=== PATIENT | female | born 1960 | race Caucasian/White ===

== ENCOUNTER → 2019-03-31 10:07 | Outpatient (CLI) | payer OTHER, SELFPAY ==
--- NOTE | ~2019-03-31 | CT_ITS ---
EXAMINATION: CT lung screening EXAM DATE: 03/31/2019 10:23 INDICATION: Personal history of nicotine dependence. TECHNIQUE: Spiral low dose CT of the chest without contrast. Axial, coronal and sagittal images were reviewed. The dose-length product (DLP) for this examination was 47.92 mGy-cm. The exposure was ta ilored according to patient size (auto mA exposure control), and iterative reconstruction (ASIR) was used as additional dose reduction technique. There is no prior study for comparison. FINDINGS: Pacemaker/AICD device. Tracheobronchial tree is patent. There is no mediastinal, hilar or axillary lymphadenopathy. There are no pleural or pericardial effusions. There is no pneumotho rax. Heart normal in size. There is mild coronary arterial calcification, arterial sclerosis. Th ere is 2 mm right superior calyceal stone. Upper abdomen is unremarkable. Old left rib fractures. Midthoracic mild to moderate chronic appearing compression fracture. Moderate emphysema. IMPRESSION: Lung-RADS category 1, negative (<1%chance of malignancy); recommend continued LDCT screen ing in 1 year. Reviewed, dictated and finalized at location B. PACKER OPERATOR IMPRESSION: Lung-RADS category 1, negative (<1%chance of malignancy); recommend continued LDCT screening in 1 year.
== END ==
PROVIDERS: PCP Internal Medicine; Visit Provider Internal Medicine
DX: Z12.2 Encounter for screening for malignant neoplasm of respiratory organs (principal); Z87.891 Personal history of nicotine dependence; Z95.0 Presence of cardiac pacemaker
CPT/HCPCS: G0297

== ENCOUNTER → 2019-12-28 11:20 | Outpatient (CLI) | payer OTHER, SELFPAY ==
--- NOTE | ~2019-12-28 | MM_ITS ---
EXAMINATION: MM screening [facility] BI w [facility] HISTORY: Screening mammogram TECHNIQUE: Craniocaudal and mediolateral oblique 3-D tomosynthesis images were obtained and synthetic 2-D images were generated. CAD analysis was submitted and interpreted. COMPARISON: 09/30/2018, 06/13/2017, 05/28/2016, 11/06/2015, 10/31/2015 BREAST PARENCHYMAL COMPOSITION: The breasts are extremely dense, which lowers the sensitivity of mamm ography. FINDINGS: There is no evidence of suspicious mass, calcification, or architectural distortion to sugg est malignancy in either breast. There has been no suspicious interval change. IMPRESSION: 1. No mammographic evidence of malignancy. 2. Recommend routine screening mammography in one year. BI-RADS Category 1: Negative Reviewed, dictated and finalized at location A. CKER
--- NOTE | ~2019-12-28 | DEXA_ITS ---
Bone Density Report Name: Melodie Barrera Age: 59 Sex: Female Ethnicity: White Date of : 1960 Indication: osteopenia; monitoring treatment; height loss; hysterectomy; postmenopausal Referring Provider: CARMEN CUETO Study: Bone densitometry was performed. Exam Date: December 28, 2019 Accession number: [id number] Bone Density: Region BMD T-score Z-score Classification AP Spine (L1-L4) 0.878 -1.5 -0.2 Osteopenia Femoral Neck (Left) 0.719 -1.2 0.0 Osteopenia Total Hip (Left) 0.756 -1.5 -0.7 Osteopenia Femoral Neck (Right) 0.648 -1.8 -0.6 Osteopenia Total Hip (Right) 0.702 -2.0 -1.1 Osteopenia Total Hip Mean 0.729 -1.8 -0.9 Osteopenia World Health Organization criteria for BMD impression classify patients as: Normal (T-score at or above -1.0), Osteopenia (T-score between -1.0 and -2.5), or Osteoporosis (T-score at or below -2.5). 10-year Fracture Risk: FRAX not reported because: Treated for osteoporosis Previous Exams: Region Exam Age BMD T-score BMD Change BMD Change Date g/cm2 vs Baseline vs Previous AP Spine(L1-L4) 12/28/2019 59 0.878 -1.5 0.034* -0.005 11/03/2017 57 0.882 -1.5 0.038* 0.038* 10/31/2015 55 0.844 -1.8 Total Hip(Left) 12/28/2019 59 0.756 -1.5 0.023 0.015 11/03/2017 57 0.741 -1.7 0.008 0.008 10/31/2015 55 0.733 -1.7 Total Hip(Right) 12/28/2019 59 0.702 -2.0 -0.003 -0.010 11/03/2017 57 0.712 -1.9 0.007 0.007 10/31/2015 55 0.705 -1.9 *Denotes significance at 95% confidence level, LSC for AP Spine = 0.022 g/cm2, LSC for Total Hip = 0.027 g/cm2 Clinical Information Provided by Patient: Smokes Has 3 or more alcoholic drinks per day Is being treated for osteoporosis Has used the following medications: Fosamax (i.e. alendronate), Vitamin D Has the following medical conditions: Hysterectomy Patient maximum height was 68 Menopause Age: 37 No regular weight bearing exercise Drinks caffeinated beverages Onset of menses at age 13 Number of children 1 Impression: The patient has low bone mass, based on the Right Total Hip T-score. The patient has risk factors, including: smoking, excessive alcohol use. No significant bone loss was observed. Discussion: PATIENT UNDER TREATMENT WITH NO SIGNIFICANT BMD LOSS SINCE LAST EXAM. In an untreated patient, BMD typically declines with ag
== END ==
PROVIDERS: Visit Provider Obstetrics & Gynecology Gynecology
DX: Z12.31 Encounter for screening mammogram for malignant neoplasm of breast (principal); Z78.0 Asymptomatic menopausal state; M85.852 Other specified disorders of bone density and structure, left thigh; M85.851 Other specified disorders of bone density and structure, right thigh
CPT/HCPCS: 77063; 77067; 77080

== ENCOUNTER → 2020-04-26 08:52 | Outpatient (CLI) | payer OTHER, SELFPAY ==
--- NOTE | ~2020-04-26 | CT_ITS ---
EXAMINATION: CT lung screening DATE: 04/26/2020 09:03 INDICATION: Personal history of tobacco dependence, current smoker with 40 pack year history TECHNIQUE: Computed tomography (CT) of the chest was performed without intravenous contrast. The dose -length product (DLP) was 50.07 mGy-cm. Automated exposure control and iterative reconstruction techn [employer] were employed. COMPARISON: 03/31/2019 FINDINGS: No suspicious pulmonary nodules are identified. There is moderate emphysema. The lungs are free of acute opacities. There is no pleural effusion or pneumothorax. The heart size is normal. A du al-lead pacemaker of the left chest wall ends with its leads in the right atrium and right ventricle. No pathologically enlarged thoracic lymph nodes are identified. Calcified coronary artery atheroscle rosis is noted. There is a 5 mm nonobstructing stone of the left kidney. There is an unchanged chroni c compression fracture T7. IMPRESSION: 1. Lung-RADS category 1: Negative. Continue annual screening with noncontrast low-dose chest CT in 12 months. Reviewed, dictated and finalized at location A. N WAFER MACHINE OPERATOR IMPRESSION: 1. Lung-RADS category 1: Negative. Continue annual screening with noncontrast l ow-dose chest CT in 12 months.
== END ==
PROVIDERS: PCP Internal Medicine; Visit Provider Internal Medicine
DX: Z12.2 Encounter for screening for malignant neoplasm of respiratory organs (principal); Z87.891 Personal history of nicotine dependence
CPT/HCPCS: 71271

== ENCOUNTER 2020-08-07 10:37 | Outpatient (CLI) | payer OTHER, SELFPAY ==
--- NOTE | ~2020-08-07 | XR_ITS ---
EXAMINATION: XR UGI w barium swallow DATE: 08/07/2020 11:18 INDICATION: Early satiety, nausea TECHNIQUE: The patient drank thick barium, gas-producing crystals, and thin barium. Conventional supi ne abdomen radiographs and fluoroscopy of the esophagus, stomach, and proximal small bowel were perfo rmed. Fluoroscopy exposure time was 1.6 minutes. The DAP for this procedure was 5.92 Gycm2. COMPARISON: None. FINDINGS: There is no mass or stricture of the esophagus. Esophageal motility is normal. There is no hiatal hernia. There was no gastroesophageal reflux with provocative maneuvers. The stomach and proxi mal small bowel show normal folding patterns. IMPRESSION: 1. No radiographic correlate for the patient's symptoms. Reviewed, dictated and finalized at location A.
== END 2020-08-07 10:38 | disposition home or self-care (01) ==
LOC: ANHIMG 10:41
PROVIDERS: PCP Internal Medicine; Visit Provider Internal Medicine
DX: R68.81 Early satiety (principal)
CPT/HCPCS: 74240

== ENCOUNTER 2020-12-12 07:30 | Outpatient (CLI) | payer OTHER, SELFPAY ==
--- NOTE | ~2020-12-12 | US_ITS ---
EXAMINATION: US abdomen complete EXAM DATE: 12/12/2020 08:05 INDICATION: R79.89 - Other specified abnormal findings of blood chemi... Abnormal labs. TECHNIQUE: Multiple grayscale and Doppler images of the complete abdomen were obtained (by a technolo gist who performed the scan) and subsequently reviewed. There is no prior study for comparison. FINDINGS: The abdominal aorta is normal in caliber. Visualized portion IVC is patent. The pancreatic head a nd body are normal in appearance. The pancreatic tail is not visualized. The liver has normal echogenicity and contour. There are several anechoic liver lesions consistent w ith cysts measuring up to 1.5 cm. There is no evidence of intrahepatic biliary duct dilation. Anamaria l venous flow was seen in the hepatopedal, normal direction and has normal Doppler waveform. Common bile duct measures 5 mm, which is normal. The gallbladder wall is normal in thickness, with ex pected amount of distention. No sonographic evidence of pericholecystic fluid. There is no cholelit hiases. Technologist performing exam reports patient did not demonstrate sonographic Macias's sign. Please note that this sign is less reliable in patients who have received pain medication. Right kidney: There is normal contour and echogenicity. It measures 11.3 x 4.9 x 5.0 centimeters. There are no focal renal lesions identified. There is no hydronephrosis. Left kidney: There is normal contour and echogenicity. It measures 10.7 x 5.4 x 4.8 centimeters. T here are no focal renal lesions identified. There is no hydronephrosis. The spleen measures 8.2 centimeters and is morphologically normal. IMPRESSION: 1. Unremarkable complete abdominal ultrasound exam. Reviewed, dictated and finalized at location B.
== END 2020-12-12 07:31 | disposition home or self-care (01) ==
LOC: ANHIMG 07:30
PROVIDERS: PCP Internal Medicine; Visit Provider Internal Medicine
DX: R79.89 Other specified abnormal findings of blood chemistry (principal)
CPT/HCPCS: 76700

== ENCOUNTER → 2020-12-25 15:43 | Outpatient (CLI) | payer OTHER, SELFPAY ==
--- NOTE | ~2020-12-25 | XR_ITS ---
EXAMINATION: XR chest 2V 12/25/2020 15:51 INDICATION: Acute upper respiratory infection PROCEDURE: 2 view chest COMPARISON: 01/17/2016 FINDINGS: The lungs are clear. The cardiomediastinal silhouette is within normal limits. There are no pleural effusions. There is no pneumothorax suspected. There is a chronic wedge compression defo rmity of a midthoracic vertebra. Pacemaker leads are stable. IMPRESSION: 1: NO ACUTE CARDIOPULMONARY DISEASE. Reviewed, dictated and finalized at location A. F ACCOUNTING OFFICER
== END ==
PROVIDERS: PCP Internal Medicine; Visit Provider Internal Medicine
DX: J06.9 Acute upper respiratory infection, unspecified (principal)
CPT/HCPCS: 71046

== ENCOUNTER → 2020-12-30 00:37 | Outpatient (CLI) | payer OTHER, SELFPAY ==
[2020-12-30 17:30] LABS: SARS-CoV-2 RNA PCR Negative
== END ==
PROVIDERS: PCP Internal Medicine; Visit Provider Internal Medicine
DX: Z20.822 Contact with and (suspected) exposure to COVID-19 (principal)
CPT/HCPCS: C9803; U0003; U0005

== ENCOUNTER 2021-03-16 15:48 | Outpatient (CLI) | payer OTHER, SELFPAY ==
--- NOTE | ~2021-03-16 | MM_ITS ---
EXAMINATION: MM screening [facility] HISTORY: Screening mammogram TECHNIQUE: Craniocaudal and mediolateral oblique 3-D tomosynthesis images were obtained and synthetic 2-D images were generated. CAD analysis was submitted and interpreted. COMPARISON: Screening 12/28/2019, screening 09/30/2018, diagnostic 06/13/2017 bilateral mammogram [facility] BREAST PARENCHYMAL COMPOSITION: The breasts are extremely dense, which lowers the sensitivity of mamm ography. FINDINGS: Bilateral scattered benign calcifications are again noted. There is no evidence of suspicio us mass, calcification, or architectural distortion to suggest malignancy in either breast. There has been no suspicious interval change. IMPRESSION: 1. No mammographic evidence of malignancy. 2. Recommend routine screening mammography in one year. BI-RADS Category 2: Benign finding(s). Reviewed, dictated and finalized at location A. 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
== END 2021-03-16 15:49 ==
LOC: MICIMG 15:48
PROVIDERS: Visit Provider Obstetrics & Gynecology Gynecology
DX: Z12.31 Encounter for screening mammogram for malignant neoplasm of breast (principal)
CPT/HCPCS: 77063; 77067

== ENCOUNTER → 2022-01-02 12:02 | Outpatient (CLI) | payer OTHER, SELFPAY ==
--- NOTE | ~2022-01-02 | DEXA_ITS ---
Bone Density Report Name: MAVIS OCAMPO Age: 61 Sex: Female Ethnicity: White Date of : 1960 Indication: osteopenia; height loss; asthma or emphysema; hysterectomy; postmenopausal Referring Provider: CARMEN CUETO Study: Bone densitometry was performed. Exam Date: January 02, 2022 Accession number: [id number] Bone Density: Region BMD T-score Z-score Classification AP Spine (L1-L4) 0.862 -1.7 -0.2 Osteopenia Femoral Neck (Left) 0.674 -1.6 -0.3 Osteopenia Total Hip (Left) 0.701 -2.0 -1.0 Osteopenia Femoral Neck (Right) 0.614 -2.1 -0.8 Osteopenia Total Hip (Right) 0.690 -2.1 -1.1 Osteopenia Total Hip Mean 0.696 -2.1 -1.1 Osteopenia World Health Organization criteria for BMD impression classify patients as: Normal (T-score at or above -1.0), Osteopenia (T-score between -1.0 and -2.5), or Osteoporosis (T-score at or below -2.5). 10-year Fracture Risk(1): Major Osteoporotic Fracture 12% Hip Fracture 3.2% Reported Risk Factors: [place] (), Neck BMD=0.614, BMI=21.8, smoking, alcohol use (1) FRAX(R) Version 3.08. Fracture probability calculated for an untreated patient. Fracture probability may be lower if the patient has received treatment. Previous Exams: Region Exam Age BMD T-score BMD Change BMD Change Date g/cm2 vs Baseline vs Previous AP Spine(L1-L4) 01/02/2022 61 0.862 -1.7 0.018 -0.016 12/28/2019 59 0.878 -1.5 0.034* -0.005 11/03/2017 57 0.882 -1.5 0.038* 0.038* 10/31/2015 55 0.844 -1.8 Total Hip(Left) 01/02/2022 61 0.701 -2.0 -0.031* -0.055* 12/28/2019 59 0.756 -1.5 0.023 0.015 11/03/2017 57 0.741 -1.7 0.008 0.008 10/31/2015 55 0.733 -1.7 Total Hip(Right) 01/02/2022 61 0.690 -2.1 -0.015 -0.011 12/28/2019 59 0.702 -2.0 -0.003 -0.010 11/03/2017 57 0.712 -1.9 0.007 0.007 10/31/2015 55 0.705 -1.9 *Denotes significance at 95% confidence level, LSC for AP Spine = 0.022 g/cm2, LSC for Total Hip = 0.027 g/cm2 Clinical Information Provided by Patient: Smokes Has 3 or more alcoholic drinks per day Has used the following medications: Vitamin D Has the following medical conditions: Asthma or Emphysema, Hysterectomy Patient maximum height was 68 Menopause Age: 37 No regular weight bearing exercise Drinks caffeinated beverages Onset of menses at age 13 [place]
== END ==
PROVIDERS: PCP Internal Medicine; Visit Provider Obstetrics & Gynecology Gynecology
DX: Z78.0 Asymptomatic menopausal state (principal); M85.89 Other specified disorders of bone density and structure, multiple sites
CPT/HCPCS: 77080

== ENCOUNTER 2022-01-16 15:24 | Outpatient (CLI) | payer OTHER, SELFPAY ==
--- NOTE | ~2022-01-16 | CT_ITS ---
EXAMINATION: CT lung screening DATE: 01/16/2022 15:54 INDICATION: Personal history of tobacco dependence. TECHNIQUE: Computed tomography (CT) of the chest was performed without intravenous contrast. The dose -length product was 73.10 mGy-cm. Automated exposure control and iterative reconstruction technique w ere employed. COMPARISON: CT dated 04/26/2020 FINDINGS: Heart size is normal. No significant pleural or pericardial effusion. No thoracic lymphaden opathy. There is a 3 mm nonobstructing right renal stone. There is emphysema. No endobronchial lesion s. No pneumothorax. There is lingular atelectasis. There are a few 1-2 mm nodules in the upper lobes. There is a 3 mm nodule in the left upper lobe, image 30. No focal consolidation. There is a chronic wedge compression fracture of T7. No focal lytic or blastic lesions. IMPRESSION: 1. Lung-RADS category 2: Benign appearance or behavior. Continue annual screening with noncontrast lo w-dose chest CT in 12 months. Reviewed, dictated and finalized at location A. PRESS OPERATOR APPRENTICE IMPRESSION: 1. Lung-RADS category 2: Benign appearance or behavior. Continue annual screeni ng with noncontrast low-dose chest CT in 12 months.
== END 2022-01-16 15:25 | disposition home or self-care (01) ==
PROVIDERS: PCP Internal Medicine; Visit Provider Internal Medicine
DX: Z12.2 Encounter for screening for malignant neoplasm of respiratory organs (principal); Z87.891 Personal history of nicotine dependence
CPT/HCPCS: 71271

== ENCOUNTER 2022-02-21 00:21 | Day surgery (SDC) | payer OTHER, SELFPAY ==
[2022-02-14 15:01] VITALS: BMI 21.4
[2022-02-21 07:38] VITALS: BP 98/60; PULSE 66; RESP 16; TEMP 36; O2SAT 98
[2022-02-21] MEDS: LACTATED RINGERS 1,000 ML 150 ML IV CONT (07:45)
--- NOTE | 2022-02-21 08:16 | PM.HPGS ---
History of Present Illness History of Present Illness Consent: Risks, benefits, and alternatives have been discussed and questions answered. Patient agrees to proceed with procedure. Chief complaint: rectal bleed Narrative: Melodie Barrera is a 61 year old female Presents for colonoscopy. Patient reports that 3 months ago she woke at night with abdominal pain. She passed a hard stool and subsequently noticed bright red blood per rectum the next day. This subsequently abated. She no longer has abdominal pain. Bowel habits are normal subsequently. Patient denies any weight loss or additional bleeding. Previous colonoscopy 2013 was unremarkable. Family history noncontributory. Review of Systems Review of Systems: Review of systems noncontributory. [facility] Past Medical History Medical History Pacemaker Pacemaker at end of battery life Social History Social History (Updated 01/02/22 @ 11:17 by Jovana Doherty MA) Smoking packs per day: 0.5 Smoking cigarettes per day: 10.0 Years smoked: 45 Smoking pack-years: 22.50 Smoking status: Current every day smoker Tobacco type: cigarettes Second hand tobacco smoke exposure: No Alcohol intake: current Drinks per week: 15 Alcohol use details: BEERS Substance use: never Substance use type: does not use Lack of Transportation: No Lack of Food: Never True Current Housing: I Have Housing Concerned About Future Housing: No Difficulty Paying Gas/Electric Bills: No Difficulty Paying for Meds: No Currently Unemployed: No Education: High School Diploma/GED Difficulty w/ Childcare or Family Care: No Living arrangements: with family Spiritual care concerns: No Meds Home Medications and Allergies Home Medications Medication Instructions Recorded Confirmed Type rivaroxaban 20 mg tablet (Xarelto) 20 mg PO DAILY 01/20/19 02/21/22 History sacubitril 97 mg-valsartan 103 mg 1 tablet PO BID 01/20/19 02/21/22 History tablet (Entresto) carvedilol 25 mg tablet 25 mg PO Q12H #90 tabs 10/20/19 02/21/22 Rx cholecalciferol (vitamin D3) 125 125 mcg PO DAILY 08/01/20 02/21/22 History mcg (5,000 unit) capsule budesonide 160 mcg-glycopyr 9 2 inh inhalation BID #10.7 grams 12/18/21 02/21/22 Rx mcg-formot 4.8 mcg/actuation HFA inhaler (Breztri Aerosphere) ezetimibe 10 mg tablet (Zetia) 10 mg PO DAILY #90 tabs 01/31/22 02/21/22 Rx duloxetine 60 mg capsule,delayed 60 mg PO DAILY 02/14/22 02/21/22 History release rosuvastatin 5 mg tablet 5 mg PO DAILY 02/14/22 02/21/22 History amlodipine 10 mg tablet 10 mg PO DAILY #90 tabs 02/20/22 02/21/22 Rx Allergies Allergy/AdvReac Type Severity Reaction Status Date / Time No Known Allergies Allergy Verified 02/21/22 07:36 Vital Signs Vital Signs - 24 hr 02/21/22 07:38 Temperature 96.8 F L Pulse Rate 66 Respiratory Rate 16 Blood Pressure 98/60 L Pulse Oximetry 98 Oxygen Delivery Room Air Exam Narrative: Physical exam reveals patient to be alert. Vital signs stable. HEENT exam is unremarkable. Patient is anicteric. Lungs are clear to auscultation and percussion. Heart is without murmur or extra sounds. Abdomen bowel sounds are present soft nontender with no organomegaly. Digital external rectal exam is normal. Assessment and Plan Assessment and plan (1) Blood in stool: Code(s): K92.1 - Melena Status: Acute Assessment and Plan: Patient had 1 episode of a hard stool with blood in the stool. Plan for colonoscopy to assess more thoroughly. Stool softener such as Metamucil or fiber supplements are encouraged . Differential diagnosis includes possible hemorrhoidal bleeding. Further recommendations may be given after endoscopy.
--- NOTE | 2022-02-21 08:27 | WPDANESEPPF ---
Anes - Initial Pre Proc Eval Procedure: Operation Date: 02/21/22 09:00 Proposed Procedures p Colonoscopy - Jevon Gutierrez MD Date/Time: 02/21/22 08:27 Surgeon: Jevon Gutierrez MD Pre Op Diagnosis: rectal bleed Patient Data Age: 61 Gender: F Height: 1.7 m Weight: 61.7 kg Last Vital Signs Temp 96.8 F L 02/21/22 07:38 Pulse 66 02/21/22 07:38 Resp 16 02/21/22 07:38 BP 98/60 L 02/21/22 07:38 Pulse Ox 98 02/21/22 07:38 O2 Del Method Room Air 02/21/22 07:38 Allergies Allergy/AdvReac Type Severity Reaction Status Date / Time No Known Allergies Allergy Verified 02/21/22 07:36 Home Medications Medication Instructions Recorded Confirmed Type rivaroxaban 20 mg tablet (Xarelto) 20 mg PO DAILY 01/20/19 02/21/22 History sacubitril 97 mg-valsartan 103 mg 1 tablet PO BID 01/20/19 02/21/22 History tablet (Entresto) carvedilol 25 mg tablet 25 mg PO Q12H #90 tabs 10/20/19 02/21/22 Rx cholecalciferol (vitamin D3) 125 125 mcg PO DAILY 08/01/20 02/21/22 History mcg (5,000 unit) capsule budesonide 160 mcg-glycopyr 9 2 inh inhalation BID #10.7 grams 12/18/21 02/21/22 Rx mcg-formot 4.8 mcg/actuation HFA inhaler (Breztri Aerosphere) ezetimibe 10 mg tablet (Zetia) 10 mg PO DAILY #90 tabs 01/31/22 02/21/22 Rx duloxetine 60 mg capsule,delayed 60 mg PO DAILY 02/14/22 02/21/22 History release rosuvastatin 5 mg tablet 5 mg PO DAILY 02/14/22 02/21/22 History amlodipine 10 mg tablet 10 mg PO DAILY #90 tabs 02/20/22 02/21/22 Rx Patient hx anesthesia problems: none Family hx anesthesia problems: none Results Review: All pre-operative results and documents have been reviewed as part of the pre-operative evaluation. [facility] Past Medical History Medical History Pacemaker Pacemaker at end of battery life Social History Social History (Updated 01/02/22 @ 11:17 by Jovana Doherty MA) Smoking packs per day: 0.5 Smoking cigarettes per day: 10.0 Years smoked: 45 Smoking pack-years: 22.50 Smoking status: Current every day smoker Tobacco type: cigarettes Second hand tobacco smoke exposure: No Alcohol intake: current Drinks per week: 15 Alcohol use details: BEERS Substance use: never Substance use type: does not use Lack of Transportation: No Lack of Food: Never True Current Housing: I Have Housing Concerned About Future Housing: No Difficulty Paying Gas/Electric Bills: No Difficulty Paying for Meds: No Currently Unemployed: No Education: High School Diploma/GED Difficulty w/ Childcare or Family Care: No Living arrangements: with family Spiritual care concerns: No Anes - Eval Final PreProcedure Day of Procedure 02/21/22 08:27 Patient weight: normal Heart: regular rate and rhythm Lungs: clear to auscultation Airway: Mallampati scale class II Neurological: alert and oriented Last oral intake: >/= 8 hours ASA classification: III Emergent: no Anesthetic plan: proceed Anesthesia type and monitoring: general GIVS and standard monitoring Results Review: All pre-operative results and documents have been reviewed as part of the pre-operative evaluation. Informed Consent: The patient's anesthetic plan and its attendant risks and benefits were discussed with the patient/family/POA. Questions were solicited and answers provided to the satisfaction of the patient/family/POA.
[2022-02-21 09:20] VITALS: BP 88/48; PULSE 70; RESP 19; O2SAT 96
[2022-02-21 09:30] VITALS: BP 121/71; PULSE 68; RESP 27; O2SAT 97
[2022-02-21 09:40] VITALS: BP 126/75; PULSE 70; RESP 20; O2SAT 97
== END 2022-02-21 09:49 | disposition home or self-care (01) ==
PROVIDERS: PCP Internal Medicine; Visit Provider Internal Medicine Gastroenterology
PROC: 0DJD8ZZ Inspection of Lower Intestinal Tract, Via Natural or Artificial Opening Endoscopic (ICD-10-PCS; CPT 45378; principal; 2022-02-21 09:00)
DX: K64.8 Other hemorrhoids (principal); Z95.0 Presence of cardiac pacemaker; F17.210 Nicotine dependence, cigarettes, uncomplicated
CPT/HCPCS: 45378; J2704; J7120

== ENCOUNTER → 2022-04-17 15:40 | Outpatient (CLI) | payer OTHER, SELFPAY ==
--- NOTE | ~2022-04-17 | MM_ITS ---
EXAMINATION: MM screening [facility] BI w [facility] HISTORY: Screening mammogram TECHNIQUE: Craniocaudal and mediolateral oblique 3-D tomosynthesis images were obtained and synthetic 2-D images were generated. CAD analysis was submitted and interpreted. COMPARISON: 03/16/2021, 12/28/2019, 09/30/2018 bilateral screening mammogram examinations BREAST PARENCHYMAL COMPOSITION: The breasts are extremely dense, which lowers the sensitivity of mamm ography. FINDINGS: Pacemaker device overlies the left axillary region. Occasional bilateral benign calcificati ons. Bilateral breast masses are suggested. Bilateral diagnostic mammography and bilateral breast ultrasou nd examination are recommended. IMPRESSION: 1. Very dense breast, with suggestion of possible bilateral breast masses 2. Bilateral diagnostic mammography and breast ultrasound examination are recommended BI-RADS Category 0: Incomplete: Needs additional imaging evaluation. Reviewed, dictated and finalized at location A. 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 Very dense breast, with suggestion of possible bilateral breast masses 2. Bilateral diagnostic mammography and breast ultrasound examination are recom mended BI-RADS Category 0: Incomplete: Needs additional imaging evaluation.
== END ==
PROVIDERS: PCP Obstetrics & Gynecology Gynecology; Visit Provider Obstetrics & Gynecology Gynecology
DX: Z12.31 Encounter for screening mammogram for malignant neoplasm of breast (principal); R92.8 Other abnormal and inconclusive findings on diagnostic imaging of breast
CPT/HCPCS: 77063; 77067

== ENCOUNTER → 2022-05-15 07:38 | Outpatient (CLI) | payer OTHER, SELFPAY ==
--- NOTE | ~2022-05-15 | MMUS_ITS ---
EXAMINATION: MM diagnostic [facility] w [facility], US breast BI complete HISTORY: Follow-up bilateral breast asymmetries. TECHNIQUE: Additional 3-D tomosynthesis images of the breasts were performed and synthetic 2-D images were generated. CAD analysis was submitted and interpreted. High resolution bilateral complete breas t ultrasound was performed. COMPARISON: Comparison to multiple prior studies sequentially, with oldest reviewed study dated 06/13. BREAST PARENCHYMAL COMPOSITION: The breasts are extremely dense, which lowers the sensitivity of mamm ography FINDINGS: MAMMOGRAPHIC FINDINGS: There are no suspicious masses, calcifications or architectural distortion in either breast to sugges t malignancy. ULTRASOUND: Complete bilateral US of all 4 quadrants of the breasts and retroareolar region was reviewed. No susp icious masses in either breast to suggest malignancy. There is a 5 mm cyst in the left breast at 6:00 . IMPRESSION: 1. No evidence for malignancy in either breast. 2. Routine yearly screening mammogram and regular clinical breast examination are recommended. BI-RADS Category 2: Benign finding(s). Reviewed, dictated and finalized at location A. IMPRESSION: 1. No evidence for malignancy in either breast. 2. Routine yearly screening mammogram and regular clinical breast examination a re recommended. BI-RADS Category 2: Benign finding(s).
== END ==
PROVIDERS: PCP Obstetrics & Gynecology Gynecology; Visit Provider Obstetrics & Gynecology Gynecology
DX: R92.8 Other abnormal and inconclusive findings on diagnostic imaging of breast (principal)
CPT/HCPCS: 76641; 77062; 77066; G0279

== ENCOUNTER 2022-06-16 13:10 | Inpatient (IN) | payer OTHER, SELFPAY ==
[2022-06-16] VITALS (36 sets, daily range): BP systolic 73–108; BP diastolic 49–73; PULSE 64–87; RESP 11–31; TEMP 36.8–37.1; O2SAT 89–100; BMI 23.1
--- NOTE | ~2022-06-16 | XR_ITS ---
EXAMINATION: XR chest 2V DATE: 06/16/2022 14:02 INDICATION: Cough, congestion and fever TECHNIQUE: PA and lateral views of the chest were obtained. COMPARISON: Chest radiograph dated 12/25/[address] dated 01/16/2022 FINDINGS: Upper expansion of lungs with increased lucency and architectural distortion in the upper lung zones consistent with emphysema better appreciated on prior CT. New consolidation at the right lung base co nsistent with pneumonia. Likely associated small right pleural effusion with blunting at the posterio r sulcus. No pulmonary edema pneumothorax or left pleural effusion. The cardiomediastinal silhouette is normal. Dual lead pacemaker/AICD seen with leads projecting over the expected locations of the rig ht atrium and right ventricle. Couple old bilateral rib fractures. IMPRESSION: 1. New consolidation at the right lung base consistent with pneumonia with associated small right ple ural effusion. 2. Emphysema. Reviewed, dictated and finalized at location A. IMPRESSION: 1. New consolidation at the right lung base consistent with pneumonia with asso ciated small right pleural effusion. 2. Emphysema.
[2022-06-16] MEDS: SODIUM CHLORIDE 0.9% IV 1,000 ML 999 ML IV CONT ×2 (13:45→15:23)
[2022-06-16 13:52] LABS: Basophils Percent Auto 0.2 % (0.2-1.2); Eosinophils Percent Auto 0.2 % (0-4.4); Hematocrit 39.7 % (37.0-47.0); Hemoglobin 13.3 g/dL (12.0-15.0); Immature Granulocyte Absolute 0.05 K/mm3 (0.00-0.031); Immature Granulocyte Percent A 0.4 % (0-0.5); Lymphocytes Absolute Auto 1.29 K/mm3 (0.9-3.2); Lymphocytes Percent Auto 10.1 % (18.3-44.2); Mean Corpuscular HGB Conc 33.5 g/dl (32-36); Mean Corpuscular Hemoglobin 33.2 pg (26-34); Mean Platelet Volume 9.2 fl (7.4-10.4); Monocytes Absolute Auto 1.5 K/mm3 (0.1-0.6); Monocytes Percent Auto 11.6 % (2.6-8.5); Neutrophils Absolute Auto 9.9 K/mm3 (1.3-6.7); Neutrophils Percent Auto 77.5 % (45.5-73.1); Platelet Count Result 319 k/mm3 (150-375); Red Blood Count 4.01 M/mm3 (4.2-5.4); Red Cell Distribution Width 11.9 % (11.5-14.5); White Blood Count 12.8 K/mm3 (4.5-10.0)
[2022-06-16 14:02] LABS: Alanine Aminotransferase 23 U/L (6-35); Albumin Level 3.8 g/dL (3.5-5.1); Alkaline Phosphatase 79 U/L (38-126); Anion Gap 3 mmol/L (8-16); Aspartate Amino Transferase 36 U/L (14-36); Bilirubin,Total 0.7 mg/dL (0.2-1.3); Blood Urea Nitrogen 12 mg/dL (7-17); Calcium 8.1 mg/dL (8.4-10.2); Carbon Dioxide 31 mmol/L (22-30); Chloride 95 mmol/L (98-107); Estimated CRCL calculation 79 ml/min; Estimated Glomerular Filt Rate > 60; Glucose 139 mg/dL (65-110); Potassium 3.7 mmol/L (3.4-5.0); Sodium 129 mmol/L (137-145)
--- NOTE | 2022-06-16 14:19 | ECG_ITS ---
Measurements Intervals [place] Rate: 80 P: 61 VT: 163 QRS: 63 QRSD: 99 T: 67 QT: 371 QTc: 428 Interpretive Statements SINUS RHYTHM T WAVE ABNORMALITY- CONSIDER ANTERIOR ISCHEMIA BASELINE ARTIFACT- I, II, III, AVR, AVL, AVF ABNORMAL ECG NO PREVIOUS ECG AVAILABLE FOR COMPARISON Electronically Signed On 06-17-2022 6:31:30 CDT by Chuck Lima D.O.
--- NOTE | 2022-06-16 14:28 | ED.URI ---
HPI - URI/Sore Throat General Chief Complaint: Upper Respiratory Infection <NORMA Beal Last Filed: 06/16/22 19:02> Stated Complaint: Headache, fever, congestion <NORMA Beal Last Filed: 06/16/22 19:02> Time Seen by Provider: 06/16/22 13:34 <NORMA Beal Last Filed: 06/16/22 19:02> Source: patient and old records reviewed <NORMA Beal Last Filed: 06/16/22 19:02> Mode of arrival: ambulatory <NORMA Beal Last Filed: 06/16/22 19:02> Limitations: no limitations <NORMA Beal Last Filed: 06/16/22 19:02> History of Present Illness HPI Narrative: Patient is a 61 y/o female, with PMH of CHF, COPD/emphysema still smoking, pacemaker/AICD, who presents to the ED with c/o cough and congestion. Patient reports she just feels unwell. She reports having chest congestion, productive cough, weakness, headache, subjective fevers for the last 3 days. She has been taking Tylenol for her symptoms. Denies any sick contacts. She has had mild shortness of breath, worse with ambulating, but denies chest pain, hemoptysis, palpitations, nausea, vomiting, sore throat, abdominal pain. Patient is on Xarelto d/t Hx of afib. <NORMA Beal Last Filed: 06/16/22 19:02> Related Data Home Medications: Home Medications Medication Instructions Recorded Confirmed rivaroxaban 20 mg tablet (Xarelto) 20 mg PO DAILY 01/20/19 02/21/22 sacubitril 97 mg-valsartan 103 mg 1 tablet PO BID 01/20/19 02/21/22 tablet (Entresto) cholecalciferol (vitamin D3) 125 125 mcg PO DAILY 08/01/20 02/21/22 mcg (5,000 unit) capsule duloxetine 60 mg capsule,delayed 60 mg PO DAILY 02/14/22 02/21/22 release <Gia Chadwick PA-C - Last Filed: 06/16/22 19:02> Allergies/Adverse Reactions: Allergies Allergy/AdvReac Type Severity Reaction Status Date / Time No Known Allergies Allergy Verified 06/16/22 13:11 <Gia Chadwick PA-C - Last Filed: 06/16/22 19:02> Review of Systems Review of Systems: CONSTITUTIONAL: See HPI. ENT: See HPI. CARDIOVASCULAR: See HPI. RESPIRATORY: See HPI. GASTROINTESTINAL: Denies abdominal pain, nausea, vomiting, or diarrhea. GENITOURINARY: Denies dysuria or hematuria. MUSCULOSKELETAL: Denies back pain, joint pain, or myalgia. NEUROLOGIC: See HPI. <Gia Chadwick PA-C - Last Filed: 06/16/22 19:02> All systems reviewed & are unremarkable except as noted in HPI and below <Gia Chadwick PA-C - Last Filed: 06/16/22 19:02> [facility] Past Medical History Medical History: Medical History CHF (congestive heart failure) COPD (chronic obstructive pulmonary disease) Depression Essential hypertension Hyperlipidemia Pacemaker Pacemaker at end of battery life Paroxysmal A-fib <Gia Chadwick PA-C - Last Filed: 06/16/22 19:02> Surgical History Surgical History: Surgical History AICD (automatic cardioverter/defibrillator) present H/O cardiac catheterization H/O colonoscopy History of partial hysterectomy History of tonsillectomy and adenoidectomy <Gia Chadwick PA-C - Last Filed: 06/16/22 19:02> Family History Family History: Family History (Updated 06/16/22 @ 17:55 by Lillian Dan NP) Mother Cerebrovascular accident Father Heart disease Sibling Sepsis <Gia Chadwick PA-C - Last Filed: 06/16/22 19:02> Social History Social History: Social History Social History: She has one son who is in the [employer] . She is . She is working at [employer] in [place]. poa it is her son and her friend Kasey Rasmussen code status : full code Smoking packs per day: 0.5 Smoking cigarettes per day: 10.0 Years smoked
[2022-06-16 14:55] LABS: Lactic Acid Reflex 0.8 mmol/L (0.7-2.0)
[2022-06-16 14:57] LABS: Partial Thromboplastin Time 47.5 SECONDS (22.3-36.8)
[2022-06-16 15:00] LABS: INR 1.4; Prothrombin Time 17.6 Seconds (11.1-14.7)
[2022-06-16 15:06] LABS: NT Pro B Type Natriuretic Pept 467 pg/mL (19.9-100); Troponin I < 0.012 ng/mL (0.000-0.034)
[2022-06-16] MEDS: LEVALBUTEROL NEB 1.25 MG/3 ML 2.5 MG INHALATION (15:07)
[2022-06-16] MEDS: IPRATROPIUM BR 0.02% INH SOLN 0.5 MG/2.5 ML VIAL 1.5 MG INHALATION (15:07)
[2022-06-16 15:17] LABS: Strep Group A RT-PCR NOT DETECTED (Negative)
[2022-06-16 15:28] LABS: Influenza A QL RT-PCR Negative (Negative); Influenza B QL RT-PCR Negative (Negative); SARS-CoV-2 RNA PCR Negative (Negative)
[2022-06-16] MEDS: NOREPINEPHRINE 8 MG/D5W 250 ML 8 MG/250 ML BAG 9.38 MG IV CONT (17:41)
--- NOTE | 2022-06-16 17:47 | PM.IMHP ---
H&P: HPI History of Present Illness Date/Time: 06/16/22 17:47 Chief Complaint: Upper respiratory infection Narrative: This is 61-year-old female patient has history of congestive heart failure, COPD and emphysema as well as tobacco abuse. The patient has been complaining of a cough and congestion for at least the. The patient stated that it has been waxing and the waning. The patient stated that Friday she thought she was turning around and feeling better. However last night she felt horrible. She stated that she had a terrible headache. She took Tylenol for her symptoms. She denies any sick contacts. She has some mild shortness of breath. Her shortness of breath was worse with ambulating. She does not wear any oxygen at home. She denied any nausea vomiting or diarrhea. She is on Xarelto for history of AFib. She has multiple bruises to her bilateral arms. Her white count was found to be 12.8. Neutrophil percentage 97.5. Lymph percentage 10.1. Sodium is 129.The patient stated that she has been drinking a lot a water to thin out her secretions. She continued to take her home medications today. Her BNP is 467. She was negative for influenza a B RSV and COVID. Chest x-ray was read as new consolidation at the right lung base consistent with pneumonia with associated small right pleural effusion. Emphysema. The patient was given IV fluids, IV Tylenol, normal saline, a azithromycin, Rocephin, and DuoNeb treatment. Patient had blood pressures that were 73/53. Regardless of IV fluids her blood pressure did not return back to normal. A central line was placed in the right femoral area per ED provider. The patient was started on Levophed. Her blood pressures come up to 91/66. The treatment plant operator was notified and the patient will be admitted to ICU. The patient is awake and talking. The patient is being admitted to observation status on the date of service of 06/16/2022. Review of Systems Review of Systems: All systems reviewed & are unremarkable except as noted in HPI and below Constitutional: Constitutional: Reports as per HPI and Reports no additional constitutional complaints Eyes: Eyes: Reports as per HPI and Reports no additional eye complaints ENT: Reports system reviewed and no additional complaints, except as documented and Reports Normal hearing present Cardiovascular: Cardiovascular: Reports no additional cardiovascular complaints Respiratory: Respiratory: Reports no additional respiratory complaints and Reports no additional respiratory complaints Gastrointestinal: Gastrointestinal: Reports as per HPI and Reports no additional gastrointestinal complaints Musculoskeletal: Musculoskeletal: Reports no additional musculoskeletal complaints Integumentary/Breasts: Skin/Breast: Reports system reviewed and no additional complaints, except as docu and Reports as per HPI Neurologic: Reports system reviewed and no additional complaints, except as documented, Reports as per HPI and Reports Normal hearing present Psychiatric: Psychiatric: Reports no additional psychiatric complaints and Reports as per HPI Endocrine: Endocrine: Reports no additional endocrine complaints Hematologic/Lymphatic: Hematologic/Lymphatic: Reports no additional hematologic/lymphatic complaints Allergic/Immunologic: Allergic/Immunologic: Reports no additional allergic/immunologic complaints [facility] Past Medical History Medical History (Updated 06/16/22 @ 18:50 by Lillian Dan NP) CHF (congestive heart failure) COPD (chronic obstructive pulmonary disease) Depression Essential hypertension Hyperlipidemia Pacemaker Pacemaker at end of battery life Paroxysmal A-fib Surgical History Surgical History (Updated 06/16/22 @ 18:51 by Lillian Dan NP) AICD (automatic cardioverter/defibrillator) present H/O cardiac catheterization H/O colonoscopy History of partial hysterectomy History of tonsillectomy and adenoidectomy Family History Fami
[2022-06-16 19:35] LABS: Anion Gap 3 mmol/L (8-16); Blood Urea Nitrogen 12 mg/dL (7-17); Carbon Dioxide 28 mmol/L (22-30); Chloride 99 mmol/L (98-107); Estimated CRCL calculation 93 ml/min; Estimated Glomerular Filt Rate > 60; Glucose 129 mg/dL (65-110); Potassium 3.7 mmol/L (3.4-5.0); Sodium 130 mmol/L (137-145)
[2022-06-16] MEDS: SODIUM CHLORIDE 0.9% IV 1,000 ML 75 ML IV CONT (20:06)
[2022-06-16 20:10] LABS: Sodium Urine Random < 5 meq/L
[2022-06-16] MEDS: LEVALBUTEROL NEB 1.25 MG/3 ML 0.63 MG INHALATION (21:20)
[2022-06-16] MEDS: IPRATROPIUM BR 0.02% INH SOLN 0.5 MG/2.5 ML VIAL INHALATION (21:20)
[2022-06-17] VITALS (24 sets, daily range): BP systolic 94–130; BP diastolic 65–76; PULSE 73–111; RESP 17–25; TEMP 36.2–39.4; O2SAT 90–100
[2022-06-17] MEDS: KETOROLAC 15 MG/ML VIAL (*BKC) IV PUSH (00:34)
[2022-06-17 00:59] LABS: Anion Gap 4 mmol/L (8-16); Blood Urea Nitrogen 10 mg/dL (7-17); Calcium 7.2 mg/dL (8.4-10.2); Carbon Dioxide 30 mmol/L (22-30); Chloride 100 mmol/L (98-107); Estimated CRCL calculation 93 ml/min; Estimated Glomerular Filt Rate > 60; Glucose 166 mg/dL (65-110); Potassium 3.3 mmol/L (3.4-5.0); Sodium 134 mmol/L (137-145)
[2022-06-17] MEDS: ACETAMINOPHEN 500 MG TABLET 1000 MG PO ×2 (05:39→18:39)
[2022-06-17 05:58] LABS: Basophils Percent Auto 0.2 % (0.2-1.2); Eosinophils Percent Auto 0.2 % (0-4.4); Hematocrit 34.3 % (37.0-47.0); Hemoglobin 11.3 g/dL (12.0-15.0); Immature Granulocyte Absolute 0.05 K/mm3 (0.00-0.031); Immature Granulocyte Percent A 0.4 % (0-0.5); Lymphocytes Absolute Auto 0.81 K/mm3 (0.9-3.2); Lymphocytes Percent Auto 6.9 % (18.3-44.2); Mean Corpuscular HGB Conc 32.9 g/dl (32-36); Mean Corpuscular Hemoglobin 33.2 pg (26-34); Mean Corpuscular Volume 100.9 fl (80-100); Monocytes Absolute Auto 1.2 K/mm3 (0.1-0.6); Monocytes Percent Auto 10.2 % (2.6-8.5); Neutrophils Absolute Auto 9.7 K/mm3 (1.3-6.7); Neutrophils Percent Auto 82.1 % (45.5-73.1); Platelet Count Result 305 k/mm3 (150-375); Red Cell Distribution Width 11.8 % (11.5-14.5); White Blood Count 11.8 K/mm3 (4.5-10.0)
[2022-06-17 06:05] LABS: Lactic Acid Reflex 0.7 mmol/L (0.7-2.0)
[2022-06-17 06:13] LABS: Alanine Aminotransferase 21 U/L (6-35); Albumin Level 3.4 g/dL (3.5-5.1); Alkaline Phosphatase 80 U/L (38-126); Anion Gap 2 mmol/L (8-16); Aspartate Amino Transferase 28 U/L (14-36); Bilirubin,Total 0.5 mg/dL (0.2-1.3); Blood Urea Nitrogen 8 mg/dL (7-17); Calcium 7.5 mg/dL (8.4-10.2); Carbon Dioxide 29 mmol/L (22-30); Chloride 103 mmol/L (98-107); Estimated CRCL calculation 114 ml/min; Estimated Glomerular Filt Rate > 60; Glucose 126 mg/dL (65-110); Magnesium 2.2 mg/dL (1.6-2.3); Potassium 3.3 mmol/L (3.4-5.0); Sodium 134 mmol/L (137-145)
[2022-06-17] MEDS: LEVALBUTEROL NEB 1.25 MG/3 ML 0.63 MG INHALATION ×3 (07:25→20:57)
[2022-06-17] MEDS: IPRATROPIUM BR 0.02% INH SOLN 0.5 MG/2.5 ML VIAL INHALATION ×3 (07:25→20:57)
[2022-06-17] MEDS: FLUTICASONE/UMECLIDIN/VILANTER 100-62.5-25 MCG ELLIPTA 1 PUFF INHALATION (07:42)
[2022-06-17] MEDS: EZETIMIBE 10 MG TABLET PO (08:11)
[2022-06-17] MEDS: DULoxetine HCL 60 MG CAPSULE.DR PO (08:11)
[2022-06-17] MEDS: ROSUVASTATIN 5 MG TABLET PO (08:11)
[2022-06-17] MEDS: POTASSIUM CHLORIDE 20 MEQ PACKET (FOR LIQUID) 40 MEQ PO (09:23)
[2022-06-17] MEDS: BENZONATATE 100 MG CAPSULE PO ×2 (09:29→18:40)
[2022-06-17] MEDS: SODIUM CHLORIDE 0.9% IV 1,000 ML 75 ML IV CONT ×2 (09:45→20:33)
--- NOTE | 2022-06-17 10:20 | WPDCNINT ---
Assessment and Plan Assessment and plan (1) Septic shock: Code(s): A41.9 - Sepsis, unspecified organism; R65.21 - Severe sepsis with septic shock Status: Acute Assessment and Plan: Septic shock secondary to COVID acquired pneumonia Blood cultures have been sent and pending Check urine Legionella pneumococcal antigen Influenza COVID and group A strep were negative Continue Rocephin azithromycin Patient received 2 L of fluid bolus and maintenance fluids. Has history of CHF hence will need caution with IV fluids Continue Levophed titration to maintain mean arterial pressure (2) CHF (congestive heart failure): Qualifiers: Heart failure type: combined systolic and diastolic Heart failure chronicity: chronic Qualified Code(s): I50.42 - Chronic combined systolic (congestive) and diastolic (congestive) heart failure Code(s): I50.9 - Heart failure, unspecified Status: Acute Assessment and Plan: History of congestive failure with EF 50-55% She has AICD pacemaker placement Chest x-ray does not show any pulmonary edema Continue cautious amount of IV fluid (3) COPD (chronic obstructive pulmonary disease): Qualifiers: COPD type: unspecified COPD Qualified Code(s): J44.9 - Chronic obstructive pulmonary disease, unspecified Code(s): J44.9 - Chronic obstructive pulmonary disease, unspecified Status: Acute Assessment and Plan: Not in exacerbation Continue bronchodilators (4) Paroxysmal A-fib: Code(s): I48.0 - Paroxysmal atrial fibrillation Status: Acute Assessment and Plan: Currently in sinus rhythm Continue Xarelto Coreg held due to shock (5) Pneumonia: Qualifiers: Laterality: right Lung location: lower lobe of lung Pneumonia type: due to unspecified organism Qualified Code(s): J18.9 - Pneumonia, unspecified organism Code(s): J18.9 - Pneumonia, unspecified organism Status: Acute Assessment and Plan: Since see above (6) Smoking: Code(s): F17.200 - Nicotine dependence, unspecified, uncomplicated Status: Acute Assessment and Plan: Patient was encouraged and counseled to quit smoking. Patient does not appear at this yes take about 6 quitting smoking at this time (7) Electrolyte abnormality: Code(s): E87.8 - Other disorders of electrolyte and fluid balance, not elsewhere classified Status: Acute Assessment and Plan: Replace low potassium Plan DVT prophylaxis -Xarelto Nutrition -diet ordered Code Status - Full Code Total Critical Care Time - 35 minutes Due to a high probability of clinically significant, life threatening deterioration, the patient required my highest level of preparedness to intervene emergently and I personally spent this critical care time directly and personally managing the patient. This critical care time included obtaining a history; examining the patient; pulse oximetry; ordering and review of studies; arranging urgent treatment with development of a management plan; evaluation of patient's response to treatment; frequent reassessment; and discussions with other providers. It was exclusive of separately billable procedures and treating other patients and teaching time. Please see Assessment and Plan section and the rest of the note for further information on patient assessment and treatment Licensed Marriage And Family Therapist Consult Note Consult date: 06/17/22 Reason for consult: Septic shock, pneumonia HPI: Melodie Barrera is a 61 year old female with past medical history of congestive heart failure, COPD and emphysema as well as continued tobacco abuse presented yesterday to ER with chief complaint cough shortness of breath and fever. Patient states that from last 3-4 days she has been having upper respiratory tract infection symptoms. She was having cough which was assisted with clear sputum, fever, shortness of breath on exertion. He was also having head
[2022-06-17] MEDS: POTASSIUM CHLORIDE 20 MEQ TABLET 40 MEQ PO (14:52)
[2022-06-17] MEDS: CENTRAL LINE FLUSH 10 ML IV PUSH ×3 (14:52→20:32)
--- NOTE | 2022-06-17 17:15 | PM.IMPN ---
Progress Note: A&P Assessment and Plan (1) Pneumonia: Qualifiers: Laterality: right Lung location: lower lobe of lung Pneumonia type: due to unspecified organism Qualified Code(s): J18.9 - Pneumonia, unspecified organism Code(s): J18.9 - Pneumonia, unspecified organism Status: Acute Assessment and Plan: Continue with Rocephin and azithromycin Sputum and blood cultures are pending Patient had septic shock had a central line placed and was placed on vasopressors Human Services Program Specialist has been consulted. Tailor antibiotics according to cultures Continue with nebulizer treatments Monitor lactic White count is 12.8. Continue to monitor CBC Lactic is 0.8. 06/17/2022 interval history: Patient with history COPD emphysema and congestive heart failure presented with a shortness of breath and hypotension suspect septic shock secondary to pneumonia patient was gently hydrated as patient has a history of CHF, was placed on Levophed blood pressure is trending up and off Levophed patient is clinically stable now and being transferred out of ICU, is being treated with ceftriaxone and azithromycin, will continue to monitor will have a PT OT evaluate the patient. (2) Septic shock: Code(s): A41.9 - Sepsis, unspecified organism; R65.21 - Severe sepsis with septic shock Status: Acute Assessment and Plan: Patient is hypotensive and was placed on vasopressors. She was placed in the intensive care unit. She has mild leukocytosis. The patient stated that she did take her blood pressure medication at home this morning. Her creatinine is normal. Continue to gently hydrate as she does have a history of congestive heart failure. (3) CHF (congestive heart failure), NYHA class I: Code(s): I50.9 - Heart failure, unspecified Status: Acute Assessment and Plan: Patient typically takes Entresto but this will be on hold at this time. Hold Coreg due to hypotension (4) Hyponatremia: Code(s): E87.1 - Hypo-osmolality and hyponatremia Status: Acute Assessment and Plan: Patient stated that she to drink a lot of water which may have caused water intoxication. The patient also has congestive heart failure. Repeat BMP now and again in 4 hours and again in the morning. (5) COPD (chronic obstructive pulmonary disease): Qualifiers: COPD type: unspecified COPD Qualified Code(s): J44.9 - Chronic obstructive pulmonary disease, unspecified Code(s): J44.9 - Chronic obstructive pulmonary disease, unspecified Status: Acute Assessment and Plan: Continue with nebulizer treatments and inhalers from home. (6) Paroxysmal A-fib: Code(s): I48.0 - Paroxysmal atrial fibrillation Status: Acute Assessment and Plan: Patient is rate controlled at this time. Her Coreg is hold at this time due to her hypo tension The patient is on Xarelto. (7) Tobacco use: Code(s): Z72.0 - Tobacco use Status: Acute Assessment and Plan: I did offer her nicotine patch but she has declined at this time. Subjective Date/time seen: 06/17/22 17:15 Interval history: Upper respiratory infection HPI-Narrative: This is 61-year-old female patient has history of congestive heart failure, COPD and emphysema as well as tobacco abuse.? The patient has been complaining of a cough and congestion for at least the.? The patient stated that it has been waxing and the waning.? The patient stated that Friday she thought she was turning around and feeling better.? However last night she felt horrible.? She stated that she had a terrible headache.? She took Tylenol for her symptoms.? She denies any sick contacts.? She has some mild shortness of breath.? Her shortness of breath was worse with ambulating.? She does not wear any oxygen at home.? She denied any nausea vomiting or diarrhea.? She is on Xarelto for history of AFib.? She has multiple bruises to her bilateral arms.? Her wh
[2022-06-17] MEDS: RIVAROXABAN 20 MG TABLET PO (17:19)
--- NOTE | 2022-06-17 17:30 | PC.NURSE ---
This patient, Melodie Barrera, was transferred to [[id number]] on 06/17/22 at 1730. Personal belongings sent with patient. Report given to [oma sevilla]. Appropriate documentation sent with patient.
[2022-06-18] VITALS (16 sets, daily range): BP systolic 111–134; BP diastolic 64–73; PULSE 80–103; RESP 16–20; TEMP 36.6–37.1; O2SAT 90–93
[2022-06-18] MEDS: IPRATROPIUM BR 0.02% INH SOLN 0.5 MG/2.5 ML VIAL INHALATION ×4 (02:30→21:16)
[2022-06-18] MEDS: LEVALBUTEROL NEB 1.25 MG/3 ML 0.63 MG INHALATION ×4 (02:30→21:16)
[2022-06-18] MEDS: CENTRAL LINE FLUSH 10 ML IV PUSH ×2 (05:08→14:03)
[2022-06-18 05:13] LABS: Hematocrit 33.6 % (37.0-47.0); Hemoglobin 11.1 g/dL (12.0-15.0); Mean Corpuscular Hemoglobin 33.1 pg (26-34); Mean Corpuscular Volume 100.3 fl (80-100); Mean Platelet Volume 8.7 fl (7.4-10.4); Platelet Count Result 309 k/mm3 (150-375); Red Blood Count 3.35 M/mm3 (4.2-5.4); Red Cell Distribution Width 11.9 % (11.5-14.5)
[2022-06-18 05:23] LABS: Alanine Aminotransferase 23 U/L (6-35); Albumin Level 3.3 g/dL (3.5-5.1); Alkaline Phosphatase 79 U/L (38-126); Anion Gap 1 mmol/L (8-16); Aspartate Amino Transferase 37 U/L (14-36); Bilirubin,Total 0.5 mg/dL (0.2-1.3); Blood Urea Nitrogen 4 mg/dL (7-17); Calcium 7.9 mg/dL (8.4-10.2); Carbon Dioxide 31 mmol/L (22-30); Chloride 104 mmol/L (98-107); Estimated CRCL calculation 114 ml/min; Estimated Glomerular Filt Rate > 60; Glucose 99 mg/dL (65-110); Potassium 3.9 mmol/L (3.4-5.0); Sodium 136 mmol/L (137-145)
[2022-06-18] MEDS: EZETIMIBE 10 MG TABLET PO (08:28)
[2022-06-18] MEDS: DULoxetine HCL 60 MG CAPSULE.DR PO (08:28)
[2022-06-18] MEDS: ROSUVASTATIN 5 MG TABLET PO (08:28)
[2022-06-18] MEDS: FLUTICASONE/UMECLIDIN/VILANTER 100-62.5-25 MCG ELLIPTA 1 PUFF INHALATION (08:49)
--- NOTE | 2022-06-18 17:13 | PM.IMPN ---
Progress Note: A&P Assessment and Plan (1) Pneumonia: Qualifiers: Laterality: right Lung location: lower lobe of lung Pneumonia type: due to unspecified organism Qualified Code(s): J18.9 - Pneumonia, unspecified organism Code(s): J18.9 - Pneumonia, unspecified organism Status: Acute Assessment and Plan: Continue with Rocephin and azithromycin Sputum and blood cultures are pending Patient had septic shock had a central line placed and was placed on vasopressors Thermometer Production Worker has been consulted. Tailor antibiotics according to cultures Continue with nebulizer treatments Monitor lactic White count is 12.8. Continue to monitor CBC Lactic is 0.8. 06/18/2022 interval history: Patient with history COPD emphysema and congestive heart failure presented with a shortness of breath and hypotension suspect septic shock secondary to pneumonia patient was gently hydrated as patient has a history of mild CHF with EF of 55% was placed on Levophed blood pressure was trending up and off Levophed patient is clinically stable now and was transferred out of ICU, is being treated with ceftriaxone and azithromycin, patient clinical symptoms are improving patient wants to go home, discussed will monitor 1 more day, will continue present management to monitor will have a PT OT evaluate the patient. Patient's family is present in the room. (2) Septic shock: Code(s): A41.9 - Sepsis, unspecified organism; R65.21 - Severe sepsis with septic shock Status: Acute Assessment and Plan: Patient is hypotensive and was placed on vasopressors. She was placed in the intensive care unit. She has mild leukocytosis. The patient stated that she did take her blood pressure medication at home this morning. Her creatinine is normal. Continue to gently hydrate as she does have a history of congestive heart failure. (3) CHF (congestive heart failure), NYHA class I: Code(s): I50.9 - Heart failure, unspecified Status: Acute Assessment and Plan: Patient typically takes Entresto but this will be on hold at this time. Hold Coreg due to hypotension (4) Hyponatremia: Code(s): E87.1 - Hypo-osmolality and hyponatremia Status: Acute Assessment and Plan: Patient stated that she to drink a lot of water which may have caused water intoxication. The patient also has congestive heart failure. Repeat BMP now and again in 4 hours and again in the morning. (5) COPD (chronic obstructive pulmonary disease): Qualifiers: COPD type: unspecified COPD Qualified Code(s): J44.9 - Chronic obstructive pulmonary disease, unspecified Code(s): J44.9 - Chronic obstructive pulmonary disease, unspecified Status: Acute Assessment and Plan: Continue with nebulizer treatments and inhalers from home. (6) Paroxysmal A-fib: Code(s): I48.0 - Paroxysmal atrial fibrillation Status: Acute Assessment and Plan: Patient is rate controlled at this time. Her Coreg is hold at this time due to her hypo tension The patient is on Xarelto. (7) Tobacco use: Code(s): Z72.0 - Tobacco use Status: Acute Assessment and Plan: I did offer her nicotine patch but she has declined at this time. Subjective Date/time seen: 06/18/22 17:13 Interval history: Upper respiratory infection HPI-Narrative: This is 61-year-old female patient has history of congestive heart failure, COPD and emphysema as well as tobacco abuse.? The patient has been complaining of a cough and congestion for at least the.? The patient stated that it has been waxing and the waning.? The patient stated that Friday she thought she was turning around and feeling better.? However last night she felt horrible.? She stated that she had a terrible headache.? She took Tylenol for her symptoms.? She denies any sick contacts.? She has some mild shortness of breath.? Her shortness of breath was worse with ambulating.? She
[2022-06-18] MEDS: NEOMYCIN/POLYMYXIN/BACITRACIN OINTMENT PACKET 1 PACKET (17:37)
[2022-06-18] MEDS: ACETAMINOPHEN 500 MG TABLET 1000 MG PO (21:27)
[2022-06-19] VITALS (12 sets, daily range): BP systolic 111–115; BP diastolic 67–78; PULSE 80–100; RESP 14–20; TEMP 36.3–36.9; O2SAT 92–94
[2022-06-19] MEDS: IPRATROPIUM BR 0.02% INH SOLN 0.5 MG/2.5 ML VIAL INHALATION ×4 (02:58→22:01)
[2022-06-19] MEDS: LEVALBUTEROL NEB 1.25 MG/3 ML 0.63 MG INHALATION ×4 (02:58→22:03)
[2022-06-19 05:40] LABS: Hematocrit 34.5 % (37.0-47.0); Hemoglobin 11.2 g/dL (12.0-15.0); Mean Corpuscular HGB Conc 32.5 g/dl (32-36); Mean Corpuscular Hemoglobin 32.5 pg (26-34); Mean Platelet Volume 8.9 fl (7.4-10.4); Platelet Count Result 346 k/mm3 (150-375); Red Blood Count 3.45 M/mm3 (4.2-5.4); Red Cell Distribution Width 11.8 % (11.5-14.5); White Blood Count 8.8 K/mm3 (4.5-10.0)
[2022-06-19 05:54] LABS: Alanine Aminotransferase 39 U/L (6-35); Albumin Level 3.3 g/dL (3.5-5.1); Alkaline Phosphatase 81 U/L (38-126); Anion Gap -1 mmol/L (8-16); Aspartate Amino Transferase 55 U/L (14-36); Bilirubin,Total 0.5 mg/dL (0.2-1.3); Blood Urea Nitrogen 5 mg/dL (7-17); Calcium 8.4 mg/dL (8.4-10.2); Carbon Dioxide 33 mmol/L (22-30); Chloride 104 mmol/L (98-107); Estimated CRCL calculation 114 ml/min; Estimated Glomerular Filt Rate > 60; Glucose 99 mg/dL (65-110); Magnesium 2.2 mg/dL (1.6-2.3); Potassium 4.1 mmol/L (3.4-5.0); Sodium 136 mmol/L (137-145)
[2022-06-19] MEDS: DULoxetine HCL 60 MG CAPSULE.DR PO (09:01)
[2022-06-19] MEDS: EZETIMIBE 10 MG TABLET PO (09:01)
[2022-06-19] MEDS: ROSUVASTATIN 5 MG TABLET PO (09:02)
[2022-06-19] MEDS: FLUTICASONE/UMECLIDIN/VILANTER 100-62.5-25 MCG ELLIPTA 1 PUFF INHALATION (09:06)
--- NOTE | 2022-06-19 10:21 | PM.IMPN ---
Progress Note: A&P Assessment and Plan (1) Pneumonia: Qualifiers: Laterality: right Lung location: lower lobe of lung Pneumonia type: due to unspecified organism Qualified Code(s): J18.9 - Pneumonia, unspecified organism Code(s): J18.9 - Pneumonia, unspecified organism Status: Acute Assessment and Plan: Continue with Rocephin and azithromycin Sputum and blood cultures are pending Patient had septic shock had a central line placed and was placed on vasopressors Fur Buyer has been consulted. Tailor antibiotics according to cultures Continue with nebulizer treatments Monitor lactic White count is 12.8. Continue to monitor CBC Lactic is 0.8. (2) Septic shock: Code(s): A41.9 - Sepsis, unspecified organism; R65.21 - Severe sepsis with septic shock Status: Acute Assessment and Plan: Patient is hypotensive and was placed on vasopressors. She was placed in the intensive care unit. She has mild leukocytosis. The patient stated that she did take her blood pressure medication at home this morning. Her creatinine is normal. Continue to gently hydrate as she does have a history of congestive heart failure. (3) CHF (congestive heart failure), NYHA class I: Code(s): I50.9 - Heart failure, unspecified Status: Acute Assessment and Plan: Patient typically takes Entresto but this will be on hold at this time. Hold Coreg due to hypotension (4) Hyponatremia: Code(s): E87.1 - Hypo-osmolality and hyponatremia Status: Acute Assessment and Plan: Patient stated that she to drink a lot of water which may have caused water intoxication. The patient also has congestive heart failure. Repeat BMP now and again in 4 hours and again in the morning. (5) COPD (chronic obstructive pulmonary disease): Qualifiers: COPD type: unspecified COPD Qualified Code(s): J44.9 - Chronic obstructive pulmonary disease, unspecified Code(s): J44.9 - Chronic obstructive pulmonary disease, unspecified Status: Acute Assessment and Plan: Continue with nebulizer treatments and inhalers from home. (6) Paroxysmal A-fib: Code(s): I48.0 - Paroxysmal atrial fibrillation Status: Acute Assessment and Plan: Patient is rate controlled at this time. Her Coreg is hold at this time due to her hypo tension The patient is on Xarelto. (7) Tobacco use: Code(s): Z72.0 - Tobacco use Status: Acute Assessment and Plan: I did offer her nicotine patch but she has declined at this time. Subjective Date/time seen: 06/19/22 10:21 Interval history: No complaints Exam Narrative: Patient is comfortable, NAD HEENT: eyes are clear and none icteric LUNGS: Normal respiratory effort ABD: Not distended Lower extremities: no edema SKIN: nonjaundiced Neuro: grossly intact. Objective Data Vital Signs Vital Signs: Vital Signs - 24 hr 06/18/22 14:30 06/18/22 14:41 06/18/22 15:27 Temperature 97.9 F Pulse Rate 96 90 92 Respiratory Rate 16 16 18 Blood Pressure 111/64 Pulse Oximetry 91 Oxygen Delivery 06/18/22 12:00 06/18/22 16:00 06/18/22 21:17 Temperature Pulse Rate 95 93 86 Respiratory Rate 16 Blood Pressure Pulse Oximetry Oxygen Delivery 06/18/22 21:27 06/18/22 20:00 06/18/22 22:50 Temperature 98.8 F Pulse Rate 90 96 Respiratory Rate 16 16 Blood Pressure 134/73 Pulse Oximetry 93 Oxygen Delivery Room Air 06/19/22 02:59 06/19/22 03:10 06/19/22 06:45 Temperature 97.3 F L Pulse Rate 80 84 84 Respiratory Rate 18 18 16 Blood Pressure 114/78 Pulse Oximetry 94 Oxygen Delivery 06/19/22 09:07 06/19/22 09:09 06/19/22 09:20 Temperature Pulse Rate 100 100 Respiratory Rate 16 16 16 Blood Pressure Pulse Oximetry 92 Oxygen Delivery Room Air Intake/Output Intake/Output: Intake & Output 06/16/22 06/17/22 06/18/22 06/19/22 23:
--- NOTE | 2022-06-19 16:14 | PC.NURSE ---
1500 ceftriaxone and azithromycin not infused because the IV infiltrated. Switched to oral antibiotics.
[2022-06-19] MEDS: BENZONATATE 100 MG CAPSULE PO (16:20)
[2022-06-19] MEDS: RIVAROXABAN 20 MG TABLET PO (16:20)
[2022-06-19] MEDS: CEFDINIR 300 MG CAPSULE PO (17:13)
[2022-06-19] MEDS: AZITHROMYCIN 250 MG TABLET 500 MG PO (17:13)
[2022-06-19 22:33] LABS: Osmolality, Urine 286 mOsm/kg (50-1200)
[2022-06-19] MEDS: ACETAMINOPHEN 500 MG TABLET 1000 MG PO (23:13)
[2022-06-20 05:15] VITALS: BP 112/78; PULSE 91; RESP 20; TEMP 36.6; O2SAT 92
[2022-06-20] MEDS: BENZONATATE 100 MG CAPSULE PO (05:18)
[2022-06-20] MEDS: CEFDINIR 300 MG CAPSULE PO (05:18)
[2022-06-20 05:54] LABS: Hematocrit 34.4 % (37.0-47.0); Hemoglobin 11.1 g/dL (12.0-15.0); Mean Corpuscular HGB Conc 32.3 g/dl (32-36); Mean Corpuscular Hemoglobin 32.4 pg (26-34); Mean Corpuscular Volume 100.3 fl (80-100); Platelet Count Result 397 k/mm3 (150-375); Red Blood Count 3.43 M/mm3 (4.2-5.4); Red Cell Distribution Width 11.9 % (11.5-14.5); White Blood Count 7.5 K/mm3 (4.5-10.0)
[2022-06-20 06:03] LABS: Alanine Aminotransferase 43 U/L (6-35); Albumin Level 3.3 g/dL (3.5-5.1); Alkaline Phosphatase 78 U/L (38-126); Anion Gap 2 mmol/L (8-16); Aspartate Amino Transferase 51 U/L (14-36); Bilirubin,Total 0.5 mg/dL (0.2-1.3); Blood Urea Nitrogen 6 mg/dL (7-17); Calcium 8.6 mg/dL (8.4-10.2); Carbon Dioxide 32 mmol/L (22-30); Chloride 103 mmol/L (98-107); Estimated CRCL calculation 114 ml/min; Estimated Glomerular Filt Rate > 60; Glucose 98 mg/dL (65-110); Magnesium 2.1 mg/dL (1.6-2.3); Potassium 3.5 mmol/L (3.4-5.0); Sodium 137 mmol/L (137-145)
[2022-06-20 08:20] VITALS: PULSE 90; RESP 22
[2022-06-20] MEDS: DULoxetine HCL 60 MG CAPSULE.DR PO (08:23)
[2022-06-20] MEDS: ROSUVASTATIN 5 MG TABLET PO (08:24)
[2022-06-20] MEDS: EZETIMIBE 10 MG TABLET PO (08:24)
[2022-06-20] MEDS: LEVALBUTEROL NEB 1.25 MG/3 ML 0.63 MG INHALATION (08:38)
[2022-06-20] MEDS: IPRATROPIUM BR 0.02% INH SOLN 0.5 MG/2.5 ML VIAL INHALATION (08:38)
[2022-06-20] MEDS: FLUTICASONE/UMECLIDIN/VILANTER 100-62.5-25 MCG ELLIPTA 1 PUFF INHALATION (08:38)
[2022-06-20 08:46] VITALS: O2SAT 92
[2022-06-20 08:48] VITALS: PULSE 92; RESP 20
--- NOTE | 2022-06-20 11:18 | PM.DS ---
DS: Admitting Diagnosis Discharge Date June 20, 2022 Admitting Diagnosis Pneumonia, DS: Discharge Diagnosis Discharge Diagnosis (1) Pneumonia: Qualifiers: Laterality: right Lung location: lower lobe of lung Pneumonia type: due to unspecified organism Qualified Code(s): J18.9 - Pneumonia, unspecified organism Code(s): J18.9 - Pneumonia, unspecified organism Status: Acute Assessment and Plan: Continue with Rocephin and azithromycin Sputum and blood cultures are pending Patient had septic shock had a central line placed and was placed on vasopressors Pressure Supervisor has been consulted. Tailor antibiotics according to cultures Continue with nebulizer treatments Monitor lactic White count is 12.8. Continue to monitor CBC Lactic is 0.8. (2) Septic shock: Code(s): A41.9 - Sepsis, unspecified organism; R65.21 - Severe sepsis with septic shock Status: Acute Assessment and Plan: Patient is hypotensive and was placed on vasopressors. She was placed in the intensive care unit. She has mild leukocytosis. The patient stated that she did take her blood pressure medication at home this morning. Her creatinine is normal. Continue to gently hydrate as she does have a history of congestive heart failure. (3) CHF (congestive heart failure), NYHA class I: Code(s): I50.9 - Heart failure, unspecified Status: Acute Assessment and Plan: Patient typically takes Entresto but this will be on hold at this time. Hold Coreg due to hypotension (4) Hyponatremia: Code(s): E87.1 - Hypo-osmolality and hyponatremia Status: Acute Assessment and Plan: Patient stated that she to drink a lot of water which may have caused water intoxication. The patient also has congestive heart failure. Repeat BMP now and again in 4 hours and again in the morning. (5) COPD (chronic obstructive pulmonary disease): Qualifiers: COPD type: unspecified COPD Qualified Code(s): J44.9 - Chronic obstructive pulmonary disease, unspecified Code(s): J44.9 - Chronic obstructive pulmonary disease, unspecified Status: Acute Assessment and Plan: Continue with nebulizer treatments and inhalers from home. (6) Paroxysmal A-fib: Code(s): I48.0 - Paroxysmal atrial fibrillation Status: Acute Assessment and Plan: Patient is rate controlled at this time. Her Coreg is hold at this time due to her hypo tension The patient is on Xarelto. (7) Tobacco use: Code(s): Z72.0 - Tobacco use Status: Acute Assessment and Plan: I did offer her nicotine patch but she has declined at this time. DS: Summary Hospital Course Hospital Course: Admitted for pneumonia. Antibiotics were started. Patient did well. Oral antibiotics on discharge. I will hold her amlodipine on discharge his blood pressure has been normal she has been in the hospital. Other cardiac medications will be resumed. Time Spent with Patient Time attestation: Total time spent providing and/or coordinating discharge services: Exam Narrative: Patient is comfortable, NAD HEENT: eyes are clear and none icteric LUNGS: Normal respiratory effort ABD: Not distended Lower extremities: no edema SKIN: nonjaundiced Neuro: grossly intact. DS: Data Data Completed and Pending Labs on day of discharge: Labs from last 24 hours 06/20/22 06/16/22 05:21 19:56 WBC 7.5 RBC 3.43 L Hgb 11.1 L Hct 34.4 L MCV 100.3 H MCH 32.4 MCHC 32.3 RDW 11.9 Plt Count 397 H MPV 9.0 Sodium 137 Potassium 3.5 Chloride 103 Carbon Dioxide 32 H Anion Gap 2 L BUN 6 L Creatinine 0.40 L Estim Creat Clear Calc 114 Estimated GFR > 60 Glucose 98 Calcium 8.6 Magnesium 2.1 Total Bilirubin 0.5 AST 51 H ALT 43 H Alkaline Phosphatase 78 Total Protein 7.0 Albumin 3.3 L Urine Osmolality 286 Preliminary micro results at dischar
[2022-06-21 04:12] LABS: Pneumococcal Antigen Urine Not Detected (Not Detected)
[2022-06-22 05:44] LABS: Legionella pneumophila Ag Ur Not Detected (Not Detected)
== END 2022-06-20 11:53 | disposition home or self-care (01) | DRG 871 ==
LOC: ANHED 18:56 → ANHICU 21:45 → ANH2MED 06-17 17:28
PROVIDERS: Internal Medicine; Nurse Practitioner; Admitting Provider Internal Medicine; Emergency Provider Physician Assistant; Visit Provider Chiropractor
DX: A41.9 Sepsis, unspecified organism (principal); J18.9 Pneumonia, unspecified organism; I50.42 Chronic combined systolic (congestive) and diastolic (congestive) heart failure; E87.1 Hypo-osmolality and hyponatremia; E78.5 Hyperlipidemia, unspecified; F17.210 Nicotine dependence, cigarettes, uncomplicated; I11.0 Hypertensive heart disease with heart failure; I48.0 Paroxysmal atrial fibrillation; J43.9 Emphysema, unspecified; Z20.822 Contact with and (suspected) exposure to COVID-19; Z95.810 Presence of automatic (implantable) cardiac defibrillator; Z79.01 Long term (current) use of anticoagulants
CPT/HCPCS: 36415; 71046; 80048; 80053; 83605; 83735; 83880; 83935; 84300; 84443; 84484; 85025; 85027; 85610; 85730; 87040; 87449; 87636; 87651; 87899; 93005; 94640; 96361; 96365; 96366; 96367; 96375; 99291; A9270; C1751; G0378; J0131; J0456; J0696; J1885; J7030

== ENCOUNTER 2022-07-29 08:39 | Inpatient (IN) | payer OTHER, SELFPAY ==
[2022-07-29] VITALS (29 sets, daily range): BP systolic 84–125; BP diastolic 56–82; PULSE 88–106; RESP 13–29; TEMP 36.3–36.9; O2SAT 90–100; BMI 22.5
--- NOTE | ~2022-07-29 | XR_ITS ---
XR chest 1V portable 07/30/2022 13:36 Indication: Shortness of breath. Hypertension. Atrial fibrillation. Procedure: AP portable chest Comparison: CT dated 07/29/2022 Findings: Heart size normal. Pacemaker leads in expected position. Right sided airspace disease of th e mid and lower lung may represent atelectasis or pneumonia. Loculated right pleural effusion. Mass s een on prior CT examination not appreciated due to adjacent parenchymal consolidation. Impression: 1: Right basilar airspace disease may represent atelectasis or pneumonia. 2: Loculated right pleural effusion. Reviewed, dictated and finalized at location L. Impression: 1: Right basilar airspace disease may represent atelectasis or pneumonia. 2: Loculated right pleural effusion.
--- NOTE | ~2022-07-29 | CT_ITS ---
EXAMINATION: CTA chest PE protocol DATE: 07/29/2022 10:40 CDT INDICATION: Shortness of breath TECHNIQUE: Computed tomographic angiography (CTA) of the chest was performed with 100 mL Omnipaque-35 0 intravenous contrast. The dose-length product was 236.17 mGy-cm. Maximum intensity projection 3D-re constructions of the aorta and other arteries were constructed by the technologist on a separate work station. Automated exposure control and iterative reconstruction technique were employed. COMPARISON: CT dated 01/16/2022 FINDINGS: Study is technically limited without evidence for pulmonary embolism. There is a moderate s ize pericardial effusion. There is a large loculated right pleural effusion. There is emphysema. No e ndobronchial lesions. There is a right lower lobe mass measuring 3.6 x 2 cm, suspicious for bronchoge scott carcinoma. No pneumothorax. No significant thoracic lymphadenopathy. There is a battery pack over lying the left chest wall. IMPRESSION: 1. Right lower lobe mass measuring 3.6 cm, suspicious for bronchogenic carcinoma. 2: No evidence for pulmonary embolism. 3: Large loculated right pleural effusion. 4: Moderate pericardial effusion. 5. Emphysema. Reviewed, dictated and finalized at location [] IMPRESSION: 1. Right lower lobe mass measuring 3.6 cm, suspicious for bronchogenic carcinom a. 2: No evidence for pulmonary embolism. 3: Large loculated right pleural effusion. 4: Moderate pericardial effusion. 5. Emphysema.
--- NOTE | ~2022-07-29 | XR_ITS ---
EXAMINATION: XR chest 1V portable INDICATION: Pneumonia and shortness of breath TECHNIQUE: Portable AP chest at 0515 hours COMPARISON: 07/31/2022 FINDINGS: There is a moderate-sized loculated pleural effusion with slight increase in size. No pneum othorax is identified. Bibasilar airspace opacities persist without significant change. The cardiomed iastinal silhouette is stable. A dual-lead cardiac pacemaker of the left chest wall ends with leads i n expected locations. IMPRESSION: 1. Moderate-sized loculated right pleural effusion with slight increase in size. 2. Stable bibasilar airspace opacities, consistent with atelectasis versus pneumonia. Reviewed, dictated and finalized at location A. IMPRESSION: 1. Moderate-sized loculated right pleural effusion with slight increase in size . 2. Stable bibasilar airspace opacities, consistent with atelectasis versus pneu monia.
--- NOTE | ~2022-07-29 | XR_ITS ---
EXAMINATION: XR chest 1V portable INDICATION: Pneumonia TECHNIQUE: Portable AP chest at 0509 hours COMPARISON: 07/30/2022 FINDINGS: There is a small right pleural effusion with interval decrease in volume of fluid in the mi nor fissure. Airspace opacities of the lung bases persist without significant change. There is no pne umothorax. A dual-lead cardiac pacemaker of the left chest wall ends with leads in expected locations . The cardiomediastinal silhouette is stable. IMPRESSION: 1. Small right pleural effusion with slight decrease in size. 2. Stable bibasilar airspace opacities, consistent with atelectasis versus pneumonia. Reviewed, dictated and finalized at location A. IMPRESSION: 1. Small right pleural effusion with slight decrease in size. 2. Stable bibasilar airspace opacities, consistent with atelectasis versus pneu monia.
--- NOTE | ~2022-07-29 | US_ITS ---
EXAMINATION: US thoracentesis DATE: 07/29/2022 17:10 INDICATION: pleural effusion TECHNIQUE: The procedure and its risks, benefits, and alternatives were discussed with the patient. P otential risks discussed included bleeding, infection, and pneumothorax. The patient understood the r isks and agreed to proceed. The skin was prepped and draped in sterile fashion. 1% lidocaine was used for local anesthesia. Under ultrasound guidance, a 5 Fr catheter with trochar was advanced into the right pleural effusion. Fluid was aspirated. The catheter was removed, and a dressing was applied. Th ere were no immediate complications. FINDINGS: Ultrasound images demonstrate a right pleural effusion and the catheter within the fluid. IMPRESSION: 1. Successful ultrasound-guided thoracentesis yielding 700 mL of aaron-colored fluid. Reviewed, dictated and finalized at location A.
--- NOTE | ~2022-07-29 | XR_ITS ---
EXAMINATION: [id number]_[id number]_CR DATE: 07/29/2022 17:12 INDICATION: Right pleural effusion status post thoracentesis. TECHNIQUE: Frontal and lateral views of the chest were obtained. COMPARISON: Chest 2 views 9:22 AM FINDINGS: There is a small right pleural effusion. There are lucencies in the lungs, consistent with emphysema. There are airspace opacities in right lower lobe and right middle lobe. No pneumothorax. T he heart size is normal. There is a left chest wall pacer with leads in the right atrium and right ve ntricle. There is a chronic compression fracture in mid thoracic spine. There are old healed left rib fractures. IMPRESSION: 1. Small right pleural effusion with improvement status post thoracentesis. 2. Airspace opacities in right lower lobe and right middle lobe, consistent with pneumonia. 3. Emphysema. Reviewed, dictated and finalized at location A. IMPRESSION: 1. Small right pleural effusion with improvement status post thoracentesis. 2. Airspace opacities in right lower lobe and right middle lobe, consistent wit h pneumonia. 3. Emphysema.
--- NOTE | ~2022-07-29 | XR_ITS ---
EXAMINATION: XR chest 2V DATE: 07/29/2022 09:30 INDICATION: Shortness of breath. TECHNIQUE: Frontal and lateral views of the chest were obtained. COMPARISON: Chest 2 views 06/16/2022, chest CT 01/16/2022 FINDINGS: There are lucencies in the lungs, consistent with emphysema. There are airspace opacities i n right lower lobe and right middle lobe. No pleural effusion or pneumothorax. The heart size is norm al. There is a left chest wall pacer with leads in the right atrium and right ventricle. There is a c hronic compression fracture in mid thoracic spine. IMPRESSION: 1. Airspace opacities in right lower lobe and right middle lobe with worsening from 06/16/2022, consis tent with pneumonia. 2. Emphysema. Reviewed, dictated and finalized at location A. IMPRESSION: 1. Airspace opacities in right lower lobe and right middle lobe with worsening from 06/16/2022, consistent with pneumonia. 2. Emphysema.
--- NOTE | 2022-07-29 08:52 | ECG_ITS ---
Measurements Intervals [place] Rate: 90 P: 4 SC: 140 QRS: 23 QRSD: 97 T: 62 QT: 390 QTc: 477 Interpretive Statements SINUS RHYTHM ST DEVIATION AND MODERATE T-WAVE ABNORMALITY, CONSIDER ANTEROLATERAL ISCHEMIA ABNORMAL ECG COMPARED TO ECG 06/16/2022 14:51:37 NO SIGNIFICANT CHANGES Electronically Signed On 07-29-2022 17:04:15 CDT by Jesu Diaz M.D.
[2022-07-29] MEDS: ALBUTEROL SULFATE NEB 2.5 MG/3 ML INH INHALATION (09:08)
[2022-07-29] MEDS: IPRATROPIUM BR 0.02% INH SOLN 0.5 MG/2.5 ML VIAL INHALATION (09:09)
[2022-07-29 09:15] LABS: Basophils Percent Auto 0.2 % (0.2-1.2); Eosinophils Percent Auto 0.1 % (0-4.4); Hematocrit 41.7 % (37.0-47.0); Hemoglobin 13.6 g/dL (12.0-15.0); Immature Granulocyte Absolute 0.07 K/mm3 (0.00-0.031); Immature Granulocyte Percent A 0.5 % (0-0.5); Lymphocytes Absolute Auto 0.87 K/mm3 (0.9-3.2); Lymphocytes Percent Auto 5.8 % (18.3-44.2); Mean Corpuscular HGB Conc 32.6 g/dl (32-36); Mean Corpuscular Hemoglobin 31.2 pg (26-34); Mean Corpuscular Volume 95.6 fl (80-100); Mean Platelet Volume 9.2 fl (7.4-10.4); Monocytes Absolute Auto 0.8 K/mm3 (0.1-0.6); Monocytes Percent Auto 5.2 % (2.6-8.5); Neutrophils Absolute Auto 13.3 K/mm3 (1.3-6.7); Neutrophils Percent Auto 88.2 % (45.5-73.1); Platelet Count Result 358 k/mm3 (150-375); Red Blood Count 4.36 M/mm3 (4.2-5.4); Red Cell Distribution Width 12.8 % (11.5-14.5); White Blood Count 15.1 K/mm3 (4.5-10.0)
[2022-07-29 09:26] LABS: Alanine Aminotransferase 17 U/L (6-35); Albumin Level 3.7 g/dL (3.5-5.1); Alkaline Phosphatase 57 U/L (38-126); Anion Gap 5 mmol/L (8-16); Aspartate Amino Transferase 21 U/L (14-36); Bilirubin,Total 1.3 mg/dL (0.2-1.3); Blood Urea Nitrogen 11 mg/dL (7-17); Calcium 8.2 mg/dL (8.4-10.2); Carbon Dioxide 30 mmol/L (22-30); Chloride 97 mmol/L (98-107); Estimated Glomerular Filt Rate > 60; Glucose 132 mg/dL (65-110); INR 1.9; Potassium 3.5 mmol/L (3.4-5.0); Prothrombin Time 22.8 Seconds (11.1-14.7); Sodium 132 mmol/L (137-145)
[2022-07-29 09:28] LABS: Partial Thromboplastin Time 45.8 SECONDS (22.3-36.8)
[2022-07-29 09:41] LABS: NT Pro B Type Natriuretic Pept 3080 pg/mL (19.9-100); Troponin I 0.075 ng/mL (0.000-0.034)
--- NOTE | 2022-07-29 09:43 | ED.GENADULT ---
HPI - General Adult General Chief complaint: Shortness of Breath/Dyspnea Stated complaint: hx pneumonia/sepsis/sob Time Seen by Provider: 07/29/22 08:43 History of Present Illness HPI narrative: Patient is a 62-year-old female who presents to the ER with concerns for recurrent infection. Patient was recently hospitalized for pneumonia in the ICU. She was there for 5 days. She was treated with 2 courses of antibiotics and completed both of them. She reports she had improvement but over the last week she has worsened again. She has exertional dyspnea. She does not report fevers at this time. No chest pain or chest pressure she does continue have cough that is productive. She has some pain also on the right side of her chest. Related Data Home Medications Medication Instructions Recorded Confirmed rivaroxaban 20 mg tablet (Xarelto) 20 mg PO DAILY 01/20/19 07/29/22 sacubitril 97 mg-valsartan 103 mg 1 tablet PO BID 01/20/19 07/29/22 tablet (Entresto) duloxetine 60 mg capsule,delayed 60 mg PO DAILY 02/14/22 07/29/22 release ergocalciferol (vitamin D2) 1,250 1,250 mcg PO WEEKLY 06/16/22 07/29/22 mcg (50,000 unit) capsule Allergies Allergy/AdvReac Type Severity Reaction Status Date / Time No Known Allergies Allergy Verified 07/04/22 11:11 Review of Systems Review of Systems: All systems reviewed & are unremarkable except as noted in HPI and below Constitutional: Constitutional: Denies chills, Reports fatigue and Denies fever(s) ENT: Denies nasal congestion and Denies sore throat Cardiovascular: Cardiovascular: Denies chest pain, Denies rapid heart rate and Denies radiating jaw, neck or arm pain Respiratory: Respiratory: Reports cough, Reports dyspnea and Denies wheezing Gastrointestinal: Gastrointestinal: Denies abdominal pain, Denies nausea and Denies vomiting PMF Past Medical History Medical History Age related osteoporosis Chronic anticoagulation Chronic obstructive pulmonary disease Daily consumption of alcohol Depression Essential hypertension Heart failure of unknown type Hyperlipidemia Paroxysmal atrial fibrillation Tobacco use Surgical History Surgical History (Updated 07/29/22 @ 15:43 by Kemi Knight PA-C) History of cardiac catheterization History of colonoscopy History of implantable cardioverter-defibrillator (ICD) insertion History of partial hysterectomy History of permanent cardiac pacemaker placement History of tonsillectomy and adenoidectomy Family History Family History Mother Cerebrovascular accident Father Heart disease Sibling Sepsis Social History Social History (Updated 07/29/22 @ 15:45 by Kemi Knight PA-C) Social History: Surrogate medical decision maker: Justin Lawlar, friend. Code status: Full code. Smoking packs per day: 0.5 Smoking cigarettes per day: 10.0 Years smoked: 45 Smoking pack-years: 22.50 Smoking status: Current every day smoker Tobacco type: cigarettes Second hand tobacco smoke exposure: No Alcohol intake: current Drinks per week: 21 Alcohol use details: Beer. Substance use: never Substance use type: does not use Lack of Transportation: No Lack of Food: Never True Current Housing: I Have Housing Concerned About Future Housing: No Difficulty Paying Gas/Electric Bills: No Difficulty Paying for Meds: No Currently Unemployed: No Education: High School Diploma/GED Difficulty w/ Childcare or Family Care: No Living arrangements: with family Additional living arrangements comments: Lives in [place]. Occupation/Education: occupation Additional occupation/education comments: Works at the [employer]. Spiritual care concerns: No Exam Narrative: GENERAL: Chronically ill-appearing, well-nourished, and in no acute distress. HEAD: Normocephalic, atraumatic. EYES: PERRL and EOMI. ENT: Mucous membranes m
[2022-07-29] MEDS: AZITHROMYCIN 500 MG/NS 250 ML 500 MG/250 ML BAG 250 MG IVPB (12:57)
[2022-07-29] MEDS: ACETAMINOPHEN 325 MG TABLET 650 MG PO (14:13)
--- NOTE | 2022-07-29 15:33 | PM.IMHP ---
H&P: HPI History of Present Illness Date/Time: 07/29/22 16:00 Chief Complaint: Lung pain, shortness of breath, weakness. Narrative: This is a 62-year-old female smoker with chronic obstructive pulmonary disease, hypertension, hyperlipidemia, viral cardiomyopathy with improved ejection fraction, and paroxysmal atrial fibrillation on chronic anticoagulation presented to the emergency department via private vehicle from home for evaluation of lung pain, shortness a breath, and weakness. The patient provides the following history. She was hospitalized a little over a month ago with septic shock and right lower lobe pneumonia. She saw her primary care provider on 07/04/2022 for follow-up at which time she was already back to work and feeling better. She never returned to baseline however and she has been fatigued since then. It is my understanding that a repeat chest x-ray done as an outpatient continued to show evidence of pneumonia and she was started on a 10 day course of antibiotics on 07/08/2022. She seemed detailed a bit better on antibiotics and once they stopped she once again started to feel worse. More specifically she has been experiencing right-sided pleuritic chest pain, shortness a breath with exertion, and overall malaise and weakness. Her appetite has been poor but she has not had vomiting she also endorses subjective fever and night sweats. She has a mild cough but it is nonproductive. During that visit she reported that her blood pressures were running low, especially in the evenings, typically between the 70s to 90s systolic however she had thus far been asymptomatic with those readings. Vital signs on arrival to the ED: Blood pressure 84/56, pulse 96, respiratory rate 17, SpO2 95% on room air, temperature 98.5?. Labs were significant for a WBC count of 15.1, sodium 132, chloride 97, troponin 0.075, proBNP 3080, INR 1.9. Chest CTA was negative for pulmonary embolism but did show a right lower lobe mass measuring 3.6 cm suspicious for bronchogenic carcinoma, large loculated right pleural effusion, and a moderate pericardial effusion. She was started on azithromycin and ceftriaxone and she she has been admitted for IV antibiotics and further workup. Review of Systems Review of Systems: Twelve systems were reviewed and are negative except for as per HPI. [facility] Past Medical History Medical History Age related osteoporosis Chronic anticoagulation Chronic obstructive pulmonary disease Daily consumption of alcohol Depression Essential hypertension Heart failure of unknown type Hyperlipidemia Paroxysmal atrial fibrillation Tobacco use Surgical History Surgical History (Updated 07/29/22 @ 15:43 by Kemi Knight PA-C) History of cardiac catheterization History of colonoscopy History of implantable cardioverter-defibrillator (ICD) insertion History of partial hysterectomy History of permanent cardiac pacemaker placement History of tonsillectomy and adenoidectomy Family History Family History Mother Cerebrovascular accident Father Heart disease Sibling Sepsis Social History Social History (Updated 07/29/22 @ 23:42 by Kemi Knight PA-C) Social History: Surrogate medical decision maker: Kasey Truong, friend. Code status: Full code. Smoking packs per day: 0.5 Smoking cigarettes per day: 10.0 Years smoked: 45 Smoking pack-years: 22.50 Smoking status: Current every day smoker Tobacco type: cigarettes Second hand tobacco smoke exposure: No Alcohol intake: current Drinks per week: 21 Alcohol use details: 2 to 3 beers a day. Substance use: never Substance use type: does not use Lack of Transportation: No Lack of Food: Never True Current Housing: I Have Housing Concerned About Future Housing: No Difficulty Paying Gas/Electric Bills: No Difficulty Paying for Meds: No Currently Unemployed: No Education: High S
--- NOTE | 2022-07-29 16:18 | PM.CNPUL ---
Assessment and Plan Assessment and plan (1) Pleural effusion on right: Code(s): J90 - Pleural effusion, not elsewhere classified Status: Acute Assessment and Plan: 62-year-old female with history of COPD, atrial fibrillation on direct anticoagulant, history of cardiomyopathy status post defibrillator pacemaker implantation was hospitalized approximately 6 weeks ago with right lower lobe pneumonia and small pleural effusion. The patient has received 2 courses of antibiotics since discharge from the hospital for recurrence of fever right chest pain and night sweats. She presented with large loculated pleural effusion on right, questionable right lower lobe mass, leukocytosis, moderate pericardial effusion. The patient's Hx of recent hospitalization for right pneumonia in conjunction with the new findings of loculated pleural effusion suggest possible empyema. Case was discussed at length with the patient's hospitalist. The plan is to continue with triple antibiotics as prescribed, thoracentesis. Depending upon the results of thoracentesis the patient may need transfer to tertiary care center for treatment of empyema with VATS/decortication. MRSA screening ordered along with screening for COVID, RSV influenza. Regarding the right lower lobe mass this is probably related to recent infection as a chest CT in late December showed no evidence of nodules. Fluid cytology was ordered. (2) Pericardial effusion: Code(s): I31.39 - Other pericardial effusion (noninflammatory) Status: Acute (3) Right lower lobe lung mass: Code(s): R91.8 - Other nonspecific abnormal finding of lung field Status: Acute (4) Chronic obstructive pulmonary disease: Code(s): J44.9 - Chronic obstructive pulmonary disease, unspecified Status: Acute (5) Tobacco use: Code(s): Z72.0 - Tobacco use Status: Acute (6) Paroxysmal atrial fibrillation: Code(s): I48.0 - Paroxysmal atrial fibrillation Status: Acute (7) COPD (chronic obstructive pulmonary disease): Qualifiers: COPD type: unspecified COPD Qualified Code(s): J44.9 - Chronic obstructive pulmonary disease, unspecified Code(s): J44.9 - Chronic obstructive pulmonary disease, unspecified Status: Acute History of Present Illness History of Present Illness Consult date: 07/29/22 Chief complaint: Lung Mass,Loculated Pleural Effusion,Elevated Trop Narrative: This 62-year-old female presented with fever night sweats right pleuritic chest pain. The patient has history of COPD, radiographic emphysema on chest x-rays, on maintenance bronchodilators history of congestive heart failure related to cardiomyopathy, history of atrial fibrillation, status post implantation of pacemaker/defibrillator. Patient was in her usual state of health until approximately 6 weeks ago when she was hospitalized with fever and hypotension. She was treated in the intensive care unit for sepsis related to right lower lobe pneumonia. Review of chest imaging studies during that hospitalization showed right lower lobe consolidation and small pleural effusion. Patient stayed in the hospital for approximately 5 days and was discharged home on antibiotics. Reportedly she felt much better. Approximately 2 weeks after discharge from the hospital she started to have fever of 102, headache,s weakness and right chest pain. She was evaluated by her primary care provider who prescribed steroids, Zithromax and Augmentin. Patient reportedly got better until approximately 3 days prior to this admission when she started to have right chest pain worse with inspiration, night sweats, fever to 101, and weakness. She had no hemoptysis, cough or sputum production. She has been short of breath chronically related to history of emphysema and congestive heart failure, with recent worsening of shortness of breath over the last couple of weeks. Initial evaluation with chest
[2022-07-29 16:29] LABS: Lactic Acid Reflex 0.9 mmol/L (0.7-2.0)
[2022-07-29 16:40] LABS: NT Pro B Type Natriuretic Pept 4320 pg/mL (19.9-100)
[2022-07-29 17:07] LABS: Procalcitonin 4.7 ng/mL
[2022-07-29 17:16] LABS: Influenza A QL RT-PCR Negative (Negative); Influenza B QL RT-PCR Negative (Negative); RSV RNA, RT-PCR Negative (Negative); SARS-CoV-2 RNA PCR Negative (Negative)
[2022-07-29 17:17] LABS: pH Pleural Fluid 7.373 (7.210-7.500)
[2022-07-29] MEDS: SODIUM CHLORIDE 0.9% IV 500 ML IV CONT (17:20)
[2022-07-29 17:21] LABS: CRP 32.6 mg/dL (<1.0); Thyroid Stimulating Hormone Reflex 0.724 uIU/mL (0.465-4.68)
[2022-07-29] MEDS: CEFEPIME 2 GM/NS 50 ML 2 GM/50 ML BAG IVPB (18:31)
[2022-07-29 18:33] LABS: Appearance Pleural Fluid Hazy (Clear); Color Pleural Fluid Yellow (Colorless); Pleural fluid source Pleural fluid
[2022-07-29 18:34] LABS: Nucleated Cell Pleural Fluid 15132 /uL (0-1000)
[2022-07-29 18:36] LABS: Neutrophils Pleural Fluid 93 % (0-25)
[2022-07-29 18:37] LABS: Lymphocytes Pleural Fluid 3 %; Monocytes Pleural Fluid 4 %
[2022-07-29] MEDS: MORPHINE SULFATE (*CRX) 4 MG/ML INJ IV PUSH (19:36)
[2022-07-29] MEDS: metroNIDAZOLE 500 MG/ISO 100ML 500 MG/100 ML BAG 100 MG IVPB (20:02)
[2022-07-29] MEDS: carvediloL 25 MG TABLET PO (21:52)
[2022-07-29] MEDS: SACUBITRIL/VALSARTAN 97-103 MG TABLET 1 TAB PO (21:52)
[2022-07-30] VITALS (21 sets, daily range): BP systolic 74–114; BP diastolic 40–70; PULSE 79–111; RESP 18–27; TEMP 36.1–37.1; O2SAT 90–99
--- NOTE | 2022-07-30 | ECHO_ITS ---
Patient Info Name: Melodie Barrera Age: 62 years : 1960 Gender: Female Ht: 62 in Wt: 142 lbs BSA: 1.69 m2 HR: 104 bpm BP: 114 / 70 mmHg Heart Rhythm: Sinus Rhythm Technical Quality: Poor Exam Date: 07/30/2022 10:46 AM Exam Location: [facility] Patient Status: Inpatient Admit Date: 07/30/2022 Staff Ordering Physician: Kemi Knight PA-C Tank Assembler: Shobha Jaramillo RDCS Attending Provider: Neo Boogie MD Referring Physician: Eugene EMERSON; Exam Type: CA echo dop color flow w con Study Info Indications - pericardial effusion Complete two-dimensional, color flow and Doppler transthoracic echocardiogram is performed with contrast to opacify the left ventricle and to improve the deliniation of the left ventricle endocardial borders. Contrast/Agitated Saline Contrast/Ag. Saline: Definity Amount: 3.00 ml Reason for Poor Study: poor echocardiographic windows Summary 1. Technically difficult study with limited views. Definity contrast administered. 2. Left ventricular chamber dimension is normal. 3. Left ventricular systolic function is normal, estimated at 55-60%. 4. There is mildly increased left ventricular wall thickness. 5. The left ventricular diastolic function is abnormal. 6. There is trace mitral valve regurgitation. 7. There is small pericardial effusion with fibrinous material within the pericardial space. Left Ventricle Left ventricular chamber dimension is normal. Left ventricular systolic function is normal, estimated at 55-60%. There is mildly increased left ventricular wall thickness. The left ventricular diastolic function is abnormal. Technically difficult study with limited views. Definity contrast administered. Right Ventricle Right ventricular chamber dimension is normal. Right ventricular systolic function is normal. Linear artifact in right ventricle suggestive of catheter(s), pacemaker lead(s), or ICD lead(s). Left Atria Left atrial chamber dimension is normal. Right Atria Right atrial chamber dimension is normal. Linear artifact in the right atrium suggestive of catheter(s), pacemaker lead(s), or ICD lead(s). Aortic Valve The aortic valve is not well visualized. There is no aortic valve stenosis. Pulmonic Valve The pulmonic valve is not well visualized. Mitral Valve The mitral valve has normal leaflets. There is trace mitral valve regurgitation. The mitral valve annulus is mildly calcified. Tricuspid Valve The tricuspid valve leaflets are normal. There is trace tricuspid valve regurgitation. Unable to assess PA systolic pressure due to poor spectral resolution of tricuspid regurgitant jet velocity. Pericardium/Pleural The pericardium appears normal. There is small pericardial effusion with fibrinous material within the pericardial space. Inferior Vena Cava Normal inferior vena cava with >50% collapse upon inspiration consistent with normal right atrial pressure, 5 mmHg. Aorta The aortic root size at the sinus of Valsalva is normal. There is mild aortic atherosclerosis. Left Ventricular Outflow Tract Name Value Normal LVOT Doppler LVOT Peak Gradient 5 mmHg LVOT Mean Gradient 3 mmHg LVOT VTI 19.20
[2022-07-30] MEDS: TEMAZEPAM (*CRX) 15 MG CAPSULE PO (00:12)
[2022-07-30] MEDS: metroNIDAZOLE 500 MG/ISO 100ML 500 MG/100 ML BAG 100 MG IVPB ×3 (03:25→18:32)
[2022-07-30] MEDS: HYDROcodone/acetaminophen (*CRX) 5-325 MG TABLET 1 TAB PO (03:29)
[2022-07-30 04:59] LABS: Basophils Absolute Auto 0.1 K/mm3 (0.0-0.1); Basophils Percent Auto 0.3 % (0.2-1.2); Eosinophils Absolute Auto 0.1 K/mm3 (0-0.3); Eosinophils Percent Auto 0.4 % (0-4.4); Hematocrit 37.9 % (37.0-47.0); Hemoglobin 12.2 g/dL (12.0-15.0); Lymphocytes Absolute Auto 1.13 K/mm3 (0.9-3.2); Lymphocytes Percent Auto 5.4 % (18.3-44.2); Mean Corpuscular HGB Conc 32.2 g/dl (32-36); Mean Corpuscular Volume 96.2 fl (80-100); Mean Platelet Volume 9.3 fl (7.4-10.4); Monocytes Absolute Auto 1.5 K/mm3 (0.1-0.6); Monocytes Percent Auto 7.2 % (2.6-8.5); Neutrophils Absolute Auto 17.8 K/mm3 (1.3-6.7); Neutrophils Percent Auto 85.7 % (45.5-73.1); Platelet Count Result 354 k/mm3 (150-375); Red Blood Count 3.94 M/mm3 (4.2-5.4); Red Cell Distribution Width 12.9 % (11.5-14.5); White Blood Count 20.8 K/mm3 (4.5-10.0)
[2022-07-30 05:10] LABS: INR 1.7; Prothrombin Time 21.4 Seconds (11.1-14.7)
[2022-07-30 05:14] LABS: Albumin Level 3.2 g/dL (3.5-5.1); Amylase 36 U/L (30-110); Bilirubin,Total 0.8 mg/dL (0.2-1.3); Cholesterol 92 mg/dL (0-200); Glucose 119 mg/dL (65-110); Lactate Dehydrogenase 140 U/L (120-246); Triglycerides 59 mg/dL (<150)
[2022-07-30 05:21] LABS: Anion Gap 3 mmol/L (8-16); Blood Urea Nitrogen 16 mg/dL (7-17); Calcium 7.3 mg/dL (8.4-10.2); Carbon Dioxide 29 mmol/L (22-30); Chloride 96 mmol/L (98-107); Estimated CRCL calculation 60 ml/min; Estimated Glomerular Filt Rate > 60; Glucose 119 mg/dL (65-110); Potassium 3.6 mmol/L (3.4-5.0); Sodium 128 mmol/L (137-145)
[2022-07-30] MEDS: CEFEPIME 2 GM/NS 50 ML 2 GM/50 ML BAG IVPB ×2 (05:43→17:11)
[2022-07-30] MEDS: SODIUM CHLORIDE 0.9% IV 500 ML IV CONT (08:11)
[2022-07-30] MEDS: ROSUVASTATIN 5 MG TABLET PO (08:26)
[2022-07-30] MEDS: DULoxetine HCL 60 MG CAPSULE.DR PO (08:26)
[2022-07-30] MEDS: EZETIMIBE 10 MG TABLET PO (08:26)
[2022-07-30] MEDS: FLUTICASONE/UMECLIDIN/VILANTER 100-62.5-25 MCG ELLIPTA 1 PUFF INHALATION (08:50)
--- NOTE | 2022-07-30 09:07 | PM.PNPUL ---
Progress Note: A&P Assessment and Plan (1) Loculated pleural effusion: Code(s): J90 - Pleural effusion, not elsewhere classified Status: Acute Assessment and Plan: 62-year-old female with history of COPD, atrial fibrillation on direct anticoagulant, history of? cardiomyopathy status post defibrillator pacemaker implantation was hospitalized approximately 6 weeks ago with? right lower lobe pneumonia and small pleural effusion.? The patient has received 2 courses of antibiotics since discharge from the hospital for recurrence of fever right chest pain and night sweats.? She presented with? large loculated pleural effusion on right, questionable right lower lobe mass, leukocytosis, moderate pericardial effusion.? The patient's Hx of recent hospitalization for? right pneumonia in conjunction with the new findings of loculated pleural effusion suggest possible empyema.? She has been on triple antibiotic coverage for empyema. She underwent thoracentesis last p.m.. Fluid pH not consistent with empyema. Elevated neutrophil count and fluid is suggestive of at least complicated parapneumonic effusion. Pleural fluid cultures and other tests pending. Plan: Continue with current antibiotic regimen, supplemental oxygen, out of bed to chair. Continue with her maintenance bronchodilator for COPD. Patient should be started back on the direct anticoagulant. (2) Lung mass: Code(s): R91.8 - Other nonspecific abnormal finding of lung field Status: Acute (3) Pericardial effusion: Code(s): I31.39 - Other pericardial effusion (noninflammatory) Status: Acute (4) Chronic obstructive pulmonary disease: Code(s): J44.9 - Chronic obstructive pulmonary disease, unspecified Status: Acute (5) Paroxysmal atrial fibrillation: Code(s): I48.0 - Paroxysmal atrial fibrillation Status: Acute (6) CHF (congestive heart failure): Qualifiers: Heart failure type: combined systolic and diastolic Heart failure chronicity: chronic Qualified Code(s): I50.42 - Chronic combined systolic (congestive) and diastolic (congestive) heart failure Code(s): I50.9 - Heart failure, unspecified Status: Acute (7) AICD (automatic cardioverter/defibrillator) present: Code(s): Z95.810 - Presence of automatic (implantable) cardiac defibrillator Status: Acute Subjective Date/time seen: 07/30/22 09:07 Interval history: Patient has no new respiratory complaints. She did not sleep well last night. Underwent thoracentesis last p.m.. She has no fever chills or chest pain. She did have some sweats last night. Remaining in bed this a.m. Review of Systems Review of Systems: All systems reviewed & are unremarkable except as noted in HPI and below (HPI and below) Exam Narrative: GENERAL APPEARANCE: Well developed, well nourished, alert and cooperative, and appears to be in no acute distress while on room air SKIN: Inspection of the skin reveals no rashes, ulcerations . Rare small petechiae in upper extremities HEENT: Sclerae anicteric and conjunctivae pink and moist. Extraocular movements were intact and pupils were equal, round, and reactive to light. The oral mucosa, hard and soft palate, tongue and posterior pharynx were normal. NECK: Supple. No JVD. There was no thyroid enlargement, and no tenderness, or masses were felt. CHEST: Normal AP diameter and normal contour without any kyphoscoliosis. LUNGS: Dullness to percussion and decreased breath sounds at right lower lobe posteriorly CARDIAC: There was a regular rate and rhythm without any murmurs, gallops, rubs. ABDOMEN: Soft and nontender with normal bowel sounds. There was no organomegaly. LYMPH NODES: No lymphadenopathy was appreciated in the neck. EXTREMITIES: No cyanosis, clubbing or edema. NEUROLOGIC: Alert and oriented x 3. Normal affect. Objective Data Vital Signs Vital Signs: Vital Signs - 24 hr 07/29/22 09:17 07/18
[2022-07-30] MEDS: PERFLUTREN LIPID MICROSPHERES 1.5 ML VIAL DILUTED TO 10 ML TOTAL VOLUME IV PUSH (11:05)
[2022-07-30] MEDS: VANCOMYCIN 1,250 MG/NS 250 ML 1,250 MG/250 ML BAG 166.67 MG IVPB (11:49)
[2022-07-30] MEDS: IPRATROPIUM BR 0.02% INH SOLN 0.5 MG/2.5 ML VIAL INHALATION (12:42)
[2022-07-30] MEDS: LEVALBUTEROL NEB 1.25 MG/3 ML INHALATION (12:42)
--- NOTE | 2022-07-30 13:48 | WPDPN ---
Progress Note: A&P Assessment and Plan (1) Pleural effusion on right: Code(s): J90 - Pleural effusion, not elsewhere classified Status: Acute (2) Right lower lobe lung mass: Code(s): R91.8 - Other nonspecific abnormal finding of lung field Status: Acute (3) Pericardial effusion: Code(s): I31.39 - Other pericardial effusion (noninflammatory) Status: Acute (4) Elevated troponin: Code(s): R77.8 - Other specified abnormalities of plasma proteins Status: Acute (5) Heart failure of unknown type: Code(s): I50.9 - Heart failure, unspecified Status: Acute (6) Chronic obstructive pulmonary disease: Code(s): J44.9 - Chronic obstructive pulmonary disease, unspecified Status: Acute (7) Paroxysmal atrial fibrillation: Code(s): I48.0 - Paroxysmal atrial fibrillation Status: Acute (8) Chronic anticoagulation: Code(s): Z79.01 - termite treater helper (current) use of anticoagulants Status: Acute (9) Essential hypertension: Code(s): I10 - Essential (primary) hypertension Status: Acute (10) Tobacco use: Code(s): Z72.0 - Tobacco use Status: Acute (11) Daily consumption of alcohol: Code(s): Z78.9 - Other specified health status Status: Acute Plan She was recently hospitalized with septic shock and right lower lobe pneumonia and had initially improved however she presents today with worsening right-sided pleuritic pain, shortness a breath, and weakness. Chest CTA shows a 3.6 cm right lower lobe mass suspicious for bronchogenic carcinoma, large loculated right pleural effusion, and moderate pericardial effusion. In the ED she received a dose of azithromycin and ceftriaxone. Antibiotics will be broadened to include cefepime, metronidazole, and vancomycin to cover suspected hospital-acquired parapneumonic infection. Hold Xarelto in hopes that she may have a diagnostic thoracentesis done tomorrow. In the interim I will ask pulmonology to see her in consultation for further recommendations. She will need repeat imaging upon resolution of her symptoms and/or after thoracentesis to evaluate the possibility of a right lower lobe mass. Attempt sputum for culture. Of note, urinary antigens for Legionella and pneumococcal were negative during her recent hospitalization. Echocardiogram has been ordered to evaluate the pericardial effusion. Troponin was mildly elevated and will be trended. 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 She believes her most recent EF was near 50%. Blood pressures were soft on arrival which she states is not necessarily unusual for her and she denies feelings of lightheadedness and weakness. Continue carvedilol and Entresto with parameters. May consider decreasing doses of these medications depending on how she trends. The rest of her home medications will be reviewed and resumed as appropriate. Smoking cessation is encouraged and was discussed. She denies ever having signs or symptoms of alcohol withdrawal. 07/30/2022 interval history: 62 y/o female with history of COPD, viral-cardiomyopathey and patient was recently discharged from hospital after being treated for pneumonia, presented with shortness of breath, patient is found to have loculated pleural effusion concerning for empyema and had a thoracentesis pH is not concerning for an abscess, patient seen by aligner typewriter and being treated with Cefepime, flagyl and vancomycin, patient is hypotensive concerning for sepsis however patient lactic acid is no and there is no fever, patient was given 1000 cc of blood without improvement and her blood pressure, discussed with heavy forger helper patient may need pressor, will continue to monitor and further recommendation to follow. Subjective Date/time seen: 07/30/22 13:48 Interval history: Lung pain, shortness of breath, weakness. Narrative: This is a 62-ye
--- NOTE | 2022-07-30 13:48 | PC.NURSE ---
[id number]- transferred to ICU via bed accompanied by staff- report given to Kamilla BARAJAS- belongings with pt
[2022-07-30 13:59] LABS: RBC Pleural Fluid 12000 /uL (0-0)
[2022-07-30] MEDS: SODIUM CHLORIDE 0.9% IV 1,000 ML 999 ML IV CONT (14:23)
[2022-07-30] MEDS: hetaSTARCH 6%/NACL 500 ML 250 ML IV CONT (14:23)
[2022-07-30] MEDS: NOREPINEPHRINE 8 MG/D5W 250 ML 8 MG/250 ML BAG 9.38 MG IV CONT (14:40)
--- NOTE | 2022-07-30 14:57 | WPDCNINT ---
Assessment and Plan Assessment and plan (1) Septic shock: Code(s): A41.9 - Sepsis, unspecified organism; R65.21 - Severe sepsis with septic shock Status: Acute Assessment and Plan: Patient with hypotension, shock likely related to pneumonia, parapneumonic effusion, could be related to moderate pericardial effusion as mention on the CTA chest -patient received 500 mL IV fluid bolus in the ER on 07/29, 500 mL IV fluid bolus in the intermediate Unit -I gave another 1 L of IV fluid bolus in the ICU -right femoral central line was inserted, Patient started on Levophed, maintain MAP > 65 mmHg for adequate end organ perfusion -according the bedside RN in the intermediate Unit, patient has not had any urine output since this morning -will place Wang catheter and monitor I's and O's accurately -continue azithromycin, cefepime and vancomycin and Flagyl (2) Pneumonia: Qualifiers: Laterality: right Lung location: lower lobe of lung Pneumonia type: due to unspecified organism Qualified Code(s): J18.9 - Pneumonia, unspecified organism Code(s): J18.9 - Pneumonia, unspecified organism Status: Acute Assessment and Plan: Right-sided pneumonia with parapneumonic effusion -continue antibiotics as above -influenza A and B were negative on admission -RSV was negative on admission -SARs CoV 2 PCR was negative on admission -mycoplasma IgM, urine Legionella and urine pneumococcal antigen are pending -continue bronchodilators and Trelegy Ellipta (3) Paroxysmal A-fib: Code(s): I48.0 - Paroxysmal atrial fibrillation Status: Acute Assessment and Plan: Currently in sinus rhythm, -will restart Xarelto (4) CHF (congestive heart failure): Qualifiers: Heart failure type: combined systolic and diastolic Heart failure chronicity: chronic Qualified Code(s): I50.42 - Chronic combined systolic (congestive) and diastolic (congestive) heart failure Code(s): I50.9 - Heart failure, unspecified Status: Acute Assessment and Plan: Patient with history of heart failure, EF 40-45% per patient -will hold Coreg and Entresto at this time given patient in shock requiring vasopressors -cardiology has been consulted -echocardiogram has been done, awaiting report (5) Loculated pleural effusion: Code(s): J90 - Pleural effusion, not elsewhere classified Status: Acute Assessment and Plan: Patient has a right pleural effusion likely parapneumonic -exudate -07/29: Right-sided ultrasound-guided thoracentesis yielding 700 mL of aaron colored fluid (6) AICD (automatic cardioverter/defibrillator) present: Code(s): Z95.810 - Presence of automatic (implantable) cardiac defibrillator Status: Acute Assessment and Plan: Patient has a history of heart failure, has an AICD in place (7) Chronic obstructive pulmonary disease: Code(s): J44.9 - Chronic obstructive pulmonary disease, unspecified Status: Acute Assessment and Plan: History of COPD -continue supplemental oxygen and bronchodilators (8) Pericardial effusion: Code(s): I31.39 - Other pericardial effusion (noninflammatory) Status: Acute Assessment and Plan: Moderate pericardial effusion as seen on CTA chest -echocardiogram has been performed, await report -discuss this with firmware engineer who is going to look at the echocardiogram closely (9) Tobacco use: Code(s): Z72.0 - Tobacco use Status: Acute Assessment and Plan: Counseled patient on cessation of tobacco Plan DVT prophylaxis: Xarelto Stress ulcer prophylaxis: Not indicated Nutrition: Heart healthy diet Code Status: Full code Critical Care Time Spent: 49 minute Discussed with patient regarding her low blood pressures and possible infection in the lungs. I also discussed with her regarding placing a central to which she was agreeable. Stated that she has had a central line in M
[2022-07-30] MEDS: ALBUMIN HUMAN 25% 25 GM/100 ML 100 ML IVPB ×2 (15:29→21:47)
[2022-07-30] MEDS: ACETAMINOPHEN 325 MG TABLET 650 MG PO ×2 (15:44→22:48)
[2022-07-30 15:59] LABS: Lactic Acid Reflex 0.5 mmol/L (0.7-2.0)
[2022-07-30] MEDS: RIVAROXABAN 20 MG TABLET PO (17:06)
[2022-07-31] VITALS (7 sets, daily range): BP systolic 96–137; BP diastolic 56–77; PULSE 91–107; RESP 20–29; TEMP 37.2–38.5; O2SAT 92–95
--- NOTE | 2022-07-31 16:46 | PC.NURSE ---
Paper documentation exists on this patient due to [facility] [place] [facility] downtime on 07/31/22 from 00:30 to 16:30.
[2022-07-31] MEDS: HYDROcodone/acetaminophen (*CRX) 5-325 MG TABLET 1 TAB PO (19:56)
[2022-07-31] MEDS: ACETAMINOPHEN 325 MG TABLET 650 MG PO (20:10)
[2022-07-31] MEDS: ONDANSETRON INJ 4 MG/2 ML VIAL IV PUSH (20:10)
[2022-07-31] MEDS: LEVALBUTEROL NEB 1.25 MG/3 ML INHALATION (21:22)
[2022-07-31] MEDS: IPRATROPIUM BR 0.02% INH SOLN 0.5 MG/2.5 ML VIAL INHALATION (21:22)
[2022-08-01] VITALS (21 sets, daily range): BP systolic 97–113; BP diastolic 57–83; PULSE 90–100; RESP 14–26; TEMP 36.6–37.9; O2SAT 90–100; BMI 21.9
[2022-08-01] MEDS: ACETAMINOPHEN 325 MG TABLET 650 MG PO ×2 (01:59→15:25)
[2022-08-01] MEDS: metroNIDAZOLE 500 MG/ISO 100ML 500 MG/100 ML BAG 100 MG IVPB ×3 (02:00→18:27)
[2022-08-01] MEDS: LEVALBUTEROL NEB 1.25 MG/3 ML INHALATION ×4 (02:23→20:13)
[2022-08-01] MEDS: IPRATROPIUM BR 0.02% INH SOLN 0.5 MG/2.5 ML VIAL INHALATION ×4 (02:23→20:13)
[2022-08-01] MEDS: VANCOMYCIN 1,250 MG/NS 250 ML 1,250 MG/250 ML BAG 166.67 MG IVPB (05:18)
[2022-08-01] MEDS: CEFEPIME 2 GM/NS 50 ML 2 GM/50 ML BAG IVPB ×2 (05:19→16:59)
[2022-08-01 05:29] LABS: Basophils Percent Auto 0.2 % (0.2-1.2); Eosinophils Absolute Auto 0.2 K/mm3 (0-0.3); Eosinophils Percent Auto 1.3 % (0-4.4); Hemoglobin 10.4 g/dL (12.0-15.0); Immature Granulocyte Absolute 0.09 K/mm3 (0.00-0.031); Immature Granulocyte Percent A 0.6 % (0-0.5); Lymphocytes Percent Auto 5.6 % (18.3-44.2); Mean Corpuscular HGB Conc 31.5 g/dl (32-36); Mean Corpuscular Hemoglobin 31.8 pg (26-34); Mean Corpuscular Volume 100.9 fl (80-100); Mean Platelet Volume 8.9 fl (7.4-10.4); Monocytes Absolute Auto 1.5 K/mm3 (0.1-0.6); Monocytes Percent Auto 10.6 % (2.6-8.5); Neutrophils Absolute Auto 11.6 K/mm3 (1.3-6.7); Neutrophils Percent Auto 81.7 % (45.5-73.1); Platelet Count Result 299 k/mm3 (150-375); Red Blood Count 3.27 M/mm3 (4.2-5.4); Red Cell Distribution Width 13.2 % (11.5-14.5); White Blood Count 14.2 K/mm3 (4.5-10.0)
[2022-08-01 05:46] LABS: Lactic Acid Reflex 0.5 mmol/L (0.7-2.0)
[2022-08-01 05:52] LABS: Alanine Aminotransferase 14 U/L (6-35); Albumin Level 2.9 g/dL (3.5-5.1); Alkaline Phosphatase 47 U/L (38-126); Anion Gap 4 mmol/L (8-16); Aspartate Amino Transferase 23 U/L (14-36); Bilirubin,Total 0.4 mg/dL (0.2-1.3); Blood Urea Nitrogen 20 mg/dL (7-17); Calcium 6.9 mg/dL (8.4-10.2); Carbon Dioxide 27 mmol/L (22-30); Chloride 100 mmol/L (98-107); Estimated CRCL calculation 49 ml/min; Estimated Glomerular Filt Rate 56; Glucose 109 mg/dL (65-110); Phosphorus 2.5 mg/dL (2.5-4.5); Potassium 3.5 mmol/L (3.4-5.0); Sodium 131 mmol/L (137-145)
[2022-08-01 06:37] LABS: CRP 29.4 mg/dL (<1.0)
--- NOTE | 2022-08-01 06:45 | PN_ITS ---
DATE OF SERVICE: 07/31/2022 SUBJECTIVE: This 62-year-old female was hospitalized with right pleural effusion approximately 2 days ago. The patient has history of previous hospitalization and treatment in the intensive care unit for right lower lobe pneumonia. She was discharged home on antibiotics. Since discharge from the hospital, the patient has received 2 courses of antibiotics for recurrent right chest pain, night sweats, and fever. When she was evaluated in the emergency room during this hospitalization, she was found to have a loculated pleural effusion on right. Since admission, the patient has undergone right thoracentesis. She has been on 3 antibiotics for possible empyema. Pleural fluid pH was not consistent with empyema. She had a very high number of wbc's in the pleural fluid, which is indicative of at least complicated parapneumonic effusion or early empyema. Yesterday, the patient was found to have a low blood pressure and was transferred to the intensive care unit, where she was placed on Levophed IV. She remains on antibiotics. Currently, she is off vasopressors. She has no new respiratory complaints. In particular, she denies having fever, chills, chest pain. Currently, she is hemodynamically stable. PHYSICAL EXAMINATION: GENERAL: The patient is sitting up in bed, in no apparent respiratory distress while on supplemental oxygen via nasal cannula. HEENT: Pupils are equal bilaterally. NECK: Supple. No vein distention. CHEST: Dullness to percussion and decreased breath sounds in the right base posteriorly. CARDIOVASCULAR: Tachycardia, regular heart rhythm. No murmurs. ABDOMEN: Soft, nontender. Bowel sounds present. EXTREMITIES: No clubbing or pedal edema. LABORATORY DATA: Chest x-ray done earlier today showed larger pleural effusion on right compared to the chest x-ray done post thoracentesis. Apparently, no new infiltrates seen. WBC trending down, last number 12.3. Hemoglobin 14.7, hematocrit 45.1. Creatinine 1.1. ASSESSMENT/PLAN: This is a 62-year-old female with history of chronic obstructive pulmonary disease, congestive heart failure, status post implantation of pacemaker and defibrillator, presented with right pleural effusion, which is related to recent pneumonia, for which she was hospitalized approximately 6 weeks prior to this admission. The patient has been on 3 antibiotics for possible complicated parapneumonic effusion versus early empyema. Pleural fluid testing still pending. Pleural fluid cultures also pending. It is unclear of what the cause low blood pressure was. Currently, the patient is hemodynamically stable off Levophed. Physical exam showed just decreased breath sounds related to pleural effusion. She had no wheezing. The patient has been on nebulized bronchodilators p.r.n. for wheezing. We will continue with current antibiotic regimen while waiting for pleural fluid cultures and other pleural fluid analysis results. We will repeat chest x-ray, and if there is evidence of reaccumulation of pleural effusion, we will consider transferring the patient to a tertiary care hospital for VATS and decortication. The patient has history of congestive heart failure, and she will probably need evaluation for question of congestive heart failure. Griffin I MT: [place]
[2022-08-01] MEDS: FLUTICASONE/UMECLIDIN/VILANTER 100-62.5-25 MCG ELLIPTA 1 PUFF INHALATION (07:52)
--- NOTE | 2022-08-01 08:31 | WPDINTPN ---
Progress Note: A&P Assessment and Plan (1) Septic shock: Code(s): A41.9 - Sepsis, unspecified organism; R65.21 - Severe sepsis with septic shock Status: Acute Assessment and Plan: Patient with hypotension, shock likely related to pneumonia, parapneumonic effusion, could be related to moderate pericardial effusion as mention on the CTA chest -patient received 500 mL IV fluid bolus in the ER on 07/29, 500 mL IV fluid bolus in the intermediate Unit -I gave another 1 L of IV fluid bolus in the ICU on 07/30 -07/30: Right femoral central line was inserted, Patient started on Levophed, maintain MAP > 65 mmHg for adequate end organ perfusion -07/31: remains OFF Levophed -continue cefepime and vancomycin and Flagyl (07/28) (2) Pneumonia: Qualifiers: Laterality: right Lung location: lower lobe of lung Pneumonia type: due to unspecified organism Qualified Code(s): J18.9 - Pneumonia, unspecified organism Code(s): J18.9 - Pneumonia, unspecified organism Status: Acute Assessment and Plan: Right-sided pneumonia with parapneumonic effusion -continue antibiotics as above -influenza A and B were negative on admission -RSV was negative on admission -SARs CoV 2 PCR was negative on admission -mycoplasma IgM, urine Legionella and urine pneumococcal antigen are pending -continue bronchodilators and Trelegy Ellipta (3) Paroxysmal A-fib: Code(s): I48.0 - Paroxysmal atrial fibrillation Status: Acute Assessment and Plan: Currently in sinus rhythm, -continue Xarelto (4) CHF (congestive heart failure): Qualifiers: Heart failure chronicity: chronic Heart failure type: combined systolic and diastolic Qualified Code(s): I50.42 - Chronic combined systolic (congestive) and diastolic (congestive) heart failure Code(s): I50.9 - Heart failure, unspecified Status: Acute Assessment and Plan: Patient with history of heart failure, EF 40-45% per patient -will hold Coreg and Entresto at this time given patient in shock requiring vasopressors -cardiology has been consulted -echocardiogram has been done, awaiting report (5) Loculated pleural effusion: Code(s): J90 - Pleural effusion, not elsewhere classified Status: Acute Assessment and Plan: Patient has a right pleural effusion likely parapneumonic -exudate -06/12: Right-sided ultrasound-guided thoracentesis yielding 700 mL of aaron colored fluid -pulmonology following closely (6) AICD (automatic cardioverter/defibrillator) present: Code(s): Z95.810 - Presence of automatic (implantable) cardiac defibrillator Status: Acute Assessment and Plan: Patient has a history of heart failure, has an AICD in place (7) Chronic obstructive pulmonary disease: Code(s): J44.9 - Chronic obstructive pulmonary disease, unspecified Status: Acute Assessment and Plan: History of COPD -continue supplemental oxygen and bronchodilators (8) Pericardial effusion: Code(s): I31.39 - Other pericardial effusion (noninflammatory) Status: Acute Assessment and Plan: Moderate pericardial effusion as seen on CTA chest 07/30/2022 Echocardiogram: LV chamber is normal, LV systolic function is estimated at 55-60%, mildly increased LV wall thickness, left ventricular diastolic function is abnormal, this trace mitral valve regurg, small pericardial effusion with fibrinous material within the pericardial space (9) Tobacco use: Code(s): Z72.0 - Tobacco use Status: Acute Assessment and Plan: Counseled patient on cessation of tobacco Plan DVT prophylaxis: Xarelto Stress ulcer prophylaxis: Not indicated Nutrition: Heart healthy diet and supplements Code Status: Full code Critical Care Time Spent: 32 minutes 08/01: Discussed with regarding her condition and plan of care. She is aware that she is of the blood pressure support medication, continues
--- NOTE | 2022-08-01 08:31 | WPDPROCEDUR ---
Procedures Central Line Placement Right Femoral: Central Line Date: 07/30/22 Central Line Time: 15:20 Discussed w/ the patient/family/POA,the placement of a central venous catheter, including its clinical necessity/indication & associated potential risks, benifits and alternatives.: Yes The patient/family/POA understand(s) and acknowledge(s) the need to proceed with central venous catheter insertion as an important element of the patient's clinical management.: Yes Consent: I have discussed with the patient and/or surrogate, the non-emergent placement of a central venous catheter, including its clinical necessity/indication and associated potential risks and complications. The patient and/or surrogate understand(s) and acknowledge(s) the need to proceed with central venous catheter insertion as an important element of the patient's clinical management. Time Out Performed: Yes Patient placed on monitor/pulse ox: Yes Provider Prep: mask, sterile gown, sterile gloves, Max. sterile barrier precautions, cap and hand hygiene with conventional soap/water or alcohol based hand rub Central line prep: 2% Chlorhexidine scrub Local anesthesia used: lidocaine 1% Amount of anesthesia used (ml): 3 Sterile US Technique with sterile gel/sterile probe covers: Yes Central line lumen inserted: triple Slovenian: 7 Length (cm): 16 Depth of Insertion (cm): 16 Post Procedure: sutured in place, good blood return, all ports aspirated, flushed, capped, transparent dressing, hemostatic product, antimicrobial product, securement product and aseptic technique maintained throughout procedure Post procedure x-ray: other (Not indicated) Patient tolerated procedure: well Complications: none
[2022-08-01] MEDS: EZETIMIBE 10 MG TABLET PO (08:36)
[2022-08-01] MEDS: ROSUVASTATIN 5 MG TABLET PO (08:36)
[2022-08-01] MEDS: CALCIUM GLUC 2,000 MG/NS 100ML 2,000 MG/100 ML BAG 100 MG IVPB (08:36)
[2022-08-01] MEDS: DULoxetine HCL 60 MG CAPSULE.DR PO (08:36)
--- NOTE | 2022-08-01 13:54 | PM.IMPN ---
Progress Note: A&P Assessment and Plan (1) Pleural effusion on right: Code(s): J90 - Pleural effusion, not elsewhere classified Status: Acute (2) Right lower lobe lung mass: Code(s): R91.8 - Other nonspecific abnormal finding of lung field Status: Acute (3) Pericardial effusion: Code(s): I31.39 - Other pericardial effusion (noninflammatory) Status: Acute (4) Elevated troponin: Code(s): R77.8 - Other specified abnormalities of plasma proteins Status: Acute (5) Heart failure of unknown type: Code(s): I50.9 - Heart failure, unspecified Status: Acute (6) Chronic obstructive pulmonary disease: Code(s): J44.9 - Chronic obstructive pulmonary disease, unspecified Status: Acute (7) Paroxysmal atrial fibrillation: Code(s): I48.0 - Paroxysmal atrial fibrillation Status: Acute (8) Chronic anticoagulation: Code(s): Z79.01 - oysterman (current) use of anticoagulants Status: Acute (9) Essential hypertension: Code(s): I10 - Essential (primary) hypertension Status: Acute (10) Tobacco use: Code(s): Z72.0 - Tobacco use Status: Acute (11) Daily consumption of alcohol: Code(s): Z78.9 - Other specified health status Status: Acute Plan She was recently hospitalized with septic shock and right lower lobe pneumonia and had initially improved however she presents today with worsening right-sided pleuritic pain, shortness a breath, and weakness. Chest CTA shows a 3.6 cm right lower lobe mass suspicious for bronchogenic carcinoma, large loculated right pleural effusion, and moderate pericardial effusion. In the ED she received a dose of azithromycin and ceftriaxone. Antibiotics will be broadened to include cefepime, metronidazole, and vancomycin to cover suspected hospital-acquired parapneumonic infection. Hold Xarelto in hopes that she may have a diagnostic thoracentesis done tomorrow. In the interim I will ask pulmonology to see her in consultation for further recommendations. She will need repeat imaging upon resolution of her symptoms and/or after thoracentesis to evaluate the possibility of a right lower lobe mass. Attempt sputum for culture. Of note, urinary antigens for Legionella and pneumococcal were negative during her recent hospitalization. Echocardiogram has been ordered to evaluate the pericardial effusion. Troponin was mildly elevated and will be trended. 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 She believes her most recent EF was near 50%. Blood pressures were soft on arrival which she states is not necessarily unusual for her and she denies feelings of lightheadedness and weakness. Continue carvedilol and Entresto with parameters. May consider decreasing doses of these medications depending on how she trends. The rest of her home medications will be reviewed and resumed as appropriate. Smoking cessation is encouraged and was discussed. She denies ever having signs or symptoms of alcohol withdrawal. 07/30/2022 interval history: 62 y/o female with history of COPD, viral-cardiomyopathey and patient was recently discharged from hospital after being treated for pneumonia, presented with shortness of breath, patient is found to have loculated pleural effusion concerning for empyema and had a thoracentesis pH is not concerning for an abscess, patient seen by vamp strap ironer and being treated with Cefepime, flagyl and vancomycin, patient is hypotensive concerning for sepsis however patient lactic acid is no and there is no fever, patient was given 1000 cc of blood without improvement and her blood pressure, discussed with retail helper patient may need pressor, will continue to monitor and further recommendation to follow. 08/01/2022: History reviewed. Presented with shortness of breath. History of cardiomyopathy. And COPD. Found to have locally to pleural
[2022-08-01 16:12] LABS: Vancomycin Trough 11.8 ug/mL (10.0-20.0)
[2022-08-01] MEDS: RIVAROXABAN 20 MG TABLET PO (16:51)
[2022-08-01 16:52] LABS: Vancomycin Trough 11.2 ug/mL (10.0-20.0)
--- NOTE | 2022-08-01 17:30 | PC.NURSE ---
Addendum entered by Crystal Corea RN 08/01/22 17:45: This patient, Melodie Barrera, was transferred to [facility] on 08/01/22 at 1730. Personal belongings sent with patient. Report given to Lesa. Appropriate documentation sent with patient. Original Note: This patient, Melodie Barrera, was transferred to [ ] on 08/01/22 at 1743. Personal belongings sent with patient. Report given to [ ]. Appropriate documentation sent with patient.
--- NOTE | 2022-08-01 19:12 | PC.NURSE ---
Report given to Reny BARAJAS at [facility] [address].
[2022-08-01 19:41] LABS: Mycoplasma IgM Antibody Titer 26 U/mL (<770)
[2022-08-01 19:53] LABS: Glucose Pleural Fluid 88 mg/dL; LDH Pleural Fluid 1887 U/L; Total Protein Pleural Fluid 4.5 g/dL
--- NOTE | 2022-08-02 08:48 | PM.TDS ---
Transfer Discharge Sum: Prov Provider Date of admission: 07/30/22 10:09 Primary care physician: Max Patel APRN Admitting clinician: Neo Boogie MD Consults: 07/29/22 Consult to Physician Routine Comment: Spoke with and notified him of consult Consulting Provider: Jasper Yang square dance caller/MD group to consult: pulmonology Reason for consultation: lung mass, loculated effusion Has provider been notified: Yes 07/30/22 Consult to Physician Routine Comment: Consulting Provider: Suzie Rai Reason for consultation: septic shock Has provider been notified: Yes DS: Admitting Diagnosis Discharge Date 08/01/22 Admitting Diagnosis Shortness of breath DS: Discharge Diagnosis Discharge Diagnosis (1) Pleural effusion on right: Code(s): J90 - Pleural effusion, not elsewhere classified Status: Acute (2) Right lower lobe lung mass: Code(s): R91.8 - Other nonspecific abnormal finding of lung field Status: Acute (3) Pericardial effusion: Code(s): I31.39 - Other pericardial effusion (noninflammatory) Status: Acute (4) Elevated troponin: Code(s): R77.8 - Other specified abnormalities of plasma proteins Status: Acute (5) Heart failure of unknown type: Code(s): I50.9 - Heart failure, unspecified Status: Acute (6) Chronic obstructive pulmonary disease: Code(s): J44.9 - Chronic obstructive pulmonary disease, unspecified Status: Acute (7) Paroxysmal atrial fibrillation: Code(s): I48.0 - Paroxysmal atrial fibrillation Status: Acute (8) Chronic anticoagulation: Code(s): Z79.01 - 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 (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) use of anticoagulants Status: Acute (9) Essential hypertension: Code(s): I10 - Essential (primary) hypertension Status: Acute (10) Tobacco use: Code(s): Z72.0 - Tobacco use Status: Acute (11) Daily consumption of alcohol: Code(s): Z78.9 - Other specified health status Status: Acute Transfer Discharge Sum: Med Medications Active and Home Medications: Home Medications rivaroxaban 20 mg tablet (Xarelto) 20 mg PO DAILY 01/20/19 [History Confirmed 07/29/22] sacubitril 97 mg-valsartan 103 mg tablet (Entresto) 1 tablet PO BID 01/20/19 [History Confirmed 07/29/22] carvedilol 25 mg tablet 25 mg PO Q12H #90 tabs 10/20/19 [Rx Confirmed 07/29/22] rosuvastatin 5 mg tablet 5 mg PO DAILY #90 tabs 05/01/22 [Rx Confirmed 07/29/22] ergocalciferol (vitamin D2) 1,250 mcg (50,000 unit) capsule 1,250 mcg PO WEEKLY 06/16/22 [History Confirmed 07/29/22] budesonide 160 mcg-glycopyr 9 mcg-formot 4.8 mcg/actuation HFA inhaler (Breztri Aerosphere) 2 inh inhalation BID #10.7 grams 06/24/22 [Rx Confirmed 07/29/22] duloxetine 60 mg capsule,delayed release See Rx Instructions .Route .COMPLEX #90 caps 08/01/22 [Rx] ezetimibe 10 mg tablet See Rx Instructions .Route .COMPLEX #90 tabs 08/01/22 [Rx] Transfer Discharge Sum: Hosp Hospital Course Hospital course: Melodie Barrera is a 62 year old female who Presented with shortness of breath.? History of cardiomyopathy.? And COPD.? Found to have loculated pleural effusion concerning for empyema.? Thoracentesis performed was not concerning for an abscess.? Seen by croze cutter.? On vancomycin cefepime and Flagyl.? Patient hypotensive concerning for sepsis however patient's lactic acid is normal and.? IV fluid nonresponsive and hence needed IV pressor moved to the ICU.? Remains intermittently febrile since admission.? Off Levophed since 07/31/2022.? On 3 L oxygen.? WBC count is improving mildly hyponatremic CRP elevated at 29 slightly improved pleural fluid analysis with 93% neutrophils 15,000 nucleated cells pH 7.37 chest x-ray reviewed moderate-sized loculated right pleural effusion with slight increase in size.? Ultrasound-guided thoracentesis yielded 700 mL of aaron colored fluid 07/29/2022. Cultures negative to date. Echo with EF
[2022-08-02 21:27] LABS: Pneumococcal Antigen Urine Not Detected (Not Detected)
[2022-08-03 16:55] LABS: Amylase, Pleural Fluid 18 U/L
[2022-08-05 00:06] LABS: Albumin Pleural Fluid 2.3 g/dL
[2022-08-05 04:53] LABS: Legionella pneumophila Ag Ur Detected (Not Detected)
== END 2022-08-01 20:57 | disposition short-term general hospital (02) | DRG 871 ==
LOC: ANHED 12:08 → ANHIMU 13:44 → ANHICU 07-30 13:38 → ANH2MED 08-02 15:25
PROVIDERS: Internal Medicine; Internal Medicine Pulmonary Disease; Physician Assistant; Admitting Provider Hospitalist; Emergency Provider Emergency Medicine; PCP Nurse Practitioner; Visit Provider Nurse Practitioner
DX: A41.9 Sepsis, unspecified organism (principal); J18.9 Pneumonia, unspecified organism; R65.21 Severe sepsis with septic shock; J90 Pleural effusion, not elsewhere classified; I31.39 Other pericardial effusion (noninflammatory); E87.1 Hypo-osmolality and hyponatremia; I50.42 Chronic combined systolic (congestive) and diastolic (congestive) heart failure; R91.8 Other nonspecific abnormal finding of lung field; J44.9 Chronic obstructive pulmonary disease, unspecified; I48.0 Paroxysmal atrial fibrillation; I95.9 Hypotension, unspecified; I11.0 Hypertensive heart disease with heart failure; Z20.822 Contact with and (suspected) exposure to COVID-19; E78.5 Hyperlipidemia, unspecified; M81.0 Age-related osteoporosis without current pathological fracture; F17.210 Nicotine dependence, cigarettes, uncomplicated; Z79.01 Long term (current) use of anticoagulants; Z95.810 Presence of automatic (implantable) cardiac defibrillator
CPT/HCPCS: 32555; 36415; 71045; 71046; 71275; 80048; 80053; 80202; 82040; 82042; 82150; 82247; 82465; 82945; 82947; 83605; 83615; 83735; 83880; 83986; 84100; 84145; 84155; 84157; 84311; 84443; 84478; 84484; 85025; 85610; 85730; 86140; 86738; 87040; 87070; 87075; 87081; 87086; 87205; 87449; 87637; 87899; 88108; 88184; 88305; 89051; 93005; 94640; 96365; 96367; 99285; A9270; C8929; J0456; J0613; J0692; J0696; J2270; J2405; J3370; J7030; J7040; P9047; Q9957; Q9967

== ENCOUNTER 2023-05-13 10:07 | Outpatient (CLI) | payer OTHER, SELFPAY ==
--- NOTE | ~2023-05-13 | MM_ITS ---
EXAMINATION: MM screening heidi BI w edson HISTORY: Screening mammogram TECHNIQUE: Craniocaudal and mediolateral oblique 3-D tomosynthesis images were obtained and synthetic 2-D images were generated. CAD analysis was submitted and interpreted. COMPARISON: 05/15/2022 bilateral diagnostic mammography and bilateral complete breast ultrasound exami nation 04/17/2022, 03/16/2021 bilateral screening mammogram examinations BREAST PARENCHYMAL COMPOSITION: The breasts are extremely dense, which lowers the sensitivity of mamm ography. FINDINGS: Pacemaker device overlies the left axillary area. There is no evidence of suspicious mass, calcification, or architectural distortion to suggest malignancy in either breast. There has been no suspicious interval change. IMPRESSION: 1. No mammographic evidence of malignancy. 2. Recommend routine screening mammography in one year. BI-RADS Category 1: Negative Reviewed, dictated and finalized at location A.
== END 2023-05-13 10:08 ==
LOC: MICIMG 10:08
PROVIDERS: PCP Obstetrics & Gynecology Gynecology; Visit Provider Obstetrics & Gynecology Gynecology
DX: Z12.31 Encounter for screening mammogram for malignant neoplasm of breast (principal)
CPT/HCPCS: 77063; 77067

== ENCOUNTER 2024-05-06 10:53 | Outpatient (CLI) | payer OTHER, SELFPAY ==
--- OUTSIDE RECORDS SUMMARY | 2024-05-06 11:52 | XMS_ITS | Clinical Summary ---
Author Organization [facility] Address [address] [place] [address] Care Team Providers Care Policy Issue Clerk Name Role Phone Gary Tom MD Primary Care Provider [phone] Source Comments [facility],non-owned Affiliates and Associated Physician Practices is amultiple site organization consisting of ambulatory clinics and hospital sitesin [place], [place], [place] and [place]. This disclosure is being madepursuant to the Care Everywhere program and may not contain all information available regarding this patient. Last updated 17.[facility] Allergies No known active allergies Medications * Be aware that medications may not be up to date on this document. Alwaysverify current medications with the patient. Medication Sig Dispensed Refills Start Date End Date Status DULoxetine (CYMBALTA) 60 MG capsule Take 1 (one) capsule by mouth once daily Active vitamin D, ergocalciferol, (DRISDOL) 10679 UNITS capsule Take 1 (one) capsule by mouth every 7 days Active rivaroxaban (XARELTO) 20 MG tablet Take 1 tablet by mouth once daily 90 tablet 3 0 Active carvedilol (COREG) 25 MG tablet TAKE 1 TAB BY MOUTH 2 TIMES DAILY WITH MORNING AND EVENING MEAL 180 tablet 3 0 Active sacubitril-valsartan (ENTRESTO) 97-103 MG tablet Take 1 tablet by mouth 2 times daily 180 tablet 3 1 Active Budeson-Glycopyrrol- Formoterol (Breztri Aerosphere) 160-9-4.8 MCG/ACT AERO Inhale 2 (two) puffs by mouth 2 times daily Active ezetimibe (Zetia) 10 MG tablet Take 1 (one) tablet by mouth once daily Active rosuvastatin (Crestor) 5 MG tablet Take 1 (one) tablet by mouth once daily Active famotidine (Pepcid) 20 MG tablet Take 1 (one) tablet by mouth 2 times daily 60 tablet 1 3 Active Additional Information Patient not taking.Reported on 09/24/2022 potassium chloride ER (Klor-Con M) 20 MEQ tablet Take 1 (one) tablet by mouth daily with breakfast 30 tablet 3 Active Additional Information Patient not taking.Reported on 09/10/2022 saline nasal spray ([place]; Baby [place]) 0.65 % nasal spray [place] 1 (one) spray into each nostril every 2 hours as needed for Dry Nose 100 mL 3 Active Additional Information Patient not taking.Reported on 09/10/2022 bisacodyl (Dulcolax) 10 MG suppositoryIndicatio ns:Pleural effusion Insert 1 (one) suppository into the rectum once as needed for Constipation (no BM 4 hours MOM/Magnesium hydroxide) 15 suppository 3 Active Additional Information Patient not taking.Reported on 09/10/2022 iron polysaccharides (Niferex 150) 150 MG capsule Take 1 (one) capsule by mouth once daily after lunch 30 capsule 3 Active Additional Information Patient not taking.Reported on 09/10/2022 polyethylene glycol 3350 (Miralax) 17 g packetIndications:Pl eural effusion Take 17 (seventeen) g by mouth once daily 30 packet 3 Active Additional Information Patient not taking.Reported on 09/10/2022 melatonin 3 MG tablet Take 2 (two) tablets by mouth nightly as needed for Insomnia 30 tablet 3 Active Additional Information Patient not taking.Reported on 09/10/2022 HYDROcodone-acetamin ophen ([place]) 5-325 MG tabletIndications:Pl eural effusion,Chronic systolic heart failure (HCC),Essential hypertension,PAF (paroxysmal atrial fibrillation) (HCC) Take 1 (one) tablet by mouth every 4 hours as needed 12 tablet 3 Active Additional Information Patient not taking.Reported on 09/10/2022 acetaminophen (Tylenol) 325 MG tabletIndications:Pl eural effusion Take 2 (two) tablets by mouth every 4 hours as needed ( for temperature greater than 101F) Maximum allowable Acetaminophen amount = 4 Grams (4000 mg) / 24 hours. 3 Active ALPRAZolam (Xanax) 0.25 MG tablet Take 1 (one) tablet by mouth 2 times daily as needed for Anxiety 30 tablet 3 Active hydrALAZINE (Apresoline) 25 MG tablet Take 1 (one) tablet by mouth 3 times daily as needed (SBP >160) 90 tablet 3 3 Active Additional Information Patient not taking.Reported on 09/10/2022 HYDROcodone-acetamin ophen ([place]) 5-325 MG tabletIndications:Em pyema (HCC),Postoperative pain Take 1 (one) tablet by mouth every 8 hours as needed for Pain 30 tablet 3 Active traMADol (Ultram) 50 MG tablet Take 1 (one) tablet by mouth every 6 hours as needed for Pain 30 tablet 3 Active HYDROcodone-acetamin ophen ([place]) 5-325 MG tabletIndications:Ne oplasm of uncertain behavior of right lower lobe of lung,Postoperative pain Take 1 (one) tablet by mouth every 8 hours as needed for Pain 5 tablet 4 Active Active Problems Problem Noted Date Diagnosed Date Pleural effusion 08/01/2022 Implantable defibrillator reprogramming/check VT (ventricular tachycardia) 12/31/2016 NICM (nonischemic cardiomyopathy) 03/01/2015 Overview (03/04/2016): with an estimated ejection fraction by cardiac catheterization in 2007 of 10 to 15%. Echo 08/2008 LVEF = 30%. Echo 10/2010 LVEF = 35-45% Echo 02/2014 LVEF = 45% Echo 01/2016 -- LVEF 25-30%, mild LV diastolic dysfunction, mild RV hypokinesis, PASP 30 mmHg Exercise SPECT Stress 02/2016 -- Walked 9:21 (132% predicted METs). Achieved 78% max predicted HR. Clin/EKG neg. Images normal. EF 49-55% post exercise. PAF (paroxysmal atrial fibrillation) 03/01/2015 Overview (03/01/2015): First seen on ICD check from 12/2011 Cardiac defibrillator in situ 03/01/2015 Overview (03/01/2015): Overview: [employer] ICD - Current DR FITZGERALD [id number] SN: [id number] - Implanted 10/12/[address] Eric Nuno RA: LANCE [id number] SN: [id number] (Implanted 10/12/2008) RV: SANIA [id number] SN: [id number] (Implanted 10/12/2008) Mitral valve disorder 03/01/2015 Overview (03/01/2015): Overview: mild Essential hypertension 03/01/2015 Defibrillator 02/28/2015 Overview (01/22/2017): [employer] model [id number] SN: [id number] - Implanted 01/22/[address] 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 Encounters Date Type Department Care Team Description 05/04/2024 12:48 PM CDT - 05/04/2024 11:59 PM CDT Hospital Encounter [facility] Health Imaging Services - CT Scan [address] [id number] Discharge Disposition: Home or Self Care from Last 3 Months Family History Medical History Relation Name Comments Heart Failure Father Stroke Mother Relation Name Status Comments Father Mother Social History Tobacco Use Types Packs/Day Years Used Date Smoking Tobacco: Some Days Cigarettes 0.2 30 Tobacco Cessation:Ready to Q uit: Not Asked; Counseling Given: Not Answered Alcohol Use Standard Drinks/Week Comments Not Asked 0 (1 standard drink = 0.6 oz pur e alcohol) AUDIT-C Answer Date Recorded Q1: How often do you have a drink containing alcohol? 4 or more times a week 08/01/2022 Q2: How many drinks containi ng alcohol do you have on a typical day when you are drinking? 3 or 4 3 Q3: How often do you have si x or more drinks on one occasion? Never 08/01/2022 Overall Financial Resource Strain (CARDIA) Answe r Date Recorded How hard is it for you to pa y for the very basics like food, housing, medical care, and heating? Not hard at all 08/01/2022 [facility] [place] [facility] Occupat ional Health - Occupational Stress Questionnaire Answer Date Recorded Do you feel stress - tense, restless, nervous, or anxious, or unable to sleep at night because your mind is troubled all the time - these days? To some extent 08/01/2022 Hunger Vital Sign Answer Date Recorded Within the past 12 months, y ou worried that your food would run out before you got the money to buy more. Never true 08/02/19 23 Within the past 12 months, t he food you bought just didn't last and you didn't have money to get more. Never true 08/01/2022 PRAPARE - Transportation Answer Date Re corded In the past 12 months, has l ack of transportation kept you from medical appointments or from getting medications? No 07/18 In the past 12 months, has l ack of transportation kept you from meetings, work, or from getting things needed for daily living? No 08/01/2022 Housing Stability Vital Sign Answer Franky e Recorded In the last 12 months, was t here a time when you were not able to pay the mortgage or rent on time? No 08/01/2022 Number of Places Lived in the Last Year Not on f ile 08/01/2022 In the last 12 months, was t here a time when you did not have a steady place to sleep or slept in a alf (including now)? No 08/01/2022 Sex and Gender Information Value Date Recorded Sex Assigned at Not on file Gender Identity Not on file Sexual Orientation Not on file Last Filed Vital Signs Vital Sign Reading Time Taken Comments Blood Pressure 134/87 05/06/2023 10:47 AM CDT Pulse 65 05/06/2023 10:47 AM CDT Temperature 36.8 C (98.2 F) 08/22/2022 12:42 PM CDT Respiratory Rate 18 08/22/2022 12:42 PM CDT Oxygen Saturation 93% 05/06/2023 10:47 AM CDT Inhaled Oxygen Concentration 40% 08/18/2022 1 2:24 AM CDT Weight 59.4 kg (131 lb) 05/06/2023 10:47 AM CDT Height 167.6 cm (5' 6 ) 05/06/2023 10:47 AM CDT Body Mass Index 21.14 05/06/2023 10:47 AM CDT Plan of Treatment Upcoming Encounters Date Type Department Care Team (Late st Contact Info) Description 05/18/2024 9:40 AM CDT Office Visit [facility] Heart & Vascular Care - Cardiothoracic Surgery [address] [place] [address] [place] [address], [address] [place] [address] Health Maintenance Due Date Last Done Comments COLOGUARD (AGES 45-75) - COLON CA SCREENING 1961 COLON MONITORING 1961 COLONOSCOPY - COLON CA SCREENING 1961 CT COLONOGRAPHY - COLON CA SCREENING 1961 Colorectal Cancer Screening 1961 FIT - COLON CA SCREENING 1961 FLEX SIG - COLON CA SCREENING 1961 MAMMOGRAM 1961 HIV SCREENING 1976 HEPATITIS C SCREENING 06/30/1979 DTAP/TDAP/TD VACCINES (1 - Tdap) 1980 PNEUMOCOCCAL VACCINE 50+ (1 of 2 - PCV) 1980 PAP with HPV 07/05/1991 ZOSTER VACCINE (1 of 2) 07/05/2011 Respiratory Syncytial Virus (RSV) Vaccine Pt: or over 60 yrs (1 - Risk 60-74 years 1-dose series) 2021 COVID-19 VACCINE ( - season) 2023 10/03/2021, 03/19/2021, 05/08/2020, Additional history exists INFLUENZA VACCINE (#1) 2023 02/17/2013 DEPRESSION SCREENING 02/18/2024 HEPATITIS B VACCINE Aged Out No longe r eligible based on patient's age to complete this topic HIB VACCINE Aged Out No longer eligi ble based on patient's age to complete this topic HPV VACCINE Aged Out No longer eligi ble based on patient's age to complete this topic MENINGOCOCCAL (Group B) VACCINE SHARED DECISION-MAKING Aged Out No longer eligible based on patient's age to complete this topic MENINGOCOCCAL GROUPS A/C/Y/W VACCINE Aged Out No longer eligible based on patient's age to complete this topic Procedures Procedure Name Priority Date/Time Associated Diagnosis Comments CT CHEST WO CONTRAST Routine 05/04/2024 1:06 PM CDT 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 Postoperative pain from Last 3 Months Results * CT CHEST WO CONTRAST (05/04/2024 1:06 PM CDT) Anatomical Region Laterality Modality Chest Computed Tomogra phy 05/04/2024 1:32 PM CDT Impressions 05/04/2024 1:43 PM CDT IMPRESSION: 1.Stable right lower lobe nodule. 2.Emphysematous changes. 3.Pericardial effusion. 4.Presumed hepatic cysts. 5.Nonobstructing right renal calcification. Edited by Angela Crook on 05/04/2024 1:40 PM > Interpreting Provider: Sean Kowalski MD on 05/04/2024 1:43 PM Narrative 05/04/2024 1:[address] THORAX NONCONTRAST CLINICAL INDICATION: Non-small cell lung cancer right lower lobe, restaging. TECHNIQUE: Axial images through thorax noncontrast. One or more of the following CT dose reduction techniques were utilized: *Automated exposure control (AEC) *Adjustment of mA and/or kV according to patient size -Use of iterative reconstruction technique -CT scan done according to ALARA or ALARA/IMAGE GENTLY COMPARISON: May 01, 2023 FINDINGS: Left pacemaker is present. There is no bulky axillary or mediastinal lymphadenopathy. The thoracic aorta is atherosclerotic. Pericardial effusion anteriorly measures at least 1.09 cm. Emphysematous changes are present bilaterally. Within the right lower lobe, the lobular noncalcified nodule, on image 74, now measures fairly similar at 1.90 x 1.29 cm. No pleural effusion or pneumothorax is present. There are degenerative changes of the spine. Small calcification upper pole of the right kidney is present. There are presumed low-attenuation cysts in the left lobe of the liver. Procedure Note Sean Kowalski MD - 05/04/2024 CT THORAX NONCONTRAST CLINICAL INDICATION: Non-small cell lung cancer right lower lobe, restaging. TECHNIQUE: Axial images through thorax noncontrast. One or more of the following CT dose reduction techniques were utilized: *Automated exposure control (AEC) *Adjustment of mA and/or kV according to patient size -Use of iterative reconstruction technique -CT scan done according to ALARA or ALARA/IMAGE GENTLY COMPARISON: May 01, 2023 FINDINGS: Left pacemaker is present. There is no bulky axillary or mediastinal lymphadenopathy. The thoracic aorta is atherosclerotic. Pericardial effusion anteriorly measures at least 1.09 cm. Emphysematous changes are present bilaterally. Within the right lowerlobe, the lobular noncalcified nodule, on image 74, now measures fairlysimilar at 1.90 x 1.29 cm. No pleural effusion or pneumothorax is present. There are degenerative changes of the spine. Small calcification upper pole of the right kidney is present. There are presumed low-attenuation cysts in the left lobe of the liver. IMPRESSION: 1.Stable right lower lobe nodule. 2.Emphysematous changes. 3.Pericardial effusion. 4.Presumed hepatic cysts. 5.Nonobstructing right renal calcification. Edited by Angela Crook on 05/04/2024 1:40 PM > Interpreting Provider: Sean Kowalski MD on 05/04/2024 1:43 PM Price Villatoro MD CT ORDERABLES from Last 3 Months Advance Directives Documents on File Type Date Recorded Patient Compensation Supervisor Expl anation Adv Directive/Living Will/POA 08/23/2022 4:26 PM * Full Code (Latest Code Status on File) Date Activated Date Inactivated Comments 08/01/2022 10:38 PM 08/22/2022 5:13 PM Care Teams Policy Issue Clerk Relationship Specialty Start Date End Date Gary Tom MD [address] [place] [address] PCP - General Internal Medicine 03/18/19
--- OUTSIDE RECORDS SUMMARY | 2024-05-06 11:52 | XMS_ITS | Encounter Summary ---
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 Postoperative pain Procedures [place] [address], [address] [place] [address] Referral ID Status Reason Start Date Expiration Date Visits Re quested Visits Authorized [id number] Closed 05/06/2023 05/05/2024 1 1 Reason for Visit * Radiology Services (Routine) - Closed Specialty Diagnoses / Procedures Referred By Contkarina t Referred To Contact CT Scan Diagnoses 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 Postoperative pain Procedures [place] [address], [address] [place] [address] Referral ID Status Reason Start Date Expiration Date Visits Re quested Visits Authorized [id number] Closed 05/06/2023 05/05/2024 1 1 Encounter Details Date Type Department Care Team (Latest Contact Info) Description 05/04/2024 12:48 PM CDT - 05/04/2024 11:59 PM CDT Hospital Encounter [facility] Health Imaging Services - [place] Scan [address] [place], [place] [id number] Discharge Disposition: Home or Self Care Social History Tobacco Use Types Packs/Day Years Used Date Smoking Tobacco: Some Days Cigarettes 0.2 30 Alcohol Use Standard Drinks/Week Comments Not Asked 0 (1 standard drink = 0.6 oz pur e alcohol) AUDIT-C Answer Date Recorded Q1: How often do you have a drink containing alcohol? 4 or more times a week 08/01/2022 Q2: How many drinks containi ng alcohol do you have on a typical day when you are drinking? 3 or 4 Q3: How often do you have si x or more drinks on one occasion? Never 08/01/2022 Overall Financial Resource Strain (CARDIA) Answe r Date Recorded How hard is it for you to pa y for the very basics like food, housing, medical care, and heating? Not hard at all 08/01/2022 [facility] - Occupational Stress [...] place to sleep or slept in a longterm (including now)? No 08/01/2022 Sex and Gender Information Value Date Recorded Sex Assigned at Not on file Gender Identity Not on file Sexual Orientation Not on file documented as of this encounter Functional Status Functional Status Response Date of Assess ment Is person deaf or have serious hearing difficult y? No 08/01/2022 Is person blind or have serious difficulty seein g? No 08/01/2022 Does person have serious dif ficulty walking/climbing stairs? No 08/01/2022 Does person have difficulty dressing/bathing? No 08/01/2022 Does person have difficulty doing errands alone? No 08/01/2022 Cognitive Status Response Date of Assessm ent Does person have difficulty concentrating/remembering/making decisions? No 08/01/2022 documented as of this encounter Medications at Time of Discharge Medication Sig Dispensed Refills Start Date End Date acetaminophen (Tylenol) 325 MG tabletIndications:Ple ural effusion Take 2 (two) tablets by mouth every 4 hours as needed ( for temperature greater than 101F) Maximum allowable Acetaminophen amount = 4 Grams (4000 mg) / 24 hours. 08/22/2022 ALPRAZolam (Xanax) 0.25 MG tablet Take 1 (one) tablet by mouth 2 times daily as needed for Anxiety 30 tablet 08/22/2022 bisacodyl (Dulcolax) 10 MG suppositoryIndication s:Pleural effusion Insert 1 (one) suppository into the rectum once as needed for Constipation (no BM 4 hours MOM/Magnesium hydroxide) 15 suppository 08/22/2022 Vpvtymd-Qvvfnvrglag-Z ormoterol (Breztri Aerosphere) 160-9-4.8 MCG/ACT AERO Inhale 2 (two) puffs by mouth 2 times daily carvedilol (COREG) 25 MG tablet TAKE 1 TAB BY MOUTH 2 TIMES DAILY WITH MORNING AND EVENING MEAL 180 tablet 3 12/06/2019 DULoxetine (CYMBALTA) 60 MG capsule Take 1 (one) capsule by mouth once daily ezetimibe (Zetia) 10 MG tablet Take 1 (one) tablet by mouth once daily famotidine (Pepcid) 20 MG tablet Take 1 (one) tablet by mouth 2 times daily 60 tablet 1 08/22/2022 hydrALAZINE (Apresoline) 25 MG tablet Take 1 (one) tablet by mouth 3 times daily as needed (SBP >160) 90 tablet 3 08/22/2022 HYDROcodone-acetamino phen ([place]) 5-325 MG tabletIndications:Evan plasm of uncertain behavior of right lower lobe of lung,Postoperative pain Take 1 (one) tablet by mouth every 8 hours as needed for Pain 5 tablet 05/06/2023 HYDROcodone-acetamino phen ([place]) 5-325 MG tabletIndications:Emp yema (HCC),Postoperative pain Take 1 (one) tablet by mouth every 8 hours as needed for Pain 30 tablet 10/17/2022 HYDROcodone-acetamino phen ([place]) 5-325 MG tabletIndications:Ple ural effusion,Chronic systolic heart failure ([facility]),Essential hypertension,PAF (paroxysmal atrial fibrillation) ([facility]) Take 1 (one) tablet by mouth every 4 hours as needed 12 tablet 08/22/2022 iron polysaccharides (Niferex 150) 150 MG capsule Take 1 (one) capsule by mouth once daily after lunch 30 capsule 08/22/2022 melatonin 3 MG tablet Take 2 (two) tablets by mouth nightly as needed for Insomnia 30 tablet 08/22/2022 polyethylene glycol 3350 (Miralax) 17 g packetIndications:Ple ural effusion Take 17 (seventeen) g by mouth once daily 30 packet 08/23/2022 potassium chloride ER (Klor-Con M) 20 MEQ tablet Take 1 (one) tablet by mouth daily with breakfast 30 tablet 08/23/2022 rivaroxaban (XARELTO) 20 MG tablet Take 1 tablet by mouth once daily 90 tablet 3 10/11/2019 rosuvastatin (Crestor) 5 MG tablet Take 1 (one) tablet by mouth once daily sacubitril-valsartan (ENTRESTO) 97-103 MG tablet Take 1 tablet by mouth 2 times daily 180 tablet 3 02/29/2020 saline nasal spray ([place]; Baby Goldvein) 0.65 % nasal spray [place] 1 (one) spray into each nostril every 2 hours as needed for Dry Nose 100 mL 08/22/2022 traMADol (Ultram) 50 MG tablet Take 1 (one) tablet by mouth every 6 hours as needed for Pain 30 tablet 01/15/2023 vitamin D, ergocalciferol, (DRISDOL) 90178 UNITS capsule Take 1 (one) capsule by mouth every 7 days documented as of this encounter Plan of Treatment Upcoming Encounters Date Type Department Care Team (Late st Contact Info) Description 05/18/2024 9:40 AM CDT Office Visit [facility] - Cardiothoracic Surgery [address] [address] [place] [address] [place] [address] [facility] [facility] [address], [address] [place] [address] documented as of this encounter Procedures Procedure Name Priority Date/Time Associated Diagnosis Comments CT CHEST WO CONTRAST Routine 05/04/2024 1:06 PM CDT 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
--- OUTSIDE RECORDS SUMMARY | 2024-05-06 11:52 | XMS_ITS | Clinical Summary ---
Author Organization [facility] Address [address] [place] [address] Care Team Providers Care Certified Pest Control Technician Name Role Phone Neal Robbins MD Primary Care Provider [phone] Allergies Active Allergy Reactions Criticality Noted Date Comments Efe Inhibitors Cough Low 03/09/2010 Medications DULoxetine (CYMBALTA) 60 mg Oral CpDR Take 1 Cap by mouth daily. Active losartan (COZAAR) 25 mg Oral tablet Take 1 Tab by mouth daily. Active DIGOX 125 mcg tablet TAKE 2 TABLETS DAILY 180 Tab 3 04/18/2013 Active multivitamin (DAILY-JOSHUA) tablet Take 1 Tab by mouth daily. Active varenicline (CHANTIX) 1 mg Tablet Take 1 Tab by mouth 2 times daily. Take 1/2 tab daily x 3d, then 1/2 tab BID x 3d, then 1 tab BID 60 Tab 2 02/24/2014 Active carvedilol (COREG CR) 10 mg Controlled Release 24 hour tablet Take 1 Cap by mouth daily. 90 Cap 3 02/24/2014 Active XARELTO 20 mg Tablet TAKE 1 TABLET DAILY 90 Tab 3 04/08/2014 Active Active Problems Patient Care Coordination No te Formatting of this note migh t be different from the original. Injection Molding Machine Setter - Dr Mati Perez Problem Noted Date Diagnosed Date Systolic CHF, chronic 01/29/2012 Tobacco abuse 10/23/2010 Primary Idiopathic Dilated Cardiomyopathy with I CD Overview (11/15/2009): Idiopathic dilated cardiomyopathy, compensated class II, chronic systolic congestive heart failure and left ventricular dysfunction. Cardiomyopathy, nonischemic Overview (02/24/2014): with an estimated ejection fraction by cardiac catheterization in 2007 of 10 to 15%. Echo 08/2008 LVEF = 30%. Echo 10/2010 LVEF = 35-45% Echo 02/2014 LVEF = 45% Mitral regurgitation Overview (03/09/2010): mild ICD (implantable cardioverter-defibrillator) in place Overview (02/13/2012): [employer] ICD - Current DR FITZGERALD [id number] SN: [id number] - Implanted 10/12/[address] Eric Nuno RA: LANCE [id number] SN: [id number] (Implanted 10/12/2008) RV: [id number] SN: [id number] (Implanted 10/12/2008) Paroxysmal A-fib Overview (01/29/2012): First seen on ICD check from 12/2011 Hyperlipidemia Essential hypertension, benign COPD (chronic obstructive pulmonary disease) Overview (03/25/2013): Severe by PFTs 03/2012 with FEV1=1.29 and mild improvement w/ bronchodilators. FEV1/FVC=41%. Resolved Problems Problem Noted Date Diagnosed Date Resolved Date Cardiomyopathy, nonischemic 10/28/2011 Family History Medical History Relation Name Comments Heart Failure Father Stroke Mother Relation Name Status Comments Father (Age 68) complicati ons of congestive heart failure Mother (Age 76) of a strok e Social History Tobacco Use Types Packs/Day Years Used Date Smoking Tobacco: Every Day Cigarettes 0.2 30 Smokeless Tobacco: Never Comments:1/2 pack per day hi story Alcohol Use Standard Drinks/Week Comments Yes 4.2 (1 standard drink = 0.6 oz p ure alcohol) Comments Unknown Sex and Gender Information Value Date Recorded Sex Assigned at Not on file Legal Sex Female 5:56 AM VICE PRESIDENT FINANCIAL Gender Identity Not on file Sexual Orientation Not on file 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 Not on file Not on file Last Filed Vital Signs Vital Sign Reading Time Taken Comments Blood Pressure 166/103 02/24/2014 1:38 PM VICE PRESIDENT FINANCIAL Pulse 62 02/24/2014 1:38 PM VICE PRESIDENT FINANCIAL Temperature - - Respiratory Rate 10 04/02/2010 1:25 PM VICE PRESIDENT FINANCIAL Oxygen Saturation 98% 02/24/2014 1:38 PM VICE PRESIDENT FINANCIAL Inhaled Oxygen Concentration - - Weight 64 kg (141 lb) 02/24/2014 1:38 PM VICE PRESIDENT FINANCIAL Height 172.1 cm (5' 7.75 ) 02/24/2014 1:38 PM CS T Body Mass Index 21.6 02/24/2014 1:38 PM VICE PRESIDENT FINANCIAL Plan of Treatment Health Maintenance Due Date Last Done Comments DTAP/TDAP/TD VACCINES (1 - Tdap) 1980 PAP SMEAR 07/05/1991 BREAST CANCER SCREENING 2001 COLORECTAL SCREENING 2006 Colorectal Cancer Screening 2006 FIT-DNA Q 3 years 2006 FIT/FOBT Q 1 year 2006 Flex Sig/CT Colonography Q 5 years 2006 ZOSTER VACCINE (1 of 2) 07/05/2011 RSV VACCINE (60+ or ) (1 - Risk 60-74 years 1-dose series) 2021 INFLUENZA VACCINE (#1) 2023 Insurance [facility] OPEN ACCESS Care Teams Certified Pest Control Technician Relationship Specialty Start Date End Date Neal Robbins MD [address] [place] [phone] PCP - General Family Practice 03/09/10
== END 2024-05-06 10:54 | disposition home or self-care (01) ==
LOC: ANHIMG 10:58
PROVIDERS: PCP Nurse Practitioner; Visit Provider Nurse Practitioner
DX: M25.562 Pain in left knee (principal); M25.571 Pain in right ankle and joints of right foot
CPT/HCPCS: 73562; 73610

== ENCOUNTER 2024-06-11 23:59 | Inpatient (IN) | payer OTHER, SELFPAY ==
--- NOTE | ~2024-06-11 | CT_ITS ---
EXAMINATION: CT brain wo con DATE: 06/12/2024 03:17 INDICATION: Anticoagulated patient post fall TECHNIQUE: Computed tomography (CT) of the head was performed without intravenous contrast. Sagittal and coronal reconstructions were performed. The mA was adjusted according to patient size. Iterative reconstruction technique was employed. The dose-length product was 681.00 mGy-cm. COMPARISON: None FINDINGS: No fracture. No acute intracranial hemorrhage, acute infarction or abnormal extra axial fluid collect ion. Ventricles are normal and symmetric. No mass/mass effect. The orbits, paranasal sinuses and mast oid air cells are normal. IMPRESSION: 1. Normal head CT. No fracture or acute intracranial process. Reviewed, dictated and finalized at location A.
--- NOTE | ~2024-06-11 | XR_ITS ---
HISTORY: Shoulder deformity COMPARISON: None TECHNIQUE: 2 views of the right shoulder were performed FINDINGS: A comminuted fracture of the right humeral neck is identified, with overlap of the fracture fragments . Diffuse bony demineralization is present, far advanced for patient of this age. IMPRESSION: Comminuted fracture of the right humeral neck, as detailed above. Diffuse bony demineralization, far advanced for patient of this age. Reviewed, dictated and finalized at location A.
--- NOTE | ~2024-06-11 | CT_ITS ---
EXAMINATION: CT shoulder RT wo con DATE: 06/12/2024 12:10 INDICATION: Right shoulder fracture TECHNIQUE: High resolution computed tomography (CT) of the right shoulder was performed without intra venous contrast. Additional sagittal and coronal reconstructions were performed. Automated exposure c ontrol and iterative reconstruction technique were employed. The dose-length product was 161.55 mGy-c m. COMPARISON: None FINDINGS: Comminuted fracture across the surgical neck of the proximal right humerus with one shaft width anter ior displacement and 45 degree posterior and medial angulation. The humeral head is normally centered over the glenoid but is rotated as with abduction and anterior elevation. Glenohumeral joint space i s normal. Mild osteoarthritis at the acromioclavicular joint. There is a small glenohumeral joint eff usion. Moderate emphysema the visualized right upper lung. Cardiac pacemaker leads extend from the le ft brachiocephalic vein into the superior vena cava below the inferior margin of the field of imaging . Chronic T7 compression fracture, the visualized portion which appears unchanged since CT dated 07/29. IMPRESSION: 1. Displaced and angulated comminuted fracture of the surgical neck of the proximal right humerus. 2. Moderate emphysema. Reviewed, dictated and finalized at location A. IMPRESSION: 1. Displaced and angulated comminuted fracture of the surgical neck of the prox imal right humerus. 2. Moderate emphysema.
--- NOTE | ~2024-06-11 | CT_ITS ---
EXAMINATION: CT cervical spine wo con DATE: 06/12/2024 03:17 INDICATION: Anticoagulated patient post fall TECHNIQUE: Computed tomography (CT) of the cervical spine was performed without intravenous contrast. Automated exposure control and iterative reconstruction technique were employed. The dose-length pro duct was 183.21 mGy-cm. COMPARISON: None FINDINGS: Bone alignment is normal. Vertebral body heights are normal. No acute fracture. Moderate osteoarthrit is at the atlantoaxial articulation. Moderate disc height loss at C4-C5 and mild disc height loss at C3-C4, C5-6 and C6-C7. There is severe associated uncovertebral osteoarthritis at these levels. Disc bulges contributing to mild central canal stenosis at C3-C4 through C6-C7. Multilevel mild right-side d and mild to moderate left-sided cervical facet osteoarthritis. Multilevel mild bilateral cervical n eural foraminal stenosis. Atherosclerotic calcifications at the bilateral carotid bulbs. Cervical sof t tissues are otherwise unremarkable. Emphysema at the visualized apices of the lungs. IMPRESSION: 1. Moderate cervical spondylosis. No acute osseous abnormality Reviewed, dictated and finalized at location A.
--- NOTE | ~2024-06-11 | XR_ITS ---
EXAMINATION: XR chest 1V portable DATE: 06/12/2024 06:19 INDICATION: Fall. Congestive heart failure. TECHNIQUE: frontal view of the chest was obtained. COMPARISON: Chest radiograph dated 08/01/2022 FINDINGS: Emphysema with increased lucency and some architectural distortion in the upper lung zones. Mild line ar discoid atelectasis at the right lower lung zone. No pulmonary edema, pleural effusion or pneumoth orax. The cardiomediastinal silhouette is normal. Dual lead pacemaker/AICD seen with leads projecting over the expected locations of the right atrium and right ventricle. There are a few bilateral old r ib fractures. IMPRESSION: 1. Emphysema with mild discoid atelectasis in the right lower lung zone. Reviewed, dictated and finalized at location A.
--- NOTE | ~2024-06-11 | XR_ITS ---
EXAMINATION: XR surgery orthopedic DATE: 06/14/2024 10:33 INDICATION: Right humerus intramedullary nailing TECHNIQUE: 6 fluoroscopic images of the right humerus were obtained during procedure performed by Dr. Rhodes. Radiologist was not present for the imaging or procedure. The amount of fluoroscopy time us ed during this procedure was 0.9 minutes. Total DAP was 0.584 Gycm^2. COMPARISON: None. FINDINGS: Interval open reduction internal fixation of a previous noted comminuted fractures of the s urgical neck of the proximal right humerus with an antegrade intramedullary tabitha with proximal and dis odilon interlocking screws. Alignment of the main proximal and distal fragments post fixation is near-an atomic. There is mild residual displacement of a posterior butterfly fragment. There is widening of t he right glenohumeral joint space in one of the images which could be due to the presence of a joint effusion or traction on the arm. No intra-articular bone fragments identified. IMPRESSION: 1. Near-anatomic alignment post open reduction internal fixation of a comminuted fractures of the nec k of the proximal right humerus. Reviewed, dictated and finalized at location B. IMPRESSION: 1. Near-anatomic alignment post open reduction internal fixation of a comminute d fractures of the neck of the proximal right humerus.
[2024-06-12] VITALS (47 sets, daily range): BP systolic 82–150; BP diastolic 55–90; PULSE 63–82; RESP 12–30; TEMP 36.2–36.6; O2SAT 83–99
--- OUTSIDE RECORDS SUMMARY | 2024-06-12 00:19 | XMS_ITS | Clinical Summary ---
Author Organization [facility] Address [address] [place] [address] Care Team Providers Care Can Piler Name Role Phone Neal Robbins MD Primary Care Provider [phone] Allergies Active Allergy Reactions Criticality Noted Date [...] migh t be different from the original. Dog Track Kennel Manager - Dr Mati Perez Problem Noted Date [...] (implantable cardioverter-defibrillator) in place Overview (02/13/2012): [employer] ICD - Current DR FITZGERALD [id number]: [id number] - Implanted 10/12/[address] 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 Not on file Last Filed Vital Signs Vital Sign Reading Time Taken Comments Blood Pressure 166/103 02/24/2014 1:38 PM STEM CLEANING MACHINE FEEDER Pulse 62 02/24/2014 1:38 PM STEM CLEANING MACHINE FEEDER Temperature - - Respiratory Rate 10 04/02/2010 1:25 PM STEM CLEANING MACHINE FEEDER Oxygen Saturation 98% 02/24/2014 1:38 PM STEM CLEANING MACHINE FEEDER Inhaled Oxygen Concentration - - Weight 64 kg (141 lb) 02/24/2014 1:38 PM STEM CLEANING MACHINE FEEDER Height 172.1 cm (5' 7.75 ) 02/24/2014 1:38 PM CS T Body Mass Index 21.6 02/24/2014 1:38 PM STEM CLEANING MACHINE FEEDER Plan of Treatment Health Maintenance Due Date Last Done Comments DTAP/TDAP/TD VACCINES (1 - Tdap) 1980 BREAST CANCER SCREENING 2001 COLORECTAL SCREENING 2006 Colorectal Cancer Screening 2006 FIT-DNA Q 3 years 2006 FIT/FOBT Q 1 year 2006 Flex Sig/CT Colonography Q 5 years 2006 ZOSTER VACCINE (1 of 2) 07/05/2011 RSV VACCINE (60+ or ) (1 - Risk 60-74 years 1-dose series) 2021 INFLUENZA VACCINE (#1) 2023 Insurance [employer] [facility] OPEN ACCESS Care Teams Can Piler Relationship Specialty Start Date End Date Neal Robbins MD [address] [place] [phone] PCP - General Family Practice 03/09/10
--- OUTSIDE RECORDS SUMMARY | 2024-06-12 00:19 | XMS_ITS | Clinical Summary ---
Author Organization [facility] Address [address] [facility] [place] [address] Care Team Providers Care Package Reinspector Name Role Phone Gary Tom MD Primary Care Provider [phone] Source Comments [facility],non-owned Affiliates and Associated Physician Practices is amultiple site organization consisting of ambulatory clinics and hospital sitesin [place], [place], [place] and [place]. This disclosure is being madepursuant to the Care Everywhere program and may not contain all information available regarding this patient. Last updated 17.[facility] Allergies No known active allergies Medications * Be aware that medications may not be up to date on this document. Alwaysverify current medications with the patient. DULoxetine (CYMBALTA) 60 MG capsule Take 1 (one) capsule by mouth once daily Active vitamin D, ergocalciferol, (DRISDOL) 54519 UNITS capsule Take 1 (one) capsule by mouth every 7 days Active rivaroxaban (XARELTO) 20 MG tablet Take 1 tablet by mouth once daily 90 tablet 3 020 Active carvedilol (COREG) 25 MG tablet TAKE 1 TAB BY MOUTH 2 TIMES DAILY WITH MORNING AND EVENING MEAL 180 tablet 3 020 Active sacubitril-valsart an (ENTRESTO) 97-103 MG tablet Take 1 tablet by mouth 2 times daily 180 tablet 3 021 Active Budeson-Glycopyrro l-Formoterol (Breztri Aerosphere) 160-9-4.8 MCG/ACT AERO Inhale 2 (two) puffs by mouth 2 times daily Active ezetimibe (Zetia) 10 MG tablet Take 1 (one) tablet by mouth once daily Active rosuvastatin (Crestor) 5 MG tablet Take 1 (one) tablet by mouth once daily Active famotidine (Pepcid) 20 MG tablet Take 1 (one) tablet by mouth 2 times daily 60 tablet 1 023 Active Additional Information Patient not taking.Reported on 09/24/2022 potassium chloride ER (Klor-Con M) 20 MEQ tablet Take 1 (one) tablet by mouth daily with breakfast 30 tablet 023 Active Additional Information Patient not taking.Reported on 09/10/2022 saline nasal spray ([place]; Baby [place]) 0.65 % nasal spray Mather 1 (one) spray into each nostril every 2 hours as needed for Dry Nose 100 mL 023 Active Additional Information Patient not taking.Reported on 09/10/2022 bisacodyl (Dulcolax) 10 MG suppositoryIndicat ions:Pleural effusion Insert 1 (one) suppository into the rectum once as needed for Constipation (no BM 4 hours MOM/Magnesium hydroxide) 15 suppository 023 Active Additional Information Patient not taking.Reported on 09/10/2022 iron polysaccharides (Niferex 150) 150 MG capsule Take 1 (one) capsule by mouth once daily after lunch 30 capsule 023 Active Additional Information Patient not taking.Reported on 09/10/2022 polyethylene glycol 3350 (Miralax) 17 g packetIndications: Pleural effusion Take 17 (seventeen) g by mouth once daily 30 packet 023 Active Additional Information Patient not taking.Reported on 09/10/2022 melatonin 3 MG tablet Take 2 (two) tablets by mouth nightly as needed for Insomnia 30 tablet 023 Active Additional Information Patient not taking.Reported on 09/10/2022 HYDROcodone-acetam inophen ([place]) 5-325 MG tabletIndications: Pleural effusion,Chronic systolic heart failure (HCC),Essential hypertension,PAF (paroxysmal atrial fibrillation) (HCC) Take 1 (one) tablet by mouth every 4 hours as needed 12 tablet 023 Active Additional Information Patient not taking.Reported on 09/10/2022 acetaminophen (Tylenol) 325 MG tabletIndications: Pleural effusion Take 2 (two) tablets by mouth every 4 hours as needed ( for temperature greater than 101F) Maximum allowable Acetaminophen amount = 4 Grams (4000 mg) / 24 hours. 023 Active ALPRAZolam (Xanax) 0.25 MG tablet Take 1 (one) tablet by mouth 2 times daily as needed for Anxiety 30 tablet 023 Active hydrALAZINE (Apresoline) 25 MG tablet Take 1 (one) tablet by mouth 3 times daily as needed (SBP >160) 90 tablet 3 023 Active Additional Information Patient not taking.Reported on 09/10/2022 HYDROcodone-acetam inophen ([place]) 5-325 MG tabletIndications: Empyema (HCC),Postoperativ e pain Take 1 (one) tablet by mouth every 8 hours as needed for Pain 30 tablet 023 Active traMADol (Ultram) 50 MG tablet Take 1 (one) tablet by mouth every 6 hours as needed for Pain 30 tablet 023 Active HYDROcodone-acetam inophen ([place]) 5-325 MG tabletIndications: 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 ICD - Current DR FITZGERALD [id number] SN: [id number] - Implanted 10/12/[address] Eric Nuno RA: LANCE [id number] SN: [id number] (Implanted 10/12/2008) RV: SANIA [id number] SN: [id number] (Implanted 10/12/2008) Mitral valve disorder 03/01/2015 Overview (03/01/2015): Overview: mild Essential hypertension 03/01/2015 Defibrillator 02/28/2015 Overview (01/22/2017): [facility] model [id number] SN: [id number] - Implanted 01/22/[address] 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 Not hard at all 08/01/2022 [facility] Occupat ional [facility] - Occupational Stress [...] place to sleep or slept in a [facility] (including now)? 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 Gender Identity Not on file Sexual Orientation Not on file Occupation Industry Job Start Date Job End Date Not on file Not on file Not on file Not on file Last Filed Vital Signs Vital Sign Reading Time Taken Comments Blood Pressure 134/87 05/06/2023 10:47 AM CDT Pulse 78 05/18/2024 9:42 AM CDT Temperature 36.8 C (98.2 F) 08/22/2022 12:42 PM CDT Respiratory Rate 18 08/22/2022 12:42 PM CDT Oxygen Saturation 96% 05/18/2024 9:42 AM CDT Inhaled Oxygen Concentration 40% 08/18/2022 1 2:24 AM CDT Weight 65.1 kg (143 lb 9.6 oz) 05/18/2024 9:42 A M CDT Height 167.6 cm (5' 6 ) 05/18/2024 9:42 AM CDT Body Mass Index 23.18 05/18/2024 9:42 AM CDT Plan of Treatment Upcoming Encounters Date Type Department Care Team (Late st Contact Info) Description 05/05/2025 9:00 AM CDT Appointment [facility] Imaging Services - CT Scan [address] [facility] [address] [place] [address] [place] [address] [facility] [address] [address], [address] [place] [phone] 05/10/2025 9:20 AM CDT Office Visit [facility] - Cardiothoracic Surgery [address] [facility] [address] [place] [phone] [place] [address], [address] [place] [phone] Health Maintenance Due Date Last [...] years 1-dose series) 2021 COVID-19 VACCINE ( season) 2023 10/03/2021, 03/19/2021, 05/08/2020, Additional history exists DEPRESSION SCREENING 02/18/2024 INFLUENZA VACCINE (Season Ended) 2024 02/17/2013 HEPATITIS B VACCINE Aged Out No longe [...] 1:43 PM Price Villatoro MD CT ORDERABLES Final Result from Last 3 Months Insurance [employer] HE[employer] Advance Directives Documents on File Type Date Recorded 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
[2024-06-12] MEDS: HYDROmorphone HCL INJ (*CRX) 2 MG/ML VIAL 0.5 MG IV PUSH ×5 (00:52→22:46)
[2024-06-12] MEDS: SODIUM CHLORIDE 0.9% IV 1,000 ML 999 ML IV CONT ×2 (00:54→06:36)
[2024-06-12 01:09] LABS: Basophils Percent Auto 0.7 % (0.2-1.2); Eosinophils Absolute Auto 0.1 K/mm3 (0-0.3); Eosinophils Percent Auto 1.2 % (0-4.4); Hematocrit 34.4 % (37.0-47.0); Hemoglobin 11.2 g/dL (12.0-15.0); Immature Granulocyte Absolute 0.01 K/mm3 (0.00-0.031); Immature Granulocyte Percent A 0.2 % (0-0.5); Lymphocytes Absolute Auto 1.64 K/mm3 (0.9-3.2); Lymphocytes Percent Auto 28.8 % (18.3-44.2); Mean Corpuscular HGB Conc 32.6 g/dl (32-36); Mean Corpuscular Hemoglobin 34.6 pg (26-34); Mean Corpuscular Volume 106.2 fl (80-100); Mean Platelet Volume 9.6 fl (7.4-10.4); Monocytes Absolute Auto 0.6 K/mm3 (0.1-0.6); Neutrophils Absolute Auto 3.4 K/mm3 (1.3-6.7); Neutrophils Percent Auto 59.1 % (45.5-73.1); Platelet Count Result 175 k/mm3 (150-375); Red Blood Count 3.24 M/mm3 (4.2-5.4); Red Cell Distribution Width 12.9 % (11.5-14.5); White Blood Count 5.7 K/mm3 (4.5-10.0)
--- NOTE | 2024-06-12 01:20 | PC.NURSE ---
x-ray at bedside
[2024-06-12 01:25] LABS: Alanine Aminotransferase 26 U/L (6-35); Albumin Level 3.4 g/dL (3.5-5.1); Alkaline Phosphatase 97 U/L (38-126); Anion Gap 8 mmol/L (4-12); Aspartate Amino Transferase 42 U/L (14-36); Band Neutrophils Percent 0 % (0-6); Bilirubin,Total 0.3 mg/dL (0.2-1.3); Blood Urea Nitrogen 17 mg/dL (7-17); Calcium 8.3 mg/dL (8.4-10.2); Carbon Dioxide 27 mmol/L (22-30); Chloride 103 mmol/L (98-107); Estimated CRCL calculation 51 ml/min; Estimated Glomerular Filt Rate 60; Glucose 99 mg/dL (65-110); Lipase 75 U/L (23-300); Magnesium 2.2 mg/dL (1.6-2.3); Potassium 4.1 mmol/L (3.4-5.0); Sodium 138 mmol/L (137-145)
[2024-06-12 01:26] LABS: Anisocytosis 1+; Hypochromasia 1+; Platelet Estimate Adequate (Adequate); Schistocytes None Seen; Stomatocytes 2+
[2024-06-12] MEDS: ACETAMINOPHEN 500 MG TABLET 1000 MG PO (01:44)
--- NOTE | 2024-06-12 03:05 | PC.NURSE ---
pt taken to CT
[2024-06-12 03:07] LABS: Reflex Lactic Acid Yes or No Add Lactic
[2024-06-12 03:08] LABS: Add Urine Microscopic? NO; Appearance Urine Clear (Clear); Bilirubin Urine Negative (Negative); Blood Urine Negative (Negative); Color Urine Yellow (Yellow); Glucose Urine UA 2+ mg/dL (Negative); Ketones Urine Negative (Negative); Leukocyte Esterase Ur Negative LEU/UL (Negative); Nitrate Urine Negative (Negative); Protein Urine Negative (Negative); Specific Grav Ur 1.008 (1.001-1.035); Urobilinogen Urine 0.2 mg/dL (<2.0)
--- NOTE | 2024-06-12 05:57 | ED_ITS ---
HPI - General Adult General Chief complaint: Fall Stated complaint: GLF, RUE DEFORMITY AND PAIN Time Seen by Provider: 06/12/24 00:00 History of Present Illness HPI narrative: This is a 63-year-old female presenting after a ground level fall. Patient got up to go to the bathroom and then lost consciousness. She then awoke on the floor with severe pain in her right arm. She was able to pain on the wall of her house until her neighbor came to check on her and EMS was called. At this time the patient is complaining of severe pain in her right upper arm. She does not room events of the fall other than she was got up to go to the bathroom. She denies chest pain difficulty breathing fevers chills nausea vomiting or diarrhea. She she says that her blood pressure typically runs low. Related Data Home Medications ?Medication ?Instructions ?Recorded ?Confirmed ?Last Taken ?Type sacubitril 97 mg-valsartan 103 mg 1 tablet PO BID 01/20/19 04/06/24 02/21/22 History tablet (Entresto) ergocalciferol (vitamin D2) 1,250 1,250 mcg PO WEEKLY 06/16/22 04/06/24 06/15/22 History mcg (50,000 unit) capsule empagliflozin 10 mg tablet 10 mg PO DAILY 04/06/24 04/06/24 Unknown History (Jardiance) spironolactone 25 mg tablet 25 mg PO DAILY 04/06/24 04/06/24 Unknown History Allergies Allergy/AdvReac Type Severity Reaction Status Date / Time No Known Allergies Allergy Verified 04/06/24 08:11 [facility] Past Medical History Medical History BMI 23.0-23.9, adult Daily consumption of alcohol Chronic anticoagulation Heart failure of unknown type Chronic obstructive pulmonary disease Paroxysmal atrial fibrillation Hyperlipidemia Depression Tobacco use Essential hypertension Age related osteoporosis Surgical History Surgical History History of permanent cardiac pacemaker placement History of implantable cardioverter-defibrillator (ICD) insertion History of cardiac catheterization History of colonoscopy History of tonsillectomy and adenoidectomy History of partial hysterectomy Family History Family History Mother Cerebrovascular accident Father Heart disease Sibling Sepsis Heart disease Social History Social History Social History: Surrogate medical decision maker: Kasey Truong, friend. Code status: Full code. Smoking packs per day: 0.5 Smoking cigarettes per day: 10.0 Years smoked: 45 Smoking pack-years: 22.50 Smoking status: Current every day smoker Tobacco type: cigarettes Second hand tobacco smoke exposure: No Alcohol intake: current Drinks per week: 21 Alcohol use details: 2 to 3 beers a day. Substance use: never Substance use type: does not use Do You Feel Safe in your Home?: Yes Lack of Transportation: No Lack of Food: Never True Current Housing: I Have Housing Concerned About Future Housing: No Difficulty Paying Gas/Electric Bills: No Difficulty Paying for Meds: No Currently Unemployed: No Education: High School Diploma/GED Difficulty w/ Childcare or Family Care: No Living arrangements: alone Additional living arrangements comments: Lives in [place]. Occupation/Education: occupation Additional occupation/education comments: Works at the [employer]. Gender identity (if verbalized by the patient): Female Spiritual care concerns: No Exam 2 Narrative: APPEARANCE: No apparent distress. Head: atraumatic. EYES: EOMI, NOSE: Atraumatic NECK: Trachea midline RESPIRATORY: No increased rate of breathing CTAB CARDIOVASCULAR: RRR, no peripheral edema ABDOMINAL: Non-distended MUSCULOSKELETAl: Deformity bruising and swelling of the right upper extremity, pulses are +2 and cap refills less than 2 seconds. Hand is neurovascularly intact. NEURO: Alert. Moving 4/4 extremities SKIN:: Warm, dry. Normal color PSYCHIATRIC: Normal affect Course Vital Signs Vital signs: Vital Signs Respiratory Rate 12 06/12/24 00:03 Pulse Oximetry 96 06/12/24 00:03 Temperature 97.6 F 06/12/24 02:08 Pulse Rate 65 06/12/24 04:16 Respiratory Rate 19 06/12/24 04:16 Blood Pressure 93/59 L 06/12/24 04:16 Pulse Oximetry 92 06/12/24 04:16 Oxygen Delivery Room Air 06/12/24 00:23 Medical Decision Making MDM Narrative Medical decision making narrative: -Course: 63-year-old female presenting after a syncopal event. She sustained a proximal humerus fracture that has been placed in a sling. She is given Dilaudid/Tylenol for pain control. She required repeated dosing and a interscalene block was performed with minimal improvement. patient is now getting prn dilaudid. Patient was hypotensive on arrival. She received 1 L of fluids from EMS. She received another 2 L of crystalloid in the emergency department for low blood pressures. Blood pressure improved to high 90s low in 100s which patient states is her baseline. CT imaging head and C-spine was negative for acute injury. Initial laboratory studies were unremarkable. Troponin BNP negative. EKG without ischemic changes. Suspect syncope is to due to orthostatic hypotension. Patient will be admitted the hospital for humerus fracture in high risk syncope. Independent EKG interpretation: Rhythm [sinus], Rate [76], Greig -[normal], NV -[normal], QRS [narrow], QTC [normal], T waves -[negative for concerning inversions], ST Segments - [Negative for concerning elevations] Final interpretations: [Normal Sinus Rhythm] -DDX includes but is not limited to: CHF, COPD, alcoholism Vital Signs Vital Signs: Vital Signs Respiratory Rate 12 06/12/24 00:03 Pulse Oximetry 96 06/12/24 00:03 Temperature 97.6 F 06/12/24 02:08 Pulse Rate 65 06/12/24 04:16 Respiratory Rate 19 06/12/24 04:16 Blood Pressure 93/59 L 06/12/24 04:16 Pulse Oximetry 92 06/12/24 04:16 Oxygen Delivery Room Air 06/12/24 00:23 Lab Data 06/12/24 01:04 06/12/24 01:04 Labs: Lab Results 06/12/24 06/12/24 06/12/24 Range/Units 01:04 02:57 03:41 WBC 5.7 (4.5-10.0) K/mm3 RBC 3.24 L (4.2-5.4) M/mm3 Hgb 11.2 L (12.0-15.0) g/dL Hct 34.4 L (37.0-47.0) % MCV 106.2 H (80-100) fl MCH 34.6 H (26-34) pg MCHC 32.6 (32-36) g/dl RDW 12.9 (11.5-14.5) % Plt Count 175 (150-375) k/mm3 MPV 9.6 (7.4-10.4) fl Immature Gran % (Auto) 0.2 (0-0.5) % Neut % (Auto) 59.1 (45.5-73.1) % Lymph % (Auto) 28.8 (18.3-44.2) % [place] % (Auto) 10.0 H (2.6-8.5) % Eos % (Auto) 1.2 (0-4.4) % Baso % (Auto) 0.7 (0.2-1.2) % Lymph # (Auto) 1.64 (0.9-3.2) K/mm3 [place] # (Auto) 0.6 (0.1-0.6) K/mm3 Eos # (Auto) 0.1 (0-0.3) K/mm3 Baso # (Auto) 0.0 (0.0-0.1) K/mm3 Abs Immat Gran (auto) 0.01 (0.00-0.031) K/mm3 Absolute Neuts (auto) 3.4 (1.3-6.7) K/mm3 Absolute Nucleated RBC 0.000 (0.0-0.012) K/mm3 Band Neutrophils % 0 (0-6) % Nucleated RBC % 0.0 (0.0-0.2) % Platelet Estimate Adequate (Adequate) Hypochromasia 1+ Anisocytosis 1+ Stomatocytes 2+ Schistocytes None seen Sodium 138 (137-145) mmol/L Potassium 4.1 (3.4-5.0) mmol/L Chloride 103 (98-107) mmol/L Carbon Dioxide 27 (22-30) mmol/L Anion Gap 8 (4-12) mmol/L BUN 17 (7-17) mg/dL Creatinine 0.95 (0.7-1.0) mg/dL Estim Creat Clear Calc 51 ml/min Estimated GFR 60 (59 - ) Glucose 99 (65-110) mg/dL Lactic Acid 3.0 H 2.0 (0.7-2.0) mmol/L Calcium 8.3 L (8.4-10.2) mg/dL Magnesium 2.2 (1.6-2.3) mg/dL Total Bilirubin 0.3 (0.2-1.3) mg/dL AST 42 H (14-36) U/L ALT 26 (6-35) U/L Alkaline Phosphatase 97 (38-126) U/L Total Protein 6.0 L (6.3-8.2) g/dL Albumin 3.4 L (3.5-5.1) g/dL Lipase 75 (23-300) U/L Urine Color Yellow (Yellow) Urine Appearance Clear (Clear) Urine pH 6.0 (5.0-9.0) Ur Specific [place] 1.008 (1.001-1.035) Urine Protein Negative (Negative) mg/dL Urine Glucose (UA) 2+ H (Negative) mg/dL Urine Ketones Negative (Negative) mg/dL Ur Blood (Man) Negative (Negative) Urine Nitrate Negative (Negative) Urine Bilirubin Negative (Negative) Urine Urobilinogen 0.2 (<2.0) mg/dL Leukocyte Esterase Rfl Negative (Negative) YIMI/UL Discharge Plan Discharge Clinical Impression: Fracture, humerus, Syncope, Acute hypotension Patient Disposition: Still a Patient Condition: Stable Patient Language: Croatian Prescriptions: No Action carvedilol 25 mg tablet 25 mg PO Q12H Qty: 90 0RF Rx Instructions: must administer with a meal/food spironolactone 25 mg tablet 25 mg PO DAILY Jardiance 10 mg tablet 10 mg PO DAILY Entresto 97-103 mg tablet 1 tablet PO BID ergocalciferol (vitamin D2) 1,250 mcg (50,000 unit) capsule 1,250 mcg PO WEEKLY Rx Instructions: saturdays ezetimibe 10 mg tablet See Rx Instructions .ROUTE .COMPLEX Qty: 90 1RF Dose Instruction: TAKE 1 TABLET BY MOUTH EVERY DAY Rx Instructions: TAKE 1 TABLET BY MOUTH EVERY DAY duloxetine 60 mg capsule,delayed release(DR/EC) See Rx Instructions .ROUTE .COMPLEX Qty: 90 1RF Dose Instruction: TAKE 1 CAPSULE BY MOUTH EVERY DAY Rx Instructions: TAKE 1 CAPSULE BY MOUTH EVERY DAY Xarelto 20 mg tablet See Rx Instructions .ROUTE .COMPLEX Qty: 90 1RF Dose Instruction: TAKE 1 TABLET BY MOUTH EVERY DAY WITH DINNER Rx Instructions: TAKE 1 TABLET BY MOUTH EVERY DAY WITH DINNER rosuvastatin 5 mg tablet 5 mg PO DAILY Qty: 90 1RF Rx Instructions: TAKE 1 TABLET BY MOUTH EVERY DAY Breztri Aerosphere 160-9-4.8 mcg/actuation HFA aerosol inhaler See Rx Instructions .ROUTE .COMPLEX Qty: 10.7 5RF Dose Instruction: INHALE 2 PUFFS BY MOUTH TWICE DAILY Rx Instructions: INHALE 2 PUFFS BY MOUTH TWICE DAILY alprazolam 0.25 mg tablet 0.25 mg PO QHS Qty: 30 0RF Rx Instructions: TAKE 1 TABLET BY MOUTH DAILY NEEDED Follow-up/Referrals: Max Patel APRN [Primary Care Provider] -
--- NOTE | 2024-06-12 06:00 | ECG_ITS ---
Test Date: 2024-06-12 06:10:20 Measurements Intervals [place] Rate: 76 P: 69 CO: 145 QRS: 66 QRSD: 94 T: 74 QT: 390 QTc: 440 Interpretive Statements SINUS RHYTHM BORDERLINE T WAVE ABNORMALITY- ANTERIOR LEADS BASELINE ARTIFACT- I, II, III, AVR, AVL, AVF, V3-V6 BORDERLINE ECG No previous ECG available for comparison Electronically Signed On 06-12-2024 07:05:11 CDT by Chuck Lima D.O.
[2024-06-12 06:50] LABS: NT Pro B Type Natriuretic Pept 261 pg/mL (19.9-100)
[2024-06-12 06:53] LABS: Troponin I < 0.012 ng/mL (0.000-0.034)
--- NOTE | 2024-06-12 09:45 | ADMGEN ---
This patient, Melodie Barrera, was admitted to Medical Room 243-01. Patient/family oriented to hospital policies and general routines including ID bracelet, bed and alarms, visiting hours, pain management, procedures, bathroom and other care routines, personal items, smoking policy, room service/diet, and visiting hours. Information on how to activate the Rapid Response Team has been discussed. Patient/Family are encouraged to report perceived risks to care and to ask questions if they do not understand what they are told or what they should do.
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
[2024-06-12 10:52] LABS: Troponin I < 0.012 ng/mL (0.000-0.034)
[2024-06-12] MEDS: oxyCODONE/ACETAMINOPHEN (*CRX) 5-325 MG TABLET 1 TABLET PO ×3 (13:40→21:23)
--- NOTE | 2024-06-12 13:43 | PM.CNCAR ---
Assessment and Plan Assessment and plan Plan 1. The syncope, fall. Likely related to orthostatic hypotension. Patient was on full dose of Coreg Entresto Jardiance and 12.5 mg a day of spironolactone. Patient states that Jardiance and spironolactone were started 3 months back after decline in her ejection fraction was noted to 35%. Since then she has been feeling weak and fatigued. When paramedics arrived at her home she had a blood pressure in the 80s systolic. All her anti failure medications have been placed on hold and blood pressure has not returned to normal range. Unfortunately because of injury to the right shoulder she is in pain and orthostatic checks cannot be done. Coreg at a dose of 6.25 mg twice a day and Entresto at a dose of 06/10/2025 twice a day will be resumed from tomorrow if her blood pressure remained stable. Doses may be further increased as outpatient. There is no clinical evidence to suggest presence of acute coronary syndrome or congestive heart failure at present 2. Congestive heart failure. Nonischemic dilated cardiomyopathy Clinically appears to be mildly dehydrated oral intake is being encouraged Coreg Entresto Jardiance and spironolactone have been placed on hold. 3. Nonischemic dilated cardiomyopathy status post AICD. No significant arrhythmias have been noted AICD is being checked. Cardiac catheterization in 2012 did not reveal any coronary artery disease 4. Paroxysmal atrial fibrillation. Is on Xarelto 5. Hyperlipidemia. On statin and Zetia 5 COPD on bronchodilators. Strongly advised to give up smoking 6. Anxiety and depression on Cymbalta History of Present Illness History of Present Illness Consult date/time: 06/12/24 13:43 Reason For Visit: Syncope, Humerus fracture Narrative: Patient presented to the emergency department of this hospital after having a syncopal episode yesterday. Patient woke up around 9:00 p.m. yesterday to use the restroom when she began to feel weak and dizzy lost consciousness and fell down sustaining injury to her right shoulder. She regain consciousness after a brief period of time and banged the wall of the room with her hands and got attention of one of her neighbors who called paramedics and she was brought to the emergency department of this hospital. She denied having any chest pressure or chest pain neck or jaw pain back pain palpitations nausea vomiting sweating dizziness preceding or following her symptoms. Subsequent evaluation noted her to be hypotensive with a blood pressure in the 80s systolic and she was also noted to have fracture of the right humerus. Since admission patient has been asymptomatic and has had no recurrence of symptoms. She denies any recent fever cough with expectoration hemoptysis seizures swelling over the feet. Review of Systems Constitutional: Constitutional: Reports body ache(s), Reports fatigue and Reports lethargy Eyes: Eyes: Reports no additional eye complaints ENT: Reports system reviewed and no additional complaints, except as documented Cardiovascular: Cardiovascular: Reports lightheadedness Gastrointestinal: Gastrointestinal: Reports no additional gastrointestinal complaints Genitourinary: Genitourinary: Reports no additional female genitourinary complaints Musculoskeletal: Musculoskeletal: Reports myalgias Integumentary/Breasts: Skin/Breast: Reports system reviewed and no additional complaints, except as docu Neurologic: Reports system reviewed and no additional complaints, except as documented Psychiatric: Psychiatric: Reports anxiety and Reports depression Endocrine: Endocrine: Reports no additional endocrine complaints Hematologic/Lymphatic: Hematologic/Lymphatic: Reports no additional hematologic/lymphatic complaints Allergic/Immunologic: Allergic/Immunologic: Reports no additional allergic/immunologic complaints [facility] Past Medical History Medical History BMI 23.0-23.9, adult Daily consumption of alcohol Chronic anticoagulation Heart failure of unknown type Chronic obstructive pulmonary disease Paroxysmal atrial fibrillation Hyperlipidemia Depression Tobacco use Essential hypertension Age related osteoporosis Surgical History Surgical History History of permanent cardiac pacemaker placement History of implantable cardioverter-defibrillator (ICD) insertion History of cardiac catheterization History of colonoscopy History of tonsillectomy and adenoidectomy History of partial hysterectomy Family History Family History Mother Cerebrovascular accident Father Heart disease Sibling Sepsis Heart disease Social History Social History Social History: Surrogate medical decision maker: Kasey Truong, friend. Code status: Full code. Smoking packs per day: 1 Smoking cigarettes per day: 20.0 Years smoked: 50 Smoking pack-years: 50.00 Smoking status: Current every day smoker Tobacco type: cigarettes Second hand tobacco smoke exposure: No Alcohol intake: current Drinks per week: 14 Alcohol use details: 2 to 3 beers a day. Substance use: never Substance use type: does not use Do You Feel Safe in your Home?: Yes Lack of Transportation: No Lack of Food: Never True Current Housing: I Have Housing Concerned About Future Housing: No Difficulty Paying Gas/Electric Bills: No Difficulty Paying for Meds: No Currently Unemployed: No Education: High School Diploma/GED Difficulty w/ Childcare or Family Care: No Living arrangements: alone Additional living arrangements comments: Lives in [place]. Occupation/Education: occupation Additional occupation/education comments: Works at the [employer]. Gender identity (if verbalized by the patient): Female Spiritual care concerns: No Meds Home Medications and Allergies Home Medications ?Medication ?Instructions ?Recorded ?Confirmed ?Type sacubitril 97 mg-valsartan 103 mg 1 tablet PO BID 01/20/19 06/12/24 History tablet (Entresto) carvedilol 25 mg tablet 25 mg PO Q12H #90 tabs 10/20/19 06/12/24 Rx ergocalciferol (vitamin D2) 1,250 1,250 mcg PO WEEKLY 06/16/22 06/12/24 History mcg (50,000 unit) capsule duloxetine 60 mg capsule,delayed See Rx Instructions .Route 03/02/24 06/12/24 Rx release .COMPLEX #90 caps ezetimibe 10 mg tablet See Rx Instructions .Route 03/02/24 06/12/24 Rx .COMPLEX #90 tabs empagliflozin 10 mg tablet 10 mg PO DAILY 04/06/24 06/12/24 History (Jardiance) spironolactone 25 mg tablet 12.5 mg PO DAILY 04/06/24 06/12/24 History rivaroxaban 20 mg tablet (Xarelto) See Rx Instructions .Route 06/01/24 06/12/24 Rx .COMPLEX #90 tabs rosuvastatin 5 mg tablet 5 mg PO DAILY #90 tabs 06/01/24 06/12/24 Rx budesonide 160 mcg-glycopyr 9 See Rx Instructions .Route 06/02/24 06/12/24 Rx mcg-formot 4.8 mcg/actuation HFA .COMPLEX #10.7 ea inhaler (Breztri Aerosphere) alprazolam 0.25 mg tablet 0.25 mg PO QHS #30 tabs 06/04/24 06/12/24 Rx Allergies Allergy/AdvReac Type Severity Reaction Status Date / Time No Known Allergies Allergy Verified 06/12/24 09:48 Vital Signs Vital Signs - 24 hr 06/12/24 00:03 06/12/24 00:04 06/12/24 00:09 Temperature Pulse Rate 67 68 Respiratory Rate 12 16 21 H Blood Pressure 82/55 L 89/63 L Pulse Oximetry 96 98 99 Oxygen Delivery Room Air Oxygen Flow Rate 06/12/24 00:16 06/12/24 00:23 06/12/24 00:30 Temperature Pulse Rate 67 68 66 Respiratory Rate 21 H 20 24 H Blood Pressure 92/58 L 92/58 L Pulse Oximetry 98 99 99 Oxygen Delivery Room Air Oxygen Flow Rate 06/12/24 00:31 06/12/24 00:46 06/12/24 01:01 Temperature Pulse Rate 67 66 70 Respiratory Rate 20 20 18 Blood Pressure 87/62 L 94/62 L 114/82 Pulse Oximetry 97 98 Oxygen Delivery Oxygen Flow Rate 06/12/24 01:16 06/12/24 01:31 06/12/24 01:47 Temperature Pulse Rate 69 67 65 Respiratory Rate 17 14 20 Blood Pressure 91/60 L 100/70 97/58 L Pulse Oximetry 95 Oxygen Delivery Oxygen Flow Rate 06/12/24 01:47 06/12/24 02:01 06/12/24 02:08 Temperature 36.4 C Pulse Rate 67 70 Respiratory Rate 16 17 Blood Pressure 97/58 L 94/63 L Pulse Oximetry 91 Oxygen Delivery Oxygen Flow Rate 06/12/24 02:46 06/12/24 03:19 06/12/24 03:31 Temperature Pulse Rate 71 63 63 Respiratory Rate 17 18 19 Blood Pressure 100/63 93/66 L 93/65 L Pulse Oximetry 91 92 90 Oxygen Delivery Oxygen Flow Rate 06/12/24 03:46 06/12/24 04:01 06/12/24 04:16 Temperature Pulse Rate 68 67 65 Respiratory Rate 18 19 19 Blood Pressure 94/67 L 96/64 L 93/59 L Pulse Oximetry 91 91 92 Oxygen Delivery Oxygen Flow Rate 06/12/24 05:31 06/12/24 05:46 06/12/24 06:31 Temperature Pulse Rate 71 73 72 Respiratory Rate 19 20 22 H Blood Pressure 108/70 112/74 120/66 Pulse Oximetry 92 92 88 L Oxygen Delivery Oxygen Flow Rate 06/12/24 06:46 06/12/24 07:01 06/12/24 07:16 Temperature Pulse Rate 76 73 78 Respiratory Rate 16 16 22 H Blood Pressure 127/86 139/90 150/82 H Pulse Oximetry 99 98 92 Oxygen Delivery Oxygen Flow Rate 06/12/24 07:17 06/12/24 07:30 06/12/24 07:31 Temperature Pulse Rate 78 75 76 Respiratory Rate 23 H 18 20 Blood Pressure 124/78 Pulse Oximetry 91 86 L 88 L Oxygen Delivery Oxygen Flow Rate 06/12/24 07:45 06/12/24 07:46 06/12/24 08:00 Temperature Pulse Rate 75 75 76 Respiratory Rate 21 H 21 H 25 H Blood Pressure 108/80 Pulse Oximetry 85 L 85 L 84 L Oxygen Delivery Oxygen Flow Rate 06/12/24 08:00 06/12/24 08:01 06/12/24 08:15 Temperature Pulse Rate 77 75 Respiratory Rate 30 H 19 Blood Pressure 121/79 Pulse Oximetry 98 83 L 98 Oxygen Delivery Nasal Cannula Oxygen Flow Rate 2 06/12/24 08:16 06/12/24 08:30 06/12/24 08:31 Temperature Pulse Rate 75 75 75 Respiratory Rate 19 21 H 17 Blood Pressure 123/69 114/74 Pulse Oximetry 98 98 98 Oxygen Delivery Oxygen Flow Rate 06/12/24 08:45 06/12/24 08:46 06/12/24 09:00 Temperature Pulse Rate 78 76 78 Respiratory Rate 21 H 20 18 Blood Pressure 112/64 Pulse Oximetry 98 98 98 Oxygen Delivery Oxygen Flow Rate 06/12/24 09:01 06/12/24 09:45 Temperature 36.2 C L Pulse Rate 77 78 Respiratory Rate 21 H 19 Blood Pressure 110/72 123/71 Pulse Oximetry 98 97 Oxygen Delivery Oxygen Flow Rate Exam Const: General: uncomfortable (right shoulder pain) HENMT: Face/Nose/Sinus: Normal nares present Mouth: Yes moist mucous membranes Eyes: General: appearance normal, both eyes and all related structures Neck: Neck: no JVD Thyroid: thyroid normal Chest: Other: There is reduced air entry bilaterally Few rhonchi are heard in the interscapular and bases Resp: Effort & Inspection: normal respiratory effort Cardio: Rate: regular rate Rhythm: regular rhythm Heart sounds: Murmur heart sound present (2/ 6 in the mitral area) GI: GI Palp: Yes Soft to palpation Auscultation: normal bowel sounds Skin: General skin exam: normal color (Redness and swelling over right shoulder) Neuro: Speech: normal speech Motor exam (neuro): 5/5 motor strength present throughout Extrem: Other: Redness swelling and tenderness over right shoulder Psych: Mental Status: mental status grossly normal Results Labs and Meds 06/12/24 01:04 06/12/24 01:04 Lab results: Cardiac Enzymes 06/12/24 06/12/24 Range/Units 01:04 10:16 AST 42 H (14-36) U/L Troponin I < 0.012 < 0.012 (0.000-0.034) ng/mL CBC 06/12/24 Range/Units 01:04 WBC 5.7 (4.5-10.0) K/mm3 RBC 3.24 L (4.2-5.4) M/mm3 Hgb 11.2 L (12.0-15.0) g/dL Hct 34.4 L (37.0-47.0) % Plt Count 175 (150-375) k/mm3 Lymph # (Auto) 1.64 (0.9-3.2) K/mm3 [place] # (Auto) 0.6 (0.1-0.6) K/mm3 Eos # (Auto) 0.1 (0-0.3) K/mm3 Baso # (Auto) 0.0 (0.0-0.1) K/mm3 Comprehensive Metabolic Panel 06/12/24 Range/Units 01:04 Sodium 138 (137-145) mmol/L Potassium 4.1 (3.4-5.0) mmol/L Chloride 103 (98-107) mmol/L Carbon Dioxide 27 (22-30) mmol/L BUN 17 (7-17) mg/dL Creatinine 0.95 (0.7-1.0) mg/dL Glucose 99 (65-110) mg/dL Calcium 8.3 L (8.4-10.2) mg/dL AST 42 H (14-36) U/L ALT 26 (6-35) U/L Alkaline Phosphatase 97 (38-126) U/L Total Protein 6.0 L (6.3-8.2) g/dL Albumin 3.4 L (3.5-5.1) g/dL Intake and Output 06/11/24 06/12/24 06/12/24 23:59 07:59 15:59 Intake Total 1000 Balance 1000 Intake: IV 1000 Sodium Chloride 0.9% IV 1,000 1000 ml @ 999 mls/hr IV CONT .Q1H1M STA Rx#:[id number] Patient Weight 06/12/24 23:59 Weight 67.8 kg Imaging and Cardiology Echo: other (Echo in 2021 revealed ejection fraction to be within normal limits. Patient states that she had an echo in March of this year which revealed ejection fraction of 35%) Quality VTE Prophylaxis VTE prophylaxis: pharmacologic ordered
[2024-06-12] MEDS: ROSUVASTATIN 5 MG TABLET PO (15:05)
[2024-06-12] MEDS: ERGOCALCIFEROL 50,000 UNITS CAPSULE 50000 UNITS PO (15:05)
[2024-06-12] MEDS: DULoxetine HCL 60 MG CAPSULE.DR BY MOUTH (15:05)
[2024-06-12] MEDS: EZETIMIBE 10 MG TABLET BY MOUTH (15:06)
[2024-06-12] MEDS: ONDANSETRON INJ 4 MG/2 ML VIAL IV PUSH ×2 (17:04→22:47)
[2024-06-13] VITALS (14 sets, daily range): BP systolic 105–146; BP diastolic 56–87; PULSE 80–94; RESP 16–20; TEMP 36.2–36.7; O2SAT 90–97
[2024-06-13] MEDS: oxyCODONE/ACETAMINOPHEN (*CRX) 10-325 MG TABLET 1 TAB PO ×5 (00:49→21:37)
[2024-06-13 05:03] LABS: Basophils Percent Auto 0.4 % (0.2-1.2); Eosinophils Absolute Auto 0.1 K/mm3 (0-0.3); Eosinophils Percent Auto 1.3 % (0-4.4); Hematocrit 42.7 % (37.0-47.0); Hemoglobin 12.7 g/dL (12.0-15.0); Immature Granulocyte Absolute 0.06 K/mm3 (0.00-0.031); Immature Granulocyte Percent A 0.7 % (0-0.5); Lymphocytes Absolute Auto 2.94 K/mm3 (0.9-3.2); Lymphocytes Percent Auto 32.5 % (18.3-44.2); Mean Corpuscular HGB Conc 29.7 g/dl (32-36); Mean Corpuscular Hemoglobin 34.3 pg (26-34); Mean Corpuscular Volume 115.4 fl (80-100); Mean Platelet Volume 9.6 fl (7.4-10.4); Monocytes Absolute Auto 0.9 K/mm3 (0.1-0.6); Monocytes Percent Auto 10.1 % (2.6-8.5); Platelet Count Result 209 k/mm3 (150-375); Red Cell Distribution Width 13.2 % (11.5-14.5); White Blood Count 9.1 K/mm3 (4.5-10.0)
[2024-06-13 05:50] LABS: Alanine Aminotransferase 21 U/L (6-35); Albumin Level 3.5 g/dL (3.5-5.1); Alkaline Phosphatase 75 U/L (38-126); Anion Gap 6 mmol/L (4-12); Aspartate Amino Transferase 30 U/L (14-36); Bilirubin,Total 0.4 mg/dL (0.2-1.3); Blood Urea Nitrogen 6 mg/dL (7-17); Calcium 8.5 mg/dL (8.4-10.2); Carbon Dioxide 27 mmol/L (22-30); Chloride 103 mmol/L (98-107); Estimated CRCL calculation 79 ml/min; Estimated Glomerular Filt Rate > 60; Glucose 111 mg/dL (65-110); Magnesium 1.9 mg/dL (1.6-2.3); Potassium 4.4 mmol/L (3.4-5.0); Sodium 136 mmol/L (137-145)
[2024-06-13] MEDS: carvediloL 6.25 MG TABLET PO ×2 (08:10→20:18)
[2024-06-13] MEDS: SACUBITRIL/VALSARTAN 24-26 MG TABLET 1 TAB PO ×2 (08:11→20:18)
--- NOTE | 2024-06-13 09:24 | PM.CNOR ---
Assessment and Plan Assessment and plan (1) Closed fracture of right proximal humerus: Qualifiers: Encounter type: initial encounter Fracture morphology: other fracture Fracture alignment: displaced Qualified Code(s): S42.291A - Other displaced fracture of upper end of right humerus, initial encounter for closed fracture Code(s): S42.201A - Unspecified fracture of upper end of right humerus, initial encounter for closed fracture Status: Acute Assessment and Plan: New patient evaluation for chief complaint right shoulder fracture. History, physical exam and radiographs reviewed with the patient. Fall with syncopal episode at home. Patient lives at home alone. [id number]. Right proximal humerus fracture with displacement. Discussed the condition, nature, etiology and course of natural history with the patient. Treatment options including surgical and nonoperative treatment were reviewed. Risks and benefits of each as well as alternatives reviewed. The patient's questions were answered. Conservative treatment ice, sling, pain control. Patient desires operative treatment. Plan Discussed nonoperative and operative treatment options with the patient. Risks and benefits of each as well as alternatives were reviewed. All of the patient's questions were answered. The risks of surgery reviewed including but not limited to: Neurovascular damage, wound complication, infection, blood clot, pulmonary embolus, stroke, myocardial infarction, and anesthetic risks up to and including . Continued pain and possible dysfunction were explained. Specific risks of the procedure including later recurrence of deformity. No guarantees were offered. If hardware used, discussed risk of failure/ breakage and possible need for removal. If complications occur, the patient understands the need for further treatment, possible further surgery. Patient verbalizes understanding and wishes to proceed. PLAN: Right shoulder fracture reduction with intramedullary fixation. History of Present Illness HPI Consult date: 06/13/24 Requesting physician: Lillian Reyna APRN Chief complaint: Syncope, Humerus fracture Narrative: 63-year-old woman with syncope fell and injured right shoulder. Right shoulder fracture. Admitted for further care. Denies numbness or tingling. Patient is [id number]. No prior problems with the shoulder. Review of Systems Constitutional: Constitutional: Reports body ache(s), Reports fatigue and Reports lethargy Eyes: Eyes: Reports no additional eye complaints ENT: Reports system reviewed and no additional complaints, except as documented Cardiovascular: Cardiovascular: Reports lightheadedness Gastrointestinal: Gastrointestinal: Reports no additional gastrointestinal complaints Genitourinary: Genitourinary: Reports no additional female genitourinary complaints Musculoskeletal: Musculoskeletal: Reports myalgias Integumentary/Breasts: Skin/Breast: Reports system reviewed and no additional complaints, except as docu Neurologic: Reports system reviewed and no additional complaints, except as documented Psychiatric: Psychiatric: Reports anxiety and Reports depression Endocrine: Endocrine: Reports no additional endocrine complaints Hematologic/Lymphatic: Hematologic/Lymphatic: Reports no additional hematologic/lymphatic complaints Allergic/Immunologic: Allergic/Immunologic: Reports no additional allergic/immunologic complaints [facility] Past Medical History Medical History (Updated 06/13/24 @ 09:27 by Mervin Rhodes MD) Closed fracture of right proximal humerus BMI 23.0-23.9, adult Daily consumption of alcohol Chronic anticoagulation Heart failure of unknown type Chronic obstructive pulmonary disease Paroxysmal atrial fibrillation Hyperlipidemia Depression Tobacco use Essential hypertension Age related osteoporosis Surgical History Surgical History History of permanent cardiac pacemaker placement History of implantable cardioverter-defibrillator (ICD) insertion History of cardiac catheterization History of colonoscopy History of tonsillectomy and adenoidectomy History of partial hysterectomy Family History Family History Mother Cerebrovascular accident Father Heart disease Sibling Sepsis Heart disease Social History Social History Social History: Surrogate medical decision maker: Kasey Truong, friend. Code status: Full code. Smoking packs per day: 1 Smoking cigarettes per day: 20.0 Years smoked: 50 Smoking pack-years: 50.00 Smoking status: Current every day smoker Tobacco type: cigarettes Second hand tobacco smoke exposure: No Alcohol intake: current Drinks per week: 14 Alcohol use details: 2 to 3 beers a day. Substance use: never Substance use type: does not use Do You Feel Safe in your Home?: Yes Lack of Transportation: No Lack of Food: Never True Current Housing: I Have Housing Concerned About Future Housing: No Difficulty Paying Gas/Electric Bills: No Difficulty Paying for Meds: No Currently Unemployed: No Education: High School Diploma/GED Difficulty w/ Childcare or Family Care: No Living arrangements: alone Additional living arrangements comments: Lives in [place]. Occupation/Education: occupation Additional occupation/education comments: Works at the [employer]. Gender identity (if verbalized by the patient): Female Spiritual care concerns: No Meds Home Medications and Allergies Home Medications ?Medication ?Instructions ?Recorded ?Confirmed ?Type sacubitril 97 mg-valsartan 103 mg 1 tablet PO BID 01/20/19 06/12/24 History tablet (Entresto) carvedilol 25 mg tablet 25 mg PO Q12H #90 tabs 10/20/19 06/12/24 Rx ergocalciferol (vitamin D2) 1,250 1,250 mcg PO WEEKLY 06/16/22 06/12/24 History mcg (50,000 unit) capsule duloxetine 60 mg capsule,delayed See Rx Instructions .Route 03/02/24 06/12/24 Rx release .COMPLEX #90 caps ezetimibe 10 mg tablet See Rx Instructions .Route 03/02/24 06/12/24 Rx .COMPLEX #90 tabs empagliflozin 10 mg tablet 10 mg PO DAILY 04/06/24 06/12/24 History (Jardiance) spironolactone 25 mg tablet 12.5 mg PO DAILY 04/06/24 06/12/24 History rivaroxaban 20 mg tablet (Xarelto) See Rx Instructions .Route 06/01/24 06/12/24 Rx .COMPLEX #90 tabs rosuvastatin 5 mg tablet 5 mg PO DAILY #90 tabs 06/01/24 06/12/24 Rx budesonide 160 mcg-glycopyr 9 See Rx Instructions .Route 06/02/24 06/12/24 Rx mcg-formot 4.8 mcg/actuation HFA .COMPLEX #10.7 ea inhaler (Breztri Aerosphere) alprazolam 0.25 mg tablet 0.25 mg PO QHS #30 tabs 06/04/24 06/12/24 Rx Allergies Allergy/AdvReac Type Severity Reaction Status Date / Time No Known Allergies Allergy Verified 06/12/24 09:48 Vital Signs Vital Signs - 24 hr 06/12/24 09:45 06/12/24 12:00 06/12/24 16:00 Temperature 97.1 F L 97.4 F L Pulse Rate 78 82 76 Respiratory Rate 19 20 Blood Pressure 123/71 126/74 Pulse Oximetry 97 98 Oxygen Delivery 06/12/24 16:00 06/12/24 19:45 06/12/24 20:00 Temperature 97.9 F Pulse Rate 76 78 80 Respiratory Rate 17 Blood Pressure 127/77 Pulse Oximetry 95 Oxygen Delivery 06/12/24 20:19 06/13/24 00:00 06/13/24 00:40 Temperature Pulse Rate 78 81 88 Respiratory Rate Blood Pressure 122/75 Pulse Oximetry 90 Oxygen Delivery Room Air 06/13/24 04:00 06/13/24 04:00 06/13/24 08:01 Temperature 98.1 F 97.1 F L Pulse Rate 86 82 90 Respiratory Rate 18 16 Blood Pressure 146/87 H 145/84 H Pulse Oximetry 93 90 Oxygen Delivery 06/13/24 08:10 Temperature Pulse Rate 90 Respiratory Rate Blood Pressure Pulse Oximetry Oxygen Delivery Exam Const: General: No confusion Orientation/consciousness: patient oriented x3 and No confusion HENMT: Head: normal to inspection, normocephalic and atraumatic Eyes: Conjunctivae: conjunctivae normal Sclera: sclerae normal Neck: Neck: supple and nontender Chest: Chest palpation & inspection: normal inspection of the chest Resp: Effort & Inspection: normal respiratory effort and no audible wheezes Skin: General skin exam: no rashes or lesions noted Neuro: General: patient oriented x3 and No confusion Cranial nerves: Yes Normal hearing present Extrem: General: capillary refill normal Right upper extremity: shoulder/upper arm abnormal to inspection (Ecchymosis lateral shoulder), tenderness of the proximal humerus, swelling of the proximal humerus, axillary nerve sensory function normal and abnormal ROM pain with active ROM in extension and in flexion and with range as follows (Deferred secondary to fracture), elbow/forearm normal to inspection and normal ROM; no tenderness and no swelling and Extremity exam: right hand normal to inspection, normal capillary refill, neuromotor exam normal, neurosensory exam normal, tendon exam normal of all digits and vascular exam radial pulse present and normal capillary refill Left upper extremity: normal to inspection and shoulder/upper arm inspection abnormal and normal ROM; no tenderness and no swelling Right lower extremity: hip/thigh Details: normal to inspection and normal ROM; no tenderness, knee Details: normal to inspection and swelling Location: of the pre-patellar area, ankle ( able to actively flex and extend ankle) Details: no tenderness and foot Details: normal capillary refill, toes with normal ROM, vascular exam Details: dorsalis pedis pulse present and normal capillary refill and motor-sensory exam Details: light-touch normal Location: in all toes; no tenderness Left lower extremity: normal to inspection, hip/thigh Details: no tenderness and no swelling, lower leg, ankle (no calf tenderness) Details: normal ROM; no tenderness and foot Details: normal capillary refill, vascular exam Details: dorsalis pedis pulse present and normal capillary refill and motor-sensory exam light-touch normal in all toes Psych: Affect: normal affect Results Labs 06/13/24 04:31 06/13/24 05:26 Labs: Abnormal lab results 06/13/24 06/13/24 Range/Units 04:31 05:26 RBC 3.70 L (4.2-5.4) M/mm3 MCV 115.4 H D (80-100) fl MCH 34.3 H (26-34) pg MCHC 29.7 L (32-36) g/dl Immature Gran % (Auto) 0.7 H (0-0.5) % [place] % (Auto) 10.1 H (2.6-8.5) % [place] # (Auto) 0.9 H (0.1-0.6) K/mm3 Abs Immat Gran (auto) 0.06 H (0.00-0.031) K/mm3 Sodium 136 L (137-145) mmol/L BUN 6 L D (7-17) mg/dL Creatinine 0.59 L (0.7-1.0) mg/dL Glucose 111 H (65-110) mg/dL Total Protein 6.0 L (6.3-8.2) g/dL H & H 06/12/24 06/13/24 Range/Units 01:04 04:31 Hgb 11.2 L 12.7 (12.0-15.0) g/dL Hct 34.4 L 42.7 (37.0-47.0) % All other labs normal. Diagnostic results Shoulder x-ray: image reviewed ( Right proximal humerus fracture with 100% displacement. Humeral head located.)
[2024-06-13] MEDS: FLUTICASONE/UMECLIDIN/VILANTER 100-62.5-25 MCG ELLIPTA 1 PUFF INHALATION (09:33)
--- NOTE | 2024-06-13 10:07 | P.PNIM_ITS ---
Progress Note: A&P Assessment and Plan (1) Syncope: Code(s): R55 - Syncope and collapse Status: Acute Assessment and Plan: * Patient denied feeling dizzy, any illness, or feeling any differently before she passed out. Patient reports that she passed out a month ago but did not tell her primary or Sat Tutor. * Telemetry. * Cardiology consult, appreciate recommendations. * Coreg at a dose of 6.25 mg twice a day and Entresto at a dose 24-26 mg 1 tablet oral q 12 will be resumed from tomorrow if her blood pressure remained stable. (2) CHF (congestive heart failure): Qualifiers: Heart failure chronicity: chronic Heart failure type: combined systolic and diastolic Qualified Code(s): I50.42 - Chronic combined systolic (congestive) and diastolic (congestive) heart failure Code(s): I50.9 - Heart failure, unspecified Status: Acute Assessment and Plan: * BNP 261. * Nonischemic dilated cardiomyopathy. Clinically appears to be mildly dehydrated oral intake is being encouraged. * Jardiance and Spironolactone on hold. Entresto restarted at lower dose of 24- 26 mg 1 tablet oral q 12. (3) Paroxysmal atrial fibrillation: Code(s): I48.0 - Paroxysmal atrial fibrillation Status: Acute Assessment and Plan: * Xarelto on hold for possible humerus surgery. (4) Essential hypertension: Code(s): I10 - Essential (primary) hypertension Status: Acute Assessment and Plan: * Coreg decreased 6.25 mg PO BID. * Current blood pressure is 123/71. (5) Fracture, humerus: Code(s): S42.309A - Unspecified fracture of shaft of humerus, unspecified arm, initial encounter for closed fracture Status: Acute Assessment and Plan: * Right shoulder X-ray showed: FINDINGS: A comminuted fracture of the right humeral neck is identified, with overlap of the fracture fragments. Diffuse bony demineralization is present, far advanced for patient of this age. IMPRESSION: Comminuted fracture of the right humeral neck, as detailed above. Diffuse bony demineralization, far advanced for patient of this age. * Right shoulder CT showed: FINDINGS: Comminuted fracture across the surgical neck of the proximal right humerus with one shaft width anterior displacement and 45 degree posterior and medial angulation. The humeral head is normally centered over the glenoid but is rotated as with abduction and anterior elevation. Glenohumeral joint space is normal. Mild osteoarthritis at the acromioclavicular joint. There is a small glenohumeral joint effusion. Moderate emphysema the visualized right upper lung. Cardiac pacemaker leads extend from the left brachiocephalic vein into the superior vena cava below the inferior margin of the field of imaging. Chronic T7 compression fracture, the visualized portion which appears unchanged since CT dated 07/29/2022. IMPRESSION: 1. Displaced and angulated comminuted fracture of the surgical neck of the proximal right humerus. 2. Moderate emphysema. * Ortho consult placed, awaiting recs. (6) COPD (chronic obstructive pulmonary disease): Qualifiers: COPD type: unspecified COPD Qualified Code(s): J44.9 - Chronic obstructive pulmonary disease, unspecified Code(s): J44.9 - Chronic obstructive pulmonary disease, unspecified Status: Acute Assessment and Plan: * Trelegy 1 puff daily. * Encourage patient to stop smoking. (7) Chronic anticoagulation: Code(s): Z79.01 - snf (current) use of anticoagulants Status: Acute Assessment and Plan: * Xarelto on hold for possible humerus surgery. (8) Hyperlipidemia: Qualifiers: Hyperlipidemia type: unspecified Qualified Code(s): E78.5 - Hyperlip idemia, unspecified Code(s): E78.5 - Hyperlipidemia, unspecified Status: Acute Assessment and Plan: * On statin and Zetia (9) Nausea & vomiting: Code(s): R11.2 - Nausea with vomiting, unspecified Status: Acute Assessment and Plan: * Was receiving Ondansetron 4 mg ivp q 6 PRN. Patient continued to have nausea and vomiting. Switched Ondansetron to Prochlorperazine 10 mg IV q 6 PRN. * NS @75 ml/hr. Subjective Date/time seen: 06/13/24 10:07 Interval history: Patient reports nausea with vomiting this morning. Patient reports pain in right shoulder is a 9 , constant, aching, and throbbing. Patient reports not having a good appetite. Patient denies chest pain, palpitations, headache, or dizziness. Review of Systems Review of Systems: All systems reviewed & are unremarkable except as noted in HPI and below Exam Const: General: no acute distress and uncomfortable Resp: Effort & Inspection: normal respiratory effort Auscultation: diminished lung sounds Cardio: Rate: regular rate Rhythm: regular rhythm Other: Telemetry- SR 91. GI: GI Palp: Yes Soft to palpation Auscultation: normal bowel sounds Neuro: Speech: normal speech Extrem: General: no pedal edema Psych: Mental Status: mental status grossly normal Affect: normal affect Objective Data Vital Signs Vital Signs: Vital Signs - 24 hr 06/12/24 12:00 06/12/24 16:00 06/12/24 16:00 Temperature 97.4 F L Pulse Rate 82 76 76 Respiratory Rate 20 Blood Pressure 126/74 Pulse Oximetry 98 Oxygen Delivery Oxygen Flow Rate 06/12/24 19:45 06/12/24 20:00 06/12/24 20:19 Temperature 97.9 F Pulse Rate 78 80 78 Respiratory Rate 17 Blood Pressure 127/77 Pulse Oximetry 95 90 Oxygen Delivery Room Air Oxygen Flow Rate 06/13/24 00:00 06/13/24 00:40 06/13/24 04:00 Temperature 98.1 F Pulse Rate 81 88 86 Respiratory Rate 18 Blood Pressure 122/75 146/87 H Pulse Oximetry 93 Oxygen Delivery Oxygen Flow Rate 06/13/24 04:00 06/13/24 08:01 06/13/24 08:10 Temperature 97.1 F L Pulse Rate 82 90 90 Respiratory Rate 16 Blood Pressure 145/84 H Pulse Oximetry 90 Oxygen Delivery Oxygen Flow Rate 06/13/24 08:10 06/13/24 08:10 06/13/24 09:34 Temperature Pulse Rate 88 Respiratory Rate Blood Pressure Pulse Oximetry 92 92 Oxygen Delivery Nasal Cannula Nasal Cannula Oxygen Flow Rate 1 2 06/13/24 09:34 Temperature Pulse Rate 88 Respiratory Rate 20 Blood Pressure Pulse Oximetry Oxygen Delivery Oxygen Flow Rate Intake/Output Intake/Output: Intake & Output 06/10/24 06/11/24 06/12/24 06/13/24 23:59 23:59 23:59 23:59 Intake Total 1240 590 Balance 1240 590 Meds/Results Medications: Active Medications Generic Name Dose Route Start Last Admin Trade Name Freq PRN Reason Stop Dose Admin Acetaminophen 650 mg 06/12/24 10:45 Acetaminophen 325 Mg Tablet PO Q6H PRN Headache Carvedilol 6.25 mg 06/13/24 09:00 06/13/24 08:10 Carvedilol 6.25 Mg Tablet PO 6.25 mg Q12HR ALYSA Administration Docusate Sodium 100 mg 06/12/24 10:47 Docusate Sodium 100 Mg Capsule PO Q12H PRN Constipation Duloxetine HCl 60 mg 06/12/24 14:35 06/12/24 15:05 Duloxetine Hcl 60 Mg Capsule.Dr BY MOUTH 60 mg DAILY ALYSA Administration Ezetimibe 10 mg 06/12/24 14:35 06/12/24 15:06 Ezetimibe 10 Mg Tablet BY MOUTH 10 mg DAILY ALYSA Administration Empagliflozin 10 mg 06/12/24 14:35 06/12/24 15:04 Empagliflozin 10 Mg Tablet PO Not Given DAILY ALYSA Ergocalciferol 50,000 units 06/12/24 14:35 06/12/24 15:05 Ergocalciferol 50,000 Units Capsule PO 50,000 units Sa@0900 ALYSA Administration Fluticasone/Umeclidinium/Vilanterol 1 puff 06/13/24 09:00 06/13/24 09:33 Fluticasone/Umeclidin/Vilanter 100-62.5-25 Mcg Ellipta INHALATION 1 puff DAILY ALYSA Administration Hydromorphone HCl 0.5 mg 06/12/24 22:35 Hydromorphone Hcl Inj (*Crx) 2 Mg/Ml Vial IV PUSH Q3H PRN Pain Rated 7-10 Ondansetron HCl 4 mg 06/12/24 10:47 06/12/24 22:47 Ondansetron Inj 4 Mg/2 Ml Vial IV PUSH 4 mg Q6H PRN Administration Nausea And Vomiting Oxycodone/Acetaminophen 1 tab 06/12/24 22:35 06/13/24 08:08 Oxycodone/Acetaminophen (*Crx) 10-325 Mg Tablet PO 1 tab Q4H PRN Administration Pain Rated 4-10 Polyethylene Glycol 17 gm 06/12/24 10:47 Polyethylene Glycol 3350 17 Gm Powd.Pack PO QAM PRN Constipation Rosuvastatin Calcium 5 mg 06/12/24 14:35 06/12/24 15:05 Rosuvastatin 5 Mg Tablet PO 5 mg DAILY ALYSA Administration Sacubitril/Valsartan 1 tab 06/13/24 09:00 06/13/24 08:11 Sacubitril/Valsartan 24-26 Mg Tablet PO 1 tab Q12HR ALYSA Administration Radiology Results: ITS Impressions Shoulder X-Ray 06/12/24 02:11 IMPRESSION: Comminuted fracture of the right humeral neck, as detailed above. Diffuse bony demineralization, far advanced for patient of this age. Chest X-Ray 06/12/24 06:28 IMPRESSION: 1. Emphysema with mild discoid atelectasis in the right lower lung zone. Head CT 06/12/24 08:28 IMPRESSION: 1. Normal head CT. No fracture or acute intracranial process. Cervical Spine CT 06/12/24 08:45 IMPRESSION: 1. Moderate cervical spondylosis. No acute osseous abnormality Shoulder CT 06/12/24 12:14 IMPRESSION: 1. Displaced and angulated comminuted fracture of the surgical neck of the pro ximal right humerus. 2. Moderate emphysema. Labs Labs: Laboratory Results - last 24 hr 06/12/24 06/13/24 06/13/24 10:16 04:31 05:26 WBC 9.1 RBC 3.70 L Hgb 12.7 Hct 42.7 MCV 115.4 H D MCH 34.3 H MCHC 29.7 L RDW 13.2 Plt Count 209 MPV 9.6 Immature Gran % (Auto) 0.7 H Neut % (Auto) 55.0 Lymph % (Auto) 32.5 [place] % (Auto) 10.1 H Eos % (Auto) 1.3 Baso % (Auto) 0.4 Lymph # (Auto) 2.94 [place] # (Auto) 0.9 H Eos # (Auto) 0.1 Baso # (Auto) 0.0 Abs Immat Gran (auto) 0.06 H Absolute Neuts (auto) 5.0 Absolute Nucleated RBC 0.000 Nucleated RBC % 0.0 Sodium 136 L Potassium 4.4 Chloride 103 Carbon Dioxide 27 Anion Gap 6 BUN 6 L D Creatinine 0.59 L Estim Creat Clear Calc 79 Estimated GFR > 60 Glucose 111 H Calcium 8.5 Magnesium 1.9 Total Bilirubin 0.4 AST 30 ALT 21 Alkaline Phosphatase 75 Troponin I < 0.012 Total Protein 6.0 L Albumin 3.5 Quality VTE Prophylaxis VTE prophylaxis: pharmacologic ordered
[2024-06-13] MEDS: ONDANSETRON INJ 4 MG/2 ML VIAL IV PUSH (10:08)
[2024-06-13] MEDS: HYDROmorphone HCL INJ (*CRX) 2 MG/ML VIAL 0.5 MG IV PUSH (10:10)
[2024-06-13] MEDS: EZETIMIBE 10 MG TABLET BY MOUTH (11:30)
[2024-06-13] MEDS: DULoxetine HCL 60 MG CAPSULE.DR BY MOUTH (11:31)
[2024-06-13] MEDS: ROSUVASTATIN 5 MG TABLET PO (11:31)
--- NOTE | 2024-06-13 11:34 | P.PNCA_ITS ---
Progress Note: A&P Assessment and Plan (1) Systolic dysfunction: Code(s): I51.9 - Heart disease, unspecified Status: Acute Assessment and Plan: NICM. Per patient echo done [address] Perez in [facility] showed EF 35% which is down from prior 45%. She was started on Jardiance and Spironolactone 3 months ago and felt weak with them. Normal coronaries in 2013 on [facility] per patient. Resuming lower doses of Coreg and Entresto. Her regular director surgical is Dr. Perez in [place]. (2) Essential hypertension: Code(s): I10 - Essential (primary) hypertension Status: Acute Assessment and Plan: Stable now. (3) Tobacco use: Code(s): Z72.0 - Tobacco use Status: Acute Assessment and Plan: Counseled regarding smoking cessation. (4) Paroxysmal A-fib: Code(s): I48.0 - Paroxysmal atrial fibrillation Status: Acute Assessment and Plan: In Sinus rhythm. Normally on Xarelto which is on hold in anticipation of arm surgery. (5) Dyslipidemia: Code(s): E78.5 - Hyperlipidemia, unspecified Status: Acute Assessment and Plan: On Rosuvastatin and Zetia. (6) AICD (automatic cardioverter/defibrillator) present: Code(s): Z95.810 - Presence of automatic (implantable) cardiac defibrillator Status: Acute Assessment and Plan: [facility] device was interrogated yesterday but report being transferred from ER to her chart on floor. Needs to see if arrhythmias or pauses were present. (7) Syncope: Code(s): R55 - Syncope and collapse Status: Acute Assessment and Plan: Probably due to acute hypotension due to heart failure medication. Resuming Coreg and Entresto at lower doses. Monitor BP. (8) Fracture, humerus: Code(s): S42.309A - Unspecified fracture of shaft of humerus, unspecified arm, initial encounter for closed fracture Status: Acute Assessment and Plan: May proceed to humerus surgery from cardiology standpoint. Subjective Date/time seen: 06/13/24 11:34 Interval history: Resuming care from Dr. Zhang who was covering me yesterday. Denies chest pain, sob. Has severe right arm pain, and nausea. Exam Const: General: cooperative, healthy appearing and comfortable Resp: Auscultation: clear to auscultation bilaterally, no crackles, no rales, no rhonchi and no wheezes Cardio: Rate: regular rate Rhythm: regular rhythm Heart sounds: no murmurs Peripheral pulses: dorsalis pedis present GI: GI Palp: No abdominal tenderness and Yes Soft to palpation Neuro: General: oriented to person, oriented to place and oriented to time Extrem: Right lower extremity: no edema Left lower extremity: no edema Objective Data Vital Signs Vital Signs: Vital Signs - 24 hr 06/12/24 12:00 06/12/24 16:00 06/12/24 16:00 Temperature 97.4 F L Pulse Rate 82 76 76 Respiratory Rate 20 Blood Pressure 126/74 Pulse Oximetry 98 Oxygen Delivery Oxygen Flow Rate 06/12/24 19:45 06/12/24 20:00 06/12/24 20:19 Temperature 97.9 F Pulse Rate 78 80 78 Respiratory Rate 17 Blood Pressure 127/77 Pulse Oximetry 95 90 Oxygen Delivery Room Air Oxygen Flow Rate 06/13/24 00:00 06/13/24 00:40 06/13/24 04:00 Temperature 98.1 F Pulse Rate 81 88 86 Respiratory Rate 18 Blood Pressure 122/75 146/87 H Pulse Oximetry 93 Oxygen Delivery Oxygen Flow Rate 06/13/24 04:00 06/13/24 08:01 06/13/24 08:10 Temperature 97.1 F L Pulse Rate 82 90 90 Respiratory Rate 16 Blood Pressure 145/84 H Pulse Oximetry 90 Oxygen Delivery Oxygen Flow Rate 06/13/24 08:10 06/13/24 08:10 06/13/24 09:00 Temperature Pulse Rate 94 Respiratory Rate Blood Pressure 136/64 Pulse Oximetry 92 Oxygen Delivery Nasal Cannula Oxygen Flow Rate 1 06/13/24 09:34 06/13/24 09:34 Temperature Pulse Rate 88 Respiratory Rate 20 Blood Pressure Pulse Oximetry 92 Oxygen Delivery Nasal Cannula Oxygen Flow Rate 2 Intake/Output Intake/Output: Intake & Output 06/10/24 06/11/24 06/12/24 06/13/24 23:59 23:59 23:59 23:59 Intake Total 1240 590 Balance 1240 590 Meds/Results Medications: Active Medications Generic Name Dose Route Start Last Admin Trade Name Freq PRN Reason Stop Dose Admin Acetaminophen 650 mg 06/12/24 10:45 Acetaminophen 325 Mg Tablet PO Q6H PRN Headache Carvedilol 6.25 mg 06/13/24 09:00 06/13/24 08:10 Carvedilol 6.25 Mg Tablet PO 6.25 mg Q12HR ALYSA Administration Docusate Sodium 100 mg 06/12/24 10:47 Docusate Sodium 100 Mg Capsule PO Q12H PRN Constipation Duloxetine HCl 60 mg 06/12/24 14:35 06/13/24 11:31 Duloxetine Hcl 60 Mg Capsule.Dr BY MOUTH 60 mg DAILY ALYSA Administration Ezetimibe 10 mg 06/12/24 14:35 06/13/24 11:30 Ezetimibe 10 Mg Tablet BY MOUTH 10 mg DAILY ALYSA Administration Empagliflozin 10 mg 06/12/24 14:35 06/12/24 15:04 Empagliflozin 10 Mg Tablet PO Not Given DAILY ALYSA Ergocalciferol 50,000 units 06/12/24 14:35 06/12/24 15:05 Ergocalciferol 50,000 Units Capsule PO 50,000 units Sa@0900 [facility] Administration Fluticasone/Umeclidinium/Vilanterol 1 puff 06/13/24 09:00 06/13/24 09:33 Fluticasone/Umeclidin/Vilanter 100-62.5-25 Mcg Ellipta INHALATION 1 puff DAILY [facility] Administration Hydromorphone HCl 0.5 mg 06/12/24 22:35 06/13/24 10:10 Hydromorphone Hcl Inj (*Crx) 2 Mg/Ml Vial IV PUSH 0.5 mg Q3H PRN Administration Pain Rated 7-10 Ondansetron HCl 4 mg 06/12/24 10:47 06/13/24 10:08 Ondansetron Inj 4 Mg/2 Ml Vial IV PUSH 4 mg Q6H PRN Administration Nausea And Vomiting Oxycodone/Acetaminophen 1 tab 06/12/24 22:35 06/13/24 08:08 Oxycodone/Acetaminophen (*Crx) 10-325 Mg Tablet PO 1 tab Q4H PRN Administration Pain Rated 4-10 Polyethylene Glycol 17 gm 06/12/24 10:47 Polyethylene Glycol 3350 17 Gm Powd.Pack PO QAM PRN Constipation Rosuvastatin Calcium 5 mg 06/12/24 14:35 06/13/24 11:31 Rosuvastatin 5 Mg Tablet PO 5 mg DAILY ALYSA Administration Sacubitril/Valsartan 1 tab 06/13/24 09:00 06/13/24 08:11 Sacubitril/Valsartan 24-26 Mg Tablet PO 1 tab Q12HR ALYSA Administration Radiology Results: ITS Impressions Shoulder X-Ray 06/12/24 02:11 IMPRESSION: Comminuted fracture of the right humeral neck, as detailed above. Diffuse bony demineralization, far advanced for patient of this age. Chest X-Ray 06/12/24 06:28 IMPRESSION: 1. Emphysema with mild discoid atelectasis in the right lower lung zone. Head CT 06/12/24 08:28 IMPRESSION: 1. Normal head CT. No fracture or acute intracranial process. Cervical Spine CT 06/12/24 08:45 IMPRESSION: 1. Moderate cervical spondylosis. No acute osseous abnormality Shoulder CT 06/12/24 12:14 IMPRESSION: 1. Displaced and angulated comminuted fracture of the surgical neck of the proximal right humerus. 2. Moderate emphysema. Labs Labs: Laboratory Results - last 24 hr 06/13/24 06/13/24 04:31 05:26 WBC 9.1 RBC 3.70 L Hgb 12.7 Hct 42.7 MCV 115.4 H D MCH 34.3 H MCHC 29.7 L RDW 13.2 Plt Count 209 MPV 9.6 Immature Gran % (Auto) 0.7 H Neut % (Auto) 55.0 Lymph % (Auto) 32.5 Coffee % (Auto) 10.1 H Eos % (Auto) 1.3 Baso % (Auto) 0.4 Lymph # (Auto) 2.94 [place] # (Auto) 0.9 H Eos # (Auto) 0.1 Baso # (Auto) 0.0 Abs Immat Gran (auto) 0.06 H Absolute Neuts (auto) 5.0 Absolute Nucleated RBC 0.000 Nucleated RBC % 0.0 Sodium 136 L Potassium 4.4 Chloride 103 Carbon Dioxide 27 Anion Gap 6 BUN 6 L D Creatinine 0.59 L Estim Creat Clear Calc 79 Estimated GFR > 60 Glucose 111 H Calcium 8.5 Magnesium 1.9 Total Bilirubin 0.4 AST 30 ALT 21 Alkaline Phosphatase 75 Total Protein 6.0 L Albumin 3.5
[2024-06-13] MEDS: SODIUM CHLORIDE 0.9% IV 1,000 ML 75 ML IV CONT (11:53)
--- NOTE | 2024-06-13 12:32 | PC.NURSE ---
Defibrillator/pacer read and transmitted. Information printed and placed in chart by manager of housekeeping. Local defib/pacer tech (Dk) called and left phone number if any additional information is needed prior to procedure ([phone]).
[2024-06-13] MEDS: PROCHLORPERAZINE EDISYLATE 10 MG/2 ML VIAL IV PUSH (13:13)
[2024-06-14] VITALS (21 sets, daily range): BP systolic 95–149; BP diastolic 56–71; PULSE 81–99; RESP 14–20; TEMP 36.1–37.4; O2SAT 90–100
--- NOTE | 2024-06-14 | ECHO_ITS ---
Patient Info Name: Melodie Barrera Age: 63 years : 1960 Gender: Female Ht: 66 in Wt: 149 lbs BSA: 1.78 m2 Exam Date: 06/14/2024 1:07 PM Exam Location: Echo Lab Patient Status: Inpatient Admit Date: 06/12/2024 Staff Ordering Physician: Chuck Lima DO Attending Provider: Lesa Powell DO Referring Physician: Clarence WSAIN; Exam Type: CA echo doppler color flow w/contrast Summary 1. Technically suboptimal study due to poor sonographic images. 2. Definity contrast administered improved wall motion interpretation. 3. Left ventricular chamber dimension is normal. 4. Left ventricular systolic function is normal, estimated at 55-60%. 5. The left ventricular diastolic function is indeterminate. 6. Linear artifact in right ventricle suggestive of catheter(s), pacemaker lead(s), or ICD lead(s). 7. Linear artifact in the right atrium suggestive of catheter(s), pacemaker lead(s), or ICD lead(s). 8. The aortic valve is not well visualized. Cannot determine number of aortic valve leaflets. 9. There is mild aortic valve stenosis based on a peak velocity of 110 cm/s, mean gradient of 3 mmHg, and aortic valve area of 1.4 cm2. 10. No pulmonary hypertension, estimated pulmonary arterial systolic pressure is 30 mmHg. Left Ventricle Tissue doppler is not performed. Definity contrast administered improved wall motion interpretation. Technically suboptimal study due to poor sonographic images. Left ventricular chamber dimension is normal. Left ventricular systolic function is normal, estimated at 55-60%. The left ventricular diastolic function is indeterminate. Right Ventricle Linear artifact in right ventricle suggestive of catheter(s), pacemaker lead(s), or ICD lead(s). Right ventricular chamber dimension is normal. Right ventricular systolic function is normal. Left Atria Left atrial chamber dimension is normal. Right Atria Linear artifact in the right atrium suggestive of catheter(s), pacemaker lead(s), or ICD lead(s). Right atrial chamber dimension is normal. Aortic Valve The aortic valve is not well visualized. Cannot determine number of aortic valve leaflets. There is mild aortic valve stenosis based on a peak velocity of 110 cm/s, mean gradient of 3 mmHg, and aortic valve area of 1.4 cm2. There is no aortic valve regurgitation. Pulmonic Valve There is no pulmonic regurgitation. Mitral Valve There is no mitral valve stenosis. There is no mitral valve regurgitation. Tricuspid Valve There is no tricuspid valve regurgitation. No pulmonary hypertension, estimated pulmonary arterial systolic pressure is 30 mmHg. Pericardium/Pleural There is no pericardial effusion. Inferior Vena Cava Normal inferior vena cava with >50% collapse upon inspiration consistent with normal right atrial pressure, 5 mmHg. Aorta The aortic root size at the sinus of Valsalva is not well visualized. Left Ventricular Outflow Tract Name Value Normal LVOT 2D LVOT Diameter 1.9 cm LVOT Doppler LVOT Peak Gradient 1 mmHg LVOT Mean Gradient 1 mmHg LVOT VTI 10 cm LVOT VTI/AV VTI Ratio 0.5 LVOT Stroke Volume 26 ml LVOT CO 6.6 l/min LVOT CI 3.7 l/min/m2 Tricuspid Valve Name Value Normal TV Regurgitation Doppler TR Peak Velocity 249 cm/s TR Peak Gradient 25 mmHg Estimated PAP/RSVP RA Pressure 5 mmHg <=5 PA Systolic Pressure 30 mmHg <36 RV Systolic Pressure 30 mmHg <36 Aortic Valve Name Value Normal AV Doppler AV Peak Velocity 110 cm/s AV Peak Gradient 5 mmHg AV Mean Gradient 3 mmHg AV VTI 19 cm AV Area (Cont Eq VTI) 1.4 cm2 >=3.0 AV Area (Cont Eq Anam) 1.4 cm2 AV Regurgitation 2D LVOT Area 2.7 cm2 Ventricles Name Value Normal LV Dimensions 2D/MM IVS Diastolic Thickness (2D) 1.1 cm 0.6-1.0 LVID Diastole (2D) 2.7 cm 3.8-5.2 LVIW Diastolic Thickness (2D) 1.0 cm 0.6-0.9 LVID Systole (2D) 2.0 cm 2.2-3.5 LVOT Diameter 1.9 cm LV Mass (2D Cubed) 76.69 g 67.00-162.00 LV Mass Index (2D Cubed) 43 g/m2 43-95 Relative Wall Thickness (2D) 0.75 LV Fractional Shortening/Ejection Fraction 2D/MM LV Fractional Shortening (2D) 26 % 27-45 LV EF (2D Teicholz) 54 % 54-74 Report Signatures [facility]
[2024-06-14] MEDS: SODIUM CHLORIDE 0.9% IV 1,000 ML 75 ML IV CONT (01:30)
[2024-06-14] MEDS: oxyCODONE/ACETAMINOPHEN (*CRX) 10-325 MG TABLET 1 TAB PO ×4 (01:31→21:18)
[2024-06-14 05:36] LABS: Basophils Percent Auto 0.3 % (0.2-1.2); Eosinophils Absolute Auto 0.1 K/mm3 (0-0.3); Eosinophils Percent Auto 1.2 % (0-4.4); Hematocrit 32.8 % (37.0-47.0); Hemoglobin 10.1 g/dL (12.0-15.0); Immature Granulocyte Absolute 0.03 K/mm3 (0.00-0.031); Immature Granulocyte Percent A 0.4 % (0-0.5); Lymphocytes Absolute Auto 1.81 K/mm3 (0.9-3.2); Lymphocytes Percent Auto 27.1 % (18.3-44.2); Mean Corpuscular HGB Conc 30.8 g/dl (32-36); Mean Corpuscular Hemoglobin 34.4 pg (26-34); Mean Corpuscular Volume 111.6 fl (80-100); Mean Platelet Volume 9.9 fl (7.4-10.4); Monocytes Absolute Auto 0.7 K/mm3 (0.1-0.6); Monocytes Percent Auto 10.6 % (2.6-8.5); Neutrophils Percent Auto 60.4 % (45.5-73.1); Platelet Count Result 164 k/mm3 (150-375); Red Blood Count 2.94 M/mm3 (4.2-5.4); White Blood Count 6.7 K/mm3 (4.5-10.0)
[2024-06-14 05:51] LABS: Alanine Aminotransferase 15 U/L (6-35); Alkaline Phosphatase 61 U/L (38-126); Anion Gap 3 mmol/L (4-12); Aspartate Amino Transferase 23 U/L (14-36); Bilirubin,Total 0.4 mg/dL (0.2-1.3); Blood Urea Nitrogen 4 mg/dL (7-17); Carbon Dioxide 29 mmol/L (22-30); Chloride 100 mmol/L (98-107); Estimated CRCL calculation 88 ml/min; Estimated Glomerular Filt Rate > 60; Glucose 91 mg/dL (65-110); Magnesium 1.7 mg/dL (1.6-2.3); Sodium 132 mmol/L (137-145)
[2024-06-14 06:05] LABS: Vitamin D 25 Hydroxy 31.7 ng/mL
[2024-06-14 06:10] LABS: Anisocytosis 1+; Platelet Estimate Adequate (Adequate); Schistocytes None Seen; Stomatocytes 1+
[2024-06-14] MEDS: FLUTICASONE/UMECLIDIN/VILANTER 100-62.5-25 MCG ELLIPTA 1 PUFF INHALATION (07:31)
--- NOTE | 2024-06-14 08:07 | WPDANESEPPF ---
Anes - Initial Pre Proc Eval Procedure: Operation Date: 06/14/24 09:00 Proposed Procedures p Itramedullary Right Nail Humerus - Mervin Rhodes MD Date/Time: 06/14/24 08:07 Surgeon: Lesa Powell DO Pre Op Diagnosis: Syncope, Humerus fracture Patient Data Age: 63 Gender: F Height: 1.68 m Weight: 67.8 kg Last Vital Signs Temp 36.6 C 06/14/24 03:49 Pulse 82 06/14/24 07:31 Resp 20 06/14/24 07:31 BP 101/56 L 06/14/24 03:49 Pulse Ox 94 06/14/24 07:31 O2 Del Method Nasal Cannula 06/14/24 07:31 O2 Flow Rate 2 06/14/24 07:31 FiO2 28 06/14/24 07:31 Allergies Allergy/AdvReac Type Severity Reaction Status Date / Time No Known Allergies Allergy Verified 06/12/24 09:48 Home Medications ?Medication ?Instructions ?Recorded ?Confirmed ?Type sacubitril 97 mg-valsartan 103 mg 1 tablet PO BID 01/20/19 06/12/24 History tablet (Entresto) carvedilol 25 mg tablet 25 mg PO Q12H #90 tabs 10/20/19 06/12/24 Rx ergocalciferol (vitamin D2) 1,250 1,250 mcg PO WEEKLY 06/16/22 06/12/24 History mcg (50,000 unit) capsule duloxetine 60 mg capsule,delayed See Rx Instructions .Route 03/02/24 06/12/24 Rx release .COMPLEX #90 caps ezetimibe 10 mg tablet See Rx Instructions .Route 03/02/24 06/12/24 Rx .COMPLEX #90 tabs empagliflozin 10 mg tablet 10 mg PO DAILY 04/06/24 06/12/24 History (Jardiance) spironolactone 25 mg tablet 12.5 mg PO DAILY 04/06/24 06/12/24 History rivaroxaban 20 mg tablet (Xarelto) See Rx Instructions .Route 06/01/24 06/12/24 Rx .COMPLEX #90 tabs rosuvastatin 5 mg tablet 5 mg PO DAILY #90 tabs 06/01/24 06/12/24 Rx budesonide 160 mcg-glycopyr 9 See Rx Instructions .Route 06/02/24 06/12/24 Rx mcg-formot 4.8 mcg/actuation HFA .COMPLEX #10.7 ea inhaler (Breztri Aerosphere) alprazolam 0.25 mg tablet 0.25 mg PO QHS #30 tabs 06/04/24 06/12/24 Rx Laboratory Tests 06/14/24 05:02 WBC 6.7 K/mm3 (4.5-10.0) RBC 2.94 L M/mm3 (4.2-5.4) Hgb 10.1 L g/dL (12.0-15.0) Hct 32.8 L % (37.0-47.0) MCV 111.6 H fl (80-100) MCH 34.4 H pg (26-34) MCHC 30.8 L g/dl (32-36) RDW 13.0 % (11.5-14.5) Plt Count 164 k/mm3 (150-375) MPV 9.9 fl (7.4-10.4) Immature Gran % (Auto) 0.4 % (0-0.5) Neut % (Auto) 60.4 % (45.5-73.1) Lymph % (Auto) 27.1 % (18.3-44.2) Worth % (Auto) 10.6 H % (2.6-8.5) Eos % (Auto) 1.2 % (0-4.4) Baso % (Auto) 0.3 % (0.2-1.2) Lymph # (Auto) 1.81 K/mm3 (0.9-3.2) Worth # (Auto) 0.7 H K/mm3 (0.1-0.6) Eos # (Auto) 0.1 K/mm3 (0-0.3) Baso # (Auto) 0.0 K/mm3 (0.0-0.1) Abs Immat Gran (auto) 0.03 K/mm3 (0.00-0.031) Absolute Neuts (auto) 4.0 K/mm3 (1.3-6.7) Absolute Nucleated RBC 0.000 K/mm3 (0.0-0.012) Band Neutrophils % Not Reportable Nucleated RBC % 0.0 % (0.0-0.2) Platelet Estimate Adequate (Adequate) Anisocytosis 1+ Stomatocytes 1+ Schistocytes None seen Sodium 132 L mmol/L (137-145) Potassium 4.0 mmol/L (3.4-5.0) Chloride 100 mmol/L (98-107) Carbon Dioxide 29 mmol/L (22-30) Anion Gap 3 L mmol/L (4-12) BUN 4 L mg/dL (7-17) Creatinine 0.52 L mg/dL (0.7-1.0) Estim Creat Clear Calc 88 ml/min Estimated GFR > 60 (59 - ) Glucose 91 mg/dL (65-110) Calcium 8.0 L mg/dL (8.4-10.2) Magnesium 1.7 mg/dL (1.6-2.3) Total Bilirubin 0.4 mg/dL (0.2-1.3) AST 23 U/L (14-36) ALT 15 U/L (6-35) Alkaline Phosphatase 61 U/L (38-126) Total Protein 6.0 L g/dL (6.3-8.2) Albumin 3.0 L g/dL (3.5-5.1) Vitamin D 25-Hydroxy 31.7 ng/mL Patient hx anesthesia problems: none Family hx anesthesia problems: none Results Review: All pre-operative results and documents have been reviewed as part of the pre-operative evaluation. [facility] Past Medical History Medical History (Updated 06/14/24 @ 08:13 by Eric Patino DO) COPD (chronic obstructive pulmonary disease) CHF (congestive heart failure) EF 30% Closed fracture of right proximal humerus BMI 23.0-23.9, adult Daily consumption of alcohol Chronic anticoagulation Heart failure of unknown type Chronic obstructive pulmonary disease Paroxysmal atrial fibrillation Hyperlipidemia Depression Tobacco use Essential hypertension Age related osteoporosis Surgical History Surgical History (Updated 06/14/24 @ 08:08 by Eric Patino DO) AICD (automatic cardioverter/defibrillator) present History of permanent cardiac pacemaker placement History of implantable cardioverter-defibrillator (ICD) insertion History of cardiac catheterization History of colonoscopy History of tonsillectomy and adenoidectomy History of partial hysterectomy Family History Family History Mother Cerebrovascular accident Father Heart disease Sibling Sepsis Heart disease Social History Social History Social History: Surrogate medical decision maker: Kasey Truong, friend. Code status: Full code. Smoking packs per day: 1 Smoking cigarettes per day: 20.0 Years smoked: 50 Smoking pack-years: 50.00 Smoking status: Current every day smoker Tobacco type: cigarettes Second hand tobacco smoke exposure: No Alcohol intake: current Drinks per week: 14 Alcohol use details: 2 to 3 beers a day. Substance use: never Substance use type: does not use Do You Feel Safe in your Home?: Yes Lack of Transportation: No Lack of Food: Never True Current Housing: I Have Housing Concerned About Future Housing: No Difficulty Paying Gas/Electric Bills: No Difficulty Paying for Meds: No Currently Unemployed: No Education: High School Diploma/GED Difficulty w/ Childcare or Family Care: No Living arrangements: alone Additional living arrangements comments: Lives in [place]. Occupation/Education: occupation Additional occupation/education comments: Works at the [employer]. Gender identity (if verbalized by the patient): Female Spiritual care concerns: No Anes - Eval Final PreProcedure Day of Procedure 06/14/24 08:07 Patient weight: normal Heart: regular rate and rhythm Lungs: clear to auscultation Airway: Mallampati scale class II Neurological: alert and oriented Last oral intake: >/= 8 hours ASA classification: IV Emergent: no Anesthetic plan: proceed Anesthesia type and monitoring: general ETT and standard monitoring Results Review: All pre-operative results and documents have been reviewed as part of the pre-operative evaluation. Informed Consent: The patient's anesthetic plan and its attendant risks and benefits were discussed with the patient/family/POA. Questions were solicited and answers provided to the satisfaction of the patient/family/POA.
--- NOTE | 2024-06-14 08:49 | WPDHPUPDATE1 ---
History and Physical Update Update Date/Time: 06/14/24 08:49 History and Physical has been reviewed, including an updated exam of the patient. There are NO changes in the patient's condition. Risks, benefits, and alternatives have been discussed and questions answered. Patient agrees to proceed with procedure. Plan: Right proximal humerus fracture reduction with intramedullary nail fixation
[2024-06-14] MEDS: ceFAZolin 2 GM/D5W 50 ML 2 GM/50 ML BAG IVPB ×2 (09:01→16:28)
[2024-06-14] MEDS: BUPIVACAINE/EPINEPHRINE 0.5% 50 ML VIAL 30 ML INFILTRATE (09:48)
[2024-06-14] MEDS: LACTATED RINGERS 1,000 ML 30 ML IV CONT (10:47)
--- NOTE | 2024-06-14 11:04 | P.OP_ITS ---
Procedure Note - Detailed Date of Procedure 06/14/24 Pre-op Diagnosis Syncope, Humerus fracture Post-op Diagnosis Same Procedure Performed Intramedullary nail fixation right proximal humerus fracture Surgeon Mervin Rhodes MD Cardiac Cath Technician 1st tutoring assistant Anesthesia General Indications 63-year-old woman who had a syncopal episode and fell injuring her right shoulder. Noted to have fracture through surgical neck of the humerus with 100% displacement. Presents for operative treatment. Description of Procedure Patient identified in the preoperative holding. Informed consent given. Operative extremity marked. Patient received intravenous antibiotics. Patient brought to the operating room where underwent general anesthetic by anesthesia team. Positioned supine on operating room table. Time-out performed confirming the patient, site of the surgery and the plan. Patient then positioned with bump under the ipsilateral scapula. Right shoulder was left free and was prepped and draped usual sterile surgical fashion using ChloraPrep skin solution. 0.5% Marcaine plain local anesthetic applied to the proximal humerus. Oblique incision then made from the anterolateral acromion with a 15 blade knife. Hemostasis controlled. Fascia incised in line with skin incision. Deltoid raphe then identified and used as the marker to split the deltoid from the acromion approximately 1.5 cm. Subacromial bursa was sharply resected. Th is allowed visualization of the supraspinatus tendon. 15 blade knife used to incise the tendon in line with the fibers proximal to the insertion point. This allowed an entry point in proximal humerus just at the articular surface bony junction. Image intensification confirmed our starting point and a guide pin was placed. This was over reamed to a size 12 mm. Guide tabitha then inserted through the proximal humerus into the intramedullary canal and verified with image intensification. The intramedullary canal was then measured and sounded. The 160 mm nail was selected. Sequential reaming was done from a size 8 mm up to size 12.5 mm. The 11 mm x 160 mm nail was assembled on the back table and inserted over the guide tabitha. Guide tabitha was removed. Depth of the nail was verified with image intensification and the guide tabitha. Proximal humerus fixation was then achieved. Soft tissue protector drill guides were placed and drilling, measuring an appropriate size screws placed. Rotation of the humerus was verified with the forearm guide pins with forearm in approximately 30? external rotation. Fixation was then performed with a direct lateral screw using the 4.0 mm drill hole and verified with image intensification. Stab incision with 15 blade knife. Blunt dissection bone placement the drill guide soft tissue protector followed by drilling appropriate measurements. Anterolate ral and posterolateral screws were then placed in similar fashion. Screws were verified with the image intensification. Distally the nail was locked with 4.0 mm screw placed from lateral to medial. Image intensification confirmed final placement of the hardware and reduction the fracture. Locking of the proximal screws was then done with the locking screw mechanism. The outrigger device was then removed. Wounds irrigated with saline. The rotator cuff was then addressed. 0 Vicryl interrupted suture used to repair the incision. Deltoid fascia repaired with 2-0 Vicryl suture interrupted. Subcutaneous tissue repaired with 3-0 Monocryl interrupted suture and skin repaired with Steri-Strips. Sterile dressing applied. The patient was then returned supine, woken from anesthesia, extubated and taken to the recovery room in stable condition. All sponge, needle, instrument counts were correct at the end of the case. Implants [employer] intramedullary humeral nail 160 x 11 mm with 4.0 mm locking screws x4 Estimated Blood Loss 50 Urine Output 500 Drains No Packing No Pathology None sent Complications None Condition Stable Disposition PACU [facility] Billing Surgery - Charge Forward: Surgery Billing ([id number])
[2024-06-14] MEDS: MAGNESIUM SULF 2 GM/WATER 50ML 2 GM/50 ML BAG IVPB (12:07)
--- NOTE | 2024-06-14 12:17 | P.PNIM_ITS ---
Progress Note: A&P Assessment and Plan (1) Syncope: Code(s): R55 - Syncope and collapse Status: Acute Assessment and Plan: * Patient denied feeling dizzy, any illness, or feeling any differently before she passed out. Patient reports that she passed out a month ago but did not tell her primary or [employer]. * Telemetry. * Cardiology consult, appreciate recommendations. * Coreg at a dose of 6.25 mg twice a day and Entresto at a dose 24-26 mg 1 tablet oral q 12. 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 * Nonischemic dilated cardiomyopathy. Clinically appears to be mildly dehydrated oral intake is being encouraged. * Jardiance and Spironolactone on hold. Entresto restarted at lower dose of 24- 26 mg 1 tablet oral q 12. (3) Paroxysmal atrial fibrillation: Code(s): I48.0 - Paroxysmal atrial fibrillation Status: Acute Assessment and Plan: * Xarelto on hold for possible humerus surgery. (4) Essential hypertension: Code(s): I10 - Essential (primary) hypertension Status: Acute Assessment and Plan: * Coreg decreased 6.25 mg PO BID. * Current blood pressure is 110/65. (5) Fracture, humerus: Code(s): S42.309A - Unspecified fracture of shaft of humerus, unspecified arm, initial encounter for closed fracture Status: Acute Assessment and Plan: * Right shoulder X-ray showed: FINDINGS: A comminuted fracture of the right humeral neck is identified, with overlap of the fracture fragments. Diffuse bony demineralization is present, far advanced for patient of this age. IMPRESSION: Comminuted fracture of the right humeral neck, as detailed above. Diffuse bony demineralization, far advanced for patient of this age. * Right shoulder CT showed: FINDINGS: Comminuted fracture across the surgical neck of the proximal right humerus with one shaft width anterior displacement and 45 degree posterior and medial angulation. The humeral head is normally centered over the glenoid but is rotated as with abduction and anterior elevation. Glenohumeral joint space is normal. Mild osteoarthritis at the acromioclavicular joint. There is a small glenohumeral joint effusion. Moderate emphysema the visualized right upper lung. Cardiac pacemaker leads extend from the left brachiocephalic vein into the superior vena cava below the inferior margin of the field of imaging. Chronic T7 compression fracture, the visualized portion which appears unchanged since CT dated 07/29/2022. IMPRESSION: 1. Displaced and angulated comminuted fracture of the surgical neck of the proximal right humerus. 2. Moderate emphysema. * Ortho consult placed, appreciate recommendations. * Patient status post surgery today, intramedullary nail fixation right proximal humerus fracture. * Dressing to right shoulder C/D/I. * NS @ 125 ml/hr. * Cefazolin 2 gram IVPB q 8 for 3 doses. (6) COPD (chronic obstructive pulmonary disease): Qualifiers: COPD type: unspecified COPD Qualified Code(s): J44.9 - Chronic obstructive pulmonary disease, unspecified Code(s): J44.9 - Chronic obstructive pulmonary disease, unspecified Status: Acute Assessment and Plan: * Trelegy 1 puff daily. * Encourage patient to stop smoking. 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 (8) Hyperlipidemia: Qualifiers: Hyperlipidemia type: unspecified Qualified Code(s): E78.5 - Hyperlipidemia, unspecified Code(s): E78.5 - Hyperlipidemia, unspecified Status: Acute Assessment and Plan: * On statin and Zetia (9) Nausea & vomiting: Code(s): R11.2 - Nausea with vomiting, unspecified Status: Acute Assessment and Plan: * Subsided. * Prochlorperazine 10 mg IV q 6 PRN. Subjective Date/time seen: 06/14/24 12:17 Interval history: Patient status post surgery today, intramedullary nail fixation right proximal humerus fracture. Patient denies pain at present, shortness of breath, headache, dizziness, nausea, or vomiting. Review of Systems Review of Systems: All systems reviewed & are unremarkable except as noted in HPI and below Exam Const: General: comfortable and no acute distress Resp: Effort & Inspection: normal respiratory effort Auscultation: diminished lung sounds Cardio: Rate: regular rate Rhythm: regular rhythm Other: Telemetry- SR 92. GI: GI Palp: Yes Soft to palpation Auscultation: normal bowel sounds Skin: Other: Scattered Ecchymosis. Dressing C/D/I to right shoulder. Neuro: Speech: normal speech Extrem: General: no pedal edema Psych: Mental Status: mental status grossly normal Affect: normal affect Objective Data Vital Signs Vital Signs: Vital Signs - 24 hr 06/13/24 14:00 06/13/24 16:00 06/13/24 16:00 Temperature 97.6 F 97.6 F Pulse Rate 83 88 91 Pulse Rate [Right Radial] Respiratory Rate 17 17 Blood Pressure 108/66 112/76 Pulse Oximetry 93 93 Oxygen Delivery Oxygen Flow Rate Fraction of Inspired Oxygen 06/13/24 19:31 06/13/24 20:00 06/13/24 20:17 Temperature 97.8 F Pulse Rate 88 86 Pulse Rate [Right Radial] Respiratory Rate 17 Blood Pressure 108/56 L 110/56 L Pulse Oximetry 97 Oxygen Delivery Oxygen Flow Rate Fraction of Inspired Oxygen 06/13/24 20:18 06/14/24 00:00 06/14/24 00:00 Temperature 99.4 F Pulse Rate 88 83 89 Pulse Rate [Right Radial] Respiratory Rate 18 Blood Pressure 103/66 Pulse Oximetry 92 Oxygen Delivery Oxygen Flow Rate Fraction of Inspired Oxygen 06/14/24 03:49 06/14/24 04:00 06/14/24 07:25 Temperature 97.8 F Pulse Rate 81 83 Pulse Rate [Right Radial] Respiratory Rate 17 Blood Pressure 101/56 L Pulse Oximetry 97 93 Oxygen Delivery Nasal Cannula Oxygen Flow Rate 1 Fraction of Inspired Oxygen 06/14/24 07:25 06/14/24 07:31 06/14/24 07:31 Temperature Pulse Rate 82 82 Pulse Rate [Right Radial] Respiratory Rate 20 Blood Pressure Pulse Oximetry 94 Oxygen Delivery Nasal Cannula Oxygen Flow Rate 2 Fraction of Inspired Oxygen 06/14/24 08:22 06/14/24 10:47 06/14/24 11:00 Temperature 98.5 F 97.1 F L Pulse Rate 90 93 97 Pulse Rate [Right Radial] Respiratory Rate 20 15 16 Blood Pressure 115/66 149/71 H 129/70 Pulse Oximetry 93 100 100 Oxygen Delivery Nasal Cannula Simple Face Mask Simple Face Mask Oxygen Flow Rate 2 6 6 Fraction of Inspired Oxygen 06/14/24 11:15 06/14/24 11:30 06/14/24 12:01 Temperature 97.0 F L Pulse Rate 92 96 Pulse Rate [Right Radial] 93 Respiratory Rate 14 16 Blood Pressure 122/67 110/69 98/59 L Pulse Oximetry 100 96 Oxygen Delivery Nasal Cannula Nasal Cannula Oxygen Flow Rate 3 3 Fraction of Inspired Oxygen Intake/Output Intake/Output: Intake & Output 06/11/24 06/12/24 06/13/24 06/14/24 23:59 23:59 23:59 23:59 Intake Total 8939 455 5890 Output Total 650 1300 Balance 1240 30 -200 Meds/Results Medications: Active Medications Generic Name Dose Route Start Last Admin Trade Name Freq PRN Reason Stop Dose Admin Acetaminophen 650 mg 06/12/24 10:45 Acetaminophen 325 Mg Tablet PO Q6H PRN Headache Carvedilol 6.25 mg 06/13/24 09:00 06/13/24 20:18 Carvedilol 6.25 Mg Tablet PO 6.25 mg Q12HR ALYSA Administration Diphenhydramine HCl 25 mg 06/14/24 11:40 Diphenhydramine Hcl Inj 50 Mg/Ml Vial IV PUSH Q6H PRN Itching Docusate Sodium 100 mg 06/12/24 10:47 Docusate Sodium 100 Mg Capsule PO Q12H PRN Constipation Duloxetine HCl 60 mg 06/12/24 14:35 06/13/24 11:31 Duloxetine Hcl 60 Mg Capsule.Dr BY MOUTH 60 mg DAILY ALYSA Administration Ezetimibe 10 mg 06/12/24 14:35 06/13/24 11:30 Ezetimibe 10 Mg Tablet BY MOUTH 10 mg DAILY ALYSA Administration Empagliflozin 10 mg 06/12/24 14:35 06/12/24 15:04 Empagliflozin 10 Mg Tablet PO Not Given DAILY ALYSA Ergocalciferol 50,000 units 06/12/24 14:35 06/12/24 15:05 Ergocalciferol 50,000 Units Capsule PO 50,000 units Sa@0900 ALYSA Administration Fluticasone/Umeclidinium/Vilanterol 1 puff 06/13/24 09:00 06/14/24 07:31 Fluticasone/Umeclidin/Vilanter 100-62.5-25 Mcg Ellipta INHALATION 1 puff DAILY ALYSA Administration Hydromorphone HCl 0.5 mg 06/12/24 22:35 06/13/24 10:10 Hydromorphone Hcl Inj (*Crx) 2 Mg/Ml Vial IV PUSH 0.5 mg Q3H PRN Administration Pain Rated 7-10 Sodium Chloride 1,000 mls @ 125 mls/hr 06/14/24 11:40 Normal Saline Iv IV CONT 06/14/24 19:39 .Q8H ALYSA Cefazolin Sodium 2 gm in 50 mls @ 100 mls/hr 06/14/24 17:00 Ancef 2 Gm/D5w 50 Ml IVPB 06/15/24 09:29 Q8H ALYSA Naloxone HCl 0.1 mg 06/14/24 11:40 Naloxone Hcl 0.4 Mg/Ml Vial IV PUSH Q2M PRN Opiate Reversal Ondansetron HCl 4 mg 06/14/24 11:40 Ondansetron Inj 4 Mg/2 Ml Vial IV PUSH Q4H PRN Nausea And Vomiting Oxycodone/Acetaminophen 1 tab 06/12/24 22:35 06/14/24 01:31 Oxycodone/Acetaminophen (*Crx) 10-325 Mg Tablet PO 1 tab Q4H PRN Administration Pain Rated 4-10 Perflutren Lipid Microsphere 0 ml 06/14/24 06:25 Perflutren Lipid Microspheres 1.5 Ml Vial Diluted To 10 Ml Total Volume IV PUSH 06/17/24 06:25 ONCE PRN adequate visualization Protocol Polyethylene Glycol 17 gm 06/12/24 10:47 Polyethylene Glycol 3350 17 Gm Powd.Pack PO QAM PRN Constipation Prochlorperazine Edisylate 10 mg 06/13/24 13:03 06/13/24 13:13 Prochlorperazine Edisylate 10 Mg/2 Ml Vial IV PUSH 10 mg Q6H PRN Administration Nausea And Vomiting Rosuvastatin Calcium 5 mg 06/12/24 14:35 06/13/24 11:31 Rosuvastatin 5 Mg Tablet PO 5 mg DAILY ALYSA Administration Sacubitril/Valsartan 1 tab 06/13/24 09:00 06/13/24 20:18 Sacubitril/Valsartan 24-26 Mg Tablet PO 1 tab Q12HR ALYSA Administration Radiology Results: ITS Impressions Shoulder X-Ray 06/12/24 02:11 IMPRESSION: Comminuted fracture of the right humeral neck, as detailed above. Diffuse bony demineralization, far advanced for patient of this age. Chest X-Ray 06/12/24 06:28 IMPRESSION: 1. Emphysema with mild discoid atelectasis in the right lower lung zone. Head CT 06/12/24 08:28 IMPRESSION: 1. Normal head CT. No fracture or acute intracranial process. Cervical Spine CT 06/12/24 08:45 IMPRESSION: 1. Moderate cervical spondylosis. No acute osseous abnormality Shoulder CT 06/12/24 12:14 IMPRESSION: 1. Displaced and angulated comminuted fracture of the surgical neck of the proximal right humerus. 2. Moderate emphysema. Labs Labs: Laboratory Results - last 24 hr 06/14/24 05:02 WBC 6.7 RBC 2.94 L Hgb 10.1 L Hct 32.8 L MCV 111.6 H MCH 34.4 H MCHC 30.8 L RDW 13.0 Plt Count 164 MPV 9.9 Immature Gran % (Auto) 0.4 Neut % (Auto) 60.4 Lymph % (Auto) 27.1 Mckean % (Auto) 10.6 H Eos % (Auto) 1.2 Baso % (Auto) 0.3 Lymph # (Auto) 1.81 Mckean # (Auto) 0.7 H Eos # (Auto) 0.1 Baso # (Auto) 0.0 Abs Immat Gran (auto) 0.03 Absolute Neuts (auto) 4.0 Absolute Nucleated RBC 0.000 Band Neutrophils % Not Reportable Nucleated RBC % 0.0 Platelet Estimate Adequate Anisocytosis 1+ Stomatocytes 1+ Schistocytes None seen Sodium 132 L Potassium 4.0 Chloride 100 Carbon Dioxide 29 Anion Gap 3 L BUN 4 L Creatinine 0.52 L Estim Creat Clear Calc 88 Estimated GFR > 60 Glucose 91 Calcium 8.0 L Magnesium 1.7 Total Bilirubin 0.4 AST 23 ALT 15 Alkaline Phosphatase 61 Total Protein 6.0 L Albumin 3.0 L Vitamin D 25-Hydroxy 31.7 Quality VTE Prophylaxis VTE prophylaxis: pharmacologic ordered
[2024-06-14] MEDS: PERFLUTREN LIPID MICROSPHERES 1.5 ML VIAL DILUTED TO 10 ML TOTAL VOLUME IV PUSH (13:20)
[2024-06-14] MEDS: DULoxetine HCL 60 MG CAPSULE.DR BY MOUTH (14:39)
[2024-06-14] MEDS: EZETIMIBE 10 MG TABLET BY MOUTH (14:40)
[2024-06-14] MEDS: ROSUVASTATIN 5 MG TABLET PO (14:40)
--- NOTE | 2024-06-14 15:42 | IVDEFINITY ---
Prior to administration of IV Definity the patient was educated on the risks and benefits of the imaging enhancing agent including potential adverse side effects. The patient verbalized understanding. Allergies were verified. No exclusion criteria were identified and at least one of the following inclusion criteria were met: 1) physician request, 2) patient technically difficult to image (per the [place] [employer] guidelines of two or more segments not discernable within the apical view), or 3) questionable left ventricular function. ?
--- NOTE | 2024-06-14 16:34 | PM.PNCARD ---
Progress Note: A&P Assessment and Plan (1) Systolic dysfunction: Code(s): I51.9 - Heart disease, unspecified Status: Acute Assessment and Plan: Resolved. NICM. Per patient echo done [address] Perez in [facility] showed EF 35% which is down from prior 45%. She was started on Jardiance and Spironolactone 3 months ago and felt weak with them. Normal coronaries in 2012 on [facility] per patient. Resumed lower doses of Coreg and Entresto. 06/14/24 Echo: EF 55-60%, mild based on DURAN 1.4 cm2, mean gradient 3 mmHg as valve was not well seen. Due to low normal BP, decrease Coreg 3.125 mg BID. Will discontinue Jardiance and Spironolactone due to normal EF and low BP on them. Will sign off. Please call with any questions. 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 Perez in [place]. (2) Essential hypertension: Code(s): I10 - Essential (primary) hypertension Status: Acute Assessment and Plan: Stable now. (3) Tobacco use: Code(s): Z72.0 - Tobacco use Status: Acute Assessment and Plan: Counseled regarding smoking cessation. (4) Paroxysmal A-fib: Code(s): I48.0 - Paroxysmal atrial fibrillation Status: Acute Assessment and Plan: In Sinus rhythm. Normally on Xarelto which is on hold in anticipation of arm surgery. (5) Dyslipidemia: Code(s): E78.5 - Hyperlipidemia, unspecified Status: Acute Assessment and Plan: On Rosuvastatin and Zetia. (6) AICD (automatic cardioverter/defibrillator) present: Code(s): Z95.810 - Presence of automatic (implantable) cardiac defibrillator Status: Acute Assessment and Plan: [facility]. Ralf device was interrogated shows no ventricular arrhythmias or pauses. 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 (7) Syncope: Code(s): R55 - Syncope and collapse Status: Acute Assessment and Plan: Probably due to acute hypotension due to heart failure medication. Resuming Coreg and Entresto at lower doses. Monitor BP. Subjective Date/time seen: 06/14/24 16:34 Interval history: Denies chest pain, sob. Has 6/10 right arm pain and had surgery for it this morning. Exam Const: General: cooperative, healthy appearing and comfortable Orientation/consciousness: oriented to person, oriented to place and oriented to time Resp: Auscultation: clear to auscultation bilaterally, no crackles, no rales, no rhonchi and no wheezes Cardio: Rate: regular rate Rhythm: regular rhythm Heart sounds: no murmurs Peripheral pulses: dorsalis pedis present Neuro: General: oriented to person, oriented to place and oriented to time Extrem: Right lower extremity: no edema Left lower extremity: no edema Objective Data Vital Signs Vital Signs: Vital Signs - 24 hr 06/13/24 19:31 06/13/24 20:00 06/13/24 20:17 Temperature 97.8 F Pulse Rate 88 86 Pulse Rate [Right Radial] Respiratory Rate 17 Blood Pressure 108/56 L 110/56 L Pulse Oximetry 97 Oxygen Delivery Oxygen Flow Rate Fraction of Inspired Oxygen 06/13/24 20:18 06/14/24 00:00 06/14/24 00:00 Temperature 99.4 F Pulse Rate 88 83 89 Pulse Rate [Right Radial] Respiratory Rate 18 Blood Pressure 103/66 Pulse Oximetry 92 Oxygen Delivery Oxygen Flow Rate Fraction of Inspired Oxygen 06/14/24 03:49 06/14/24 04:00 06/14/24 07:25 Temperature 97.8 F Pulse Rate 81 83 Pulse Rate [Right Radial] Respiratory Rate 17 Blood Pressure 101/56 L Pulse Oximetry 97 93 Oxygen Delivery Nasal Cannula Oxygen Flow Rate 1 Fraction of Inspired Oxygen 06/14/24 07:25 06/14/24 07:31 06/14/24 07:31 Temperature Pulse Rate 90 82 Pulse Rate [Right Radial] Respiratory Rate 20 Blood Pressure Pulse Oximetry 94 Oxygen Delivery Nasal Cannula Oxygen Flow Rate 2 Fraction of Inspired Oxygen 06/14/24 08:22 06/14/24 10:47 06/14/24 11:00 Temperature 98.5 F 97.1 F L Pulse Rate 90 93 97 Pulse Rate [Right Radial] Respiratory Rate 20 15 16 Blood Pressure 115/66 149/71 H 129/70 Pulse Oximetry 93 100 100 Oxygen Delivery Nasal Cannula Simple Face Mask Simple Face Mask Oxygen Flow Rate 2 6 6 Fraction of Inspired Oxygen 06/14/24 11:15 06/14/24 11:30 06/14/24 11:40 Temperature 97.0 F L 98.1 F Pulse Rate 92 96 91 Pulse Rate [Right Radial] Respiratory Rate 14 16 18 Blood Pressure 122/67 110/69 98/59 L Pulse Oximetry 100 96 92 Oxygen Delivery Nasal Cannula Nasal Cannula Oxygen Flow Rate 3 3 Fraction of Inspired Oxygen 06/14/24 12:00 06/14/24 12:00 06/14/24 12:01 Temperature 98.2 F Pulse Rate 93 93 Pulse Rate [Right Radial] 93 Respiratory Rate 18 Blood Pressure 103/61 98/59 L Pulse Oximetry 93 Oxygen Delivery Oxygen Flow Rate Fraction of Inspired Oxygen 06/14/24 12:25 06/14/24 13:25 06/14/24 14:02 Temperature 98.2 F 97.3 F L Pulse Rate 93 98 Pulse Rate [Right Radial] Respiratory Rate 16 16 Blood Pressure 110/65 95/59 L Pulse Oximetry 92 98 Oxygen Delivery Nasal Cannula Oxygen Flow Rate 2.5 Fraction of Inspired Oxygen 06/14/24 14:18 06/14/24 16:00 Temperature Pulse Rate 94 Pulse Rate [Right Radial] Respiratory Rate Blood Pressure Pulse Oximetry Oxygen Delivery Nasal Cannula Oxygen Flow Rate 2 Fraction of Inspired Oxygen Intake/Output Intake/Output: Intake & Output 06/11/24 06/12/24 06/13/24 06/14/24 23:59 23:59 23:59 23:59 Intake Total 7183 645 8640 Output Total 650 1300 Balance 1240 30 40 Meds/Results Medications: Active Medications Generic Name Dose Route Start Last Admin Trade Name Freq PRN Reason Stop Dose Admin Acetaminophen 650 mg 06/12/24 10:45 Acetaminophen 325 Mg Tablet PO Q6H PRN Headache Carvedilol 6.25 mg 06/13/24 09:00 06/14/24 13:20 Carvedilol 6.25 Mg Tablet PO Not Given Q12HR ALYSA Diphenhydramine HCl 25 mg 06/14/24 11:40 Diphenhydramine Hcl Inj 50 Mg/Ml Vial IV PUSH Q6H PRN Itching Docusate Sodium 100 mg 06/12/24 10:47 Docusate Sodium 100 Mg Capsule PO Q12H PRN Constipation Duloxetine HCl 60 mg 06/12/24 14:35 06/14/24 14:39 Duloxetine Hcl 60 Mg Capsule.Dr BY MOUTH 60 mg DAILY ALYSA Administration Ezetimibe 10 mg 06/12/24 14:35 06/14/24 14:40 Ezetimibe 10 Mg Tablet BY MOUTH 10 mg DAILY ALYSA Administration Empagliflozin 10 mg 06/12/24 14:35 06/12/24 15:04 Empagliflozin 10 Mg Tablet PO Not Given DAILY ALYSA Ergocalciferol 50,000 units 06/12/24 14:35 06/12/24 15:05 Ergocalciferol 50,000 Units Capsule PO 50,000 units Sa@0900 ALYSA Administration Fluticasone/Umeclidinium/Vilanterol 1 puff 06/13/24 09:00 06/14/24 07:31 Fluticasone/Umeclidin/Vilanter 100-62.5-25 Mcg Ellipta INHALATION 1 puff DAILY ALYSA Administration Hydromorphone HCl 0.5 mg 06/12/24 22:35 06/13/24 10:10 Hydromorphone Hcl Inj (*Crx) 2 Mg/Ml Vial IV PUSH 0.5 mg Q3H PRN Administration Pain Rated 7-10 Sodium Chloride 1,000 mls @ 125 mls/hr 06/14/24 11:40 Normal Saline Iv IV CONT 06/14/24 19:39 .Q8H ALYSA Cefazolin Sodium 2 gm in 50 mls @ 100 mls/hr 06/14/24 17:00 06/14/24 16:28 Ancef 2 Gm/D5w 50 Ml IVPB 06/15/24 09:29 100 mls/hr Q8H ALYSA Administration Naloxone HCl 0.1 mg 06/14/24 11:40 Naloxone Hcl 0.4 Mg/Ml Vial IV PUSH Q2M PRN Opiate Reversal Ondansetron HCl 4 mg 06/14/24 11:40 Ondansetron Inj 4 Mg/2 Ml Vial IV PUSH Q4H PRN Nausea And Vomiting Oxycodone/Acetaminophen 1 tab 06/12/24 22:35 06/14/24 12:56 Oxycodone/Acetaminophen (*Crx) 10-325 Mg Tablet PO 1 tab Q4H PRN Administration Pain Rated 4-10 Polyethylene Glycol 17 gm 06/12/24 10:47 Polyethylene Glycol 3350 17 Gm Powd.Pack PO QAM PRN Constipation Prochlorperazine Edisylate 10 mg 06/13/24 13:03 06/13/24 13:13 Prochlorperazine Edisylate 10 Mg/2 Ml Vial IV PUSH 10 mg Q6H PRN Administration Nausea And Vomiting Rosuvastatin Calcium 5 mg 06/12/24 14:35 06/14/24 14:40 Rosuvastatin 5 Mg Tablet PO 5 mg DAILY ALYSA Administration Sacubitril/Valsartan 1 tab 06/13/24 09:00 06/14/24 13:20 Sacubitril/Valsartan 24-26 Mg Tablet PO Not Given Q12HR ALYSA Radiology Results: ITS Impressions Shoulder X-Ray 06/12/24 02:11 IMPRESSION: Comminuted fracture of the right humeral neck, as detailed above. Diffuse bony demineralization, far advanced for patient of this age. Chest X-Ray 06/12/24 06:28 IMPRESSION: 1. Emphysema with mild discoid atelectasis in the right lower lung zone. Head CT 06/12/24 08:28 IMPRESSION: 1. Normal head CT. No fracture or acute intracranial process. Cervical Spine CT 06/12/24 08:45 IMPRESSION: 1. Moderate cervical spondylosis. No acute osseous abnormality Shoulder CT 06/12/24 12:14 IMPRESSION: 1. Displaced and angulated comminuted fracture of the surgical neck of the proximal right humerus. 2. Moderate emphysema. Intraoperative X-Ray 06/14/24 12:12 IMPRESSION: 1. Near-anatomic alignment post open reduction internal fixation of a comminuted fractures of the neck of the proximal right humerus. Labs Labs: Laboratory Results - last 24 hr 06/14/24 05:02 WBC 6.7 RBC 2.94 L Hgb 10.1 L Hct 32.8 L MCV 111.6 H MCH 34.4 H MCHC 30.8 L RDW 13.0 Plt Count 164 MPV 9.9 Immature Gran % (Auto) 0.4 Neut % (Auto) 60.4 Lymph % (Auto) 27.1 [place] % (Auto) 10.6 H Eos % (Auto) 1.2 Baso % (Auto) 0.3 Lymph # (Auto) 1.81 [place] # (Auto) 0.7 H Eos # (Auto) 0.1 Baso # (Auto) 0.0 Abs Immat Gran (auto) 0.03 Absolute Neuts (auto) 4.0 Absolute Nucleated RBC 0.000 Band Neutrophils % Not Reportable Nucleated RBC % 0.0 Platelet Estimate Adequate Anisocytosis 1+ Stomatocytes 1+ Schistocytes None seen Sodium 132 L Potassium 4.0 Chloride 100 Carbon Dioxide 29 Anion Gap 3 L BUN 4 L Creatinine 0.52 L Estim Creat Clear Calc 88 Estimated GFR > 60 Glucose 91 Calcium 8.0 L Magnesium 1.7 Total Bilirubin 0.4 AST 23 ALT 15 Alkaline Phosphatase 61 Total Protein 6.0 L Albumin 3.0 L Vitamin D 25-Hydroxy 31.7
[2024-06-14] MEDS: carvediloL 3.125 MG TABLET PO (20:21)
[2024-06-14] MEDS: SACUBITRIL/VALSARTAN 24-26 MG TABLET 1 TAB PO (20:22)
[2024-06-15] VITALS (17 sets, daily range): BP systolic 90–107; BP diastolic 46–74; PULSE 78–101; RESP 12–20; TEMP 36.4–36.6; O2SAT 94–99
[2024-06-15] MEDS: ceFAZolin 2 GM/D5W 50 ML 2 GM/50 ML BAG IVPB ×2 (01:08→08:04)
[2024-06-15] MEDS: oxyCODONE/ACETAMINOPHEN (*CRX) 10-325 MG TABLET 1 TAB PO ×2 (01:10→08:46)
[2024-06-15] MEDS: ACETAMINOPHEN 325 MG TABLET 650 MG PO (04:59)
[2024-06-15 05:29] LABS: Basophils Percent Auto 0.3 % (0.2-1.2); Eosinophils Absolute Auto 0.1 K/mm3 (0-0.3); Eosinophils Percent Auto 1.2 % (0-4.4); Hematocrit 30.9 % (37.0-47.0); Hemoglobin 9.6 g/dL (12.0-15.0); Immature Granulocyte Absolute 0.02 K/mm3 (0.00-0.031); Immature Granulocyte Percent A 0.3 % (0-0.5); Lymphocytes Absolute Auto 1.06 K/mm3 (0.9-3.2); Lymphocytes Percent Auto 15.4 % (18.3-44.2); Mean Corpuscular HGB Conc 31.1 g/dl (32-36); Mean Corpuscular Hemoglobin 34.4 pg (26-34); Mean Corpuscular Volume 110.8 fl (80-100); Mean Platelet Volume 9.8 fl (7.4-10.4); Monocytes Absolute Auto 0.7 K/mm3 (0.1-0.6); Monocytes Percent Auto 9.9 % (2.6-8.5); Neutrophils Percent Auto 72.9 % (45.5-73.1); Platelet Count Result 166 k/mm3 (150-375); Red Blood Count 2.79 M/mm3 (4.2-5.4); Red Cell Distribution Width 12.7 % (11.5-14.5); White Blood Count 6.9 K/mm3 (4.5-10.0)
[2024-06-15 05:43] LABS: Alanine Aminotransferase 15 U/L (6-35); Albumin Level 2.9 g/dL (3.5-5.1); Alkaline Phosphatase 57 U/L (38-126); Anion Gap 2 mmol/L (4-12); Aspartate Amino Transferase 34 U/L (14-36); Bilirubin,Total 0.5 mg/dL (0.2-1.3); Blood Urea Nitrogen 4 mg/dL (7-17); Calcium 8.1 mg/dL (8.4-10.2); Carbon Dioxide 33 mmol/L (22-30); Chloride 96 mmol/L (98-107); Estimated CRCL calculation 67 ml/min; Estimated Glomerular Filt Rate > 60; Glucose 102 mg/dL (65-110); Magnesium 2.1 mg/dL (1.6-2.3); Sodium 131 mmol/L (137-145)
[2024-06-15 05:54] LABS: Macrocytosis 1+ (NORMAL); Platelet Estimate Adequate (Adequate); Schistocytes None Seen
--- NOTE | 2024-06-15 07:55 | PM.PNCARD ---
Progress Note: A&P Assessment and Plan (1) Systolic dysfunction: Code(s): I51.9 - Heart disease, unspecified Status: Acute Assessment and Plan: Resolved. NICM. Per patient echo done [address] Perez in [facility] showed EF 35% which is down from prior 45%. She was started on Jardiance and Spironolactone 3 months ago and felt weak with them. Normal coronaries in 2012 on [facility] per patient. Resumed lower doses of Coreg and Entresto. 06/14/24 Echo: EF 55-60%, mild based on DURAN 1.4 cm2, mean gradient 3 mmHg as valve was not well seen. Due to low normal BP, change Coreg 3.125 mg BID to Metoprolol Succinate 25 mg daily. Discontinued Jardiance and Spironolactone due to normal EF and low BP on them. Will sign off. Please call with any questions. 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 Perez in [place]. (2) Essential hypertension: Code(s): I10 - Essential (primary) hypertension Status: Acute Assessment and Plan: Stable now. (3) Tobacco use: Code(s): Z72.0 - Tobacco use Status: Acute Assessment and Plan: Counseled regarding smoking cessation. (4) Paroxysmal A-fib: Code(s): I48.0 - Paroxysmal atrial fibrillation Status: Acute Assessment and Plan: In Sinus rhythm. Normally on Xarelto which is on hold in anticipation of arm surgery. If OK with surgery may resume Xarelto 20 mg in evenings. (5) Dyslipidemia: Code(s): E78.5 - Hyperlipidemia, unspecified Status: Acute Assessment and Plan: On Rosuvastatin and Zetia. (6) AICD (automatic cardioverter/defibrillator) present: Code(s): Z95.810 - Presence of automatic (implantable) cardiac defibrillator Status: Acute Assessment and Plan: St. Ralf device was interrogated shows no ventricular arrhythmias or pauses. 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 (7) Syncope: Code(s): R55 - Syncope and collapse Status: Acute Assessment and Plan: Probably due to acute hypotension due to heart failure medication. Changed Coreg to Metoprolol Succinate and decrease Entresto to lower doses. Monitor BP. Subjective Date/time seen: 06/15/24 07:55 Interval history: Denies chest pain, sob. She is sleepy. Exam Const: General: cooperative, healthy appearing and comfortable Orientation/consciousness: oriented to person, oriented to place and oriented to time Resp: Auscultation: clear to auscultation bilaterally, no crackles, no rales, no rhonchi and no wheezes Cardio: Rate: regular rate Rhythm: regular rhythm Heart sounds: no murmurs Peripheral pulses: dorsalis pedis present Neuro: General: oriented to person, oriented to place and oriented to time Extrem: Right lower extremity: no edema Left lower extremity: no edema Objective Data Vital Signs Vital Signs: Vital Signs - 24 hr 06/14/24 08:22 06/14/24 10:47 06/14/24 11:00 Temperature 98.5 F 97.1 F L Pulse Rate 90 93 97 Pulse Rate [Right Radial] Respiratory Rate 20 15 16 Blood Pressure 115/66 149/71 H 129/70 Pulse Oximetry 93 100 100 Oxygen Delivery Nasal Cannula Simple Face Mask Simple Face Mask Oxygen Flow Rate 2 6 6 Fraction of Inspired Oxygen 06/14/24 11:15 06/14/24 11:30 06/14/24 11:40 Temperature 97.0 F L 98.1 F Pulse Rate 92 96 91 Pulse Rate [Right Radial] Respiratory Rate 14 16 18 Blood Pressure 122/67 110/69 98/59 L Pulse Oximetry 100 96 92 Oxygen Delivery Nasal Cannula Nasal Cannula Oxygen Flow Rate 3 3 Fraction of Inspired Oxygen 06/14/24 12:00 06/14/24 12:00 06/14/24 12:01 Temperature 98.2 F Pulse Rate 93 93 Pulse Rate [Right Radial] 93 Respiratory Rate 18 Blood Pressure 103/61 98/59 L Pulse Oximetry 93 Oxygen Delivery Oxygen Flow Rate Fraction of Inspired Oxygen 06/14/24 12:25 06/14/24 13:25 06/14/24 14:02 Temperature 98.2 F 97.3 F L Pulse Rate 93 98 Pulse Rate [Right Radial] Respiratory Rate 16 16 Blood Pressure 110/65 95/59 L Pulse Oximetry 92 98 Oxygen Delivery Nasal Cannula Oxygen Flow Rate 2.5 Fraction of Inspired Oxygen 06/14/24 14:18 06/14/24 16:00 06/14/24 17:00 Temperature Pulse Rate 94 Pulse Rate [Right Radial] 93 Respiratory Rate Blood Pressure 102/56 L Pulse Oximetry Oxygen Delivery Nasal Cannula Oxygen Flow Rate 2 Fraction of Inspired Oxygen 06/14/24 20:00 06/14/24 20:00 06/14/24 20:09 Temperature Pulse Rate 99 90 Pulse Rate [Right Radial] Respiratory Rate 20 Blood Pressure Pulse Oximetry 93 90 Oxygen Delivery Nasal Cannula Nasal Cannula Oxygen Flow Rate 2 3 Fraction of Inspired Oxygen 32 06/14/24 20:21 06/14/24 20:24 06/15/24 00:00 Temperature 98.2 F Pulse Rate 98 96 91 Pulse Rate [Right Radial] Respiratory Rate 20 Blood Pressure 104/58 L Pulse Oximetry 93 Oxygen Delivery Oxygen Flow Rate Fraction of Inspired Oxygen 06/15/24 01:25 06/15/24 04:00 06/15/24 04:59 Temperature 97.9 F 97.7 F Pulse Rate 89 85 88 Pulse Rate [Right Radial] Respiratory Rate 16 12 Blood Pressure 98/54 L 97/56 L Pulse Oximetry 96 99 Oxygen Delivery Oxygen Flow Rate Fraction of Inspired Oxygen Intake/Output Intake/Output: Intake & Output 06/12/24 06/13/24 06/14/24 06/15/24 23:59 23:59 23:59 23:59 Intake Total 2225 562 7695 250 Output Total 650 1300 500 Balance 1240 30 330 -250 Meds/Results Medications: Active Medications Generic Name Dose Route Start Last Admin Trade Name Freq PRN Reason Stop Dose Admin Acetaminophen 650 mg 06/12/24 10:45 06/15/24 04:59 Acetaminophen 325 Mg Tablet PO 650 mg Q6H PRN Administration Headache Diphenhydramine HCl 25 mg 06/14/24 11:40 Diphenhydramine Hcl Inj 50 Mg/Ml Vial IV PUSH Q6H PRN Itching Docusate Sodium 100 mg 06/12/24 10:47 Docusate Sodium 100 Mg Capsule PO Q12H PRN Constipation Duloxetine HCl 60 mg 06/12/24 14:35 06/14/24 14:39 Duloxetine Hcl 60 Mg Capsule.Dr BY MOUTH 60 mg DAILY ALYSA Administration Ezetimibe 10 mg 06/12/24 14:35 06/14/24 14:40 Ezetimibe 10 Mg Tablet BY MOUTH 10 mg DAILY ALYSA Administration Ergocalciferol 50,000 units 06/12/24 14:35 06/12/24 15:05 Ergocalciferol 50,000 Units Capsule PO 50,000 units Sa@0900 ALYSA Administration Fluticasone/Umeclidinium/Vilanterol 1 puff 06/13/24 09:00 06/14/24 07:31 Fluticasone/Umeclidin/Vilanter 100-62.5-25 Mcg Ellipta INHALATION 1 puff DAILY ALYSA Administration Hydromorphone HCl 0.5 mg 06/12/24 22:35 06/13/24 10:10 Hydromorphone Hcl Inj (*Crx) 2 Mg/Ml Vial IV PUSH 0.5 mg Q3H PRN Administration Pain Rated 7-10 Cefazolin Sodium 2 gm in 50 mls @ 100 mls/hr 06/14/24 17:00 06/15/24 01:38 Ancef 2 Gm/D5w 50 Ml IVPB 06/15/24 09:29 Infused Q8H ALYSA Infusion Metoprolol Succinate 25 mg 06/15/24 09:00 Metoprolol Succinate Ext Rel 25 Mg Tabcr PO QAM ALYSA Naloxone HCl 0.1 mg 06/14/24 11:40 Naloxone Hcl 0.4 Mg/Ml Vial IV PUSH Q2M PRN Opiate Reversal Ondansetron HCl 4 mg 06/14/24 11:40 Ondansetron Inj 4 Mg/2 Ml Vial IV PUSH Q4H PRN Nausea And Vomiting Oxycodone/Acetaminophen 1 tab 06/12/24 22:35 06/15/24 01:10 Oxycodone/Acetaminophen (*Crx) 10-325 Mg Tablet PO 1 tab Q4H PRN Administration Pain Rated 4-10 Polyethylene Glycol 17 gm 06/12/24 10:47 Polyethylene Glycol 3350 17 Gm Powd.Pack PO QAM PRN Constipation Prochlorperazine Edisylate 10 mg 06/13/24 13:03 06/13/24 13:13 Prochlorperazine Edisylate 10 Mg/2 Ml Vial IV PUSH 10 mg Q6H PRN Administration Nausea And Vomiting Rosuvastatin Calcium 5 mg 06/12/24 14:35 06/14/24 14:40 Rosuvastatin 5 Mg Tablet PO 5 mg DAILY ALYSA Administration Sacubitril/Valsartan 1 tab 06/13/24 09:00 06/14/24 20:22 Sacubitril/Valsartan 24-26 Mg Tablet PO 1 tab Q12HR ALYSA Administration Radiology Results: ITS Impressions Shoulder X-Ray 06/12/24 02:11 IMPRESSION: Comminuted fracture of the right humeral neck, as detailed above. Diffuse bony demineralization, far advanced for patient of this age. Chest X-Ray 06/12/24 06:28 IMPRESSION: 1. Emphysema with mild discoid atelectasis in the right lower lung zone. Head CT 06/12/24 08:28 IMPRESSION: 1. Normal head CT. No fracture or acute intracranial process. Cervical Spine CT 06/12/24 08:45 IMPRESSION: 1. Moderate cervical spondylosis. No acute osseous abnormality Shoulder CT 06/12/24 12:14 IMPRESSION: 1. Displaced and angulated comminuted fracture of the surgical neck of the proximal right humerus. 2. Moderate emphysema. Intraoperative X-Ray 06/14/24 12:12 IMPRESSION: 1. Near-anatomic alignment post open reduction internal fixation of a comminuted fractures of the neck of the proximal right humerus. Labs Labs: Laboratory Results - last 24 hr 06/15/24 04:50 WBC 6.9 RBC 2.79 L Hgb 9.6 L Hct 30.9 L MCV 110.8 H MCH 34.4 H MCHC 31.1 L RDW 12.7 Plt Count 166 MPV 9.8 Immature Gran % (Auto) 0.3 Neut % (Auto) 72.9 Lymph % (Auto) 15.4 L [place] % (Auto) 9.9 H Eos % (Auto) 1.2 Baso % (Auto) 0.3 Lymph # (Auto) 1.06 [place] # (Auto) 0.7 H Eos # (Auto) 0.1 Baso # (Auto) 0.0 Abs Immat Gran (auto) 0.02 Absolute Neuts (auto) 5.0 Absolute Nucleated RBC 0.000 Band Neutrophils % Not Reportable Nucleated RBC % 0.0 Platelet Estimate Adequate Macrocytosis 1+ Schistocytes None seen Sodium 131 L Potassium 4.0 Chloride 96 L Carbon Dioxide 33 H Anion Gap 2 L BUN 4 L Creatinine 0.70 Estim Creat Clear Calc 67 Estimated GFR > 60 Glucose 102 Calcium 8.1 L Magnesium 2.1 Total Bilirubin 0.5 AST 34 ALT 15 Alkaline Phosphatase 57 Total Protein 6.0 L Albumin 2.9 L
[2024-06-15] MEDS: ROSUVASTATIN 5 MG TABLET PO (08:09)
[2024-06-15] MEDS: DULoxetine HCL 60 MG CAPSULE.DR BY MOUTH (08:09)
[2024-06-15] MEDS: EZETIMIBE 10 MG TABLET BY MOUTH (08:10)
[2024-06-15] MEDS: FLUTICASONE/UMECLIDIN/VILANTER 100-62.5-25 MCG ELLIPTA 1 PUFF INHALATION (08:51)
--- NOTE | 2024-06-15 09:05 | P.PNOP_ITS ---
Progress Note: A&P Assessment and Plan (1) Closed fracture of right proximal humerus: Qualifiers: Encounter type: initial encounter Fracture morphology: other fracture Fracture alignment: displaced Qualified Code(s): S42.291A - Other displaced fracture of upper end of right humerus, initial encounter for closed fracture Code(s): S42.201A - Unspecified fracture of upper end of right humerus, initial encounter for closed fracture Status: Acute Assessment and Plan: POD #1: Intramedullary nail fixation right proximal humerus fracture Continue PT/OT. NWB RUE. HIGH FALL RISK. Continue pain control. Ice shoulder. Protect skin. DVT prophylaxis with Aspirin. SCDs. Incentive Spirometry Use reviewed. Monitor Dressing. Change daily and PRN for increased drainage. Bowel Regimen. Dispo: Home with Home Health pending progress with PT/OT and medical stability. Plan Reviewed history, exam, radiographs and current labs with attending MD and covering surgeon, Dr. Rhodes, who agrees with current plan as indicated above. No further recommendations from Dr. Rhodes at this time. Subjective Subjective Date/Time Seen: 06/15/24 09:05 Post Op day: 1 Interval history: POD #1: Intramedullary nail fixation right proximal humerus fracture Patient doing well. Pain well controlled. Drainage from biceps area on dressing. Review of Systems Review of Systems: All systems reviewed & are unremarkable except as noted in HPI and below Exam Const: General: comfortable and no acute distress Resp: Other: Requiring nasal cannula O2. Cardio: Rate: regular rate Rhythm: regular rhythm GI: GI Palp: Yes Soft to palpation Neuro: General: gait normal Extrem: Other: Right upper extremity dressing with serosanguineous drainage. Dressing removed. Incisions well approximated. Steri strips in place. Skin tear noted (which was seen intraoperatively). No signs of infection. New dressing applied. Sensation intact. NV intact. Moves fingers. Objective Data Vital Signs Vital Signs: Vital Signs - 24 hr 06/14/24 10:47 06/14/24 11:00 06/14/24 11:15 Temperature 36.2 C L Pulse Rate 93 97 92 Pulse Rate [Right Radial] Respiratory Rate 15 16 14 Blood Pressure 149/71 H 129/70 122/67 Pulse Oximetry 100 100 100 Oxygen Delivery Simple Face Mask Simple Face Mask Nasal Cannula Oxygen Flow Rate 6 6 3 Fraction of Inspired Oxygen 06/14/24 11:30 06/14/24 11:40 06/14/24 12:00 Temperature 36.1 C L 36.7 C 36.8 C Pulse Rate 96 91 93 Pulse Rate [Right Radial] Respiratory Rate 16 18 18 Blood Pressure 110/69 98/59 L 103/61 Pulse Oximetry 96 92 93 Oxygen Delivery Nasal Cannula Oxygen Flow Rate 3 Fraction of Inspired Oxygen 06/14/24 12:00 06/14/24 12:01 06/14/24 12:25 Temperature 36.8 C Pulse Rate 93 93 Pulse Rate [Right Radial] 93 Respiratory Rate 16 Blood Pressure 98/59 L 110/65 Pulse Oximetry 92 Oxygen Delivery Oxygen Flow Rate Fraction of Inspired Oxygen 06/14/24 13:25 06/14/24 14:02 06/14/24 14:18 Temperature 36.3 C L Pulse Rate 98 Pulse Rate [Right Radial] Respiratory Rate 16 Blood Pressure 95/59 L Pulse Oximetry 98 Oxygen Delivery Nasal Cannula Nasal Cannula Oxygen Flow Rate 2.5 2 Fraction of Inspired Oxygen 06/14/24 16:00 06/14/24 17:00 06/14/24 20:00 Temperature Pulse Rate 94 Pulse Rate [Right Radial] 93 Respiratory Rate Blood Pressure 102/56 L Pulse Oximetry 93 Oxygen Delivery Nasal Cannula Oxygen Flow Rate 2 Fraction of Inspired Oxygen 06/14/24 20:00 06/14/24 20:09 06/14/24 20:21 Temperature Pulse Rate 99 90 98 Pulse Rate [Right Radial] Respiratory Rate 20 Blood Pressure Pulse Oximetry 90 Oxygen Delivery Nasal Cannula Oxygen Flow Rate 3 Fraction of Inspired Oxygen 32 06/14/24 20:24 06/15/24 00:00 06/15/24 01:25 Temperature 36.8 C 36.6 C Pulse Rate 96 91 89 Pulse Rate [Right Radial] Respiratory Rate 20 16 Blood Pressure 104/58 L 98/54 L Pulse Oximetry 93 96 Oxygen Delivery Oxygen Flow Rate Fraction of Inspired Oxygen 06/15/24 04:00 06/15/24 04:59 06/15/24 08:02 Temperature 36.5 C 36.4 C L Pulse Rate 85 88 88 Pulse Rate [Right Radial] Respiratory Rate 12 16 Blood Pressure 97/56 L 94/53 L Pulse Oximetry 99 95 Oxygen Delivery Oxygen Flow Rate Fraction of Inspired Oxygen 06/15/24 08:54 06/15/24 08:55 Temperature Pulse Rate 90 Pulse Rate [Right Radial] Respiratory Rate 18 Blood Pressure Pulse Oximetry 94 Oxygen Delivery Nasal Cannula Oxygen Flow Rate 3 Fraction of Inspired Oxygen Intake/Output Intake/Output: Intake & Output 06/12/24 06/13/24 06/14/24 06/15/24 23:59 23:59 23:59 23:59 Intake Total 7437 038 0954 300 Output Total 650 1300 500 Balance 1240 30 330 -200 Meds/Results Medications: Active Medications Generic Name Dose Route Start Last Admin Trade Name Freq PRN Reason Stop Dose Admin Acetaminophen 650 mg 06/12/24 10:45 06/15/24 04:59 Acetaminophen 325 Mg Tablet PO 650 mg Q6H PRN Administration Headache Diphenhydramine HCl 25 mg 06/14/24 11:40 Diphenhydramine Hcl Inj 50 Mg/Ml Vial IV PUSH Q6H PRN Itching Docusate Sodium 100 mg 06/12/24 10:47 Docusate Sodium 100 Mg Capsule PO Q12H PRN Constipation Duloxetine HCl 60 mg 06/12/24 14:35 06/15/24 08:09 Duloxetine Hcl 60 Mg Capsule.Dr BY MOUTH 60 mg DAILY ALYSA Administration Ezetimibe 10 mg 06/12/24 14:35 06/15/24 08:10 Ezetimibe 10 Mg Tablet BY MOUTH 10 mg DAILY ALYSA Administration Ergocalciferol 50,000 units 06/12/24 14:35 06/12/24 15:05 Ergocalciferol 50,000 Units Capsule PO 50,000 units Sa@0900 ALYSA Administration Fluticasone/Umeclidinium/Vilanterol 1 puff 06/13/24 09:00 06/15/24 08:51 Fluticasone/Umeclidin/Vilanter 100-62.5-25 Mcg Ellipta INHALATION 1 puff DAILY ALYSA Administration Hydromorphone HCl 0.5 mg 06/12/24 22:35 06/13/24 10:10 Hydromorphone Hcl Inj (*Crx) 2 Mg/Ml Vial IV PUSH 0.5 mg Q3H PRN Administration Pain Rated 7-10 Cefazolin Sodium 2 gm in 50 mls @ 100 mls/hr 06/14/24 17:00 06/15/24 08:34 Ancef 2 Gm/D5w 50 Ml IVPB 06/15/24 09:29 Infused Q8H ALYSA Infusion Metoprolol Succinate 25 mg 06/15/24 09:00 Metoprolol Succinate Ext Rel 25 Mg Tabcr PO QAM ALYSA Naloxone HCl 0.1 mg 06/14/24 11:40 Naloxone Hcl 0.4 Mg/Ml Vial IV PUSH Q2M PRN Opiate Reversal Ondansetron HCl 4 mg 06/14/24 11:40 Ondansetron Inj 4 Mg/2 Ml Vial IV PUSH Q4H PRN Nausea And Vomiting Oxycodone/Acetaminophen 1 tab 06/12/24 22:35 06/15/24 08:46 Oxycodone/Acetaminophen (*Crx) 10-325 Mg Tablet PO 1 tab Q4H PRN Administration Pain Rated 4-10 Polyethylene Glycol 17 gm 06/12/24 10:47 Polyethylene Glycol 3350 17 Gm Powd.Pack PO QAM PRN Constipation Prochlorperazine Edisylate 10 mg 06/13/24 13:03 06/13/24 13:13 Prochlorperazine Edisylate 10 Mg/2 Ml Vial IV PUSH 10 mg Q6H PRN Administration Nausea And Vomiting Rosuvastatin Calcium 5 mg 06/12/24 14:35 06/15/24 08:09 Rosuvastatin 5 Mg Tablet PO 5 mg DAILY ALYSA Administration Sacubitril/Valsartan 1 tab 06/13/24 09:00 06/14/24 20:22 Sacubitril/Valsartan 24-26 Mg Tablet PO 1 tab Q12HR ALYSA Administration Radiology Results: ITS Impressions Shoulder X-Ray 06/12/24 02:11 IMPRESSION: Comminuted fracture of the right humeral neck, as detailed above. Diffuse bony demineralization, far advanced for patient of this age. Chest X-Ray 06/12/24 06:28 IMPRESSION: 1. Emphysema with mild discoid atelectasis in the right lower lung zone. Head CT 06/12/24 08:28 IMPRESSION: 1. Normal head CT. No fracture or acute intracranial process. Cervical Spine CT 06/12/24 08:45 IMPRESSION: 1. Moderate cervical spondylosis. No acute osseous abnormality Shoulder CT 06/12/24 12:14 IMPRESSION: 1. Displaced and angulated comminuted fracture of the surgical neck of the proximal right humerus. 2. Moderate emphysema. Intraoperative X-Ray 06/14/24 12:12 IMPRESSION: 1. Near-anatomic alignment post open reduction internal fixation of a comminuted fractures of the neck of the proximal right humerus. Labs Labs: Laboratory Results - last 24 hr 06/15/24 04:50 WBC 6.9 RBC 2.79 L Hgb 9.6 L Hct 30.9 L MCV 110.8 H MCH 34.4 H MCHC 31.1 L RDW 12.7 Plt Count 166 MPV 9.8 Immature Gran % (Auto) 0.3 Neut % (Auto) 72.9 Lymph % (Auto) 15.4 L Daniels % (Auto) 9.9 H Eos % (Auto) 1.2 Baso % (Auto) 0.3 Lymph # (Auto) 1.06 Daniels # (Auto) 0.7 H Eos # (Auto) 0.1 Baso # (Auto) 0.0 Abs Immat Gran (auto) 0.02 Absolute Neuts (auto) 5.0 Absolute Nucleated RBC 0.000 Band Neutrophils % Not Reportable Nucleated RBC % 0.0 Platelet Estimate Adequate Macrocytosis 1+ Schistocytes None seen Sodium 131 L Potassium 4.0 Chloride 96 L Carbon Dioxide 33 H Anion Gap 2 L BUN 4 L Creatinine 0.70 Estim Creat Clear Calc 67 Estimated GFR > 60 Glucose 102 Calcium 8.1 L Magnesium 2.1 Total Bilirubin 0.5 AST 34 ALT 15 Alkaline Phosphatase 57 Total Protein 6.0 L Albumin 2.9 L
--- NOTE | 2024-06-15 10:16 | P.PNIM_ITS ---
Progress Note: A&P Assessment and Plan (1) Syncope: Code(s): R55 - Syncope and collapse Status: Acute Assessment and Plan: * Patient denied feeling dizzy, any illness, or feeling any differently before she passed out. Patient reports that she passed out a month ago but did not tell her primary or Tank Tender. * Telemetry. * Cardiology consult, appreciate recommendations. * Coreg at a dose of 6.25 mg twice a day and Entresto at a dose 24-26 mg 1 tablet oral q 12. * Echocardiogram 06/12/24 showed: Summary 1. Technically suboptimal study due to poor sonographic images. 2. Definity contrast administered improved wall motion interpretation. 3. Left ventricular chamber dimension is normal. 4. Left ventricular systolic function is normal, estimated at 55-60%. 5. The left ventricular diastolic function is indeterminate. 6. Linear artifact in right ventricle suggestive of catheter(s), pacemaker lead(s), or ICD lead(s). 7. Linear artifact in the right atrium suggestive of catheter(s), pacemaker lead(s), or ICD lead(s). 8. The aortic valve is not well visualized. Cannot determine number of aortic valve leaflets. 9. There is mild aortic valve stenosis based on a peak velocity of 110 cm/s, mean gradient of 3 mmHg, and aortic valve area of 1.4 cm2. 10. No pulmonary hypertension, estimated pulmonary arterial systolic pressure is 30 mmHg. * Ejection fraction improved. (2) CHF (congestive heart failure): Qualifiers: Heart failure type: combined systolic and diastolic Heart failure chronicity: chronic Qualified Code(s): I50.42 - Chronic combined systolic (congestive) and diastolic (congestive) heart failure Code(s): I50.9 - Heart failure, unspecified Status: Acute Assessment and Plan: * BNP 261. * Nonischemic dilated cardiomyopathy. Clinically appears to be mildly dehydrated oral intake is being encouraged. * Jardiance and Spironolactone discontinued. Entresto restarted at lower dose of 24-26 mg 1 tablet oral q 12. (3) Paroxysmal atrial fibrillation: Code(s): I48.0 - Paroxysmal atrial fibrillation Status: Acute Assessment and Plan: * Xarelto restarted today, ortho Emma Jimenez [employer] aware and agreeable to restart. (4) Essential hypertension: Code(s): I10 - Essential (primary) hypertension Status: Acute Assessment and Plan: * Coreg decreased 6.25 mg PO BID. * Current blood pressure is 107/74. (5) Fracture, humerus: Code(s): S42.309A - Unspecified fracture of shaft of humerus, unspecified arm, initial encounter for closed fracture Status: Acute Assessment and Plan: * Right shoulder X-ray showed: FINDINGS: A comminuted fracture of the right humeral neck is identified, with overlap of the fracture fragments. Diffuse bony demineralization is present, far advanced for patient of this age. IMPRESSION: Comminuted fracture of the right humeral neck, as detailed above. Diffuse bony demineralization, far advanced for patient of this age. * Right shoulder CT showed: FINDINGS: Comminuted fracture across the surgical neck of the proximal right humerus with one shaft width anterior displacement and 45 degree posterior and medial angulation. The humeral head is normally centered over the glenoid but is rotated as with abduction and anterior elevation. Glenohumeral joint space is normal. Mild osteoarthritis at the acromioclavicular joint. There is a small glenohumeral joint effusion. Moderate emphysema the visualized right upper lung. Cardiac pacemaker leads extend from the left brachiocephalic vein into the superior vena cava below the inferior margin of the field of imaging. Chronic T7 compression fracture, the visualized portion which appears unchanged since CT dated 07/29/2022. IMPRESSION: 1. Displaced and angulated comminuted fracture of the surgical neck of the proximal right humerus. 2. Moderate emphysema. * Ortho consult placed, appreciate recommendations. * Patient status post surgery today, intramedullary nail fixation right proximal humerus fracture. * Dressing to right shoulder changed by ortho today. * Cefazolin 2 gram IVPB q 8 for 3 doses has been completed. (6) COPD (chronic obstructive pulmonary disease): Qualifiers: COPD type: unspecified COPD Qualified Code(s): J44.9 - Chronic obstructive pulmonary disease, unspecified Code(s): J44.9 - Chronic obstructive pulmonary disease, unspecified Status: Acute Assessment and Plan: * Trelegy 1 puff daily. * Encourage patient to stop smoking. (7) Chronic anticoagulation: Code(s): Z79.01 - penitentiary (current) use of anticoagulants Status: Acute Assessment and Plan: * Xarelto on hold for possible humerus surgery. (8) Hyperlipidemia: Qualifiers: Hyperlipidemia type: unspecified Qualified Code(s): E78.5 - Hyperlipidemia, unspecified Code(s): E78.5 - Hyperlipidemia, unspecified Status: Acute Assessment and Plan: * On statin and Zetia (9) Nausea & vomiting: Code(s): R11.2 - Nausea with vomiting, unspecified Status: Acute Assessment and Plan: * Subsided. * Prochlorperazine 10 mg IV q 6 PRN. Subjective Date/time seen: 06/15/24 10:16 Interval history: Patient sitting up in chair in the morning. Patient rates pain in right shoulder a 5.5 , constant, and aching. Review of Systems Review of Systems: All systems reviewed & are unremarkable except as noted in HPI and below Exam Const: General: no acute distress and uncomfortable Resp: Effort & Inspection: normal respiratory effort Auscultation: clear to auscultation bilaterally Cardio: Rate: regular rate Rhythm: regular rhythm Other: Telemetry- SR 86. GI: GI Palp: Yes Soft to palpation Auscultation: normal bowel sounds Neuro: Speech: normal speech Extrem: General: no pedal edema Other: Right upper extremity dressing with serosanguineous drainage. Psych: Mental Status: mental status grossly normal Affect: normal affect Objective Data Vital Signs Vital Signs: Vital Signs - 24 hr 06/14/24 10:47 06/14/24 11:00 06/14/24 11:15 Temperature 97.1 F L Pulse Rate 93 97 92 Pulse Rate [Right Radial] Respiratory Rate 15 16 14 Blood Pressure 149/71 H 129/70 122/67 Pulse Oximetry 100 100 100 Oxygen Delivery Simple Face Mask Simple Face Mask Nasal Cannula Oxygen Flow Rate 6 6 3 Fraction of Inspired Oxygen 06/14/24 11:30 06/14/24 11:40 06/14/24 12:00 Temperature 97.0 F L 98.1 F 98.2 F Pulse Rate 96 91 93 Pulse Rate [Right Radial] Respiratory Rate 16 18 18 Blood Pressure 110/69 98/59 L 103/61 Pulse Oximetry 96 92 93 Oxygen Delivery Nasal Cannula Oxygen Flow Rate 3 Fraction of Inspired Oxygen 06/14/24 12:00 06/14/24 12:01 06/14/24 12:25 Temperature 98.2 F Pulse Rate 93 93 Pulse Rate [Right Radial] 93 Respiratory Rate 16 Blood Pressure 98/59 L 110/65 Pulse Oximetry 92 Oxygen Delivery Oxygen Flow Rate Fraction of Inspired Oxygen 06/14/24 13:25 06/14/24 14:02 06/14/24 14:18 Temperature 97.3 F L Pulse Rate 98 Pulse Rate [Right Radial] Respiratory Rate 16 Blood Pressure 95/59 L Pulse Oximetry 98 Oxygen Delivery Nasal Cannula Nasal Cannula Oxygen Flow Rate 2.5 2 Fraction of Inspired Oxygen 06/14/24 16:00 06/14/24 17:00 06/14/24 20:00 Temperature Pulse Rate 94 Pulse Rate [Right Radial] 93 Respiratory Rate Blood Pressure 102/56 L Pulse Oximetry 93 Oxygen Delivery Nasal Cannula Oxygen Flow Rate 2 Fraction of Inspired Oxygen 06/14/24 20:00 06/14/24 20:09 06/14/24 20:21 Temperature Pulse Rate 99 90 98 Pulse Rate [Right Radial] Respiratory Rate 20 Blood Pressure Pulse Oximetry 90 Oxygen Delivery Nasal Cannula Oxygen Flow Rate 3 Fraction of Inspired Oxygen 32 06/14/24 20:24 06/15/24 00:00 06/15/24 01:25 Temperature 98.2 F 97.9 F Pulse Rate 96 91 89 Pulse Rate [Right Radial] Respiratory Rate 20 16 Blood Pressure 104/58 L 98/54 L Pulse Oximetry 93 96 Oxygen Delivery Oxygen Flow Rate Fraction of Inspired Oxygen 06/15/24 04:00 06/15/24 04:59 06/15/24 08:02 Temperature 97.7 F 97.5 F L Pulse Rate 85 88 88 Pulse Rate [Right Radial] Respiratory Rate 12 16 Blood Pressure 97/56 L 94/53 L Pulse Oximetry 99 95 Oxygen Delivery Oxygen Flow Rate Fraction of Inspired Oxygen 06/15/24 08:54 06/15/24 08:55 Temperature Pulse Rate 90 Pulse Rate [Right Radial] Respiratory Rate 18 Blood Pressure Pulse Oximetry 94 Oxygen Delivery Nasal Cannula Oxygen Flow Rate 3 Fraction of Inspired Oxygen Intake/Output Intake/Output: Intake & Output 06/12/24 06/13/24 06/14/24 06/15/24 23:59 23:59 23:59 23:59 Intake Total 9732 190 5414 480 Output Total 650 1300 500 Balance 1240 30 330 -20 Meds/Results Medications: Active Medications Generic Name Dose Route Start Last Admin Trade Name Freq PRN Reason Stop Dose Admin Acetaminophen 650 mg 06/12/24 10:45 06/15/24 04:59 Acetaminophen 325 Mg Tablet PO 650 mg Q6H PRN Administration Headache Diphenhydramine HCl 25 mg 06/14/24 11:40 Diphenhydramine Hcl Inj 50 Mg/Ml Vial IV PUSH Q6H PRN Itching Docusate Sodium 100 mg 06/12/24 10:47 Docusate Sodium 100 Mg Capsule PO Q12H PRN Constipation Duloxetine HCl 60 mg 06/12/24 14:35 06/15/24 08:09 Duloxetine Hcl 60 Mg Capsule.Dr BY MOUTH 60 mg DAILY ALYSA Administration Ezetimibe 10 mg 06/12/24 14:35 06/15/24 08:10 Ezetimibe 10 Mg Tablet BY MOUTH 10 mg DAILY ALYSA Administration Ergocalciferol 50,000 units 06/12/24 14:35 06/12/24 15:05 Ergocalciferol 50,000 Units Capsule PO 50,000 units Sa@0900 ALYSA Administration Fluticasone/Umeclidinium/Vilanterol 1 puff 06/13/24 09:00 06/15/24 08:51 Fluticasone/Umeclidin/Vilanter 100-62.5-25 Mcg Ellipta INHALATION 1 puff DAILY ALYSA Administration Hydromorphone HCl 0.5 mg 06/12/24 22:35 06/13/24 10:10 Hydromorphone Hcl Inj (*Crx) 2 Mg/Ml Vial IV PUSH 0.5 mg Q3H PRN Administration Pain Rated 7-10 Metoprolol Succinate 25 mg 06/15/24 09:00 Metoprolol Succinate Ext Rel 25 Mg Tabcr PO QAM ALYSA Naloxone HCl 0.1 mg 06/14/24 11:40 Naloxone Hcl 0.4 Mg/Ml Vial IV PUSH Q2M PRN Opiate Reversal Ondansetron HCl 4 mg 06/14/24 11:40 Ondansetron Inj 4 Mg/2 Ml Vial IV PUSH Q4H PRN Nausea And Vomiting Oxycodone/Acetaminophen 1 tab 06/12/24 22:35 06/15/24 08:46 Oxycodone/Acetaminophen (*Crx) 10-325 Mg Tablet PO 1 tab Q4H PRN Administration Pain Rated 4-10 Polyethylene Glycol 17 gm 06/12/24 10:47 Polyethylene Glycol 3350 17 Gm Powd.Pack PO QAM PRN Constipation Prochlorperazine Edisylate 10 mg 06/13/24 13:03 06/13/24 13:13 Prochlorperazine Edisylate 10 Mg/2 Ml Vial IV PUSH 10 mg Q6H PRN Administration Nausea And Vomiting Rosuvastatin Calcium 5 mg 06/12/24 14:35 06/15/24 08:09 Rosuvastatin 5 Mg Tablet PO 5 mg DAILY ALYSA Administration Sacubitril/Valsartan 1 tab 06/13/24 09:00 06/14/24 20:22 Sacubitril/Valsartan 24-26 Mg Tablet PO 1 tab Q12HR ALYSA Administration Radiology Results: ITS Impressions Shoulder X-Ray 06/12/24 02:11 IMPRESSION: Comminuted fracture of the right humeral neck, as detailed above. Diffuse bony demineralization, far advanced for patient of this age. Chest X-Ray 06/12/24 06:28 IMPRESSION: 1. Emphysema with mild discoid atelectasis in the right lower lung zone. Head CT 06/12/24 08:28 IMPRESSION: 1. Normal head CT. No fracture or acute intracranial process. Cervical Spine CT 06/12/24 08:45 IMPRESSION: 1. Moderate cervical spondylosis. No acute osseous abnormality Shoulder CT 06/12/24 12:14 IMPRESSION: 1. Displaced and angulated comminuted fracture of the surgical neck of the proximal right humerus. 2. Moderate emphysema. Intraoperative X-Ray 06/14/24 12:12 IMPRESSION: 1. Near-anatomic alignment post open reduction internal fixation of a comminuted fractures of the neck of the proximal right humerus. Labs Labs: Laboratory Results - last 24 hr 06/15/24 04:50 WBC 6.9 RBC 2.79 L Hgb 9.6 L Hct 30.9 L MCV 110.8 H MCH 34.4 H MCHC 31.1 L RDW 12.7 Plt Count 166 MPV 9.8 Immature Gran % (Auto) 0.3 Neut % (Auto) 72.9 Lymph % (Auto) 15.4 L [place] % (Auto) 9.9 H Eos % (Auto) 1.2 Baso % (Auto) 0.3 Lymph # (Auto) 1.06 [place] # (Auto) 0.7 H Eos # (Auto) 0.1 Baso # (Auto) 0.0 Abs Immat Gran (auto) 0.02 Absolute Neuts (auto) 5.0 Absolute Nucleated RBC 0.000 Band Neutrophils % Not Reportable Nucleated RBC % 0.0 Platelet Estimate Adequate Macrocytosis 1+ Schistocytes None seen Sodium 131 L Potassium 4.0 Chloride 96 L Carbon Dioxide 33 H Anion Gap 2 L BUN 4 L Creatinine 0.70 Estim Creat Clear Calc 67 Estimated GFR > 60 Glucose 102 Calcium 8.1 L Magnesium 2.1 Total Bilirubin 0.5 AST 34 ALT 15 Alkaline Phosphatase 57 Total Protein 6.0 L Albumin 2.9 L Quality VTE Prophylaxis VTE prophylaxis: pharmacologic ordered
[2024-06-15] MEDS: SODIUM CHLORIDE 0.9% IV 500 ML 100 ML IV CONT (11:25)
[2024-06-15] MEDS: SODIUM CHLORIDE 0.9% IV 1,000 ML 100 ML IV CONT (17:05)
[2024-06-15] MEDS: RIVAROXABAN 20 MG TABLET BY MOUTH (17:12)
[2024-06-16] VITALS (17 sets, daily range): BP systolic 92–134; BP diastolic 54–71; PULSE 87–100; RESP 14–20; TEMP 36.4–36.7; O2SAT 90–97
[2024-06-16] MEDS: ACETAMINOPHEN 325 MG TABLET 650 MG PO ×2 (01:05→09:03)
[2024-06-16] MEDS: SODIUM CHLORIDE 0.9% IV 1,000 ML 100 ML IV CONT ×3 (02:48→23:58)
[2024-06-16 06:19] LABS: Basophils Percent Auto 0.2 % (0.2-1.2); Eosinophils Absolute Auto 0.1 K/mm3 (0-0.3); Eosinophils Percent Auto 1.3 % (0-4.4); Hematocrit 25.1 % (37.0-47.0); Hemoglobin 7.9 g/dL (12.0-15.0); Immature Granulocyte Absolute 0.02 K/mm3 (0.00-0.031); Immature Granulocyte Percent A 0.4 % (0-0.5); Lymphocytes Absolute Auto 0.62 K/mm3 (0.9-3.2); Lymphocytes Percent Auto 11.7 % (18.3-44.2); Mean Corpuscular HGB Conc 31.5 g/dl (32-36); Mean Corpuscular Hemoglobin 34.6 pg (26-34); Mean Corpuscular Volume 110.1 fl (80-100); Mean Platelet Volume 10.2 fl (7.4-10.4); Monocytes Absolute Auto 0.5 K/mm3 (0.1-0.6); Monocytes Percent Auto 10.2 % (2.6-8.5); Neutrophils Percent Auto 76.2 % (45.5-73.1); Platelet Count Result 141 k/mm3 (150-375); Red Blood Count 2.28 M/mm3 (4.2-5.4); Red Cell Distribution Width 12.8 % (11.5-14.5); White Blood Count 5.3 K/mm3 (4.5-10.0)
[2024-06-16 06:32] LABS: Alanine Aminotransferase 11 U/L (6-35); Albumin Level 2.6 g/dL (3.5-5.1); Alkaline Phosphatase 62 U/L (38-126); Anion Gap 3 mmol/L (4-12); Aspartate Amino Transferase 26 U/L (14-36); Bilirubin,Total 0.6 mg/dL (0.2-1.3); Blood Urea Nitrogen 6 mg/dL (7-17); Calcium 7.8 mg/dL (8.4-10.2); Carbon Dioxide 29 mmol/L (22-30); Chloride 98 mmol/L (98-107); Estimated CRCL calculation 77 ml/min; Estimated Glomerular Filt Rate > 60; Glucose 96 mg/dL (65-110); Magnesium 1.9 mg/dL (1.6-2.3); Potassium 3.8 mmol/L (3.4-5.0); Sodium 130 mmol/L (137-145)
[2024-06-16 07:20] LABS: Platelet Estimate Adequate (Adequate); Schistocytes None Seen
--- NOTE | 2024-06-16 07:58 | PM.PNCARD ---
Progress Note: A&P Assessment and Plan (1) Systolic dysfunction: Code(s): I51.9 - Heart disease, unspecified Status: Acute Assessment and Plan: Resolved. NICM. Per patient echo done [address] Perez in [facility] showed EF 35% which is down from prior 45%. She was started on Jardiance and Spironolactone 3 months ago and felt weak with them. Normal coronaries in 2012 on [facility] per patient. Resumed lower doses of Coreg and Entresto. 06/14/24 Echo: EF 55-60%, mild based on DURAN 1.4 cm2, mean gradient 3 mmHg as valve was not well seen. Due to low normal BP, change Coreg 3.125 mg BID to Metoprolol Succinate 25 mg daily and changed Entresto to Losartan 25 mg daily. Discontinued Jardiance and Spironolactone due to normal EF and low BP on them. Will sign off. Please call with any questions. 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 Perez in [place]. (2) Essential hypertension: Code(s): I10 - Essential (primary) hypertension Status: Acute Assessment and Plan: Stable now. (3) Tobacco use: Code(s): Z72.0 - Tobacco use Status: Acute Assessment and Plan: Counseled regarding smoking cessation. (4) Paroxysmal A-fib: Code(s): I48.0 - Paroxysmal atrial fibrillation Status: Acute Assessment and Plan: In Sinus rhythm. Normally on Xarelto which is on hold in anticipation of arm surgery. If OK with surgery may resume Xarelto 20 mg in evenings. (5) Dyslipidemia: Code(s): E78.5 - Hyperlipidemia, unspecified Status: Acute Assessment and Plan: On Rosuvastatin and Zetia. (6) AICD (automatic cardioverter/defibrillator) present: Code(s): Z95.810 - Presence of automatic (implantable) cardiac defibrillator Status: Acute Assessment and Plan: [facility]alf device was interrogated shows no ventricular arrhythmias or pauses. 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 (7) Syncope: Code(s): R55 - Syncope and collapse Status: Acute Assessment and Plan: Probably due to acute hypotension due to heart failure medication. Changed Coreg to Metoprolol Succinate and changed Entresto to Losartan 25 mg daily. Monitor BP. Subjective Date/time seen: 06/16/24 07:58 Interval history: Denies chest pain, sob. Exam Const: General: cooperative, healthy appearing and comfortable Orientation/consciousness: oriented to person, oriented to place and oriented to time Resp: Auscultation: clear to auscultation bilaterally, no crackles, no rales, no rhonchi and no wheezes Cardio: Rate: regular rate Rhythm: regular rhythm Heart sounds: no murmurs Peripheral pulses: dorsalis pedis present Neuro: General: oriented to person, oriented to place and oriented to time Extrem: Right lower extremity: no edema Left lower extremity: no edema Objective Data Vital Signs Vital Signs: Vital Signs - 24 hr 06/15/24 08:02 06/15/24 08:09 06/15/24 08:09 Temperature 97.5 F L Pulse Rate 88 89 Pulse Rate [Right Radial] Respiratory Rate 16 Blood Pressure 94/53 L Pulse Oximetry 95 94 Oxygen Delivery Nasal Cannula Oxygen Flow Rate 3.5 06/15/24 08:54 06/15/24 08:55 06/15/24 09:00 Temperature Pulse Rate 90 Pulse Rate [Right Radial] 88 Respiratory Rate 18 Blood Pressure 94/53 L Pulse Oximetry 94 Oxygen Delivery Nasal Cannula Oxygen Flow Rate 3 06/15/24 10:58 06/15/24 12:00 06/15/24 12:01 Temperature 97.5 F L Pulse Rate 84 88 Pulse Rate [Right Radial] Respiratory Rate 18 Blood Pressure 98/54 L 107/74 Pulse Oximetry 97 Oxygen Delivery Oxygen Flow Rate 06/15/24 15:14 06/15/24 16:00 06/15/24 17:00 Temperature 97.5 F L Pulse Rate 83 101 H Pulse Rate [Right Radial] 78 Respiratory Rate 18 Blood Pressure 91/64 L 92/56 L Pulse Oximetry 99 Oxygen Delivery Oxygen Flow Rate 06/15/24 20:00 06/15/24 20:00 06/15/24 20:24 Temperature 97.6 F Pulse Rate 87 87 Pulse Rate [Right Radial] Respiratory Rate 20 Blood Pressure 90/46 L Pulse Oximetry 94 94 Oxygen Delivery Nasal Cannula Oxygen Flow Rate 3 06/16/24 00:00 06/16/24 00:29 06/16/24 04:00 Temperature 97.6 F Pulse Rate 91 99 89 Pulse Rate [Right Radial] Respiratory Rate 20 Blood Pressure 98/54 L Pulse Oximetry 95 Oxygen Delivery Oxygen Flow Rate 06/16/24 05:43 Temperature 98.0 F Pulse Rate 90 Pulse Rate [Right Radial] Respiratory Rate 16 Blood Pressure 114/63 Pulse Oximetry 95 Oxygen Delivery Oxygen Flow Rate Intake/Output Intake/Output: Intake & Output 06/13/24 06/14/24 06/15/24 06/16/24 23:59 23:59 23:59 23:59 Intake Total 680 1680 1220 1371.7 Output Total 650 1300 500 380 Balance 30 380 720 991.7 Meds/Results Medications: Active Medications Generic Name Dose Route Start Last Admin Trade Name Freq PRN Reason Stop Dose Admin Acetaminophen 650 mg 06/12/24 10:45 06/16/24 01:05 Acetaminophen 325 Mg Tablet PO 650 mg Q6H PRN Administration Headache Diphenhydramine HCl 25 mg 06/14/24 11:40 Diphenhydramine Hcl Inj 50 Mg/Ml Vial IV PUSH Q6H PRN Itching Docusate Sodium 100 mg 06/12/24 10:47 Docusate Sodium 100 Mg Capsule PO Q12H PRN Constipation Duloxetine HCl 60 mg 06/12/24 14:35 06/15/24 08:09 Duloxetine Hcl 60 Mg Capsule.Dr BY MOUTH 60 mg DAILY ALYSA Administration Ezetimibe 10 mg 06/12/24 14:35 06/15/24 08:10 Ezetimibe 10 Mg Tablet BY MOUTH 10 mg DAILY ALYSA Administration Ergocalciferol 50,000 units 06/12/24 14:35 06/12/24 15:05 Ergocalciferol 50,000 Units Capsule PO 50,000 units Sa@0900 ALYSA Administration Fluticasone/Umeclidinium/Vilanterol 1 puff 06/13/24 09:00 06/15/24 08:51 Fluticasone/Umeclidin/Vilanter 100-62.5-25 Mcg Ellipta INHALATION 1 puff DAILY ALYSA Administration Hydromorphone HCl 0.5 mg 06/12/24 22:35 06/13/24 10:10 Hydromorphone Hcl Inj (*Crx) 2 Mg/Ml Vial IV PUSH 0.5 mg Q3H PRN Administration Pain Rated 7-10 Sodium Chloride 1,000 mls @ 100 mls/hr 06/15/24 16:45 06/16/24 02:48 Normal Saline Iv IV CONT 100 mls/hr .Q10H ALYSA Administration Losartan Potassium 25 mg 06/16/24 09:00 Losartan Potassium 25 Mg Tablet PO DAILY ALYSA Metoprolol Succinate 25 mg 06/15/24 09:00 06/15/24 11:02 Metoprolol Succinate Ext Rel 25 Mg Tabcr PO Not Given QAM ALYSA Naloxone HCl 0.1 mg 06/14/24 11:40 Naloxone Hcl 0.4 Mg/Ml Vial IV PUSH Q2M PRN Opiate Reversal Ondansetron HCl 4 mg 06/14/24 11:40 Ondansetron Inj 4 Mg/2 Ml Vial IV PUSH Q4H PRN Nausea And Vomiting Oxycodone/Acetaminophen 1 tab 06/12/24 22:35 06/15/24 08:46 Oxycodone/Acetaminophen (*Crx) 10-325 Mg Tablet PO 1 tab Q4H PRN Administration Pain Rated 4-10 Polyethylene Glycol 17 gm 06/12/24 10:47 Polyethylene Glycol 3350 17 Gm Powd.Pack PO QAM PRN Constipation Prochlorperazine Edisylate 10 mg 06/13/24 13:03 06/13/24 13:13 Prochlorperazine Edisylate 10 Mg/2 Ml Vial IV PUSH 10 mg Q6H PRN Administration Nausea And Vomiting Rivaroxaban 20 mg 06/15/24 17:00 06/15/24 17:12 Rivaroxaban 20 Mg Tablet BY MOUTH 20 mg DAILY@1700 ALYSA Administration Rosuvastatin Calcium 5 mg 06/12/24 14:35 06/15/24 08:09 Rosuvastatin 5 Mg Tablet PO 5 mg DAILY ALYSA Administration Radiology Results: ITS Impressions Shoulder X-Ray 06/12/24 02:11 IMPRESSION: Comminuted fracture of the right humeral neck, as detailed above. Diffuse bony demineralization, far advanced for patient of this age. Chest X-Ray 06/12/24 06:28 IMPRESSION: 1. Emphysema with mild discoid atelectasis in the right lower lung zone. Head CT 06/12/24 08:28 IMPRESSION: 1. Normal head CT. No fracture or acute intracranial process. Cervical Spine CT 06/12/24 08:45 IMPRESSION: 1. Moderate cervical spondylosis. No acute osseous abnormality Shoulder CT 06/12/24 12:14 IMPRESSION: 1. Displaced and angulated comminuted fracture of the surgical neck of the proximal right humerus. 2. Moderate emphysema. Intraoperative X-Ray 06/14/24 12:12 IMPRESSION: 1. Near-anatomic alignment post open reduction internal fixation of a comminuted fractures of the neck of the proximal right humerus. Labs Labs: Laboratory Results - last 24 hr 06/16/24 05:02 WBC 5.3 RBC 2.28 L Hgb 7.9 L Hct 25.1 L MCV 110.1 H MCH 34.6 H MCHC 31.5 L RDW 12.8 Plt Count 141 L MPV 10.2 Immature Gran % (Auto) 0.4 Neut % (Auto) 76.2 H Lymph % (Auto) 11.7 L [place] % (Auto) 10.2 H Eos % (Auto) 1.3 Baso % (Auto) 0.2 Lymph # (Auto) 0.62 L [place] # (Auto) 0.5 Eos # (Auto) 0.1 Baso # (Auto) 0.0 Abs Immat Gran (auto) 0.02 Absolute Neuts (auto) 4.0 Absolute Nucleated RBC 0.000 Band Neutrophils % Not Reportable Nucleated RBC % 0.0 Platelet Estimate Adequate Schistocytes None seen Sodium 130 L Potassium 3.8 Chloride 98 Carbon Dioxide 29 Anion Gap 3 L BUN 6 L Creatinine 0.60 L Estim Creat Clear Calc 77 Estimated GFR > 60 Glucose 96 Calcium 7.8 L Magnesium 1.9 Total Bilirubin 0.6 AST 26 ALT 11 Alkaline Phosphatase 62 Total Protein 5.0 L Albumin 2.6 L
[2024-06-16] MEDS: FLUTICASONE/UMECLIDIN/VILANTER 100-62.5-25 MCG ELLIPTA 1 PUFF INHALATION (08:06)
--- NOTE | 2024-06-16 08:50 | PCOTNOTE ---
Per RN, Patient not to be seen at this time due to having low blood pressures in bed. RN verbalized to try back at a later time.
[2024-06-16] MEDS: DULoxetine HCL 60 MG CAPSULE.DR BY MOUTH (09:01)
[2024-06-16] MEDS: EZETIMIBE 10 MG TABLET BY MOUTH (09:01)
[2024-06-16] MEDS: ROSUVASTATIN 5 MG TABLET PO (09:01)
--- NOTE | 2024-06-16 09:36 | PM.IMPN ---
Progress Note: A&P Assessment and Plan (1) Syncope: Code(s): R55 - Syncope and collapse Status: Acute Assessment and Plan: Patient denied feeling dizzy, any illness, or feeling any differently before she passed out. Patient reports that she passed out a month ago but did not tell her primary or [employer]. Likely related to orthostatic hypotension given recently started jardiance and spironolactone 3 months ago, remains on full dose of coreg and entresto on admission. - orthostatic blood pressures - head and c spine ct unremarkable, chest xr showed emphysema with mild discoid atelectasis in the right lower lung zone. IS ordered. - EKG showed sinus rhythm with HR 76. Continue telemetry. - Echo showed LVEF 55-60%, improved from echo 3 months ago showing EF 35% - Cardiology consult, appreciate recommendations. Changed Coreg 3.125 mg BID to Metoprolol Succinate 12.5 mg daily. Dose lowered today for continued hypotension. Changed Entresto to Losartan 25 mg daily. Held today for continued hypotension. Discontinued Jardiance and Spironolactone due to normal EF and low BP on them. (2) Fracture, humerus: Code(s): S42.309A - Unspecified fracture of shaft of humerus, unspecified arm, initial encounter for closed fracture Status: Acute Assessment and Plan: Syncopal episode resulting in a fall. Complaining of right upper arm pain. - Right shoulder XR showed comminuted fracture of the right humeral neck and diffuse bony demineralization, far advanced for patient of this age. - Right shoulder CT showed displaced and angulated comminuted fracture of the surgical neck of the proximal right humerus and moderate emphysema. - Ortho consulted s/p intramedullary nail fixation right proximal humerus fracture on 06/[address] Rhodes PT/OT. NWB RUE. DVT ppx with asa (3) CHF (congestive heart failure): Qualifiers: Heart failure chronicity: chronic Heart failure type: combined systolic and diastolic Qualified Code(s): I50.42 - Chronic combined systolic (congestive) and diastolic (congestive) heart failure Code(s): I50.9 - Heart failure, unspecified Status: Acute Assessment and Plan: BNP 261. Echo showed LVEF 55-60%, improved from echo 3 months ago showign EF 35% Nonischemic dilated cardiomyopathy. Clinically appears to be mildly dehydrated oral intake is being encouraged. Per cardiology recommendations Changed Coreg 3.125 mg BID to Metoprolol Succinate 12.5 mg daily. Dose lowered today for continued hypotension. Changed Entresto to Losartan 25 mg daily. Held today for continued hypotension. Discontinued Jardiance and Spironolactone due to normal EF and low BP on them. (4) Paroxysmal atrial fibrillation: Code(s): I48.0 - Paroxysmal atrial fibrillation Status: Acute Assessment and Plan: Xarelto restarted, ortho Emma Jimenez [employer]ESS[employer] aware and agreeable to restart. (5) Essential hypertension: Code(s): I10 - Essential (primary) hypertension Status: Acute Assessment and Plan: Changed Coreg 3.125 mg BID to Metoprolol Succinate 12.5 mg daily. Dose lowered today for continued hypotension. Changed Entresto to Losartan 25 mg daily. Held today for continued hypotension. Discontinued Jardiance and Spironolactone due to normal EF and low BP on them. (6) COPD (chronic obstructive pulmonary disease): Qualifiers: COPD type: unspecified COPD Qualified Code(s): J44.9 - Chronic obstructive pulmonary disease, unspecified Code(s): J44.9 - Chronic obstructive pulmonary disease, unspecified Status: Acute Assessment and Plan: Previous spot on her lung in 07/2022 s/p removal by Dr. Villatoro at [facility]. Follows yearly for CT imaging, last seen 04/2024. Unremarkable. Chest XR showing emphysema with mild discoid atelectasis in the right lower lung zone Currently requiring 1 L nasal cannula, continue to wean as tolerated. Patient will require a home O2 evaluation prior to discharge. Increased O2 need likely related to worsening COPD given patient's continued smoking Trelegy 1 puff daily. Encourage patient to stop smoking. (7) Hyperlipidemia: Qualifiers: Hyperlipidemia type: unspecified Qualified Code(s): E78.5 - Hyperlipidemia, unspecified Code(s): E78.5 - Hyperlipidemia, unspecified Status: Acute Assessment and Plan: On statin and Zetia (8) Nausea & vomiting: Code(s): R11.2 - Nausea with vomiting, unspecified Status: Acute Assessment and Plan: Subsided. Prochlorperazine 10 mg IV q 6 PRN. Time Spent With Patient Time with patient: 25 - 35 minutes Subjective Date/time seen: 06/16/24 09:36 Interval history: 63 year old female with past medical history of COPD, paroxysmal atrial fibrillation on anticoagulation, hyperlipidemia and hypertension presented to the hospital following a syncopal episode resulting right upper extremity pain. Patient is pleasant lying comfortably in bed. She remains on oxygen supplementation of 1 L in the notes that her shortness of breath has significantly. She states she was previously on oxygen home back in 2022 following her procedure at [facility] but has not been on supplemental oxygen since time. She denies any fevers/chills or cough. She states that her pain is well controlled on the current regimen. She denies any tingling/numbness or shooting pains to the right hand. Pulses remain intact. She has no other complaints denying chest pain, palpitations, nausea/vomiting, abdominal pain. She continues to be intermittently hypotensive on the current regimen which has again been adjusted by Cardiology. She states that her dizziness has improved. Review of Systems Review of Systems: All systems reviewed & are unremarkable except as noted in HPI and below Exam Narrative: AF HR 87 RR 14 SpO2 95 1L NC (baseline room air) BP 99/60 General: female in no acute respiratory distress who is nontoxic appearing, lying semi recumbent in bed. HEENT: Normocephalic. Atraumatic. Extraocular movement intact. Sclera clear and anicteric. No facial asymmetry. Chest: Lungs are clear to auscultation bilaterally. CV: Heart was regular rate and rhythm. S1-S2. No murmurs, gallops, or rubs. Abd: Abdomen was soft. Nontender. Nondistended. Positive bowel sounds. No organomegaly or masses. Ext: No clubbing, cyanosis, or edema. DP pulses bilaterally. Radial pulse intact. Sensation intact. Moving wrist. RUE remains in sling. Neuro: Patient is alert. Speech is clear. Objective Data Vital Signs Vital Signs: Vital Signs - 24 hr 06/15/24 10:58 06/15/24 12:00 06/15/24 12:01 Temperature 97.5 F L Pulse Rate 84 88 Pulse Rate [Right Radial] Respiratory Rate 18 Blood Pressure 98/54 L 107/74 Pulse Oximetry 97 Oxygen Delivery Oxygen Flow Rate 06/15/24 15:14 06/15/24 16:00 06/15/24 17:00 Temperature 97.5 F L Pulse Rate 83 101 H Pulse Rate [Right Radial] 78 Respiratory Rate 18 Blood Pressure 91/64 L 92/56 L Pulse Oximetry 99 Oxygen Delivery Oxygen Flow Rate 06/15/24 20:00 06/15/24 20:00 06/15/24 20:24 Temperature 97.6 F Pulse Rate 87 87 Pulse Rate [Right Radial] Respiratory Rate 20 Blood Pressure 90/46 L Pulse Oximetry 94 94 Oxygen Delivery Nasal Cannula Oxygen Flow Rate 3 06/16/24 00:00 06/16/24 00:29 06/16/24 04:00 Temperature 97.6 F Pulse Rate 91 99 89 Pulse Rate [Right Radial] Respiratory Rate 20 Blood Pressure 98/54 L Pulse Oximetry 95 Oxygen Delivery Oxygen Flow Rate 06/16/24 05:43 06/16/24 08:07 06/16/24 08:47 Temperature 98.0 F Pulse Rate 90 Pulse Rate [Right Radial] Respiratory Rate 16 Blood Pressure 114/63 Pulse Oximetry 95 97 90 Oxygen Delivery Nasal Cannula Nasal Cannula Oxygen Flow Rate 3 1 06/16/24 08:59 Temperature Pulse Rate 100 Pulse Rate [Right Radial] Respiratory Rate Blood Pressure 92/58 L Pulse Oximetry 91 Oxygen Delivery Oxygen Flow Rate Intake/Output Intake/Output: Intake & Output 06/13/24 06/14/24 06/15/24 06/16/24 23:59 23:59 23:59 23:59 Intake Total 680 1680 1220 1371.7 Output Total 650 1300 500 380 Balance 30 380 720 991.7 Meds/Results Medications: Active Medications Generic Name Dose Route Start Last Admin Trade Name Freq PRN Reason Stop Dose Admin Acetaminophen 650 mg 06/12/24 10:45 06/16/24 09:03 Acetaminophen 325 Mg Tablet PO 650 mg Q6H PRN Administration Headache Diphenhydramine HCl 25 mg 06/14/24 11:40 Diphenhydramine Hcl Inj 50 Mg/Ml Vial IV PUSH Q6H PRN Itching Docusate Sodium 100 mg 06/12/24 10:47 Docusate Sodium 100 Mg Capsule PO Q12H PRN Constipation Duloxetine HCl 60 mg 06/12/24 14:35 06/16/24 09:01 Duloxetine Hcl 60 Mg Capsule.Dr BY MOUTH 60 mg DAILY ALYSA Administration Ezetimibe 10 mg 06/12/24 14:35 06/16/24 09:01 Ezetimibe 10 Mg Tablet BY MOUTH 10 mg DAILY ALYSA Administration Ergocalciferol 50,000 units 06/12/24 14:35 06/12/24 15:05 Ergocalciferol 50,000 Units Capsule PO 50,000 units Sa@0900 ALYSA Administration Fluticasone/Umeclidinium/Vilanterol 1 puff 06/13/24 09:00 06/16/24 08:06 Fluticasone/Umeclidin/Vilanter 100-62.5-25 Mcg Ellipta INHALATION 1 puff DAILY ALYSA Administration Hydromorphone HCl 0.5 mg 06/12/24 22:35 06/13/24 10:10 Hydromorphone Hcl Inj (*Crx) 2 Mg/Ml Vial IV PUSH 0.5 mg Q3H PRN Administration Pain Rated 7-10 Sodium Chloride 1,000 mls @ 100 mls/hr 06/15/24 16:45 06/16/24 02:48 Normal Saline Iv IV CONT 100 mls/hr .Q10H ALYSA Administration Losartan Potassium 25 mg 06/16/24 09:00 Losartan Potassium 25 Mg Tablet PO DAILY [facility] Metoprolol Succinate 25 mg 06/15/24 09:00 06/15/24 11:02 Metoprolol Succinate Ext Rel 25 Mg Tabcr PO Not Given QAM [facility] Naloxone HCl 0.1 mg 06/14/24 11:40 Naloxone Hcl 0.4 Mg/Ml Vial IV PUSH Q2M PRN Opiate Reversal Ondansetron HCl 4 mg 06/14/24 11:40 Ondansetron Inj 4 Mg/2 Ml Vial IV PUSH Q4H PRN Nausea And Vomiting Oxycodone/Acetaminophen 1 tab 06/12/24 22:35 06/15/24 08:46 Oxycodone/Acetaminophen (*Crx) 10-325 Mg Tablet PO 1 tab Q4H PRN Administration Pain Rated 4-10 Polyethylene Glycol 17 gm 06/12/24 10:47 Polyethylene Glycol 3350 17 Gm Powd.Pack PO QAM PRN Constipation Prochlorperazine Edisylate 10 mg 06/13/24 13:03 06/13/24 13:13 Prochlorperazine Edisylate 10 Mg/2 Ml Vial IV PUSH 10 mg Q6H PRN Administration Nausea And Vomiting Rivaroxaban 20 mg 06/15/24 17:00 06/15/24 17:12 Rivaroxaban 20 Mg Tablet BY MOUTH 20 mg DAILY@1700 ALYSA Administration Rosuvastatin Calcium 5 mg 06/12/24 14:35 06/16/24 09:01 Rosuvastatin 5 Mg Tablet PO 5 mg DAILY ALYSA Administration Radiology Results: ITS Impressions Shoulder X-Ray 06/12/24 02:11 IMPRESSION: Comminuted fracture of the right humeral neck, as detailed above. Diffuse bony demineralization, far advanced for patient of this age. Chest X-Ray 06/12/24 06:28 IMPRESSION: 1. Emphysema with mild discoid atelectasis in the right lower lung zone. Head CT 06/12/24 08:28 IMPRESSION: 1. Normal head CT. No fracture or acute intracranial process. Cervical Spine CT 06/12/24 08:45 IMPRESSION: 1. Moderate cervical spondylosis. No acute osseous abnormality Shoulder CT 06/12/24 12:14 IMPRESSION: 1. Displaced and angulated comminuted fracture of the surgical neck of the proximal right humerus. 2. Moderate emphysema. Intraoperative X-Ray 06/14/24 12:12 IMPRESSION: 1. Near-anatomic alignment post open reduction internal fixation of a comminuted fractures of the neck of the proximal right humerus. Labs Labs: Laboratory Results - last 24 hr 06/16/24 05:02 WBC 5.3 RBC 2.28 L Hgb 7.9 L Hct 25.1 L MCV 110.1 H MCH 34.6 H MCHC 31.5 L RDW 12.8 Plt Count 141 L MPV 10.2 Immature Gran % (Auto) 0.4 Neut % (Auto) 76.2 H Lymph % (Auto) 11.7 L [place] % (Auto) 10.2 H Eos % (Auto) 1.3 Baso % (Auto) 0.2 Lymph # (Auto) 0.62 L [place] # (Auto) 0.5 Eos # (Auto) 0.1 Baso # (Auto) 0.0 Abs Immat Gran (auto) 0.02 Absolute Neuts (auto) 4.0 Absolute Nucleated RBC 0.000 Band Neutrophils % Not Reportable Nucleated RBC % 0.0 Platelet Estimate Adequate Schistocytes None seen Sodium 130 L Potassium 3.8 Chloride 98 Carbon Dioxide 29 Anion Gap 3 L BUN 6 L Creatinine 0.60 L Estim Creat Clear Calc 77 Estimated GFR > 60 Glucose 96 Calcium 7.8 L Magnesium 1.9 Total Bilirubin 0.6 AST 26 ALT 11 Alkaline Phosphatase 62 Total Protein 5.0 L Albumin 2.6 L Quality VTE Prophylaxis VTE prophylaxis: pharmacologic ordered
[2024-06-16] MEDS: METOPROLOL SUCCINATE EXT REL 12.5 MG TABCR PO (10:04)
[2024-06-16 10:18] LABS: Hematocrit 28.9 % (37.0-47.0); Hemoglobin 9.3 g/dL (12.0-15.0)
[2024-06-16] MEDS: oxyCODONE/ACETAMINOPHEN (*CRX) 10-325 MG TABLET 1 TAB PO (14:05)
--- NOTE | 2024-06-16 14:32 | PM.PNORT ---
Progress Note: A&P Assessment and Plan (1) Closed fracture of right proximal humerus: Qualifiers: Encounter type: subsequent encounter Fracture morphology: other fracture Fracture alignment: displaced Fracture healing: with routine healing Qualified Code(s): S42.291D - Other displaced fracture of upper end of right humerus, subsequent encounter for fracture with routine healing Code(s): S42.201A - Unspecified fracture of upper end of right humerus, initial encounter for closed fracture Status: Acute Assessment and Plan: POD #2: Intramedullary nail fixation right proximal humerus fracture Continue PT/OT. NWB RUE. HIGH FALL RISK. Continue pain control. Ice shoulder. Protect skin. DVT prophylaxis per Medicine/ Cardiology. SCDs. Incentive Spirometry Use reviewed. Monitor Dressing. Change daily and PRN for increased drainage. Bowel Regimen. Dispo: Home with Home Health pending progress with PT/OT and medical stability. Subjective Subjective Date/Time Seen: 06/16/24 14:32 Post Op day: 2 Principal diagnosis: right proximal humerus fracture Interval history: POD #2: IM nail right proximal humerus fracture Patient better today. Pain well controlled. Drainage from biceps area on dressing. Exam Const: General: comfortable and no acute distress Resp: Other: Requiring nasal cannula O2. Cardio: Rate: regular rate Rhythm: regular rhythm GI: GI Palp: Yes Soft to palpation Neuro: General: gait normal Extrem: Other: Right upper extremity dressing with serosanguineous drainage. Incisions well approximated. Steri strips in place. Skin tear noted (which was seen intraoperatively). No signs of infection. Sensation intact. NV intact. Moves fingers. Objective Data Vital Signs Vital Signs: Vital Signs - 24 hr 06/15/24 15:14 06/15/24 16:00 06/15/24 17:00 Temperature 97.5 F L Pulse Rate 83 101 H Pulse Rate [Right Radial] 78 Respiratory Rate 18 Blood Pressure 91/64 L 92/56 L Pulse Oximetry 99 Oxygen Delivery Oxygen Flow Rate 06/15/24 20:00 06/15/24 20:00 06/15/24 20:24 Temperature 97.6 F Pulse Rate 87 87 Pulse Rate [Right Radial] Respiratory Rate 20 Blood Pressure 90/46 L Pulse Oximetry 94 94 Oxygen Delivery Nasal Cannula Oxygen Flow Rate 3 06/16/24 00:00 06/16/24 00:29 06/16/24 04:00 Temperature 97.6 F Pulse Rate 91 99 89 Pulse Rate [Right Radial] Respiratory Rate 20 Blood Pressure 98/54 L Pulse Oximetry 95 Oxygen Delivery Oxygen Flow Rate 06/16/24 05:43 06/16/24 08:07 06/16/24 08:47 Temperature 98.0 F Pulse Rate 90 Pulse Rate [Right Radial] Respiratory Rate 16 Blood Pressure 114/63 Pulse Oximetry 95 97 90 Oxygen Delivery Nasal Cannula Nasal Cannula Oxygen Flow Rate 3 1 06/16/24 08:59 06/16/24 10:04 Temperature Pulse Rate 100 100 Pulse Rate [Right Radial] Respiratory Rate Blood Pressure 92/58 L Pulse Oximetry 91 Oxygen Delivery Oxygen Flow Rate Intake/Output Intake/Output: Intake & Output 06/13/24 06/14/24 06/15/24 06/16/24 23:59 23:59 23:59 23:59 Intake Total 680 1680 1220 2511.7 Output Total 650 1300 500 380 Balance 30 212 189 2457.7 Meds/Results Medications: Active Medications Generic Name Dose Route Start Last Admin Trade Name Freq PRN Reason Stop Dose Admin Acetaminophen 650 mg 06/12/24 10:45 06/16/24 09:03 Acetaminophen 325 Mg Tablet PO 650 mg Q6H PRN Administration Headache Diphenhydramine HCl 25 mg 06/14/24 11:40 Diphenhydramine Hcl Inj 50 Mg/Ml Vial IV PUSH Q6H PRN Itching Docusate Sodium 100 mg 06/12/24 10:47 Docusate Sodium 100 Mg Capsule PO Q12H PRN Constipation Duloxetine HCl 60 mg 06/12/24 14:35 06/16/24 09:01 Duloxetine Hcl 60 Mg Capsule.Dr BY MOUTH 60 mg DAILY ALYSA Administration Ezetimibe 10 mg 06/12/24 14:35 06/16/24 09:01 Ezetimibe 10 Mg Tablet BY MOUTH 10 mg DAILY ALYSA Administration Ergocalciferol 50,000 units 06/12/24 14:35 06/12/24 15:05 Ergocalciferol 50,000 Units Capsule PO 50,000 units Sa@0900 ALYSA Administration Fluticasone/Umeclidinium/Vilanterol 1 puff 06/13/24 09:00 06/16/24 08:06 Fluticasone/Umeclidin/Vilanter 100-62.5-25 Mcg Ellipta INHALATION 1 puff DAILY ALYSA Administration Hydromorphone HCl 0.5 mg 06/12/24 22:35 06/13/24 10:10 Hydromorphone Hcl Inj (*Crx) 2 Mg/Ml Vial IV PUSH 0.5 mg Q3H PRN Administration Pain Rated 7-10 Sodium Chloride 1,000 mls @ 100 mls/hr 06/15/24 16:45 06/16/24 13:22 Normal Saline Iv IV CONT 100 mls/hr .Q10H ALYSA Administration Losartan Potassium 25 mg 06/16/24 09:00 06/16/24 09:49 Losartan Potassium 25 Mg Tablet PO Not Given DAILY ALYSA Metoprolol Succinate 12.5 mg 06/16/24 09:45 06/16/24 10:04 Metoprolol Succinate Ext Rel 12.5 Mg Tabcr PO 12.5 mg QAM ALYSA Administration Naloxone HCl 0.1 mg 06/14/24 11:40 Naloxone Hcl 0.4 Mg/Ml Vial IV PUSH Q2M PRN Opiate Reversal Ondansetron HCl 4 mg 06/14/24 11:40 Ondansetron Inj 4 Mg/2 Ml Vial IV PUSH Q4H PRN Nausea And Vomiting Oxycodone/Acetaminophen 1 tab 06/12/24 22:35 06/16/24 14:05 Oxycodone/Acetaminophen (*Crx) 10-325 Mg Tablet PO 1 tab Q4H PRN Administration Pain Rated 4-10 Polyethylene Glycol 17 gm 06/12/24 10:47 Polyethylene Glycol 3350 17 Gm Powd.Pack PO QAM PRN Constipation Prochlorperazine Edisylate 10 mg 06/13/24 13:03 06/13/24 13:13 Prochlorperazine Edisylate 10 Mg/2 Ml Vial IV PUSH 10 mg Q6H PRN Administration Nausea And Vomiting Rivaroxaban 20 mg 06/15/24 17:00 06/15/24 17:12 Rivaroxaban 20 Mg Tablet BY MOUTH 20 mg DAILY@1700 ALYSA Administration Rosuvastatin Calcium 5 mg 06/12/24 14:35 06/16/24 09:01 Rosuvastatin 5 Mg Tablet PO 5 mg DAILY ALYSA Administration Radiology Results: ITS Impressions Shoulder X-Ray 06/12/24 02:11 IMPRESSION: Comminuted fracture of the right humeral neck, as detailed above. Diffuse bony demineralization, far advanced for patient of this age. Chest X-Ray 06/12/24 06:28 IMPRESSION: 1. Emphysema with mild discoid atelectasis in the right lower lung zone. Head CT 06/12/24 08:28 IMPRESSION: 1. Normal head CT. No fracture or acute intracranial process. Cervical Spine CT 06/12/24 08:45 IMPRESSION: 1. Moderate cervical spondylosis. No acute osseous abnormality Shoulder CT 06/12/24 12:14 IMPRESSION: 1. Displaced and angulated comminuted fracture of the surgical neck of the proximal right humerus. 2. Moderate emphysema. Intraoperative X-Ray 06/14/24 12:12 IMPRESSION: 1. Near-anatomic alignment post open reduction internal fixation of a comminuted fractures of the neck of the proximal right humerus. Labs Labs: Laboratory Results - last 24 hr 06/16/24 06/16/24 05:02 10:00 WBC 5.3 RBC 2.28 L Hgb 7.9 L 9.3 L Hct 25.1 L 28.9 L MCV 110.1 H MCH 34.6 H MCHC 31.5 L RDW 12.8 Plt Count 141 L MPV 10.2 Immature Gran % (Auto) 0.4 Neut % (Auto) 76.2 H Lymph % (Auto) 11.7 L [place] % (Auto) 10.2 H Eos % (Auto) 1.3 Baso % (Auto) 0.2 Lymph # (Auto) 0.62 L [place] # (Auto) 0.5 Eos # (Auto) 0.1 Baso # (Auto) 0.0 Abs Immat Gran (auto) 0.02 Absolute Neuts (auto) 4.0 Absolute Nucleated RBC 0.000 Band Neutrophils % Not Reportable Nucleated RBC % 0.0 Platelet Estimate Adequate Schistocytes None seen Sodium 130 L Potassium 3.8 Chloride 98 Carbon Dioxide 29 Anion Gap 3 L BUN 6 L Creatinine 0.60 L Estim Creat Clear Calc 77 Estimated GFR > 60 Glucose 96 Calcium 7.8 L Magnesium 1.9 Total Bilirubin 0.6 AST 26 ALT 11 Alkaline Phosphatase 62 Total Protein 5.0 L Albumin 2.6 L
[2024-06-16] MEDS: RIVAROXABAN 20 MG TABLET BY MOUTH (17:21)
[2024-06-17] VITALS (14 sets, daily range): BP systolic 110–136; BP diastolic 71–80; PULSE 68–108; RESP 14–16; TEMP 36.5–36.9; O2SAT 86–95
[2024-06-17] MEDS: ACETAMINOPHEN 325 MG TABLET 650 MG PO (02:23)
[2024-06-17 05:23] LABS: Basophils Percent Auto 0.4 % (0.2-1.2); Eosinophils Absolute Auto 0.1 K/mm3 (0-0.3); Eosinophils Percent Auto 1.5 % (0-4.4); Hematocrit 24.2 % (37.0-47.0); Hemoglobin 7.7 g/dL (12.0-15.0); Immature Granulocyte Absolute 0.02 K/mm3 (0.00-0.031); Immature Granulocyte Percent A 0.4 % (0-0.5); Lymphocytes Absolute Auto 0.58 K/mm3 (0.9-3.2); Lymphocytes Percent Auto 12.2 % (18.3-44.2); Mean Corpuscular HGB Conc 31.8 g/dl (32-36); Mean Corpuscular Hemoglobin 34.2 pg (26-34); Mean Corpuscular Volume 107.6 fl (80-100); Mean Platelet Volume 9.6 fl (7.4-10.4); Monocytes Absolute Auto 0.6 K/mm3 (0.1-0.6); Neutrophils Absolute Auto 3.5 K/mm3 (1.3-6.7); Neutrophils Percent Auto 73.5 % (45.5-73.1); Platelet Count Result 183 k/mm3 (150-375); Red Blood Count 2.25 M/mm3 (4.2-5.4); White Blood Count 4.7 K/mm3 (4.5-10.0)
[2024-06-17 05:35] LABS: Alanine Aminotransferase 12 U/L (6-35); Albumin Level 2.7 g/dL (3.5-5.1); Alkaline Phosphatase 69 U/L (38-126); Anion Gap 3 mmol/L (4-12); Aspartate Amino Transferase 30 U/L (14-36); Bilirubin,Total 0.8 mg/dL (0.2-1.3); Blood Urea Nitrogen 5 mg/dL (7-17); Carbon Dioxide 28 mmol/L (22-30); Chloride 101 mmol/L (98-107); Estimated CRCL calculation 100 ml/min; Estimated Glomerular Filt Rate > 60; Glucose 96 mg/dL (65-110); Magnesium 1.8 mg/dL (1.6-2.3); Potassium 3.3 mmol/L (3.4-5.0); Sodium 132 mmol/L (137-145)
[2024-06-17 05:47] LABS: Macrocytosis 1+ (NORMAL); Platelet Estimate Adequate (Adequate); Schistocytes None Seen
[2024-06-17] MEDS: oxyCODONE/ACETAMINOPHEN (*CRX) 10-325 MG TABLET 1 TAB PO ×2 (06:29→14:01)
--- NOTE | 2024-06-17 07:42 | P.PNCA_ITS ---
Progress Note: A&P Assessment and Plan (1) Systolic dysfunction: Code(s): I51.9 - Heart disease, unspecified Status: Acute Assessment and Plan: Resolved. NICM. Per patient echo done [address] Perez in [facility] showed EF 35% which is down from prior 45%. She was started on Jardiance and Spironolactone 3 months ago and felt weak with them. Normal coronaries in 2012 on [facility] per patient. Resumed lower doses of Coreg and Entresto. 06/14/24 Echo: EF 55-60%, mild based on DURAN 1.4 cm2, mean gradient 3 mmHg as valve was not well seen. Due to low normal BP, change Coreg 3.125 mg BID to Metoprolol Succinate 25 mg daily and changed Entresto to Losartan 25 mg daily. Discontinued Jardiance and Spironolactone due to normal EF and low BP on them. Her BP was low yesterday so Losartan was not given and Metoprolol 12.5 mg dose was given instead. BP is better this morning, will resume Metoprolol 25 mg and Losartan 25 mg. Will sign off. Please call with any questions. Upon discharge have her f/u with her regular senior painter, Dr. Perez in [place]. (2) Essential hypertension: Code(s): I10 - Essential (primary) hypertension Status: Acute Assessment and Plan: Stable now. (3) Tobacco use: Code(s): Z72.0 - Tobacco use Status: Acute Assessment and Plan: Counseled regarding smoking cessation. (4) Paroxysmal A-fib: Code(s): I48.0 - Paroxysmal atrial fibrillation Status: Acute Assessment and Plan: In Sinus rhythm. Normally on Xarelto which is on hold in anticipation of arm surgery. If OK with surgery may resume Xarelto 20 mg in evenings. (5) Dyslipidemia: Code(s): E78.5 - Hyperlipidemia, unspecified Status: Acute Assessment and Plan: On Rosuvastatin and Zetia. (6) AICD (automatic cardioverter/defibrillator) present: Code(s): Z95.810 - Presence of automatic (implantable) cardiac defibrillator Status: Acute Assessment and Plan: [facility] device was interrogated shows no ventricular arrhythmias or pauses. 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 (7) Syncope: Code(s): R55 - Syncope and collapse Status: Acute Assessment and Plan: Probably due to acute hypotension due to heart failure medication. Changed Coreg to Metoprolol Succinate and changed Entresto to Losartan 25 mg daily. Monitor BP. Subjective Date/time seen: 06/17/24 07:42 Interval history: Denies chest pain, sob. Exam Const: General: cooperative, healthy appearing and comfortable Orientation/consciousness: oriented to person, oriented to place and oriented to time Resp: Auscultation: clear to auscultation bilaterally, no crackles, no rales, no rhonchi and no wheezes Cardio: Rate: regular rate Rhythm: regular rhythm Heart sounds: no murmurs Peripheral pulses: dorsalis pedis present Neuro: General: oriented to person, oriented to place and oriented to time Extrem: Right lower extremity: no edema Left lower extremity: no edema Objective Data Vital Signs Vital Signs: Vital Signs - 24 hr 06/16/24 08:00 06/16/24 08:00 06/16/24 08:07 Temperature Pulse Rate 90 Pulse Rate [Right Radial] Respiratory Rate Blood Pressure Pulse Oximetry 91 97 Oxygen Delivery Nasal Cannula Nasal Cannula Oxygen Flow Rate 1 3 06/16/24 08:47 06/16/24 08:59 06/16/24 09:00 Temperature Pulse Rate 100 Pulse Rate [Right Radial] 100 Respiratory Rate Blood Pressure 92/58 L 92/58 L Pulse Oximetry 90 91 Oxygen Delivery Nasal Cannula Oxygen Flow Rate 1 06/16/24 10:04 06/16/24 12:00 06/16/24 14:00 Temperature 97.6 F Pulse Rate 100 96 87 Pulse Rate [Right Radial] Respiratory Rate 14 Blood Pressure 99/60 L Pulse Oximetry 95 Oxygen Delivery Oxygen Flow Rate 06/16/24 16:00 06/16/24 17:00 06/16/24 20:00 Temperature Pulse Rate 95 93 Pulse Rate [Right Radial] 100 Respiratory Rate Blood Pressure 99/60 L Pulse Oximetry Oxygen Delivery Oxygen Flow Rate 06/16/24 20:53 06/16/24 21:05 06/17/24 00:00 Temperature 97.8 F Pulse Rate 96 103 H Pulse Rate [Right Radial] Respiratory Rate 16 Blood Pressure 134/71 Pulse Oximetry 93 93 Oxygen Delivery Nasal Cannula Oxygen Flow Rate 1 06/17/24 04:00 06/17/24 06:00 Temperature 97.7 F Pulse Rate 80 91 Pulse Rate [Right Radial] Respiratory Rate 16 Blood Pressure 133/77 Pulse Oximetry 95 Oxygen Delivery Oxygen Flow Rate Intake/Output Intake/Output: Intake & Output 06/14/24 06/15/24 06/16/24 06/17/24 23:59 23:59 23:59 23:59 Intake Total 1680 1220 4901.7 450 Output Total 1300 500 880 Balance 556 319 0464.7 450 Meds/Results Medications: Active Medications Generic Name Dose Route Start Last Admin Trade Name Freq PRN Reason Stop Dose Admin Acetaminophen 650 mg 06/12/24 10:45 06/17/24 02:23 Acetaminophen 325 Mg Tablet PO 650 mg Q6H PRN Administration Headache Diphenhydramine HCl 25 mg 06/14/24 11:40 Diphenhydramine Hcl Inj 50 Mg/Ml Vial IV PUSH Q6H PRN Itching Docusate Sodium 100 mg 06/12/24 10:47 Docusate Sodium 100 Mg Capsule PO Q12H PRN Constipation Duloxetine HCl 60 mg 06/12/24 14:35 06/16/24 09:01 Duloxetine Hcl 60 Mg Capsule.Dr BY MOUTH 60 mg DAILY ALYSA Administration Ezetimibe 10 mg 06/12/24 14:35 06/16/24 09:01 Ezetimibe 10 Mg Tablet BY MOUTH 10 mg DAILY ALYSA Administration Ergocalciferol 50,000 units 06/12/24 14:35 06/12/24 15:05 Ergocalciferol 50,000 Units Capsule PO 50,000 units Sa@0900 ALYSA Administration Fluticasone/Umeclidinium/Vilanterol 1 puff 06/13/24 09:00 06/16/24 08:06 Fluticasone/Umeclidin/Vilanter 100-62.5-25 Mcg Ellipta INHALATION 1 puff DAILY ALYSA Administration Hydromorphone HCl 0.5 mg 06/12/24 22:35 06/13/24 10:10 Hydromorphone Hcl Inj (*Crx) 2 Mg/Ml Vial IV PUSH 0.5 mg Q3H PRN Administration Pain Rated 7-10 Sodium Chloride 1,000 mls @ 100 mls/hr 06/15/24 16:45 06/16/24 23:58 Normal Saline Iv IV CONT 100 mls/hr .Q10H ALYSA Administration Losartan Potassium 25 mg 06/16/24 09:00 06/16/24 09:49 Losartan Potassium 25 Mg Tablet PO Not Given DAILY [facility] Metoprolol Succinate 25 mg 06/17/24 09:00 Metoprolol Succinate Ext Rel 25 Mg Tabcr PO QAM ALYSA Naloxone HCl 0.1 mg 06/14/24 11:40 Naloxone Hcl 0.4 Mg/Ml Vial IV PUSH Q2M PRN Opiate Reversal Ondansetron HCl 4 mg 06/14/24 11:40 Ondansetron Inj 4 Mg/2 Ml Vial IV PUSH Q4H PRN Nausea And Vomiting Oxycodone/Acetaminophen 1 tab 06/12/24 22:35 06/17/24 06:29 Oxycodone/Acetaminophen (*Crx) 10-325 Mg Tablet PO 1 tab Q4H PRN Administration Pain Rated 4-10 Polyethylene Glycol 17 gm 06/12/24 10:47 Polyethylene Glycol 3350 17 Gm Powd.Pack PO QAM PRN Constipation Prochlorperazine Edisylate 10 mg 06/13/24 13:03 06/13/24 13:13 Prochlorperazine Edisylate 10 Mg/2 Ml Vial IV PUSH 10 mg Q6H PRN Administration Nausea And Vomiting Rivaroxaban 20 mg 06/15/24 17:00 06/16/24 17:21 Rivaroxaban 20 Mg Tablet BY MOUTH 20 mg DAILY@1700 ALYSA Administration Rosuvastatin Calcium 5 mg 06/12/24 14:35 06/16/24 09:01 Rosuvastatin 5 Mg Tablet PO 5 mg DAILY ALYSA Administration Radiology Results: ITS Impressions Shoulder X-Ray 06/12/24 02:11 IMPRESSION: Comminuted fracture of the right humeral neck, as detailed above. Diffuse bony demineralization, far advanced for patient of this age. Chest X-Ray 06/12/24 06:28 IMPRESSION: 1. Emphysema with mild discoid atelectasis in the right lower lung zone. Head CT 06/12/24 08:28 IMPRESSION: 1. Normal head CT. No fracture or acute intracranial process. Cervical Spine CT 06/12/24 08:45 IMPRESSION: 1. Moderate cervical spondylosis. No acute osseous abnormality Shoulder CT 06/12/24 12:14 IMPRESSION: 1. Displaced and angulated comminuted fracture of the surgical neck of the proximal right humerus. 2. Moderate emphysema. Intraoperative X-Ray 06/14/24 12:12 IMPRESSION: 1. Near-anatomic alignment post open reduction internal fixation of a comminuted fractures of the neck of the proximal right humerus. Labs Labs: Laboratory Results - last 24 hr 06/16/24 06/17/24 10:00 04:54 WBC 4.7 RBC 2.25 L Hgb 9.3 L 7.7 L Hct 28.9 L 24.2 L MCV 107.6 H MCH 34.2 H MCHC 31.8 L RDW 13.0 Plt Count 183 MPV 9.6 Immature Gran % (Auto) 0.4 Neut % (Auto) 73.5 H Lymph % (Auto) 12.2 L [place] % (Auto) 12.0 H Eos % (Auto) 1.5 Baso % (Auto) 0.4 Lymph # (Auto) 0.58 L [place] # (Auto) 0.6 Eos # (Auto) 0.1 Baso # (Auto) 0.0 Abs Immat Gran (auto) 0.02 Absolute Neuts (auto) 3.5 Absolute Nucleated RBC 0.000 Band Neutrophils % Not Reportable Nucleated RBC % 0.0 Platelet Estimate Adequate Macrocytosis 1+ Schistocytes None seen Sodium 132 L Potassium 3.3 L Chloride 101 Carbon Dioxide 28 Anion Gap 3 L BUN 5 L Creatinine 0.45 L Estim Creat Clear Calc 100 Estimated GFR > 60 Glucose 96 Calcium 8.0 L Magnesium 1.8 Total Bilirubin 0.8 AST 30 ALT 12 Alkaline Phosphatase 69 Total Protein 5.0 L Albumin 2.7 L
[2024-06-17 07:48] LABS: Iron 34 ug/dL (37-170)
[2024-06-17 07:59] LABS: Percent Iron Saturation 15 % (20-50)
[2024-06-17] MEDS: ROSUVASTATIN 5 MG TABLET PO (08:31)
[2024-06-17] MEDS: DULoxetine HCL 60 MG CAPSULE.DR BY MOUTH (08:31)
[2024-06-17] MEDS: FLUTICASONE/UMECLIDIN/VILANTER 100-62.5-25 MCG ELLIPTA 1 PUFF INHALATION (08:31)
[2024-06-17] MEDS: LOSARTAN POTASSIUM 25 MG TABLET PO (08:31)
[2024-06-17] MEDS: EZETIMIBE 10 MG TABLET BY MOUTH (08:32)
[2024-06-17] MEDS: POTASSIUM CHLORIDE 20 MEQ ER TABLET 40 MEQ PO (08:32)
[2024-06-17] MEDS: METOPROLOL SUCCINATE EXT REL 25 MG TABCR PO (08:32)
--- NOTE | 2024-06-17 08:42 | PCOTNOTE ---
Attempted to see Patient at this time for OT treatment session. Patient declined, states it's to early, will check back at a later time.
[2024-06-17 09:37] LABS: Hematocrit 25.3 % (37.0-47.0)
[2024-06-17 10:10] LABS: Folic Acid 8.4 ng/mL (2.76->20); Vitamin B12 > 1000.0 pg/mL (239-931)
--- NOTE | 2024-06-17 13:59 | P.DS_ITS ---
DS: Admitting Diagnosis Discharge Date 06/17/2024 Admitting Diagnosis syncope fracture, humerus chf paroxysmal afib copd hld nausea/vomiting DS: Discharge Diagnosis Discharge Diagnosis (1) Syncope: Code(s): R55 - Syncope and collapse Status: Acute (2) Fracture, humerus: Code(s): S42.309A - Unspecified fracture of shaft of humerus, unspecified arm, initial encounter for closed fracture Status: Acute (3) CHF (congestive heart failure): Qualifiers: Heart failure chronicity: chronic Heart failure type: combined systolic and diastolic Qualified Code(s): I50.42 - Chronic combined systolic (congestive) and diastolic (congestive) heart failure Code(s): I50.9 - Heart failure, unspecified Status: Acute (4) Paroxysmal atrial fibrillation: Code(s): I48.0 - Paroxysmal atrial fibrillation Status: Acute (5) Essential hypertension: Code(s): I10 - Essential (primary) hypertension Status: Acute (6) COPD (chronic obstructive pulmonary disease): Qualifiers: COPD type: unspecified COPD Qualified Code(s): J44.9 - Chronic obstructive pulmonary disease, unspecified Code(s): J44.9 - Chronic obstructive pulmonary disease, unspecified Status: Acute (7) Hyperlipidemia: Qualifiers: Hyperlipidemia type: unspecified Qualified Code(s): E78.5 - Hyperlipidemia, unspecified Code(s): E78.5 - Hyperlipidemia, unspecified Status: Acute (8) Nausea & vomiting: Code(s): R11.2 - Nausea with vomiting, unspecified Status: Acute DS: Summary Hospital Course Reason for hospitalization: syncope fracture, humerus chf paroxysmal afib copd hld nausea/vomiting Hospital Course: 63 year old female with past medical history of COPD, paroxysmal atrial fibrillation on anticoagulation, hyperlipidemia and hypertension presented to the hospital following a syncopal episode resulting right upper extremity pain. Patient denied feeling dizzy, any illness, or feeling any differently before she passed out. 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 Likely related to orthostatic hypotension given recently started jardiance and spironolactone 3 months ago, remains on full dose of coreg and entresto on admission. Head ct and c spine unremarkable. Cardiology consulted. Echo showed LVEF 55-60% which is improved from 3 months ago with EF 35%. Changed coreg to metoprolol and entresto to losartan. Discontinued jardiance and spironolactone. Patients blood pressure remains stable following medication changes. Cardiology signed off and patient to follow up with her primary cardiology Dr. Perez as scheduled. Right shoulder XR showed comminuted fracture of the right humeral neck and diffuse bony demineralization, far advanced for patient of this age. Right shoulder CT showed displaced and angulated comminuted fracture of the surgical neck of the proximal right humerus and moderate emphysema. Ortho consulted and patient underwent a intramedullary nail fixation right proximal humerus fracture on 06/[address] Rhodes. Patient to follow up with Dr. Rhodes in the outpatient setting. Prior to discharge discussed patient with pulmonology Dr. Nails who agreed that patients o2 requirement is likely secondary to ongoing/worsening copd. Discussed with patient that she is to follow up with her PCP in terms of pulmonology referral. Patient is to continue beztri as prescribed. Patient underwent an O2 eval prior to discharge and is to remain on room air at rest and 1L with activity. At time of discharge patient had no complaints denying chest pain, palpitations, shortness of breath, nausea/vomiting, abdominal pain, and dizziness/lightheadedness with ambulation. Patient discharged with home health in a stable condition. She is to follow up with cardiology, ortho and her PCP as scheduled. Status at Discharge Functional status at discharge: independent ambulation Time Spent with Patient Time attestation: Total time spent providing and/or coordinating discharge services: Time spent: Greater than 30 minutes Exam Narrative: AF HR 88 RR 16 SpO2 93 RA BP 124/80 General: female in no acute respiratory distress who is nontoxic appearing, sitting up in chair HEENT: Normocephalic. Atraumatic. Extraocular movement intact. Sclera clear and anicteric. No facial asymmetry. Chest: Lungs are clear to auscultation bilaterally. CV: Heart was regular rate and rhythm. S1-S2. No murmurs, gallops, or rubs. Abd: Abdomen was soft. Nontender. Nondistended. Positive bowel sounds. No organ omegaly or masses. Ext: No clubbing, cyanosis, or edema. DP pulses bilaterally. Radial pulse intact. Sensation intact. Moving wrist. RUE remains in sling. DS: Data Data Completed and Pending Completed studies during hospitalization: intraoperative xr shoulder ct c spine ct head ct chest xr shoulder xr Labs on day of discharge: Labs from last 24 hours 06/17/24 06/17/24 09:30 04:54 WBC 4.7 RBC 2.25 L Hgb 8.0 L 7.7 L Hct 25.3 L 24.2 L MCV 107.6 H MCH 34.2 H MCHC 31.8 L RDW 13.0 Plt Count 183 MPV 9.6 Immature Gran % (Auto) 0.4 Neut % (Auto) 73.5 H Lymph % (Auto) 12.2 L [place] % (Auto) 12.0 H Eos % (Auto) 1.5 Baso % (Auto) 0.4 Lymph # (Auto) 0.58 L [place] # (Auto) 0.6 Eos # (Auto) 0.1 Baso # (Auto) 0.0 Abs Immat Gran (auto) 0.02 Absolute Neuts (auto) 3.5 Absolute Nucleated RBC 0.000 Band Neutrophils % Not Reportable Nucleated RBC % 0.0 Platelet Estimate Adequate Macrocytosis 1+ Schistocytes None seen Sodium 132 L Potassium 3.3 L Chloride 101 Carbon Dioxide 28 Anion Gap 3 L BUN 5 L Creatinine 0.45 L Estim Creat Clear Calc 100 Estimated GFR > 60 Glucose 96 Calcium 8.0 L Magnesium 1.8 Iron 34 L TIBC 223 L % Saturation 15 L Total Bilirubin 0.8 AST 30 ALT 12 Alkaline Phosphatase 69 Total Protein 5.0 L Albumin 2.7 L Vitamin B12 > 1000.0 H Folate 8.4 Discharge Plan Discharge Attending physician on discharge: Maria Isabel Tracy Consulting providers: Mervin Rhodes; Chuck Lima Discharging Clinician: Lidia Lea Anticipated Discharge Date/Time: 06/17/24 13:59 Patient Disposition: Home with Home Health Service Activity: may shower, no driving and follow weight bearing status Wound Care Instructions: follow printed instructions Discharge Instructions: Discharge disposition: Patient admitted to the hospital following a syncopal/fainting event resulting in right arm pain See ortho instructions below Continue tylenol for pain and Percocet for break through Attached is information on this medication Do not drive or operate heavy machinery while taking Percocet Syncopal episode likely secondary to low blood pressures Evaluated by cardiology Take medications as prescribed Discontinue Coreg, Entresto, Jardiance, and Spironolactone Started on Metoprolol Succinate 25 mg daily and Losartan 25 mg daily. Attached is information on these new medications Chest XR showing emphysema, previously seen on CT in 2022 Now requiring no oxygen at rest, but 1L NC with activity Follow up with primary care provider about being referred to a pulmonologists Continue Beztri as prescribed Strongly encourage smoking cessation Monitor blood pressures Take caution while standing, rising, or moving Change positions slowly taking a break between each position change If you standing feel dizzy sit back down and take a break Encouraged to continue with yearly vaccinations Return to the emergency department if he developed sudden shortness of breath, chest pain, nausea, vomiting, upset stomach or intractable diarrhea Return to the emergency department if you develop fever greater than 101.5 Follow-up with the primary care physician within 1-2 weeks Thank you for choosing [facility] for your healthcare needs Dr. Mervin Rhodes Orthopedic Recommendations [phone] * Pain control. Ice. * NWB Right upper extremity. Sling. No lifting/pushing/pulling. * Pendulum exercises only. * Daily dressing changes. * Allow steri strips/dermabond to fall off naturally. * Change dressing at the upper arm daily and as needed for excessive drainage. * Resume anticoagulation. Care Coordination: Patient to have [facility] for PT/OT eval and treat, and chcf. Their phone number is [phone] if you have any questions; they will contact you to schedule their first visit. Patient Instructions: Oxycodone/Acetaminophen (By mouth), How to Stop Smoking (DC), Arm Fracture in Adults (DC), Syncope (DC), Using Oxygen at Home (DC), COPD (Chronic Obstructive Pulmonary Disease) (DC), Hypotension (DC) Patient Language: Estonian Stand Alone Forms: General Discharge Information Follow-up/Referrals: Mervin Rhodes MD [Physician] - 07/30/24 10:30 am Chuck Lima DO [Physician] - Call for Appointment Max Patel APRN [Primary Care Provider] - 1 Week Discharge Medications: New losartan 25 mg Tablet 25 mg PO DAILY Qty: 30 0RF metoprolol succinate [Toprol XL] 25 mg Tablet Extended Release 24 Hr 25 mg PO QAM Qty: 30 0RF oxycodone-acetaminophen 10-325 mg Tablet 1 tablet PO Q4H PRN (Reason: Pain Rated 4-10) Qty: 10 0RF Continued ergocalciferol (vitamin D2) 1,250 mcg (50,000 unit) capsule 1,250 mcg PO WEEKLY Rx Instructions: saturdays ezetimibe 10 mg tablet See Rx Instructions .ROUTE .COMPLEX Qty: 90 1RF Dose Instruction: TAKE 1 TABLET BY MOUTH EVERY DAY Rx Instructions: TAKE 1 TABLET BY MOUTH EVERY DAY duloxetine 60 mg capsule,delayed release(DR/EC) See Rx Instructions .ROUTE .COMPLEX Qty: 90 1RF Dose Instruction: TAKE 1 CAPSULE BY MOUTH EVERY DAY Rx Instructions: TAKE 1 CAPSULE BY MOUTH EVERY DAY Xarelto 20 mg tablet See Rx Instructions .ROUTE .COMPLEX Qty: 90 1RF Dose Instruction: TAKE 1 TABLET BY MOUTH EVERY DAY WITH DINNER Rx Instructions: TAKE 1 TABLET BY MOUTH EVERY DAY WITH DINNER rosuvastatin 5 mg tablet 5 mg PO DAILY Qty: 90 1RF Rx Instructions: TAKE 1 TABLET BY MOUTH EVERY DAY Breztri Aerosphere 160-9-4.8 mcg/actuation HFA aerosol inhaler See Rx Instructions .ROUTE .COMPLEX Qty: 10.7 5RF Dose Instruction: INHALE 2 PUFFS BY MOUTH TWICE DAILY Rx Instructions: INHALE 2 PUFFS BY MOUTH TWICE DAILY alprazolam 0.25 mg tablet 0.25 mg PO QHS Qty: 30 0RF Rx Instructions: TAKE 1 TABLET BY MOUTH DAILY NEEDED Discontinued carvedilol 25 mg tablet 25 mg PO Q12H Qty: 90 0RF Rx Instructions: must administer with a meal/food spironolactone 25 mg tablet 12.5 mg PO DAILY Jardiance 10 mg tablet 10 mg PO DAILY Entresto 97-103 mg tablet 1 tablet PO BID Date of admission: 06/12/24 08:20 Primary Care Provider: Max Patel Admitting Provider: Lesa Powell Attending physician on admission: Lidia Lea Condition: Stable Hospitalist MIPS Heart Failure (Exclusion) Patient has history of Heart Transplant or Left Ventricular Assistive Device?: No IF YES, STOP HERE Heart Failure (Qualifier) Patient has current or prior documentation of LVEF less than or equal to 40%, or mod/servere depressed LVSF?: No IF NO, STOP HERE
--- NOTE | 2024-06-17 14:23 | PCRCNOTE ---
O2 EVAL DONE, PT REQUIRES 1 L WITH ACTIVITY. SET UP WITH HOME CARE EQUIPMENT. POC IN ROOM AND PT HAS BEEN INSTRUCTED
== END 2024-06-17 15:15 | disposition home health service (06) | DRG 493 ==
LOC: ANHED 06-12 06:52 → ANH2MED 06-12 08:27
PROVIDERS: Nurse Practitioner Family; Orthopaedic Surgery; Admitting Provider Internal Medicine; Emergency Provider Emergency Medicine; PCP Nurse Practitioner; Visit Provider Student in an Organized Health Care Education/Training Program
PROC: 0PHC36Z Insertion of Intramedullary Internal Fixation Device into Right Humeral Head, Percutaneous Approach (ICD-10-PCS; principal; 2024-06-14 09:00)
DX: S42.211A Unspecified displaced fracture of surgical neck of right humerus, initial encounter for closed fracture (principal); I42.8 Other cardiomyopathies; I50.42 Chronic combined systolic (congestive) and diastolic (congestive) heart failure; I95.1 Orthostatic hypotension; W18.30XA Fall on same level, unspecified, initial encounter; T50.0X5A Adverse effect of mineralocorticoids and their antagonists, initial encounter; I48.0 Paroxysmal atrial fibrillation; E86.0 Dehydration; I11.0 Hypertensive heart disease with heart failure; E78.5 Hyperlipidemia, unspecified; F41.8 Other specified anxiety disorders; J43.9 Emphysema, unspecified; M81.0 Age-related osteoporosis without current pathological fracture; F17.210 Nicotine dependence, cigarettes, uncomplicated; Z79.01 Long term (current) use of anticoagulants; Z95.810 Presence of automatic (implantable) cardiac defibrillator; Z90.711 Acquired absence of uterus with remaining cervical stump
CPT/HCPCS: 36415; 70450; 71045; 72125; 73030; 73200; 80053; 81003; 82306; 82607; 82746; 83540; 83550; 83605; 83690; 83735; 83880; 84484; 85014; 85018; 85025; 93005; 93306; 94618; 94640; 96361; 96374; 96376; 97110; 97116; 97161; 97165; 97530; 97535; 99199; 99285; A9270; C8929; J0690; J0780; J1100; J1171; J2003; J2250; J2371; J2405; J3010; J3475; J7030; J7040; J7120; Q9957

== ENCOUNTER 2024-06-18 02:58 | Inpatient (IN) | payer OTHER, SELFPAY ==
[2024-06-18] VITALS (20 sets, daily range): BP systolic 88–118; BP diastolic 52–91; PULSE 74–122; RESP 15–21; TEMP 36.4–36.8; O2SAT 95–100; BMI 25.7
--- NOTE | ~2024-06-18 | CT_ITS ---
Clinical Indication: Shortness of breath, recent surgery CT Scan of the Chest with Contrast: Technique: Contiguous sections were acquired throughout the chest after intravenous administration of 100 cc of Omnipaque 350. Dose reduction technique was used on this scan by utilizing automated expos ure control and iterative reconstruction technique. The dose-length product (DLP) was 535.46 mGy-cm. COMPARISON: 07/29/2022 Findings: There is no evidence of any significant mediastinal, hilar or axillary lymphadenopathy. There is no f illing defect in the pulmonary arterial tree to suggest pulmonary embolus. There is no evidence of ao rtic dissection or aneurysm. No pericardial effusion. There are small bilateral pleural effusions, left greater than right, with mild bibasilar atelectatic change. There is moderate to advanced emphysema.. Images through the upper abdomen reveal no abnormalities. Proximal right humeral shaft fracture parti ally visualized intramedullary tabitha present. Chronic T7 compression fracture present. Impression: No evidence of pulmonary embolus, aortic dissection, or aortic aneurysm. Small bilateral pleural effusions, left greater than right, mild atelectatic change. Moderate to advanced emphysema. Probable recent ORIF of proximal humeral shaft fracture with humeral intramedullary tabitha present. Reviewed, dictated and finalized at location . Impression: No evidence of pulmonary embolus, aortic dissection, or aortic aneurysm. Small bilateral pleural effusions, left greater than right, mild atelectatic ch ariadna. Moderate to advanced emphysema. Probable recent ORIF of proximal humeral shaft fracture with humeral intramedul alda tabitha present.
--- NOTE | 2024-06-18 03:01 | ECG_ITS ---
Test Date: 2024-06-18 02:59:23 Measurements Intervals [place] Rate: 118 P: 62 DC: 114 QRS: 60 QRSD: 97 T: 90 QT: 340 QTc: 477 Interpretive Statements SINUS TACHYCARDIA WITH SHORT DC INTERVAL POSSIBLE ANTERIOR MYOCARDIAL INFARCTION , OF INDETERMINATE AGE [30 ms Q WAVE IN V3/V4, OR R < 0.2 mV IN V4] Compared to ECG 06/12/2024 06:10:20 Short DC interval now present Myocardial infarct finding now present Sinus rhythm no longer present Electronically Signed On 06-18-2024 19:08:41 CDT by Bravo Hernandez
[2024-06-18 03:19] LABS: Basophils Absolute Auto 0.1 K/mm3 (0.0-0.1); Basophils Percent Auto 0.6 % (0.2-1.2); Eosinophils Absolute Auto 0.1 K/mm3 (0-0.3); Hematocrit 30.6 % (37.0-47.0); Hemoglobin 9.6 g/dL (12.0-15.0); Immature Granulocyte Absolute 0.05 K/mm3 (0.00-0.031); Immature Granulocyte Percent A 0.6 % (0-0.5); Lymphocytes Absolute Auto 1.24 K/mm3 (0.9-3.2); Lymphocytes Percent Auto 14.2 % (18.3-44.2); Mean Corpuscular HGB Conc 31.4 g/dl (32-36); Mean Corpuscular Hemoglobin 33.7 pg (26-34); Mean Corpuscular Volume 107.4 fl (80-100); Mean Platelet Volume 9.5 fl (7.4-10.4); Monocytes Absolute Auto 1.3 K/mm3 (0.1-0.6); Monocytes Percent Auto 14.6 % (2.6-8.5); Platelet Count Result 287 k/mm3 (150-375); Red Blood Count 2.85 M/mm3 (4.2-5.4); Red Cell Distribution Width 13.2 % (11.5-14.5); White Blood Count 8.7 K/mm3 (4.5-10.0)
[2024-06-18 03:38] LABS: Anisocytosis 1+; Band Neutrophils Percent 0 % (0-6); Platelet Estimate Adequate (Adequate); Schistocytes None Seen
--- OUTSIDE RECORDS SUMMARY | 2024-06-18 03:39 | XMS_ITS | Clinical Summary ---
Author Organization [facility] Address [address] [place] [address] Care Team Providers Care Retail Cosmetics Sales Counter Manager Name Role Phone Neal Robbins MD Primary Care Provider [phone] Allergies Active Allergy Reactions Criticality Noted Date [...] migh t be different from the original. Tonger - Dr Mati Perez Problem Noted Date [...] [facility] Ralf ICD - Current DR FITZGERALD [id number] SN: [id number] - Implanted 10/12/[address] 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] series) 2021 INFLUENZA VACCINE (#1) 2023 Insurance [employer] [facility] OPEN ACCESS Care Teams Retail Cosmetics Sales Counter Manager Relationship Specialty Start Date End Date Neal Robbins MD [address] [place] [phone] PCP - General Family Practice 03/09/10
--- OUTSIDE RECORDS SUMMARY | 2024-06-18 03:40 | XMS_ITS | CONTINUITY OF CARE DOCUMENT ---
Author Name dee price Address Unknown Organization [facility] Address [address] [place] [address] [address] [place] [address] Phone [phone] Care Team Providers Care Digital Sales Representative Name Role Phone Moreno Brennan MD Unavailable [phone] Moreno Brennan MD Unavailable [phone] INSURANCE PROVIDERS Payer name Policy type / Coverage type [place] red [employer] party ID [id number] PAY
--- OUTSIDE RECORDS SUMMARY | 2024-06-18 03:40 | XMS_ITS | Clinical Summary ---
Author Organization [facility] Address [address] [facility] [place] [address] Care Team Providers Care Equipment Records Supervisor Name Role Phone Gary Tom MD Primary Care Provider [phone] Source Comments [facility] [employer],non-owned Affiliates and Associated Physician Practices is amultiple site organization consisting of ambulatory clinics and hospital sitesin [place], [place], [place] and [place]. This disclosure is being madepursuant to the Care Everywhere program and may not contain all information available regarding this patient. Last updated 17.[facility] [employer] Allergies No known active allergies Medications * Be aware that medications may not be up to date on this document. Alwaysverify current medications with the patient. DULoxetine (CYMBALTA) 60 MG capsule Take 1 (one) capsule by mouth once daily Active vitamin D, ergocalciferol, (DRISDOL) 25381 UNITS capsule Take 1 (one) capsule by [...] not taking.Reported on 09/10/2022 saline nasal spray ([place]; Baby [place]) 0.65 % nasal spray [place] 1 (one) spray into each nostril every [...] Patient not taking.Reported on 09/10/2022 HYDROcodone-acetam inophen (Debary) 5-325 MG tabletIndications: Pleural effusion,Chronic systolic heart [...] Patient not taking.Reported on 09/10/2022 HYDROcodone-acetam inophen (Debary) 5-325 MG tabletIndications: Empyema (HCC),Postoperativ e pain Take 1 (one) tablet by mouth every 8 hours as needed for Pain 30 tablet 023 Active traMADol (Ultram) 50 MG tablet Take 1 (one) tablet by mouth every 6 hours as needed for Pain 30 tablet 023 Active HYDROcodone-acetam inophen (Debary) 5-325 MG tabletIndications: 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 Ralf ICD - Current DR FITZGERALD [id number] SN: [id number] - Implanted 10/12/[address] Eric Nuno RA: LANCE [id number] SN: [id number] (Implanted 10/12/2008) RV: SANIA [id number] SN: [id number] (Implanted 10/12/2008) Mitral valve disorder 03/01/2015 Overview (03/01/2015): Overview: mild Essential hypertension 03/01/2015 Defibrillator 02/28/2015 Overview (01/22/2017): [facility] Ralf model [id number] SN: [id number] - Implanted 01/22/[address] 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 Not hard at all 08/01/2022 [facility] [place] [facility] - Occupational Stress [...] place to sleep or slept in a senior care (including now)? No 08/01/2022 Comments Unknown Sex and Gender Information Value Date Recorded Sex Assigned at Not on file Legal Sex Female 8:37 AM RESIDENTIAL CARPENTER Gender Identity Not on file Sexual Orientation [...] Info) Description 05/05/2025 9:00 AM CDT Appointment [facility] Imaging Services - CT Scan [address] [facility] [address] [place] [address] [place] [address] [facility] [address] [address], [address] [place] [phone] 05/10/2025 9:20 AM CDT Office Visit [facility] Heart & Vascular Care - Cardiothoracic Surgery [address] [facility] [address] [place] [phone] [place] [address], [address] [place] [address] Health Maintenance Due Date Last [...] Documents on File Type Date Recorded Patient Road Manager Expl anation Adv Directive/Living Will/POA 08/23/2022 4:26 PM * Full Code (Latest Code Status on File) Date Activated Date Inactivated Comments 08/01/2022 10:38 PM 08/22/2022 5:13 PM Care Teams Equipment Records Supervisor Relationship Specialty Start Date End Date Gary Tom MD [address] [place] [phone] PCP - General Internal Medicine 03/18/19
[2024-06-18 04:29] LABS: Troponin I 0.182 ng/mL (0.000-0.034)
[2024-06-18 04:46] LABS: Alanine Aminotransferase 18 U/L (6-35); Albumin Level 3.3 g/dL (3.5-5.1); Alkaline Phosphatase 68 U/L (38-126); Anion Gap 7 mmol/L (4-12); Aspartate Amino Transferase 41 U/L (14-36); Bilirubin,Total 0.9 mg/dL (0.2-1.3); Blood Urea Nitrogen 9 mg/dL (7-17); Calcium 8.6 mg/dL (8.4-10.2); Carbon Dioxide 25 mmol/L (22-30); Chloride 100 mmol/L (98-107); Estimated CRCL calculation 86 ml/min; Estimated Glomerular Filt Rate > 60; Glucose 133 mg/dL (65-110); Magnesium 1.9 mg/dL (1.6-2.3); Potassium 4.3 mmol/L (3.4-5.0); Sodium 132 mmol/L (137-145)
[2024-06-18 04:51] LABS: NT Pro B Type Natriuretic Pept 17000 pg/mL (19.9-100)
--- NOTE | 2024-06-18 05:00 | ED_ITS ---
HPI - General Adult General Chief complaint: Shortness of Breath/Dyspnea Stated complaint: difficulty breathing x 2-3 hours Time Seen by Provider: 06/18/24 03:00 History of Present Illness HPI narrative: Patient is a 63-year-old female who presents to the emergency department this morning complaining of worsening shortness of breath. Patient was discharged from our facility yesterday after having right shoulder surgery. Patient does have a history of CHF and COPD and normally does not wear oxygen home but when she was discharged home yesterday she was sent home with oxygen. Patient also states that she noticed that she is more swollen all over her body. Upon EMS arrival to the patient's residence, she was noted to have rapid shallow breathing and bilateral wheezing. She was administered a DuoNeb breathing treatment which patient states did improve her shortness of breath slightly. Patient was satting 94% on her 2 L prior to DuoNeb and her oxygenation improved to 100% after the DuoNeb breathing treatment. Currently denying any chest pain, nausea vomiting, or abdominal pain. There are no additional modifying, alleviating, or precipitating factors at this time. Related Data Home Medications ?Medication ?Instructions ?Recorded ?Confirmed ?Last Taken ?Type ergocalciferol (vitamin D2) 1,250 1,250 mcg PO WEEKLY 06/16/22 06/12/24 06/06/24 History mcg (50,000 unit) capsule Allergies Allergy/AdvReac Type Severity Reaction Status Date / Time No Known Allergies Allergy Verified 06/18/24 03:08 Review of Systems 2 Review of Systems: All systems are reviewed and are negative unless stated otherwise in the HPI. [facility] Past Medical History Medical History COPD (chronic obstructive pulmonary disease) CHF (congestive heart failure) EF 30% Closed fracture of right proximal humerus BMI 23.0-23.9, adult Daily consumption of alcohol Chronic anticoagulation Heart failure of unknown type Chronic obstructive pulmonary disease Paroxysmal atrial fibrillation Hyperlipidemia Depression Tobacco use Essential hypertension Age related osteoporosis Surgical History Surgical History AICD (automatic cardioverter/defibrillator) present History of permanent cardiac pacemaker placement History of implantable cardioverter-defibrillator (ICD) insertion History of cardiac catheterization History of colonoscopy History of tonsillectomy and adenoidectomy History of partial hysterectomy Family History Family History Mother Cerebrovascular accident Father Heart disease Sibling Sepsis Heart disease Social History Social History Social History: Surrogate medical decision maker: Kasey Truong, friend. Code status: Full code. Smoking packs per day: 1 Smoking cigarettes per day: 20.0 Years smoked: 50 Smoking pack-years: 50.00 Smoking status: Current every day smoker Tobacco type: cigarettes Second hand tobacco smoke exposure: No Alcohol intake: current Drinks per week: 14 Alcohol use details: 2 to 3 beers a day. Substance use: never Substance use type: does not use Do You Feel Safe in your Home?: Yes Lack of Transportation: No Lack of Food: Never True Current Housing: I Have Housing Concerned About Future Housing: No Difficulty Paying Gas/Electric Bills: No Difficulty Paying for Meds: No Currently Unemployed: No Education: High School Diploma/GED Difficulty w/ Childcare or Family Care: No Living arrangements: alone Additional living arrangements comments: Lives in [place]. Occupation/Education: occupation Additional occupation/education comments: Works at the [employer]. Gender identity (if verbalized by the patient): Female Spiritual care concerns: No Exam 2 Narrative: General: Alert, awake, afebrile, in no acute distress. HEENT: PERRL, no rhinorrhea, no post nasal drip, oropharynx clear. Neck: Trachea midline, no JVD, no lymphadenopathy. Cardiovascular: Tachycardic with regular rhythm, no murmurs, rubs or gallops, m ild bilateral lower extremity pitting edema. Respiratory: Clear to auscultation bilaterally, no tachypnea, no wheezing, no rhonchi, no rubs, no respiratory distress. Abdomen: Soft, nontender, nondistended, no rebound, no guarding, no peritoneal signs. Musculoskeletal: No joint swelling or deformity, normal muscle tone. Skin: No rashes or petechia, no signs of infection. Psychiatric: Alert and oriented, normal behavior and judgment for situation. Neurological: Alert and oriented to person, place, and time. Follows all commands. No focal deficits, speech is clear and fluent. Course Vital Signs Vital signs: Vital Signs Temperature 98.2 F 06/18/24 02:56 Pulse Rate 122 H 06/18/24 02:56 Respiratory Rate 20 06/18/24 02:56 Blood Pressure 118/91 H 06/18/24 02:56 Pulse Oximetry 96 06/18/24 02:56 Oxygen Delivery Room Air 06/18/24 02:56 Temperature 98.2 F 06/18/24 02:56 Pulse Rate 115 H 06/18/24 05:40 Respiratory Rate 18 06/18/24 05:40 Blood Pressure 100/79 06/18/24 05:40 Pulse Oximetry 100 06/18/24 05:40 Oxygen Delivery Nasal Cannula 06/18/24 05:40 Oxygen Flow Rate 2 06/18/24 05:40 Medical Decision Making MDM Narrative Medical decision making narrative: The patient was evaluated by myself in the emergency department. History is obtained from patient who is an independent historian and physical exam was performed. External medical records were reviewed at this time. IV was established and pertinent tests were ordered. EKG was obtained which revealed sinus tachycardia rate of 118 beats per minute, no evidence of acute ischemia. EKG was independently interpreted by me and is currently pending official cardiology read. Laboratory results obtained revealing an elevated troponin at 0.18 [place] [address]. Patient's recent blood work including troponin and proBNP obtained on June 12 revealed a normal troponin and a BNP of 261. Imaging studies obtained included CTA PE protocol which was independently interpreted by me revealing: Impression: No evidence of pulmonary embolus, aortic dissection, or aortic aneurysm. Small bilateral pleural effusions, left greater than right, mild atelectatic change. Moderate to advanced emphysema. Probable recent ORIF of proximal humeral shaft fracture with humeral intramedullary tabitha present. Differential diagnosis considerations include pulmonary emboli, CHF exacerbation, COPD exacerbation, acute viral syndrome, infectious process such as pneumonia. Comorbidities impacting this visit include history of COPD and CHF. I have evaluated and discussed social determinants of health with the patient that could potentially impact subsequent diagnosis and treatment plans. On repeat assessment of the patient, reevaluation revealed that the patient is doing well and is in no acute distress. Patient symptoms have improved since she arrived to our emergency department. Repeat vital signs were all reviewed and noted to be stable. Differential diagnosis and treatment plan were discussed with the patient at bedside. Patient agrees with discussion and after shared medical decision making agrees with admission. All questions were answered to the patient's satisfaction. Case discussed with on-call PARTY DEMONSTRATOR Karen at 0630 and she accepted admission. Vital Signs Vital Signs: Vital Signs Temperature 98.2 F 06/18/24 02:56 Pulse Rate 122 H 06/18/24 02:56 Respiratory Rate 20 06/18/24 02:56 Blood Pressure 118/91 H 06/18/24 02:56 Pulse Oximetry 96 06/18/24 02:56 Oxygen Delivery Room Air 06/18/24 02:56 Temperature 98.2 F 06/18/24 02:56 Pulse Rate 115 H 06/18/24 05:40 Respiratory Rate 18 06/18/24 05:40 Blood Pressure 100/79 06/18/24 05:40 Pulse Oximetry 100 06/18/24 05:40 Oxygen Delivery Nasal Cannula 06/18/24 05:40 Oxygen Flow Rate 2 06/18/24 05:40 Lab Data 06/18/24 03:12 06/18/24 03:48 Labs: Lab Results 06/18/24 06/18/24 Range/Units 03:12 03:48 WBC 8.7 (4.5-10.0) K/mm3 RBC 2.85 L (4.2-5.4) M/mm3 Hgb 9.6 L (12.0-15.0) g/dL Hct 30.6 L (37.0-47.0) % MCV 107.4 H (80-100) fl MCH 33.7 (26-34) pg MCHC 31.4 L (32-36) g/dl RDW 13.2 (11.5-14.5) % Plt Count 287 D (150-375) k/mm3 MPV 9.5 (7.4-10.4) fl Immature Gran % (Auto) 0.6 H (0-0.5) % Neut % (Auto) 69.0 (45.5-73.1) % Lymph % (Auto) 14.2 L (18.3-44.2) % [place] % (Auto) 14.6 H (2.6-8.5) % Eos % (Auto) 1.0 (0-4.4) % Baso % (Auto) 0.6 (0.2-1.2) % Lymph # (Auto) 1.24 (0.9-3.2) K/mm3 [place] # (Auto) 1.3 H (0.1-0.6) K/mm3 Eos # (Auto) 0.1 (0-0.3) K/mm3 Baso # (Auto) 0.1 (0.0-0.1) K/mm3 Abs Immat Gran (auto) 0.05 H (0.00-0.031) K/mm3 Absolute Neuts (auto) 6.0 (1.3-6.7) K/mm3 Absolute Nucleated RBC 0.000 (0.0-0.012) K/mm3 Band Neutrophils % 0 (0-6) % Nucleated RBC % 0.0 (0.0-0.2) % Platelet Estimate Adequate (Adequate) Anisocytosis 1+ Schistocytes None seen Sodium 132 L (137-145) mmol/L Potassium 4.3 (3.4-5.0) mmol/L Chloride 100 (98-107) mmol/L Carbon Dioxide 25 (22-30) mmol/L Anion Gap 7 (4-12) mmol/L BUN 9 (7-17) mg/dL Creatinine 0.53 L (0.7-1.0) mg/dL Estim Creat Clear Calc 86 ml/min Estimated GFR > 60 (59 - ) Glucose 133 H (65-110) mg/dL Calcium 8.6 (8.4-10.2) mg/dL Magnesium 1.9 (1.6-2.3) mg/dL Total Bilirubin 0.9 (0.2-1.3) mg/dL AST 41 H (14-36) U/L ALT 18 (6-35) U/L Alkaline Phosphatase 68 (38-126) U/L Troponin I 0.182 H* (0.000-0.034) ng/mL NT-Pro-B Natriuret Pep 52343 H (19.9-100) pg/mL Total Protein 6.0 L (6.3-8.2) g/dL Albumin 3.3 L (3.5-5.1) g/dL Discharge Plan Discharge Clinical Impression: COPD exacerbation, Elevated troponin, CHF exacerbation, Pleural effusion, bilateral Patient Disposition: Still a Patient Condition: Improved Patient Language: Wallisian Prescriptions: No Action ergocalciferol (vitamin D2) 1,250 mcg (50,000 unit) capsule 1,250 mcg PO WEEKLY Rx Instructions: saturdays losartan 25 mg Tablet 25 mg PO DAILY Qty: 30 0RF metoprolol succinate [Toprol XL] 25 mg Tablet Extended Release 24 Hr 25 mg PO QAM Qty: 30 0RF oxycodone-acetaminophen 10-325 mg Tablet 1 tablet PO Q4H PRN (Reason: Pain Rated 4-10) Qty: 10 0RF ezetimibe 10 mg tablet See Rx Instructions .ROUTE .COMPLEX Qty: 90 1RF Dose Instruction: TAKE 1 TABLET BY MOUTH EVERY DAY Rx Instructions: TAKE 1 TABLET BY MOUTH EVERY DAY duloxetine 60 mg capsule,delayed release(DR/EC) See Rx Instructions .ROUTE .COMPLEX Qty: 90 1RF Dose Instruction: TAKE 1 CAPSULE BY MOUTH EVERY DAY Rx Instructions: TAKE 1 CAPSULE BY MOUTH EVERY DAY Xarelto 20 mg tablet See Rx Instructions .ROUTE .COMPLEX Qty: 90 1RF Dose Instruction: TAKE 1 TABLET BY MOUTH EVERY DAY WITH DINNER Rx Instructions: TAKE 1 TABLET BY MOUTH EVERY DAY WITH DINNER rosuvastatin 5 mg tablet 5 mg PO DAILY Qty: 90 1RF Rx Instructions: TAKE 1 TABLET BY MOUTH EVERY DAY Breztri Aerosphere 160-9-4.8 mcg/actuation HFA aerosol inhaler See Rx Instructions .ROUTE .COMPLEX Qty: 10.7 5RF Dose Instruction: INHALE 2 PUFFS BY MOUTH TWICE DAILY Rx Instructions: INHALE 2 PUFFS BY MOUTH TWICE DAILY alprazolam 0.25 mg tablet 0.25 mg PO QHS Qty: 30 0RF Rx Instructions: TAKE 1 TABLET BY MOUTH DAILY NEEDED Follow-up/Referrals: Max Patel APRN [Primary Care Provider] - Time of Disposition: 05:05
[2024-06-18] MEDS: MORPHINE SULFATE (*CRX) 4 MG/ML INJ IV PUSH (05:32)
[2024-06-18] MEDS: ONDANSETRON INJ 4 MG/2 ML VIAL IV PUSH (05:33)
--- OUTSIDE RECORDS SUMMARY | 2024-06-18 08:14 | XMS_ITS | Clinical Summary ---
Author Organization [facility] Address [address] [place] [address] Care Team Providers Care Auto Heater Mechanic Name Role Phone Neal Robbins MD Primary Care Provider [phone] Allergies Active Allergy Reactions Criticality Noted Date [...] migh t be different from the original. Package Line Relief Operator - Dr Mati Perez Problem Noted Date [...] [facility] ICD - Current DR FITZGERALD [id number] SN: [id number] - Implanted 10/12/[address] 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 on file Not on file Not on file Last Filed Vital Signs Vital Sign Reading Time Taken Comments Blood Pressure 166/103 02/24/2014 1:38 PM METALLOGRAPHER Pulse 62 02/24/2014 1:38 PM METALLOGRAPHER Temperature - - Respiratory Rate 10 04/02/2010 1:25 PM METALLOGRAPHER Oxygen Saturation 98% 02/24/2014 1:38 PM METALLOGRAPHER Inhaled Oxygen Concentration - - Weight 64 kg (141 lb) 02/24/2014 1:38 PM METALLOGRAPHER Height 172.1 cm (5' 7.75 ) 02/24/2014 1:38 PM CS T Body Mass Index 21.6 02/24/2014 1:38 PM METALLOGRAPHER Plan of Treatment Health Maintenance Due Date [...] series) 2021 INFLUENZA VACCINE (#1) 2023 Insurance [employer] [place] OPEN ACCESS Care Teams Auto Heater Mechanic Relationship Specialty Start Date End Date Neal Robbins MD [address] [place] [phone] PCP - General Family Practice 03/09/10
--- OUTSIDE RECORDS SUMMARY | 2024-06-18 08:15 | XMS_ITS | CONTINUITY OF CARE DOCUMENT ---
Author Name dee price Address Unknown Organization [place] [facility] Address [address] [place] [address] [address] [place] [address] Phone [phone] Care Team Providers Care Algebra Teacher Name Role Phone Moreno Brennan MD Unavailable [phone] Moreno Brennan MD Unavailable [phone] INSURANCE PROVIDERS Payer name Policy type / Coverage type [place] [employer] party ID [id number] PAY
--- OUTSIDE RECORDS SUMMARY | 2024-06-18 08:15 | XMS_ITS | Clinical Summary ---
Author Organization [facility] Address [address] [place] [address] Care Team Providers Care Perinatal Educator Name Role Phone Gary Tom MD Primary Care Provider [phone] Source Comments [facility],non-owned Affiliates and Associated Physician Practices is amultiple site organization consisting of ambulatory clinics and hospital sitesin [place], [place], [place] and [place]. This disclosure is being madepursuant to the Care Everywhere program and may not contain all information available regarding this patient. Last updated 17.[facility] Allergies No known active allergies Medications * Be aware that medications may not be up to date on this document. Alwaysverify current medications with the patient. DULoxetine (CYMBALTA) 60 MG capsule Take 1 (one) capsule by mouth once daily Active vitamin D, ergocalciferol, (DRISDOL) 82812 UNITS capsule Take 1 (one) capsule by [...] not taking.Reported on 09/10/2022 saline nasal spray ([place]; Baby [place]) 0.65 % nasal spray [place] 1 (one) spray into each nostril every [...] Patient not taking.Reported on 09/10/2022 HYDROcodone-acetam inophen (Racine) 5-325 MG tabletIndications: Pleural effusion,Chronic systolic heart [...] Patient not taking.Reported on 09/10/2022 HYDROcodone-acetam inophen (Racine) 5-325 MG tabletIndications: Empyema (HCC),Postoperativ e pain Take 1 (one) tablet by mouth every 8 hours as needed for Pain 30 tablet 023 Active traMADol (Ultram) 50 MG tablet Take 1 (one) tablet by mouth every 6 hours as needed for Pain 30 tablet 023 Active HYDROcodone-acetam inophen (Racine) 5-325 MG tabletIndications: 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 ICD - Current DR FITZGERALD [id number] SN: [id number] - Implanted 10/12/[address] 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 model [id number] SN: [id number] - Implanted 01/22/[address] 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 Not hard at all 08/01/2022 [facility] [place] [facility] - Occupational Stress [...] place to sleep or slept in a retirement (including now)? 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 Gender Identity Not on file Sexual Orientation [...] Info) Description 05/05/2025 9:00 AM CDT Appointment [facility] Imaging Services - CT Scan [address] [facility] [address] [place] [address] [place] [id number] [facility] [address], [address] [place] [phone] 05/10/2025 9:20 AM CDT Office Visit [facility] - Cardiothoracic Surgery [address] [facility] [address] [place] [phone] [place] [address], [address] [place] [address] Health Maintenance Due Date Last [...] Documents on File Type Date Recorded Patient Lean Process Deployment Consultant Expl anation Adv Directive/Living Will/POA 08/23/2022 4:26 PM * Full Code (Latest Code Status on File) Date Activated Date Inactivated Comments 08/01/2022 10:38 PM 08/22/2022 5:13 PM Care Teams Perinatal Educator Relationship Specialty Start Date End Date Gary Tom MD [address] [place] [phone] PCP - General Internal Medicine 03/18/19
--- NOTE | 2024-06-18 09:09 | ADMGEN ---
This patient, Melodie Barrera, was admitted to IMU Room 211-01. Patient/family oriented to hospital policies and general routines including ID bracelet, bed and alarms, visiting hours, pain management, procedures, bathroom and other care routines, personal items, smoking policy, room service/diet, and visiting hours. Information on how to activate the Rapid Response Team has been discussed. Patient/Family are encouraged to report perceived risks to care and to ask questions if they do not understand what they are told or what they should do.
--- NOTE | 2024-06-18 09:38 | PM.IMHP ---
H&P: HPI History of Present Illness Date/Time: 06/18/24 09:38 Chief Complaint: Shortness of breath Narrative: Patient is a 63-year-old female who presents to the emergency department this morning with complaints of worsening shortness of breath. Patient was discharged from our facility yesterday after having right shoulder surgery. Patient does have a history of CHF and COPD and normally does not wear oxygen home but when she was discharged home yesterday she was sent home with oxygen. Patient also states that she noticed that she is more swollen all over her body. Upon EMS arrival to the patient's residence, she was noted to have rapid shallow breathing and bilateral wheezing. She was administered a DuoNeb breathing treatment which patient states did improve her shortness of breath slightly. Patient was satting 94% on her 2 L prior to DuoNeb and her oxygenation improved to 100% after the DuoNeb breathing treatment. Currently denying any chest pain, nausea vomiting, or abdominal pain. There are no additional modifying, alleviating, or precipitating factors at this time. In the ED she was afebrile blood pressure was adequate tachycardic oxygen saturation adequate on 2 L oxygen. EKG showed sinus tachycardia with no evidence of acute ischemia. Laboratory evaluation revealed elevated troponin 0.18, [place] [id number]. These were normal on June 12, 2024. CTA PE protocol was performed which showed no evidence of PE aortic dissection or aortic aneurysm. Small bilateral pleural effusions left greater than right was noted with mild atelectatic changes. She has underlying moderate to advanced emphysema. She is admitted for further treatment. Review of Systems Review of Systems: - CONSTITUTIONAL: Denies weight loss, fever and chills. - HEENT: Denies changes in vision and hearing - RESPIRATORY: Reports SOB and very mild cough. - CV: Denies palpitations and CP. - GI: Denies abdominal pain, nausea, vomiting and diarrhea. - : Denies dysuria and urinary frequency. - MSK: Denies myalgia and joint pain. - SKIN: Denies rash and pruritus. - NEUROLOGICAL: Denies headache and syncope. - PSYCHIATRIC: Denies recent changes in mood. Denies anxiety and depression. PMFSH Past Medical History Medical History COPD (chronic obstructive pulmonary disease) CHF (congestive heart failure) EF 30% Closed fracture of right proximal humerus BMI 23.0-23.9, adult Daily consumption of alcohol Chronic anticoagulation Heart failure of unknown type Chronic obstructive pulmonary disease Paroxysmal atrial fibrillation Hyperlipidemia Depression Tobacco use Essential hypertension Age related osteoporosis Surgical History Surgical History AICD (automatic cardioverter/defibrillator) present History of permanent cardiac pacemaker placement History of implantable cardioverter-defibrillator (ICD) insertion History of cardiac catheterization History of colonoscopy History of tonsillectomy and adenoidectomy History of partial hysterectomy Family History Family History Mother Cerebrovascular accident Father Heart disease Sibling Sepsis Heart disease Social History Social History Social History: Surrogate medical decision maker: Kasey Truong, friend. Code status: Full code. Smoking packs per day: 1 Smoking cigarettes per day: 20.0 Years smoked: 50 Smoking pack-years: 50.00 Smoking status: Current every day smoker Tobacco type: cigarettes Second hand tobacco smoke exposure: No Alcohol intake: current Drinks per week: 14 Alcohol use details: 2 to 3 beers a day. Substance use: never Substance use type: does not use Do You Feel Safe in your Home?: Yes Lack of Transportation: No Lack of Food: Never True Current Housing: I Have Housing Concerned About Future Housing: No Difficulty Paying Gas/Electric Bills: No Difficulty Paying for Meds: No Currently Unemployed: No Education: High School Diploma/GED Difficulty w/ Childcare or Family Care: No Living arrangements: alone Additional living arrangements comments: Lives in [place]. Occupation/Education: occupation Additional occupation/education comments: Works at the [employer]. Gender identity (if verbalized by the patient): Female Spiritual care concerns: No Meds Home Medications and Allergies Home Medications ?Medication ?Instructions ?Recorded ?Confirmed ?Type ergocalciferol (vitamin D2) 1,250 1,250 mcg PO WEEKLY 06/16/22 06/18/24 History mcg (50,000 unit) capsule duloxetine 60 mg capsule,delayed See Rx Instructions .Route 03/02/24 06/18/24 Rx release .COMPLEX #90 caps ezetimibe 10 mg tablet See Rx Instructions .Route 03/02/24 06/18/24 Rx .COMPLEX #90 tabs rivaroxaban 20 mg tablet (Xarelto) See Rx Instructions .Route 06/01/24 06/18/24 Rx .COMPLEX #90 tabs rosuvastatin 5 mg tablet 5 mg PO DAILY #90 tabs 06/01/24 06/18/24 Rx budesonide 160 mcg-glycopyr 9 See Rx Instructions .Route 06/02/24 06/18/24 Rx mcg-formot 4.8 mcg/actuation HFA .COMPLEX #10.7 ea inhaler (Breztri Stionphere) alprazolam 0.25 mg tablet 0.25 mg PO QHS #30 tabs 06/04/24 06/18/24 Rx losartan 25 mg tablet 25 mg PO DAILY #30 tabs 06/17/24 06/18/24 Rx metoprolol succinate 25 mg 25 mg PO QAM #30 tabs 06/17/24 06/18/24 Rx tablet,extended release 24 hr (Toprol XL) oxycodone-acetaminophen 10 mg-325 1 tablet PO Q4H PRN Pain Rated 06/17/24 06/18/24 Rx mg tablet 4-10 #10 tabs Allergies Allergy/AdvReac Type Severity Reaction Status Date / Time No Known Allergies Allergy Verified 06/18/24 03:08 Vital Signs Vital Signs - 24 hr 06/18/24 02:56 06/18/24 03:07 06/18/24 04:30 Temperature 98.2 F Pulse Rate 122 H 108 H Respiratory Rate 20 21 H Blood Pressure 118/91 H 107/83 Pulse Oximetry 96 96 95 Oxygen Delivery Room Air Room Air Oxygen Flow Rate 06/18/24 05:40 06/18/24 05:40 06/18/24 06:48 Temperature Pulse Rate 115 H 107 H Respiratory Rate 18 18 Blood Pressure 100/79 102/81 Pulse Oximetry 100 100 96 Oxygen Delivery Nasal Cannula Oxygen Flow Rate 2 06/18/24 06:53 06/18/24 07:52 06/18/24 08:00 Temperature 98.2 F 97.9 F Pulse Rate 117 H 106 H 109 H Respiratory Rate 15 20 18 Blood Pressure 102/81 102/79 106/79 Pulse Oximetry 95 95 99 Oxygen Delivery Oxygen Flow Rate Exam Narrative: General: Alert, awake, afebrile, in no acute distress. HEENT: PERRL, no rhinorrhea, no post nasal drip, oropharynx clear. Neck: Trachea midline, no JVD, no lymphadenopathy. Cardiovascular: Mildly Tachycardic with regular rhythm, no murmurs, rubs or gallops, mild bilateral lower extremity pitting edema. Respiratory: Clear to auscultation bilaterally, no tachypnea, no wheezing, no rhonchi, no rubs, no respiratory distress. Abdomen: Soft, nontender, nondistended, no rebound, no guarding, no peritoneal signs. Musculoskeletal: No joint swelling or deformity, normal muscle tone. Skin: No rashes or petechia, no signs of infection. Psychiatric: Alert and oriented, normal behavior and judgment for situation. Neurological: Alert and oriented to person, place, and time. Follows all commands. No focal deficits, speech is clear and fluent. H&P: Results Labs Labs: Short CBC 06/18/24 Range/Units 03:12 WBC 8.7 (4.5-10.0) K/mm3 Hgb 9.6 L (12.0-15.0) g/dL Hct 30.6 L (37.0-47.0) % Plt Count 287 D (150-375) k/mm3 BMP 06/18/24 03:48 Sodium 132 L Potassium 4.3 Chloride 100 Carbon Dioxide 25 BUN 9 Creatinine 0.53 L Glucose 133 H Calcium 8.6 Cardiac Enzymes 06/18/24 Range/Units 03:48 Troponin I 0.182 H* (0.000-0.034) ng/mL Liver Function 06/18/24 Range/Units 03:48 Total Bilirubin 0.9 (0.2-1.3) mg/dL AST 41 H (14-36) U/L ALT 18 (6-35) U/L Alkaline Phosphatase 68 (38-126) U/L Albumin 3.3 L (3.5-5.1) g/dL Assessment and Plan Assessment and plan (1) CHF exacerbation: Code(s): I50.9 - Heart failure, unspecified Status: Acute (2) Systolic dysfunction: Code(s): I51.9 - Heart disease, unspecified Status: Acute (3) Essential hypertension: Code(s): I10 - Essential (primary) hypertension Status: Acute (4) CHF (congestive heart failure), NYHA class I: Code(s): I50.9 - Heart failure, unspecified Status: Acute (5) Elevated troponin: Code(s): R77.8 - Other specified abnormalities of plasma proteins Status: Acute (6) Paroxysmal atrial fibrillation: Code(s): I48.0 - Paroxysmal atrial fibrillation Status: Acute (7) AICD (automatic cardioverter/defibrillator) present: Code(s): Z95.810 - Presence of automatic (implantable) cardiac defibrillator Status: Acute (8) Hyperlipidemia: Qualifiers: Hyperlipidemia type: unspecified Qualified Code(s): E78.5 - Hyperlipidemia, unspecified Code(s): E78.5 - Hyperlipidemia, unspecified Status: Acute (9) Anxiety: Code(s): F41.9 - Anxiety disorder, unspecified Status: Acute (10) Depression: Qualifiers: Depression Type: major depressive disorder Major depression recurrence: recurrent Active/Remission status: in full remission Qualified Code(s): F33.42 - Major depressive disorder, recurrent, in full remission Code(s): F32.9 - Major depressive disorder, single episode, unspecified Status: Acute (11) COPD (chronic obstructive pulmonary disease): Qualifiers: COPD type: unspecified COPD Qualified Code(s): J44.9 - Chronic obstructive pulmonary disease, unspecified Code(s): J44.9 - Chronic obstructive pulmonary disease, unspecified Status: Acute (12) Pleural effusion, bilateral: Code(s): J90 - Pleural effusion, not elsewhere classified Status: Acute Plan Patient is a 63-year-old female who presents to the emergency department this morning with complaints of worsening shortness of breath. Patient was discharged from our facility yesterday after having right shoulder surgery. Patient does have a history of CHF and COPD and normally does not wear oxygen home but when she was discharged home yesterday she was sent home with oxygen. Patient also states that she noticed that she is more swollen all over her body. Upon EMS arrival to the patient's residence, she was noted to have rapid shallow breathing and bilateral wheezing. She was administered a DuoNeb breathing treatment which patient states did improve her shortness of breath slightly. Patient was satting 94% on her 2 L prior to DuoNeb and her oxygenation improved to 100% after the DuoNeb breathing treatment. Currently denying any chest pain, nausea vomiting, or abdominal pain. There are no additional modifying, alleviating, or precipitating factors at this time. In the ED she was afebrile blood pressure was adequate tachycardic oxygen saturation adequate on 2 L oxygen. EKG showed sinus tachycardia with no evidence of acute ischemia. Laboratory evaluation revealed WBC 8.7 hemoglobin 9.6 creatinine 0.5 sodium 132. LFTs were normal. Elevated troponin 0.18, [place] [address]. These were normal on June 12, 2024. CTA PE protocol was performed which showed no evidence of PE aortic dissection or aortic aneurysm. Small bilateral pleural effusions left greater than right was noted with mild atelectatic changes. She has underlying moderate to advanced emphysema. She is admitted for further treatment. Acute on chronic CHF diastolic. History of systolic dysfunction 3 months ago with EF 35%. Echo 06/14/2024 with EF 55-60% mild aortic valve stenosis Elevated troponin follow trend Moderate to severe emphysema Chronic respiratory failure needing oxygen since 05/2024 Recent right shoulder surgery 4 committed fracture right humeral neck Hypertension Hyperlipidemia Chronic anticoagulation with Xarelto Alcohol use anxiety depression Osteoporosis Paroxysmal atrial fibrillation currently sinus rhythm DVT prophylaxis on Xarelto Code status full code Hospitalist [facility] Advance Care Plan I have confirmed that the patient's Advanced Care Plan is present, code status is documented, or surrogate decision maker is listed in patient medical record.: Yes Medication Reconciliation I have utilized all available resources to obtain, update and review the patients current medications (includes all prescriptions, OTC, herbals, cannabis, and nutritional supplements).: Yes
[2024-06-18 10:59] LABS: Troponin I 0.195 ng/mL (0.000-0.034)
[2024-06-18] MEDS: DULoxetine HCL 60 MG CAPSULE.DR BY MOUTH (11:08)
[2024-06-18] MEDS: EZETIMIBE 10 MG TABLET BY MOUTH (11:08)
[2024-06-18] MEDS: oxyCODONE/ACETAMINOPHEN (*CRX) 10-325 MG TABLET 1 TAB PO ×3 (11:09→20:19)
[2024-06-18] MEDS: LOSARTAN POTASSIUM 25 MG TABLET PO (11:10)
[2024-06-18] MEDS: FUROSEMIDE INJ 40 MG/4 ML VIAL IV PUSH (11:11)
[2024-06-18] MEDS: ROSUVASTATIN 5 MG TABLET PO (12:26)
[2024-06-18] MEDS: METOPROLOL SUCCINATE EXT REL 25 MG TABCR PO (12:27)
[2024-06-18 15:19] LABS: Troponin I 0.161 ng/mL (0.000-0.034)
[2024-06-18] MEDS: RIVAROXABAN 20 MG TABLET BY MOUTH (18:59)
[2024-06-18] MEDS: ALPRAZolam (*CRX) 0.25 MG TABLET PO (20:20)
[2024-06-19] VITALS (18 sets, daily range): BP systolic 93–102; BP diastolic 54–64; PULSE 75–103; RESP 12–24; TEMP 36.4–36.8; O2SAT 93–100
[2024-06-19] MEDS: oxyCODONE/ACETAMINOPHEN (*CRX) 10-325 MG TABLET 1 TAB PO ×5 (00:12→21:29)
[2024-06-19 06:30] LABS: Basophils Absolute Auto 0.1 K/mm3 (0.0-0.1); Basophils Percent Auto 0.8 % (0.2-1.2); Eosinophils Absolute Auto 0.2 K/mm3 (0-0.3); Eosinophils Percent Auto 3.5 % (0-4.4); Hematocrit 30.8 % (37.0-47.0); Hemoglobin 9.2 g/dL (12.0-15.0); Immature Granulocyte Absolute 0.03 K/mm3 (0.00-0.031); Immature Granulocyte Percent A 0.5 % (0-0.5); Lymphocytes Absolute Auto 1.84 K/mm3 (0.9-3.2); Lymphocytes Percent Auto 30.6 % (18.3-44.2); Mean Corpuscular HGB Conc 29.9 g/dl (32-36); Mean Corpuscular Hemoglobin 34.1 pg (26-34); Mean Corpuscular Volume 114.1 fl (80-100); Mean Platelet Volume 9.7 fl (7.4-10.4); Monocytes Percent Auto 17.1 % (2.6-8.5); Neutrophils Absolute Auto 2.9 K/mm3 (1.3-6.7); Neutrophils Percent Auto 47.5 % (45.5-73.1); Platelet Count Result 282 k/mm3 (150-375); Red Cell Distribution Width 13.5 % (11.5-14.5)
[2024-06-19 06:46] LABS: Alanine Aminotransferase 15 U/L (6-35); Albumin Level 3.1 g/dL (3.5-5.1); Alkaline Phosphatase 75 U/L (38-126); Anion Gap 5 mmol/L (4-12); Aspartate Amino Transferase 28 U/L (14-36); Bilirubin,Total 0.7 mg/dL (0.2-1.3); Blood Urea Nitrogen 8 mg/dL (7-17); Calcium 9.1 mg/dL (8.4-10.2); Carbon Dioxide 32 mmol/L (22-30); Chloride 98 mmol/L (98-107); Estimated CRCL calculation 89 ml/min; Estimated Glomerular Filt Rate > 60; Glucose 84 mg/dL (65-110); Magnesium 1.8 mg/dL (1.6-2.3); Potassium 4.3 mmol/L (3.4-5.0); Sodium 135 mmol/L (137-145)
[2024-06-19 07:20] LABS: Anisocytosis 1+; Hypochromasia 1+; Platelet Estimate Adequate (Adequate); Schistocytes None Seen
[2024-06-19] MEDS: FLUTICASONE/UMECLIDIN/VILANTER 100-62.5-25 MCG ELLIPTA 1 PUFF INHALATION (08:36)
[2024-06-19] MEDS: METOPROLOL SUCCINATE EXT REL 25 MG TABCR PO (09:19)
[2024-06-19] MEDS: ERGOCALCIFEROL 50,000 UNITS CAPSULE 50000 UNITS PO (09:19)
[2024-06-19] MEDS: EZETIMIBE 10 MG TABLET BY MOUTH (09:20)
[2024-06-19] MEDS: ROSUVASTATIN 5 MG TABLET PO (09:20)
[2024-06-19] MEDS: LOSARTAN POTASSIUM 25 MG TABLET PO (09:20)
[2024-06-19] MEDS: DULoxetine HCL 60 MG CAPSULE.DR BY MOUTH (09:20)
[2024-06-19] MEDS: FUROSEMIDE INJ 40 MG/4 ML VIAL IV PUSH (09:20)
--- NOTE | 2024-06-19 14:23 | P.PNIM_ITS ---
Progress Note: A&P Assessment and Plan (1) CHF exacerbation: Code(s): I50.9 - Heart failure, unspecified Status: Acute (2) Systolic dysfunction: Code(s): I51.9 - Heart disease, unspecified Status: Acute (3) Essential hypertension: Code(s): I10 - Essential (primary) hypertension Status: Acute (4) CHF (congestive heart failure), NYHA class I: Code(s): I50.9 - Heart failure, unspecified Status: Acute (5) Elevated troponin: Code(s): R77.8 - Other specified abnormalities of plasma proteins Status: Acute (6) Paroxysmal atrial fibrillation: Code(s): I48.0 - Paroxysmal atrial fibrillation Status: Acute (7) AICD (automatic cardioverter/defibrillator) present: Code(s): Z95.810 - Presence of automatic (implantable) cardiac defibrillator Status: Acute (8) Hyperlipidemia: Qualifiers: Hyperlipidemia type: unspecified Qualified Code(s): E78.5 - Hyperlipidemia, unspecified Code(s): E78.5 - Hyperlipidemia, unspecified Status: Acute (9) Anxiety: Code(s): F41.9 - Anxiety disorder, unspecified Status: Acute (10) Depression: Qualifiers: Depression Type: major depressive disorder Major depression recurrence: recurrent Active/Remission status: in full remission Qualified Code(s): F33.42 - Major depressive disorder, recurrent, in full remission Code(s): F32.9 - Major depressive disorder, single episode, unspecified Status: Acute (11) COPD (chronic obstructive pulmonary disease): Qualifiers: COPD type: unspecified COPD Qualified Code(s): J44.9 - Chronic obstructive pulmonary disease, unspecified Code(s): J44.9 - Chronic obstructive pulmonary disease, unspecified Status: Acute (12) Pleural effusion, bilateral: Code(s): J90 - Pleural effusion, not elsewhere classified Status: Acute Plan Patient is a 63-year-old female who presents to the emergency department this morning with complaints of worsening shortness of breath. Patient was discharged from our facility yesterday after having right shoulder surgery. Patient does have a history of CHF and COPD and normally does not wear oxygen home but when she was discharged home yesterday she was sent home with oxygen. Patient also states that she noticed that she is more swollen all over her body. Upon EMS arrival to the patient's residence, she was noted to have rapid shallow breathing and bilateral wheezing. She was administered a DuoNeb breathing treatment which patient states did improve her shortness of breath slightly. Patient was satting 94% on her 2 L prior to DuoNeb and her oxygenation improved to 100% after the DuoNeb breathing treatment. Currently denying any chest pain, nausea vomiting, or abdominal pain. There are no additional modifying, alleviating, or precipitating factors at this time. In the ED she was afebrile blood pressure was adequate tachycardic oxygen saturation adequate on 2 L oxygen. EKG showed sinus tachycardia with no evidence of acute ischemia. Laboratory evaluation revealed WBC 8.7 hemoglobin 9.6 creatinine 0.5 sodium 132. LFTs were normal. Elevated troponin 0.18, [place] [address]. These were normal on June 12, 2024. CTA PE protocol was performed which showed no evidence of PE aortic dissection or aortic aneurysm. Small bilateral pleural effusions left greater than right was noted with mild atelectatic changes. She has underlying moderate to advanced emphysema. She is admitted for further treatment. Acute on chronic CHF diastolic. History of systolic dysfunction 3 months ago with EF 35%. Echo 06/14/2024 with EF 55-60% mild aortic valve stenosis. Continue IV diuresis with Lasix daily Elevated troponin follow trend and remains flat likely due to CHF Moderate to severe emphysema Chronic respiratory failure needing oxygen since 05/2024 Recent right shoulder surgery 4 committed fracture right humeral neck Hypertension Hyperlipidemia Chronic anticoagulation with Xarelto Alcohol use anxiety depression Osteoporosis Paroxysmal atrial fibrillation currently sinus rhythm DVT prophylaxis on Xarelto Code status full code Subjective Date/time seen: 06/19/24 14:23 Interval history: Feels better today. right arm is sore and swollen. No chest pain Review of Systems Review of Systems: All systems reviewed & are unremarkable except as noted in HPI and below Exam Narrative: General: Alert, awake, afebrile, in no acute distress. HEENT: PERRL, no rhinorrhea, no post nasal drip, oropharynx clear. Neck: Trachea midline, no JVD, no lymphadenopathy. Cardiovascular: regular rhythm, no murmurs, rubs or gallops, mild bilateral lower extremity pitting edema. Respiratory: Clear to auscultation bilaterally, no tachypnea, no wheezing, no rhonchi, no rubs, no respiratory distress. Abdomen: Soft, nontender, nondistended, no rebound, no guarding, no peritoneal signs. Musculoskeletal: No joint swelling or deformity, normal muscle tone. Skin: No rashes or petechia, no signs of infection. Psychiatric: Alert and oriented, normal behavior and judgment for situation. Neurological: Alert and oriented to person, place, and time. Follows all commands. No focal deficits, speech is clear and fluent. Objective Data Vital Signs Vital Signs: Vital Signs - 24 hr 06/18/24 15:52 06/18/24 16:00 06/18/24 16:00 Temperature 97.6 F Pulse Rate 89 86 Respiratory Rate 16 Blood Pressure 88/62 L Pulse Oximetry 100 99 Oxygen Delivery Nasal Cannula Oxygen Flow Rate 2 Fraction of Inspired Oxygen 06/18/24 16:54 06/18/24 18:00 06/18/24 20:00 Temperature 97.8 F Pulse Rate 88 82 Respiratory Rate 16 Blood Pressure 91/66 L 92/52 L Pulse Oximetry 97 Oxygen Delivery Oxygen Flow Rate Fraction of Inspired Oxygen 06/18/24 20:00 06/18/24 20:00 06/18/24 22:00 Temperature Pulse Rate 85 94 Respiratory Rate Blood Pressure Pulse Oximetry 97 Oxygen Delivery Nasal Cannula Oxygen Flow Rate 2 Fraction of Inspired Oxygen 06/19/24 00:00 06/19/24 00:00 06/19/24 00:00 Temperature 98.1 F Pulse Rate 85 92 Respiratory Rate 16 Blood Pressure 93/54 L Pulse Oximetry 98 96 Oxygen Delivery Nasal Cannula Oxygen Flow Rate 2 Fraction of Inspired Oxygen 06/19/24 02:00 06/19/24 03:59 06/19/24 04:00 Temperature 97.8 F Pulse Rate 86 92 Respiratory Rate 16 Blood Pressure 98/64 L Pulse Oximetry 100 100 Oxygen Delivery Nasal Cannula Oxygen Flow Rate 2 Fraction of Inspired Oxygen 06/19/24 04:00 06/19/24 05:55 06/19/24 08:00 Temperature 97.5 F L Pulse Rate 87 81 91 Respiratory Rate 16 Blood Pressure 98/55 L Pulse Oximetry 94 Oxygen Delivery Oxygen Flow Rate Fraction of Inspired Oxygen 06/19/24 08:00 06/19/24 08:00 06/19/24 08:36 Temperature Pulse Rate 98 Respiratory Rate Blood Pressure Pulse Oximetry 94 96 Oxygen Delivery Nasal Cannula Nasal Cannula Oxygen Flow Rate 2 2 Fraction of Inspired Oxygen 28 06/19/24 08:36 06/19/24 09:19 06/19/24 10:00 Temperature Pulse Rate 103 H 99 102 H Respiratory Rate 20 Blood Pressure Pulse Oximetry Oxygen Delivery Oxygen Flow Rate Fraction of Inspired Oxygen 06/19/24 12:00 06/19/24 12:00 06/19/24 12:00 Temperature 98.2 F Pulse Rate 90 89 Respiratory Rate 24 H Blood Pressure 102/60 Pulse Oximetry 98 95 Oxygen Delivery Nasal Cannula Oxygen Flow Rate 2 Fraction of Inspired Oxygen 06/19/24 14:00 Temperature Pulse Rate 94 Respiratory Rate Blood Pressure Pulse Oximetry Oxygen Delivery Oxygen Flow Rate Fraction of Inspired Oxygen Intake/Output Intake/Output: Intake & Output 06/16/24 06/17/24 06/18/24 06/19/24 23:59 23:59 23:59 23:59 Intake Total 480 520 Output Total 450 1100 Balance 30 -580 Meds/Results Medications: Active Medications Generic Name Dose Route Start Last Admin Trade Name Freq PRN Reason Stop Dose Admin Alprazolam 0.25 mg 06/18/24 21:00 06/18/24 20:20 Alprazolam (*Crx) 0.25 Mg Tablet PO 0.25 mg QHS ALYSA Administration Duloxetine HCl 60 mg 06/18/24 10:05 06/19/24 09:20 Duloxetine Hcl 60 Mg Capsule.Dr BY MOUTH 60 mg QAM ALYSA Administration Ezetimibe 10 mg 06/18/24 10:10 06/19/24 09:20 Ezetimibe 10 Mg Tablet BY MOUTH 10 mg QAM ALYSA Administration Ergocalciferol 50,000 units 06/19/24 09:00 06/19/24 09:19 Ergocalciferol 50,000 Units Capsule PO 50,000 units Sa@0900 ALYSA Administration Fluticasone/Umeclidinium/Vilanterol 1 puff 06/18/24 14:00 06/19/24 08:36 Fluticasone/Umeclidin/Vilanter 100-62.5-25 Mcg Ellipta INHALATION 1 puff DAILYRT ALYSA Administration Furosemide 40 mg 06/19/24 09:00 06/19/24 09:20 Furosemide Inj 40 Mg/4 Ml Vial IV PUSH 40 mg DAILY ALYSA Administration Losartan Potassium 25 mg 06/18/24 09:50 06/19/24 09:20 Losartan Potassium 25 Mg Tablet PO 25 mg DAILY ALYSA Administration Metoprolol Succinate 25 mg 06/18/24 09:50 06/19/24 09:19 Metoprolol Succinate Ext Rel 25 Mg Tabcr PO 25 mg QAM ALYSA Administration Morphine Sulfate 2 mg 06/18/24 17:05 Morphine Sulfate (*Crx) 2 Mg/Ml Inj IV PUSH Q4H PRN Pain Rated 7-10 Oxycodone/Acetaminophen 1 tab 06/18/24 09:42 06/19/24 13:40 Oxycodone/Acetaminophen (*Crx) 10-325 Mg Tablet PO 1 tab Q4H PRN Administration Pain Rated 4-10 Polyethylene Glycol 17 gm 06/20/24 09:00 Polyethylene Glycol 3350 17 Gm Powd.Pack PO QAM ALYSA Rivaroxaban 20 mg 06/18/24 18:00 06/18/24 18:59 Rivaroxaban 20 Mg Tablet BY MOUTH 20 mg QPM ALYSA Administration Rosuvastatin Calcium 5 mg 06/18/24 09:50 06/19/24 09:20 Rosuvastatin 5 Mg Tablet PO 5 mg DAILY ALYSA Administration Radiology Results: ITS Impressions Chest CTA 06/18/24 06:08 Impression: No evidence of pulmonary embolus, aortic dissection, or aortic aneurysm. Small bilateral pleural effusions, left greater than right, mild atelectatic change. Moderate to advanced emphysema. Probable recent ORIF of proximal humeral shaft fracture with humeral intramedullary tabitha present. Labs Labs: Laboratory Results - last 24 hr 06/18/24 06/19/24 14:46 06:24 WBC 6.0 RBC 2.70 L Hgb 9.2 L Hct 30.8 L MCV 114.1 H D MCH 34.1 H MCHC 29.9 L RDW 13.5 Plt Count 282 MPV 9.7 Immature Gran % (Auto) 0.5 Neut % (Auto) 47.5 Lymph % (Auto) 30.6 [place] % (Auto) 17.1 H Eos % (Auto) 3.5 Baso % (Auto) 0.8 Lymph # (Auto) 1.84 [place] # (Auto) 1.0 H Eos # (Auto) 0.2 Baso # (Auto) 0.1 Abs Immat Gran (auto) 0.03 Absolute Neuts (auto) 2.9 Absolute Nucleated RBC 0.000 Band Neutrophils % Not Reportable Nucleated RBC % 0.0 Platelet Estimate Adequate Hypochromasia 1+ Anisocytosis 1+ Schistocytes None seen Sodium 135 L Potassium 4.3 Chloride 98 Carbon Dioxide 32 H Anion Gap 5 BUN 8 Creatinine 0.51 L Estim Creat Clear Calc 89 Estimated GFR > 60 Glucose 84 Calcium 9.1 Magnesium 1.8 Total Bilirubin 0.7 AST 28 ALT 15 Alkaline Phosphatase 75 Troponin I 0.161 H* Total Protein 6.0 L Albumin 3.1 L
[2024-06-19] MEDS: RIVAROXABAN 20 MG TABLET BY MOUTH (17:08)
[2024-06-19] MEDS: ALPRAZolam (*CRX) 0.25 MG TABLET PO (21:31)
[2024-06-20] VITALS (12 sets, daily range): BP systolic 100–120; BP diastolic 65–75; PULSE 73–99; RESP 14–20; TEMP 36.6–37.1; O2SAT 91–95
[2024-06-20] MEDS: oxyCODONE/ACETAMINOPHEN (*CRX) 10-325 MG TABLET 1 TAB PO ×4 (03:02→20:52)
[2024-06-20 04:29] LABS: Basophils Percent Auto 0.6 % (0.2-1.2); Eosinophils Absolute Auto 0.2 K/mm3 (0-0.3); Eosinophils Percent Auto 3.5 % (0-4.4); Hemoglobin 9.1 g/dL (12.0-15.0); Immature Granulocyte Absolute 0.02 K/mm3 (0.00-0.031); Immature Granulocyte Percent A 0.4 % (0-0.5); Lymphocytes Absolute Auto 1.66 K/mm3 (0.9-3.2); Lymphocytes Percent Auto 34.1 % (18.3-44.2); Mean Corpuscular HGB Conc 31.4 g/dl (32-36); Mean Corpuscular Hemoglobin 34.3 pg (26-34); Mean Corpuscular Volume 109.4 fl (80-100); Mean Platelet Volume 9.3 fl (7.4-10.4); Monocytes Absolute Auto 0.8 K/mm3 (0.1-0.6); Monocytes Percent Auto 16.4 % (2.6-8.5); Neutrophils Absolute Auto 2.2 K/mm3 (1.3-6.7); Platelet Count Result 344 k/mm3 (150-375); Red Blood Count 2.65 M/mm3 (4.2-5.4); Red Cell Distribution Width 13.5 % (11.5-14.5); White Blood Count 4.9 K/mm3 (4.5-10.0)
[2024-06-20 04:46] LABS: Alanine Aminotransferase 15 U/L (6-35); Albumin Level 3.3 g/dL (3.5-5.1); Alkaline Phosphatase 67 U/L (38-126); Anion Gap 3 mmol/L (4-12); Aspartate Amino Transferase 27 U/L (14-36); Bilirubin,Total 0.6 mg/dL (0.2-1.3); Blood Urea Nitrogen 9 mg/dL (7-17); Calcium 8.9 mg/dL (8.4-10.2); Carbon Dioxide 35 mmol/L (22-30); Chloride 96 mmol/L (98-107); Estimated CRCL calculation 73 ml/min; Estimated Glomerular Filt Rate > 60; Glucose 85 mg/dL (65-110); Magnesium 1.7 mg/dL (1.6-2.3); Potassium 3.4 mmol/L (3.4-5.0); Sodium 134 mmol/L (137-145)
[2024-06-20 04:55] LABS: Platelet Estimate Adequate (Adequate)
[2024-06-20 04:56] LABS: Anisocytosis 1+; Hypochromasia 1+; Macrocytosis 1+ (NORMAL); Schistocytes None Seen
[2024-06-20] MEDS: polyethylene glycoL 3350 17 GM POWD.PACK PO (08:31)
[2024-06-20] MEDS: DULoxetine HCL 60 MG CAPSULE.DR BY MOUTH (08:31)
[2024-06-20] MEDS: ROSUVASTATIN 5 MG TABLET PO (08:31)
[2024-06-20] MEDS: METOPROLOL SUCCINATE EXT REL 25 MG TABCR PO (08:31)
[2024-06-20] MEDS: EZETIMIBE 10 MG TABLET BY MOUTH (08:31)
[2024-06-20] MEDS: FUROSEMIDE INJ 40 MG/4 ML VIAL IV PUSH (08:31)
[2024-06-20] MEDS: LOSARTAN POTASSIUM 25 MG TABLET PO (08:31)
[2024-06-20] MEDS: FLUTICASONE/UMECLIDIN/VILANTER 100-62.5-25 MCG ELLIPTA 1 PUFF INHALATION (08:34)
--- NOTE | 2024-06-20 13:24 | P.PNIM_ITS ---
Progress Note: A&P Assessment and Plan (1) CHF exacerbation: Code(s): I50.9 - Heart failure, unspecified Status: Acute (2) Systolic dysfunction: Code(s): I51.9 - Heart disease, unspecified Status: Acute (3) Essential hypertension: Code(s): I10 - Essential (primary) hypertension Status: Acute (4) CHF (congestive heart failure), NYHA class I: Code(s): I50.9 - Heart failure, unspecified Status: Acute (5) Elevated troponin: Code(s): R77.8 - Other specified abnormalities of plasma proteins Status: Acute (6) Paroxysmal atrial fibrillation: Code(s): I48.0 - Paroxysmal atrial fibrillation Status: Acute (7) AICD (automatic cardioverter/defibrillator) present: Code(s): Z95.810 - Presence of automatic (implantable) cardiac defibrillator Status: Acute (8) Hyperlipidemia: Qualifiers: Hyperlipidemia type: unspecified Qualified Code(s): E78.5 - Hyperlipidemia, unspecified Code(s): E78.5 - Hyperlipidemia, unspecified Status: Acute (9) Anxiety: Code(s): F41.9 - Anxiety disorder, unspecified Status: Acute (10) Depression: Qualifiers: Depression Type: major depressive disorder Major depression recurrence: recurrent Active/Remission status: in full remission Qualified Code(s): F33.42 - Major depressive disorder, recurrent, in full remission Code(s): F32.9 - Major depressive disorder, single episode, unspecified Status: Acute (11) COPD (chronic obstructive pulmonary disease): Qualifiers: COPD type: unspecified COPD Qualified Code(s): J44.9 - Chronic obstructive pulmonary disease, unspecified Code(s): J44.9 - Chronic obstructive pulmonary disease, unspecified Status: Acute (12) Pleural effusion, bilateral: Code(s): J90 - Pleural effusion, not elsewhere classified Status: Acute Plan Patient is a 63-year-old female who presents to the emergency department this morning with complaints of worsening shortness of breath. Patient was discharged from our facility yesterday after having right shoulder surgery. Patient does have a history of CHF and COPD and normally does not wear oxygen home but when she was discharged home yesterday she was sent home with oxygen. Patient also states that she noticed that she is more swollen all over her body. Upon EMS arrival to the patient's residence, she was noted to have rapid shallow breathing and bilateral wheezing. She was administered a DuoNeb breathing treatment which patient states did improve her shortness of breath slightly. Patient was satting 94% on her 2 L prior to DuoNeb and her oxygenation improved to 100% after the DuoNeb breathing treatment. Currently denying any chest pain, nausea vomiting, or abdominal pain. There are no additional modifying, alleviating, or precipitating factors at this time. In the ED she was afebrile blood pressure was adequate tachycardic oxygen saturation adequate on 2 L oxygen. EKG showed sinus tachycardia with no evidence of acute ischemia. Laboratory evaluation revealed WBC 8.7 hemoglobin 9.6 creatinine 0.5 sodium 132. LFTs were normal. Elevated troponin 0.18, [place] [address]. These were normal on June 12, 2024. CTA PE protocol was performed which showed no evidence of PE aortic dissection or aortic aneurysm. Small bilateral pleural effusions left greater than right was noted with mild atelectatic changes. She has underlying moderate to advanced emphysema. She is admitted for further treatment. Acute on chronic CHF diastolic. History of systolic dysfunction 3 months ago with EF 35%. Echo 06/14/2024 with EF 55-60% mild aortic valve stenosis. Continue IV diuresis with Lasix daily. Was switched to oral Lasix recheck BNP Elevated troponin follow trend and remains flat likely due to CHF Moderate to severe emphysema Chronic respiratory failure needing oxygen since 05/2024 Recent right shoulder surgery 4 committed fracture right humeral neck Hypertension Hyperlipidemia Chronic anticoagulation with Xarelto Alcohol use anxiety depression Osteoporosis Paroxysmal atrial fibrillation currently sinus rhythm DVT prophylaxis on Xarelto Code status full code Subjective Date/time seen: 06/20/24 13:24 Interval history: Feels better. Swelling getting better. Denies any chest pain or shortness of breath. Review of Systems Review of Systems: All systems reviewed & are unremarkable except as noted in HPI and below Exam Narrative: General: Alert, awake, afebrile, in no acute distress. HEENT: PERRL, no rhinorrhea, no post nasal drip, oropharynx clear. Neck: Trachea midline, no JVD, no lymphadenopathy. Cardiovascular: regular rhythm, no murmurs, rubs or gallops, mild bilateral lower extremity pitting edema. Respiratory: Clear to auscultation bilaterally, no tachypnea, no wheezing, no rhonchi, no rubs, no respiratory distress. Abdomen: Soft, nontender, nondistended, no rebound, no guarding, no peritoneal signs. Musculoskeletal: No joint swelling or deformity, normal muscle tone. Her right arm on sling Skin: No rashes or petechia, no signs of infection. Psychiatric: Alert and oriented, normal behavior and judgment for situation. Neurological: Alert and oriented to person, place, and time. Follows all commands. No focal deficits, speech is clear and fluent. Objective Data Vital Signs Vital Signs: Vital Signs - 24 hr 06/19/24 14:00 06/19/24 16:00 06/19/24 16:00 Temperature Pulse Rate 94 87 Respiratory Rate Blood Pressure Pulse Oximetry 95 Oxygen Delivery Nasal Cannula Oxygen Flow Rate 1 Fraction of Inspired Oxygen 06/19/24 16:00 06/19/24 18:00 06/19/24 20:00 Temperature 98.0 F 98.3 F Pulse Rate 90 89 98 Respiratory Rate 12 18 Blood Pressure 102/59 L 99/63 L Pulse Oximetry 93 95 Oxygen Delivery Oxygen Flow Rate Fraction of Inspired Oxygen 06/19/24 20:00 06/19/24 20:40 06/19/24 22:00 Temperature Pulse Rate 77 98 75 Respiratory Rate 18 Blood Pressure Pulse Oximetry 95 Oxygen Delivery Nasal Cannula Oxygen Flow Rate 1 Fraction of Inspired Oxygen 06/19/24 23:00 06/19/24 23:10 06/20/24 00:00 Temperature 98.1 F Pulse Rate 76 76 80 Respiratory Rate 16 16 Blood Pressure 94/62 L Pulse Oximetry 99 99 Oxygen Delivery Nasal Cannula Oxygen Flow Rate 1 Fraction of Inspired Oxygen 06/20/24 01:57 06/20/24 04:00 06/20/24 04:00 Temperature Pulse Rate 73 77 97 Respiratory Rate 18 Blood Pressure Pulse Oximetry 95 Oxygen Delivery Nasal Cannula Oxygen Flow Rate 1 Fraction of Inspired Oxygen 06/20/24 04:00 06/20/24 05:49 06/20/24 08:00 Temperature 97.8 F 98.7 F Pulse Rate 97 99 85 Respiratory Rate 18 14 Blood Pressure 120/75 100/65 Pulse Oximetry 95 95 Oxygen Delivery Oxygen Flow Rate Fraction of Inspired Oxygen 06/20/24 08:00 06/20/24 08:00 06/20/24 08:31 Temperature Pulse Rate 93 95 Respiratory Rate Blood Pressure Pulse Oximetry 95 Oxygen Delivery Nasal Cannula Oxygen Flow Rate 1 Fraction of Inspired Oxygen 06/20/24 08:34 06/20/24 08:34 06/20/24 10:00 Temperature Pulse Rate 90 87 Respiratory Rate 20 Blood Pressure Pulse Oximetry 91 Oxygen Delivery Nasal Cannula Oxygen Flow Rate 1 Fraction of Inspired Oxygen 24 06/20/24 12:00 Temperature 98.4 F Pulse Rate 96 Respiratory Rate 18 Blood Pressure 105/70 Pulse Oximetry 95 Oxygen Delivery Oxygen Flow Rate Fraction of Inspired Oxygen Intake/Output Intake/Output: Intake & Output 06/17/24 06/18/24 06/19/24 06/20/24 23:59 23:59 23:59 23:59 Intake Total 480 1180 640 Output Total 450 2500 1250 Balance 30 1320 -610 Meds/Results Medications: Active Medications Generic Name Dose Route Start Last Admin Trade Name Freq PRN Reason Stop Dose Admin Alprazolam 0.25 mg 06/18/24 21:00 06/19/24 21:31 Alprazolam (*Crx) 0.25 Mg Tablet PO 0.25 mg QHS ALYSA Administration Duloxetine HCl 60 mg 06/18/24 10:05 06/20/24 08:31 Duloxetine Hcl 60 Mg Capsule.Dr BY MOUTH 60 mg QAM ALYSA Administration Ezetimibe 10 mg 06/18/24 10:10 06/20/24 08:31 Ezetimibe 10 Mg Tablet BY MOUTH 10 mg QAM ALYSA Administration Ergocalciferol 50,000 units 06/19/24 09:00 06/19/24 09:19 Ergocalciferol 50,000 Units Capsule PO 50,000 units Sa@0900 ALYSA Administration Fluticasone/Umeclidinium/Vilanterol 1 puff 06/18/24 14:00 06/20/24 08:34 Fluticasone/Umeclidin/Vilanter 100-62.5-25 Mcg Ellipta INHALATION 1 puff DAILYRT ALYSA Administration Furosemide 40 mg 06/19/24 09:00 06/20/24 08:31 Furosemide Inj 40 Mg/4 Ml Vial IV PUSH 40 mg DAILY ALYSA Administration Losartan Potassium 25 mg 06/18/24 09:50 06/20/24 08:31 Losartan Potassium 25 Mg Tablet PO 25 mg DAILY ALYSA Administration Metoprolol Succinate 25 mg 06/18/24 09:50 06/20/24 08:31 Metoprolol Succinate Ext Rel 25 Mg Tabcr PO 25 mg QAM ALYSA Administration Morphine Sulfate 2 mg 06/18/24 17:05 Morphine Sulfate (*Crx) 2 Mg/Ml Inj IV PUSH Q4H PRN Pain Rated 7-10 Oxycodone/Acetaminophen 1 tab 06/18/24 09:42 06/20/24 12:47 Oxycodone/Acetaminophen (*Crx) 10-325 Mg Tablet PO 1 tab Q4H PRN Administration Pain Rated 4-10 Polyethylene Glycol 17 gm 06/20/24 09:00 06/20/24 08:31 Polyethylene Glycol 3350 17 Gm Powd.Pack PO 17 gm QAM ALYSA Administration Rivaroxaban 20 mg 06/18/24 18:00 06/19/24 17:08 Rivaroxaban 20 Mg Tablet BY MOUTH 20 mg QPM ALYSA Administration Rosuvastatin Calcium 5 mg 06/18/24 09:50 06/20/24 08:31 Rosuvastatin 5 Mg Tablet PO 5 mg DAILY ALYSA Administration Radiology Results: ITS Impressions Chest CTA 06/18/24 06:08 Impression: No evidence of pulmonary embolus, aortic dissection, or aortic aneurysm. Small bilateral pleural effusions, left greater than right, mild atelectatic change. Moderate to advanced emphysema. Probable recent ORIF of proximal humeral shaft fracture with humeral intramedullary tabitha present. Labs Labs: Laboratory Results - last 24 hr 06/20/24 04:24 WBC 4.9 RBC 2.65 L Hgb 9.1 L Hct 29.0 L MCV 109.4 H MCH 34.3 H MCHC 31.4 L RDW 13.5 Plt Count 344 MPV 9.3 Immature Gran % (Auto) 0.4 Neut % (Auto) 45.0 L Lymph % (Auto) 34.1 [place] % (Auto) 16.4 H Eos % (Auto) 3.5 Baso % (Auto) 0.6 Lymph # (Auto) 1.66 [place] # (Auto) 0.8 H Eos # (Auto) 0.2 Baso # (Auto) 0.0 Abs Immat Gran (auto) 0.02 Absolute Neuts (auto) 2.2 Absolute Nucleated RBC 0.000 Band Neutrophils % Not Reportable Nucleated RBC % 0.0 Platelet Estimate Adequate Hypochromasia 1+ Anisocytosis 1+ Macrocytosis 1+ Schistocytes None seen Sodium 134 L Potassium 3.4 Chloride 96 L Carbon Dioxide 35 H Anion Gap 3 L BUN 9 Creatinine 0.64 L Estim Creat Clear Calc 73 Estimated GFR > 60 Glucose 85 Calcium 8.9 Magnesium 1.7 Total Bilirubin 0.6 AST 27 ALT 15 Alkaline Phosphatase 67 Total Protein 6.0 L Albumin 3.3 L
[2024-06-20] MEDS: RIVAROXABAN 20 MG TABLET BY MOUTH (17:16)
--- NOTE | 2024-06-20 17:43 | PC.NURSE ---
This patient, Melodie Barrera, was transferred to [address] [place] [address] on 06/20/24 at 1530. Personal belongings sent with patient. Report given to KARL Powell. Appropriate documentation sent with patient. Timi Argueta RN
[2024-06-20] MEDS: ALPRAZolam (*CRX) 0.25 MG TABLET PO (20:53)
[2024-06-21] VITALS (8 sets, daily range): BP systolic 112–117; BP diastolic 67–74; PULSE 75–82; RESP 16–18; TEMP 36.2–36.8; O2SAT 90–97
[2024-06-21] MEDS: oxyCODONE/ACETAMINOPHEN (*CRX) 10-325 MG TABLET 1 TAB PO ×6 (01:02→22:17)
[2024-06-21 04:59] LABS: Basophils Percent Auto 0.4 % (0.2-1.2); Eosinophils Absolute Auto 0.2 K/mm3 (0-0.3); Hematocrit 30.4 % (37.0-47.0); Hemoglobin 9.4 g/dL (12.0-15.0); Immature Granulocyte Absolute 0.02 K/mm3 (0.00-0.031); Immature Granulocyte Percent A 0.4 % (0-0.5); Lymphocytes Percent Auto 30.3 % (18.3-44.2); Mean Corpuscular HGB Conc 30.9 g/dl (32-36); Mean Corpuscular Hemoglobin 33.9 pg (26-34); Mean Corpuscular Volume 109.7 fl (80-100); Mean Platelet Volume 9.4 fl (7.4-10.4); Monocytes Absolute Auto 0.6 K/mm3 (0.1-0.6); Monocytes Percent Auto 12.9 % (2.6-8.5); Neutrophils Absolute Auto 2.6 K/mm3 (1.3-6.7); Platelet Count Result 413 k/mm3 (150-375); Red Blood Count 2.77 M/mm3 (4.2-5.4); Red Cell Distribution Width 13.9 % (11.5-14.5)
[2024-06-21 05:15] LABS: Alanine Aminotransferase 17 U/L (6-35); Albumin Level 3.6 g/dL (3.5-5.1); Alkaline Phosphatase 69 U/L (38-126); Anion Gap 5 mmol/L (4-12); Aspartate Amino Transferase 31 U/L (14-36); Bilirubin,Total 0.8 mg/dL (0.2-1.3); Blood Urea Nitrogen 10 mg/dL (7-17); Carbon Dioxide 37 mmol/L (22-30); Chloride 93 mmol/L (98-107); Estimated CRCL calculation 74 ml/min; Estimated Glomerular Filt Rate > 60; Glucose 81 mg/dL (65-110); Magnesium 1.7 mg/dL (1.6-2.3); Potassium 3.3 mmol/L (3.4-5.0); Sodium 135 mmol/L (137-145)
[2024-06-21 05:23] LABS: NT Pro B Type Natriuretic Pept 9090 pg/mL (19.9-100)
[2024-06-21] MEDS: FLUTICASONE/UMECLIDIN/VILANTER 100-62.5-25 MCG ELLIPTA 1 PUFF INHALATION (09:00)
[2024-06-21] MEDS: METOPROLOL SUCCINATE EXT REL 25 MG TABCR PO (09:12)
[2024-06-21] MEDS: EZETIMIBE 10 MG TABLET BY MOUTH (09:12)
[2024-06-21] MEDS: LOSARTAN POTASSIUM 25 MG TABLET PO (09:12)
[2024-06-21] MEDS: DULoxetine HCL 60 MG CAPSULE.DR BY MOUTH (09:12)
[2024-06-21] MEDS: ROSUVASTATIN 5 MG TABLET PO (09:12)
[2024-06-21] MEDS: polyethylene glycoL 3350 17 GM POWD.PACK PO (09:13)
[2024-06-21] MEDS: FUROSEMIDE 40 MG TABLET PO (09:13)
--- NOTE | 2024-06-21 10:34 | PM.IMPN ---
Progress Note: A&P Assessment and Plan (1) CHF exacerbation: Code(s): I50.9 - Heart failure, unspecified Status: Acute (2) Systolic dysfunction: Code(s): I51.9 - Heart disease, unspecified Status: Acute (3) Essential hypertension: Code(s): I10 - Essential (primary) hypertension Status: Acute (4) CHF (congestive heart failure), NYHA class I: Code(s): I50.9 - Heart failure, unspecified Status: Acute (5) Elevated troponin: Code(s): R77.8 - Other specified abnormalities of plasma proteins Status: Acute (6) Paroxysmal atrial fibrillation: Code(s): I48.0 - Paroxysmal atrial fibrillation Status: Acute (7) AICD (automatic cardioverter/defibrillator) present: Code(s): Z95.810 - Presence of automatic (implantable) cardiac defibrillator Status: Acute (8) Hyperlipidemia: Qualifiers: Hyperlipidemia type: unspecified Qualified Code(s): E78.5 - Hyperlipidemia, unspecified Code(s): E78.5 - Hyperlipidemia, unspecified Status: Acute (9) Anxiety: Code(s): F41.9 - Anxiety disorder, unspecified Status: Acute (10) Depression: Qualifiers: Depression Type: major depressive disorder Major depression recurrence: recurrent Active/Remission status: in full remission Qualified Code(s): F33.42 - Major depressive disorder, recurrent, in full remission Code(s): F32.9 - Major depressive disorder, single episode, unspecified Status: Acute (11) COPD (chronic obstructive pulmonary disease): Qualifiers: COPD type: unspecified COPD Qualified Code(s): J44.9 - Chronic obstructive pulmonary disease, unspecified Code(s): J44.9 - Chronic obstructive pulmonary disease, unspecified Status: Acute (12) Pleural effusion, bilateral: Code(s): J90 - Pleural effusion, not elsewhere classified Status: Acute Plan Patient is a 63-year-old female who presents to the emergency department this morning with complaints of worsening shortness of breath. Patient was discharged from our facility yesterday after having right shoulder surgery. Patient does have a history of CHF and COPD and normally does not wear oxygen home but when she was discharged home yesterday she was sent home with oxygen. Patient also states that she noticed that she is more swollen all over her body. Upon EMS arrival to the patient's residence, she was noted to have rapid shallow breathing and bilateral wheezing. She was administered a DuoNeb breathing treatment which patient states did improve her shortness of breath slightly. Patient was satting 94% on her 2 L prior to DuoNeb and her oxygenation improved to 100% after the DuoNeb breathing treatment. Currently denying any chest pain, nausea vomiting, or abdominal pain. There are no additional modifying, alleviating, or precipitating factors at this time. In the ED she was afebrile blood pressure was adequate tachycardic oxygen saturation adequate on 2 L oxygen. EKG showed sinus tachycardia with no evidence of acute ischemia. Laboratory evaluation revealed WBC 8.7 hemoglobin 9.6 creatinine 0.5 sodium 132. LFTs were normal. Elevated troponin 0.18, [place] [address]. These were normal on June 12, 2024. CTA PE protocol was performed which showed no evidence of PE aortic dissection or aortic aneurysm. Small bilateral pleural effusions left greater than right was noted with mild atelectatic changes. She has underlying moderate to advanced emphysema. She is admitted for further treatment. Acute on chronic CHF diastolic. History of systolic dysfunction 3 months ago with EF 35%. Echo 06/14/2024 with EF 55-60% mild aortic valve stenosis. Continue IV diuresis with Lasix daily. Was switched to oral Lasix recheck BNP improved Elevated troponin follow trend and remains flat likely due to CHF Moderate to severe emphysema Chronic respiratory failure needing oxygen since 05/2024 Recent right shoulder surgery 4 committed fracture right humeral neck Hypertension Hyperlipidemia Chronic anticoagulation with Xarelto Alcohol use anxiety depression Osteoporosis Paroxysmal atrial fibrillation currently sinus rhythm DVT prophylaxis on Xarelto Code status full code Disposition: home with home health when able Subjective Date/time seen: 06/21/24 10:34 Interval history: no overnight events, swelling is imporing. still a bit weak Review of Systems Review of Systems: All systems reviewed & are unremarkable except as noted in HPI and below Exam Narrative: General: Alert, awake, afebrile, in no acute distress. HEENT: PERRL, no rhinorrhea, no post nasal drip, oropharynx clear. Neck: Trachea midline, no JVD, no lymphadenopathy. Cardiovascular: regular rhythm, no murmurs, rubs or gallops, mild bilateral lower extremity pitting edema. Respiratory: Clear to auscultation bilaterally, no tachypnea, no wheezing, no rhonchi, no rubs, no respiratory distress. Abdomen: Soft, nontender, nondistended, no rebound, no guarding, no peritoneal signs. Musculoskeletal: No joint swelling or deformity, normal muscle tone. Her right arm on sling Skin: No rashes or petechia, no signs of infection. Psychiatric: Alert and oriented, normal behavior and judgment for situation. Neurological: Alert and oriented to person, place, and time. Follows all commands. No focal deficits, speech is clear and fluent. Objective Data Vital Signs Vital Signs: Vital Signs - 24 hr 06/20/24 12:00 06/20/24 12:00 06/20/24 12:00 Temperature 98.4 F Pulse Rate 96 99 Respiratory Rate 18 Blood Pressure 105/70 Pulse Oximetry 95 95 Oxygen Delivery Nasal Cannula Oxygen Flow Rate 1 Fraction of Inspired Oxygen 06/20/24 13:22 06/20/24 19:44 06/20/24 20:00 Temperature 98.1 F Pulse Rate 94 Respiratory Rate 18 Blood Pressure 112/69 Pulse Oximetry 95 93 Oxygen Delivery Nasal Cannula Nasal Cannula Oxygen Flow Rate 2 1 Fraction of Inspired Oxygen 24 06/20/24 20:22 06/21/24 04:43 06/21/24 08:27 Temperature 98.2 F Pulse Rate 81 Respiratory Rate 17 Blood Pressure 112/67 Pulse Oximetry 93 91 Oxygen Delivery Nasal Cannula Nasal Cannula Oxygen Flow Rate 1 2 Fraction of Inspired Oxygen 24 06/21/24 08:58 06/21/24 09:12 Temperature Pulse Rate 81 Respiratory Rate Blood Pressure Pulse Oximetry 91 Oxygen Delivery Nasal Cannula Oxygen Flow Rate 1 Fraction of Inspired Oxygen Intake/Output Intake/Output: Intake & Output 06/18/24 06/19/24 06/20/24 06/21/24 23:59 23:59 23:59 23:59 Intake Total 480 1180 1920 570 Output Total 450 2500 2600 600 Balance 30 -1320 -680 -30 Meds/Results Medications: Active Medications Generic Name Dose Route Start Last Admin Trade Name Freq PRN Reason Stop Dose Admin Alprazolam 0.25 mg 06/18/24 21:00 06/20/24 20:53 Alprazolam (*Crx) 0.25 Mg Tablet PO 0.25 mg QHS ALYSA Administration Duloxetine HCl 60 mg 06/18/24 10:05 06/21/24 09:12 Duloxetine Hcl 60 Mg Capsule.Dr BY MOUTH 60 mg QAM ALYSA Administration Ezetimibe 10 mg 06/18/24 10:10 06/21/24 09:12 Ezetimibe 10 Mg Tablet BY MOUTH 10 mg QAM ALYSA Administration Ergocalciferol 50,000 units 06/19/24 09:00 06/19/24 09:19 Ergocalciferol 50,000 Units Capsule PO 50,000 units Sa@0900 ALYSA Administration Fluticasone/Umeclidinium/Vilanterol 1 puff 06/18/24 14:00 06/21/24 09:00 Fluticasone/Umeclidin/Vilanter 100-62.5-25 Mcg Ellipta INHALATION 1 puff DAILYRT ALYSA Administration Furosemide 40 mg 06/21/24 09:00 06/21/24 09:13 Furosemide 40 Mg Tablet PO 40 mg DAILY ALYSA Administration Losartan Potassium 25 mg 06/18/24 09:50 06/21/24 09:12 Losartan Potassium 25 Mg Tablet PO 25 mg DAILY ALYSA Administration Metoprolol Succinate 25 mg 06/18/24 09:50 06/21/24 09:12 Metoprolol Succinate Ext Rel 25 Mg Tabcr PO 25 mg QAM ALYSA Administration Morphine Sulfate 2 mg 06/18/24 17:05 Morphine Sulfate (*Crx) 2 Mg/Ml Inj IV PUSH Q4H PRN Pain Rated 7-10 Oxycodone/Acetaminophen 1 tab 06/18/24 09:42 06/21/24 09:49 Oxycodone/Acetaminophen (*Crx) 10-325 Mg Tablet PO 1 tab Q4H PRN Administration Pain Rated 4-10 Polyethylene Glycol 17 gm 06/20/24 09:00 06/21/24 09:13 Polyethylene Glycol 3350 17 Gm Powd.Pack PO 17 gm QAM ALYSA Administration Rivaroxaban 20 mg 06/18/24 18:00 06/20/24 17:16 Rivaroxaban 20 Mg Tablet BY MOUTH 20 mg QPM ALYSA Administration Rosuvastatin Calcium 5 mg 06/18/24 09:50 06/21/24 09:12 Rosuvastatin 5 Mg Tablet PO 5 mg DAILY ALYSA Administration Radiology Results: ITS Impressions Chest CTA 06/18/24 06:08 Impression: No evidence of pulmonary embolus, aortic dissection, or aortic aneurysm. Small bilateral pleural effusions, left greater than right, mild atelectatic change. Moderate to advanced emphysema. Probable recent ORIF of proximal humeral shaft fracture with humeral intramedullary tabitha present. Labs Labs: Laboratory Results - last 24 hr 06/21/24 04:49 WBC 5.0 RBC 2.77 L Hgb 9.4 L Hct 30.4 L MCV 109.7 H MCH 33.9 MCHC 30.9 L RDW 13.9 Plt Count 413 H MPV 9.4 Immature Gran % (Auto) 0.4 Neut % (Auto) 53.0 Lymph % (Auto) 30.3 [place] % (Auto) 12.9 H Eos % (Auto) 3.0 Baso % (Auto) 0.4 Lymph # (Auto) 1.50 [place] # (Auto) 0.6 Eos # (Auto) 0.2 Baso # (Auto) 0.0 Abs Immat Gran (auto) 0.02 Absolute Neuts (auto) 2.6 Absolute Nucleated RBC 0.000 Nucleated RBC % 0.0 Sodium 135 L Potassium 3.3 L Chloride 93 L Carbon Dioxide 37 H Anion Gap 5 BUN 10 Creatinine 0.63 L Estim Creat Clear Calc 74 Estimated GFR > 60 Glucose 81 Calcium 9.0 Magnesium 1.7 Total Bilirubin 0.8 AST 31 ALT 17 Alkaline Phosphatase 69 NT-Pro-B Natriuret Pep 9090 H Total Protein 7.0 Albumin 3.6
[2024-06-21] MEDS: RIVAROXABAN 20 MG TABLET BY MOUTH (17:25)
[2024-06-21] MEDS: ALPRAZolam (*CRX) 0.25 MG TABLET PO (20:26)
[2024-06-22] MEDS: oxyCODONE/ACETAMINOPHEN (*CRX) 10-325 MG TABLET 1 TAB PO ×2 (04:00→08:36)
[2024-06-22 04:44] VITALS: BP 104/70; PULSE 70; RESP 20; TEMP 36.2; O2SAT 93
[2024-06-22 05:15] LABS: Basophils Percent Auto 0.7 % (0.2-1.2); Eosinophils Absolute Auto 0.1 K/mm3 (0-0.3); Eosinophils Percent Auto 3.2 % (0-4.4); Hematocrit 26.6 % (37.0-47.0); Hemoglobin 8.5 g/dL (12.0-15.0); Immature Granulocyte Absolute 0.01 K/mm3 (0.00-0.031); Immature Granulocyte Percent A 0.2 % (0-0.5); Lymphocytes Absolute Auto 1.34 K/mm3 (0.9-3.2); Lymphocytes Percent Auto 30.7 % (18.3-44.2); Mean Corpuscular Volume 106.4 fl (80-100); Mean Platelet Volume 9.3 fl (7.4-10.4); Monocytes Absolute Auto 0.7 K/mm3 (0.1-0.6); Monocytes Percent Auto 15.1 % (2.6-8.5); Neutrophils Absolute Auto 2.2 K/mm3 (1.3-6.7); Neutrophils Percent Auto 50.1 % (45.5-73.1); Platelet Count Result 436 k/mm3 (150-375); Red Cell Distribution Width 13.9 % (11.5-14.5); White Blood Count 4.4 K/mm3 (4.5-10.0)
[2024-06-22 05:32] LABS: Alanine Aminotransferase 13 U/L (6-35); Alkaline Phosphatase 61 U/L (38-126); Aspartate Amino Transferase 27 U/L (14-36); Bilirubin,Total 0.8 mg/dL (0.2-1.3); Blood Urea Nitrogen 9 mg/dL (7-17); Calcium 8.5 mg/dL (8.4-10.2); Carbon Dioxide > 40 mmol/L (22-30); Chloride 94 mmol/L (98-107); Estimated CRCL calculation 75 ml/min; Estimated Glomerular Filt Rate > 60; Glucose 86 mg/dL (65-110); Magnesium 1.8 mg/dL (1.6-2.3); Potassium 3.2 mmol/L (3.4-5.0); Sodium 136 mmol/L (137-145)
[2024-06-22 05:57] LABS: Macrocytosis 1+ (NORMAL); Platelet Estimate Increased (Adequate); Schistocytes None Seen
[2024-06-22 08:35] VITALS: PULSE 70; O2SAT 90
[2024-06-22] MEDS: DULoxetine HCL 60 MG CAPSULE.DR BY MOUTH (08:35)
[2024-06-22] MEDS: LOSARTAN POTASSIUM 25 MG TABLET PO (08:35)
[2024-06-22] MEDS: EZETIMIBE 10 MG TABLET BY MOUTH (08:35)
[2024-06-22] MEDS: METOPROLOL SUCCINATE EXT REL 25 MG TABCR PO (08:35)
[2024-06-22] MEDS: ROSUVASTATIN 5 MG TABLET PO (08:36)
[2024-06-22] MEDS: FUROSEMIDE 40 MG TABLET PO (08:36)
[2024-06-22] MEDS: FLUTICASONE/UMECLIDIN/VILANTER 100-62.5-25 MCG ELLIPTA 1 PUFF INHALATION (08:36)
[2024-06-22] MEDS: POTASSIUM CHLORIDE 20 MEQ ER TABLET 40 MEQ PO (08:37)
[2024-06-22] MEDS: polyethylene glycoL 3350 17 GM POWD.PACK PO (08:37)
--- NOTE | 2024-06-22 11:03 | PM.DS ---
DS: Admitting Diagnosis Discharge Date 06/22/2024 Admitting Diagnosis Shortness of breath DS: Discharge Diagnosis Discharge Diagnosis (1) CHF exacerbation: Code(s): I50.9 - Heart failure, unspecified Status: Acute (2) Systolic dysfunction: Code(s): I51.9 - Heart disease, unspecified Status: Acute (3) Essential hypertension: Code(s): I10 - Essential (primary) hypertension Status: Acute (4) CHF (congestive heart failure), NYHA class I: Code(s): I50.9 - Heart failure, unspecified Status: Acute (5) Elevated troponin: Code(s): R77.8 - Other specified abnormalities of plasma proteins Status: Acute (6) Paroxysmal atrial fibrillation: Code(s): I48.0 - Paroxysmal atrial fibrillation Status: Acute (7) AICD (automatic cardioverter/defibrillator) present: Code(s): Z95.810 - Presence of automatic (implantable) cardiac defibrillator Status: Acute (8) Hyperlipidemia: Qualifiers: Hyperlipidemia type: unspecified Qualified Code(s): E78.5 - Hyperlipidemia, unspecified Code(s): E78.5 - Hyperlipidemia, unspecified Status: Acute (9) Anxiety: Code(s): F41.9 - Anxiety disorder, unspecified Status: Acute (10) Depression: Qualifiers: Active/Remission status: in full remission Depression Type: major depressive disorder Major depression recurrence: recurrent Qualified Code(s): F33.42 - Major depressive disorder, recurrent, in full remission Code(s): F32.9 - Major depressive disorder, single episode, unspecified Status: Acute (11) COPD (chronic obstructive pulmonary disease): Qualifiers: COPD type: unspecified COPD Qualified Code(s): J44.9 - Chronic obstructive pulmonary disease, unspecified Code(s): J44.9 - Chronic obstructive pulmonary disease, unspecified Status: Acute (12) Pleural effusion, bilateral: Code(s): J90 - Pleural effusion, not elsewhere classified Status: Acute DS: Summary Hospital Course Hospital Course: Patient is a 63-year-old female who presents to the emergency department this morning with complaints of worsening shortness of breath. Patient was discharged from our facility yesterday after having right shoulder surgery. Patient does have a history of CHF and COPD and normally does not wear oxygen home but when she was discharged home yesterday she was sent home with oxygen. Patient also states that she noticed that she is more swollen all over her body. Upon EMS arrival to the patient's residence, she was noted to have rapid shallow breathing and bilateral wheezing. She was administered a DuoNeb breathing treatment which patient states did improve her shortness of breath slightly. Patient was satting 94% on her 2 L prior to DuoNeb and her oxygenation improved to 100% after the DuoNeb breathing treatment. Currently denying any chest pain, nausea vomiting, or abdominal pain. There are no additional modifying, alleviating, or precipitating factors at this time. In the ED she was afebrile blood pressure was adequate tachycardic oxygen saturation adequate on 2 L oxygen. EKG showed sinus tachycardia with no evidence of acute ischemia. Laboratory evaluation revealed WBC 8.7 hemoglobin 9.6 creatinine 0.5 sodium 132. LFTs were normal. Elevated troponin 0.18, [place] [address]. These were normal on June 12, 2024. CTA PE protocol was performed which showed no evidence of PE aortic dissection or aortic aneurysm. Small bilateral pleural effusions left greater than right was noted with mild atelectatic changes. She has underlying moderate to advanced emphysema. She is admitted for further treatment. Acute on chronic CHF diastolic. History of systolic dysfunction 3 months ago with EF 35%. Echo 06/14/2024 with EF 55-60% mild aortic valve stenosis. Continue IV diuresis with Lasix daily. Was switched to oral Lasix recheck BNP improved. Continue Lasix at discharge Elevated troponin follow trend and remains flat likely due to CHF Moderate to severe emphysema Chronic respiratory failure needing oxygen since 05/2024. Home oxygen evaluation at discharge required 1 L of oxygen with activity at discharge. Recent right shoulder surgery 4 committed fracture right humeral neck. Follow-up with orthopedics as previously recommended Hypertension Hyperlipidemia Chronic anticoagulation with Xarelto Alcohol use anxiety depression Osteoporosis Paroxysmal atrial fibrillation currently sinus rhythm DVT prophylaxis on Xarelto Code status full code Disposition: home with home health when able Time Spent with Patient Time attestation: Total time spent providing and/or coordinating discharge services: 5 minutes Exam Narrative: General: Alert, awake, afebrile, in no acute distress. HEENT: PERRL, no rhinorrhea, no post nasal drip, oropharynx clear. Neck: Trachea midline, no JVD, no lymphadenopathy. Cardiovascular: regular rhythm, no murmurs, rubs or gallops, trace bilateral lower extremity pitting edema. Respiratory: Clear to auscultation bilaterally, no tachypnea, no wheezing, no rhonchi, no rubs, no respiratory distress. Abdomen: Soft, nontender, nondistended, no rebound, no guarding, no peritoneal signs. Musculoskeletal: No joint swelling or deformity, normal muscle tone. Her right arm on sling Skin: No rashes or petechia, no signs of infection. Psychiatric: Alert and oriented, normal behavior and judgment for situation. Neurological: Alert and oriented to person, place, and time. Follows all commands. No focal deficits, speech is clear and fluent. DS: Data Data Completed and Pending Labs on day of discharge: Labs from last 24 hours 06/22/24 04:47 WBC 4.4 L RBC 2.50 L Hgb 8.5 L Hct 26.6 L MCV 106.4 H MCH 34.0 MCHC 32.0 RDW 13.9 Plt Count 436 H MPV 9.3 Immature Gran % (Auto) 0.2 Neut % (Auto) 50.1 Lymph % (Auto) 30.7 Harris % (Auto) 15.1 H Eos % (Auto) 3.2 Baso % (Auto) 0.7 Lymph # (Auto) 1.34 Harris # (Auto) 0.7 H Eos # (Auto) 0.1 Baso # (Auto) 0.0 Abs Immat Gran (auto) 0.01 Absolute Neuts (auto) 2.2 Absolute Nucleated RBC 0.000 Band Neutrophils % Not Reportable Nucleated RBC % 0.0 Platelet Estimate Increased Macrocytosis 1+ Schistocytes None seen Sodium 136 L Potassium 3.2 L Chloride 94 L Carbon Dioxide > 40 H Anion Gap BUN 9 Creatinine 0.62 L Estim Creat Clear Calc 75 Estimated GFR > 60 Glucose 86 Calcium 8.5 Magnesium 1.8 Total Bilirubin 0.8 AST 27 ALT 13 Alkaline Phosphatase 61 Total Protein 6.0 L Albumin 3.0 L Imaging Radiologist's impression: ITS Impressions Chest CTA 06/18/24 06:08 Impression: No evidence of pulmonary embolus, aortic dissection, or aortic aneurysm. Small bilateral pleural effusions, left greater than right, mild atelectatic change. Moderate to advanced emphysema. Probable recent ORIF of proximal humeral shaft fracture with humeral intramedullary tabitha present. Discharge Plan Discharge Attending physician on discharge: Kamari Gabriel Discharging Clinician: Kamari Gabriel Anticipated Discharge Date/Time: 06/22/24 11:05 Patient Disposition: Home with Home Health Service Activity: as tolerated Diet: heart healthy Discharge Instructions: Per Care Coordinaton. Patient to resume [facility] for RN/PT/OT eval and treat #[phone]. They will contact patient to schedule visits. 1L of oxygen with activity Follow-up with orthopedics as previously scheduled or recommended Patient Instructions: Antibiotic Form Patient Language: Chadian Stand Alone Forms: General Discharge Information Follow-up/Referrals: Max Patel APRN [Primary Care Provider] - 1 Week Discharge Medications: New furosemide 40 mg Tablet 40 mg PO DAILY Qty: 30 0RF polyethylene glycol 3350 [Miralax] 17 gram Powder In Packet 17 g PO QAM Qty: 30 0RF Continued ergocalciferol (vitamin D2) 1,250 mcg (50,000 unit) capsule 1,250 mcg PO WEEKLY Rx Instructions: saturdays losartan 25 mg Tablet 25 mg PO DAILY Qty: 30 0RF metoprolol succinate [Toprol XL] 25 mg Tablet Extended Release 24 Hr 25 mg PO QAM Qty: 30 0RF oxycodone-acetaminophen 10-325 mg Tablet 1 tablet PO Q4H PRN (Reason: Pain Rated 4-10) Qty: 10 0RF ezetimibe 10 mg tablet See Rx Instructions .ROUTE .COMPLEX Qty: 90 1RF Dose Instruction: TAKE 1 TABLET BY MOUTH EVERY DAY Rx Instructions: TAKE 1 TABLET BY MOUTH EVERY DAY duloxetine 60 mg capsule,delayed release(DR/EC) See Rx Instructions .ROUTE .COMPLEX Qty: 90 1RF Dose Instruction: TAKE 1 CAPSULE BY MOUTH EVERY DAY Rx Instructions: TAKE 1 CAPSULE BY MOUTH EVERY DAY Xarelto 20 mg tablet See Rx Instructions .ROUTE .COMPLEX Qty: 90 1RF Dose Instruction: TAKE 1 TABLET BY MOUTH EVERY DAY WITH DINNER Rx Instructions: TAKE 1 TABLET BY MOUTH EVERY DAY WITH DINNER rosuvastatin 5 mg tablet 5 mg PO DAILY Qty: 90 1RF Rx Instructions: TAKE 1 TABLET BY MOUTH EVERY DAY Breztri Aerosphere 160-9-4.8 mcg/actuation HFA aerosol inhaler See Rx Instructions .ROUTE .COMPLEX Qty: 10.7 5RF Dose Instruction: INHALE 2 PUFFS BY MOUTH TWICE DAILY Rx Instructions: INHALE 2 PUFFS BY MOUTH TWICE DAILY alprazolam 0.25 mg tablet 0.25 mg PO QHS Qty: 30 0RF Rx Instructions: TAKE 1 TABLET BY MOUTH DAILY NEEDED Other Ambulatory Orders: Complete Blood Count with Diff (Routine) Timeframe: 1 Week Location: Determined by Patient Ordered By: Kamari Gabriel Comprehensive Metabolic Panel (Routine) Timeframe: 1 Week Location: Determined by Patient Ordered By: Kamari Gabriel Date of admission: 06/20/24 14:01 Primary Care Provider: Max Patel Admitting Provider: Maria Isabel Tracy Attending physician on admission: Maria Isabel Tracy Condition: Improved
[2024-06-22 11:30] VITALS: PULSE 90; O2SAT 90
[2024-06-22 11:32] VITALS: PULSE 113; O2SAT 86
[2024-06-22 11:33] VITALS: PULSE 115; O2SAT 90
[2024-06-22 11:45] VITALS: PULSE 86; O2SAT 92
--- NOTE | 2024-06-30 11:12 | PC.NURSE ---
Received call from lab with pt's outpt. potassium level. LEvel is 2.8. I faxed lab result to her PCP, Max Patel NP.
== END 2024-06-22 13:50 | disposition home health service (06) | DRG 291 ==
LOC: ANHED 05:06 → ANH3MEDSUR 08:10 → ANHIMU 08:12 → ANH2MED 06-22 11:05 → ANHIMU 06-24 08:56
PROVIDERS: Admitting Provider Internal Medicine; Emergency Provider Emergency Medicine; PCP Nurse Practitioner; Visit Provider Internal Medicine
DX: I11.0 Hypertensive heart disease with heart failure (principal); I50.33 Acute on chronic diastolic (congestive) heart failure; J96.10 Chronic respiratory failure, unspecified whether with hypoxia or hypercapnia; J43.9 Emphysema, unspecified; E78.5 Hyperlipidemia, unspecified; F10.90 Alcohol use, unspecified, uncomplicated; F17.210 Nicotine dependence, cigarettes, uncomplicated; F32.9 Major depressive disorder, single episode, unspecified; I48.0 Paroxysmal atrial fibrillation; M81.0 Age-related osteoporosis without current pathological fracture; Z95.810 Presence of automatic (implantable) cardiac defibrillator; Z79.01 Long term (current) use of anticoagulants
CPT/HCPCS: 36415; 71275; 80053; 83735; 83880; 84484; 85025; 93005; 94640; 96374; 96375; 97162; 97166; 97530; 99285; A4565; A9270; G0378; J1938; J2270; J2405; Q9967

== ENCOUNTER 2024-06-29 13:34 | Outpatient (NON) | payer OTHER, SELFPAY ==
--- OUTSIDE RECORDS SUMMARY | 2024-06-29 13:54 | XMS_ITS | CONTINUITY OF CARE DOCUMENT ---
Author Name dee price Address Unknown Organization [place] [facility] Address [address] [place] [address] [address] [place] [address] Phone [phone] Care Team Providers Care County Extension Agent Name Role Phone Moreno Brennan MD Unavailable [phone] Moreno Brennan MD Unavailable [phone] INSURANCE PROVIDERS Payer name Policy type / Coverage type [place] red alliance party ID [id number] PAY
--- OUTSIDE RECORDS SUMMARY | 2024-06-29 13:54 | XMS_ITS | Clinical Summary ---
Author Organization [facility] Address [address] [place] [address] Care Team Providers Care Finish Cleaner Name Role Phone Neal Robbins MD Primary Care Provider [phone] Allergies Active Allergy Reactions Criticality Noted Date [...] migh t be different from the original. Automatic Car Wash Attendant - Dr Mati Perez Problem Noted Date [...] St. Ralf ICD - Current DR FITZGERALD [id number] SN: [id number] - Implanted 10/12/[address] 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 Not on file Not on file Last Filed Vital Signs Vital Sign Reading Time Taken Comments Blood Pressure 166/103 02/24/2014 1:38 PM MAINSPRING STRIP GAUGER Pulse 62 02/24/2014 1:38 PM MAINSPRING STRIP GAUGER Temperature - - Respiratory Rate 10 04/02/2010 1:25 PM MAINSPRING STRIP GAUGER Oxygen Saturation 98% 02/24/2014 1:38 PM MAINSPRING STRIP GAUGER Inhaled Oxygen Concentration - - Weight 64 kg (141 lb) 02/24/2014 1:38 PM MAINSPRING STRIP GAUGER Height 172.1 cm (5' 7.75 ) 02/24/2014 1:38 PM CS T Body Mass Index 21.6 02/24/2014 1:38 PM MAINSPRING STRIP GAUGER Plan of Treatment Health Maintenance Due Date [...] series) 2021 INFLUENZA VACCINE (#1) 2023 Insurance [employer] [facility] Care Teams Finish Cleaner Relationship Specialty Start Date End Date Neal Robbins MD [address] [place] [phone] PCP - General Family Practice 03/09/10
--- OUTSIDE RECORDS SUMMARY | 2024-06-29 13:54 | XMS_ITS | Clinical Summary ---
Author Organization [facility] Address [address] [facility] [place] [address] Care Team Providers Care Public Works Inspector Name Role Phone Gary Tom MD Primary Care Provider [phone] Source Comments [facility],non-owned Affiliates and Associated Physician Practices is amultiple site organization consisting of ambulatory clinics and hospital sitesin [place], [place], [place] and [place]. This disclosure is being madepursuant to the Care Everywhere program and may not contain all information available regarding this patient. Last updated 17.[facility] Allergies No known active allergies Medications * Be aware that medications may not be up to date on this document. Alwaysverify current medications with the patient. DULoxetine (CYMBALTA) 60 MG capsule Take 1 (one) capsule by mouth once daily Active vitamin D, ergocalciferol, (DRISDOL) 78854 UNITS capsule Take 1 (one) capsule by [...] not taking.Reported on 09/10/2022 saline nasal spray (Desha; Baby [place]) 0.65 % nasal spray [place] 1 (one) spray into each nostril every [...] Patient not taking.Reported on 09/10/2022 HYDROcodone-acetam inophen ([place]) 5-325 MG tabletIndications: Pleural effusion,Chronic systolic heart [...] Patient not taking.Reported on 09/10/2022 HYDROcodone-acetam inophen ([place]) 5-325 MG tabletIndications: Empyema (HCC),Postoperativ e pain Take 1 (one) tablet by mouth every 8 hours as needed for Pain 30 tablet 023 Active traMADol (Ultram) 50 MG tablet Take 1 (one) tablet by mouth every 6 hours as needed for Pain 30 tablet 023 Active HYDROcodone-acetam inophen ([place]) 5-325 MG tabletIndications: 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 Ralf ICD - Current DR FITZGERALD [id number] SN: [id number] - Implanted 10/12/[address] Eric Nuno RA: LANCE [id number] SN: [id number] (Implanted 10/12/2008) RV: SANIA [id number] SN: [id number] (Implanted 10/12/2008) Mitral valve disorder 03/01/2015 Overview (03/01/2015): Overview: mild Essential hypertension 03/01/2015 Defibrillator 02/28/2015 Overview (01/22/2017): St. Ralf model [id number] SN: [id number] - Implanted 01/22/[address] 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 Not hard at all 08/01/2022 [facility] [place] of Occupat ional Health - Occupational Stress [...] place to sleep or slept in a penitentiary (including now)? No 08/01/2022 Comments Unknown Sex and Gender Information Value Date Recorded Sex Assigned at Not on file Legal Sex Female 8:37 AM SLIPPER MAKER Gender Identity Not on file Sexual Orientation [...] Description 05/05/2025 9:00 AM CDT Appointment [facility] Imaging Services - CT Scan [address] [facility] [address] [place] [address] [place] [address], [address] [place] [phone] 05/10/2025 9:20 AM CDT Office Visit [facility] Heart & Vascular Care - Cardiothoracic Surgery [address] [facility] [address] [place] [phone] [place] [address], [address] [place] [address] Health Maintenance Due Date Last [...] Documents on File Type Date Recorded Patient Load Dispatcher Expl anation Adv Directive/Living Will/POA 08/23/2022 4:26 PM * Full Code (Latest Code Status on File) Date Activated Date Inactivated Comments 08/01/2022 10:38 PM 08/22/2022 5:13 PM Care Teams Public Works Inspector Relationship Specialty Start Date End Date Gary Tom MD [address] [place] [phone] PCP - General Internal Medicine 03/18/19
[2024-06-29 16:00] LABS: Basophils Absolute Auto 0.1 K/mm3 (0.0-0.1); Basophils Percent Auto 1.2 % (0.2-1.2); Eosinophils Absolute Auto 0.2 K/mm3 (0-0.3); Eosinophils Percent Auto 2.2 % (0-4.4); Hematocrit 39.4 % (37.0-47.0); Hemoglobin 12.1 g/dL (12.0-15.0); Immature Granulocyte Absolute 0.01 K/mm3 (0.00-0.031); Immature Granulocyte Percent A 0.1 % (0-0.5); Lymphocytes Absolute Auto 1.59 K/mm3 (0.9-3.2); Lymphocytes Percent Auto 23.8 % (18.3-44.2); Mean Corpuscular HGB Conc 30.7 g/dl (32-36); Mean Corpuscular Volume 104.2 fl (80-100); Mean Platelet Volume 10.4 fl (7.4-10.4); Monocytes Absolute Auto 0.7 K/mm3 (0.1-0.6); Monocytes Percent Auto 10.2 % (2.6-8.5); Neutrophils Absolute Auto 4.2 K/mm3 (1.3-6.7); Neutrophils Percent Auto 62.5 % (45.5-73.1); Platelet Count Result 644 k/mm3 (150-375); Red Blood Count 3.78 M/mm3 (4.2-5.4); Red Cell Distribution Width 13.7 % (11.5-14.5); White Blood Count 6.7 K/mm3 (4.5-10.0)
[2024-06-29 17:32] LABS: Alanine Aminotransferase 19 U/L (6-35); Albumin Level 4.3 g/dL (3.5-5.1); Alkaline Phosphatase 99 U/L (38-126); Anion Gap 14 mmol/L (4-12); Aspartate Amino Transferase 50 U/L (14-36); Bilirubin,Total 0.5 mg/dL (0.2-1.3); Blood Urea Nitrogen 8 mg/dL (7-17); Calcium 9.3 mg/dL (8.4-10.2); Carbon Dioxide 30 mmol/L (22-30); Chloride 96 mmol/L (98-107); Estimated Glomerular Filt Rate > 60; Glucose 70 mg/dL (65-110); Sodium 140 mmol/L (137-145)
[2024-06-30 08:03] LABS: Potassium 2.8 mmol/L (3.4-5.0)
== END 2024-06-29 13:35 | disposition home or self-care (01) ==
PROVIDERS: PCP Nurse Practitioner; Visit Provider Internal Medicine
DX: I50.9 Heart failure, unspecified (principal)
CPT/HCPCS: 80053; 85025

== ENCOUNTER 2024-07-07 14:47 | Outpatient (NON) | payer OTHER, SELFPAY ==
--- OUTSIDE RECORDS SUMMARY | 2024-07-07 14:56 | XMS_ITS | Clinical Summary ---
Author Organization [facility] Address [address] [place] [address] Care Team Providers Care Loading Machine Tool Setter Name Role Phone Neal Robbins MD Primary Care Provider [phone] Allergies Active Allergy Reactions Criticality Noted Date [...] migh t be different from the original. Superintendent Local - Dr Mati Perez Problem Noted Date [...] St. Ralf ICD - Current DR FITZGERALD [id number] SN: [id number] - Implanted 10/12/[address] 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 Not on file Not on file Last Filed Vital Signs Vital Sign Reading Time Taken Comments Blood Pressure 166/103 02/24/2014 1:38 PM ROTOGRAVURE PRESS OPERATOR Pulse 62 02/24/2014 1:38 PM ROTOGRAVURE PRESS OPERATOR Temperature - - Respiratory Rate 10 04/02/2010 1:25 PM ROTOGRAVURE PRESS OPERATOR Oxygen Saturation 98% 02/24/2014 1:38 PM ROTOGRAVURE PRESS OPERATOR Inhaled Oxygen Concentration - - Weight 64 kg (141 lb) 02/24/2014 1:38 PM ROTOGRAVURE PRESS OPERATOR Height 172.1 cm (5' 7.75 ) 02/24/2014 1:38 PM CS T Body Mass Index 21.6 02/24/2014 1:38 PM ROTOGRAVURE PRESS OPERATOR Plan of Treatment Health Maintenance Due Date [...] series) 2021 INFLUENZA VACCINE (#1) 2023 Insurance [employer]facts [facility] [place] OPEN [place]ESS Care Teams Loading Machine Tool Setter Relationship Specialty Start Date End Date Neal Robbins MD [address] [place] [phone] PCP - General Family Practice 03/09/10
--- OUTSIDE RECORDS SUMMARY | 2024-07-07 14:56 | XMS_ITS | Clinical Summary ---
Author Organization [facility] Address [address] [facility] [place] [address] Care Team Providers Care Belt Molder Name Role Phone Gary Tom MD Primary Care Provider [phone] Source Comments [facility],non-owned Affiliates and Associated Physician Practices is amultiple site organization consisting of ambulatory clinics and hospital sitesin [place], [place], [place] and [place]. This disclosure is being madepursuant to the Care Everywhere program and may not contain all information available regarding this patient. Last updated 17.[facility] Allergies No known active allergies Medications * Be aware that medications may not be up to date on this document. Alwaysverify current medications with the patient. DULoxetine (CYMBALTA) 60 MG capsule Take 1 (one) capsule by mouth once daily Active vitamin D, ergocalciferol, (DRISDOL) 90538 UNITS capsule Take 1 (one) capsule by [...] not taking.Reported on 09/10/2022 saline nasal spray ([place]; Baby [place]) 0.65 % nasal spray [place] 1 (one) spray into each nostril every [...] Patient not taking.Reported on 09/10/2022 HYDROcodone-acetam inophen ([place] [address]) 5-325 MG tabletIndications: Pleural effusion,Chronic systolic heart [...] Patient not taking.Reported on 09/10/2022 HYDROcodone-acetam inophen ([address]) 5-325 MG tabletIndications: Empyema (HCC),Postoperativ e pain Take 1 (one) tablet by mouth every 8 hours as needed for Pain 30 tablet 023 Active traMADol (Ultram) 50 MG tablet Take 1 (one) tablet by mouth every 6 hours as needed for Pain 30 tablet 023 Active HYDROcodone-acetam inophen ([address]) 5-325 MG tabletIndications: 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 Ralf ICD - Current DR FITZGERALD [id number] SN: [id number] - Implanted 10/12/[address] Eric Nuno RA: LANCE [id number] SN: [id number] (Implanted 10/12/2008) RV: SANIA [id number] SN: [id number] (Implanted 10/12/2008) Mitral valve disorder 03/01/2015 Overview (03/01/2015): Overview: mild Essential hypertension 03/01/2015 Defibrillator 02/28/2015 Overview (01/22/2017): St. Ralf model [id number] SN: [id number] - Implanted 01/22/[address] 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 Not hard at all 08/01/2022 [facility] [place] of Occupat ional Health - Occupational Stress [...] place to sleep or slept in a prison (including now)? No 08/01/2022 Comments Unknown Sex and Gender Information Value Date Recorded Sex Assigned at Not on file Legal Sex Female 8:37 AM PRODUCTION MECHANIC Gender Identity Not on file Sexual Orientation [...] Info) Description 05/05/2025 9:00 AM CDT Appointment [facility] Imaging Services - CT Scan [address] [facility] [address] [place] [address] [place] [address], [address] [place] [phone] 05/10/2025 9:20 AM CDT Office Visit [facility] Heart & Vascular Care - Cardiothoracic Surgery [address] [facility] [address] [place] [phone] [place] [address], [address] [place] [address] Health Maintenance Due Date Last [...] Documents on File Type Date Recorded Patient Nuisance Wildlife Trapper Expl anation Adv Directive/Living Will/POA 08/23/2022 4:26 PM * Full Code (Latest Code Status on File) Date Activated Date Inactivated Comments 08/01/2022 10:38 PM 08/22/2022 5:13 PM Care Teams Belt Molder Relationship Specialty Start Date End Date Gary Tom MD [address] [place] [phone] PCP - General Internal Medicine 03/18/19
--- OUTSIDE RECORDS SUMMARY | 2024-07-07 14:56 | XMS_ITS | CONTINUITY OF CARE DOCUMENT ---
Author Name dee price Address Unknown Organization [place] [facility] Address [address] [place] [address] [address] [place] [address] Phone [phone] Care Team Providers Care Nuclear Medicine Supervisor Name Role Phone Moreno Brennan MD Unavailable [phone] Moreno Brennan MD Unavailable [phone] INSURANCE PROVIDERS Payer name Policy type / Coverage type [place] red democrat ID SELF PAY
[2024-07-07 19:23] LABS: Anion Gap 6 mmol/L (4-12); Blood Urea Nitrogen 5 mg/dL (7-17); Calcium 9.3 mg/dL (8.4-10.2); Carbon Dioxide 34 mmol/L (22-30); Chloride 98 mmol/L (98-107); Estimated Glomerular Filt Rate > 60; Glucose 93 mg/dL (65-110); Potassium 3.9 mmol/L (3.4-5.0); Sodium 138 mmol/L (137-145)
== END 2024-07-07 14:48 | disposition home or self-care (01) ==
LOC: ANHBWCLAB 14:51
PROVIDERS: PCP Nurse Practitioner; Visit Provider Nurse Practitioner
DX: E87.6 Hypokalemia (principal)
CPT/HCPCS: 36415; 80048

== ENCOUNTER 2024-10-06 10:40 | Outpatient (CLI) | payer OTHER, SELFPAY ==
--- OUTSIDE RECORDS SUMMARY | 2024-10-06 11:12 | XMS_ITS | Clinical Summary ---
Author Organization [facility] Address [address] [place] [address] Care Team Providers Care Fly Tier Name Role Phone Gary Tom MD Primary Care Provider [phone] Source Comments [facility],non-owned Affiliates and Associated Physician Practices is amultiple site organization consisting of ambulatory clinics and hospital sitesin [place], [place], [place] and [place]. This disclosure is being madepursuant to the Care Everywhere program and may not contain all information available regarding this patient. Last updated 17.[facility] Allergies No known active allergies Medications * Be aware that medications may not be up to date on this document. Alwaysverify current medications with the patient. DULoxetine (CYMBALTA) 60 MG capsule Take 1 (one) capsule by mouth once daily Active vitamin D, ergocalciferol, (DRISDOL) 52225 UNITS capsule Take 1 (one) capsule by [...] not taking.Reported on 09/10/2022 saline nasal spray ([place]; Baby [place]) 0.65 % nasal spray [place] 1 (one) spray into each nostril every [...] Patient not taking.Reported on 09/10/2022 HYDROcodone-acetam inophen ([place]) 5-325 MG tabletIndications: Pleural effusion,Chronic systolic heart [...] Patient not taking.Reported on 09/10/2022 HYDROcodone-acetam inophen ([place]) 5-325 MG tabletIndications: Empyema (HCC),Postoperativ e pain Take 1 (one) tablet by mouth every 8 hours as needed for Pain 30 tablet 023 Active traMADol (Ultram) 50 MG tablet Take 1 (one) tablet by mouth every 6 hours as needed for Pain 30 tablet 023 Active HYDROcodone-acetam inophen ([place]) 5-325 MG tabletIndications: 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 Ralf ICD - Current DR FITZGERALD [id number] SN: [id number] - Implanted 10/12/[address] Eric Nuno RA: LANCE [id number] SN: [id number] (Implanted 10/12/2008) RV: SANIA [id number] SN: [id number] (Implanted 10/12/2008) Mitral valve disorder 03/01/2015 Overview (03/01/2015): Overview: mild Essential hypertension 03/01/2015 Defibrillator 02/28/2015 Overview (01/22/2017): [facility]. Ralf model [id number] SN: [id number] - Implanted 01/22/[address] 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 Not hard at all 08/01/2022 [facility] [place] of Occupat ional Health - Occupational Stress [...] place to sleep or slept in a jail (including now)? 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 Gender Identity Not on file Sexual Orientation [...] A M CDT Height 167.6 cm (5' 6) 05/18/2024 9:42 AM CDT Body Mass Index 23.18 05/18/2024 9:42 AM CDT Plan of Treatment Upcoming Encounters Date Type Department Care Team (Late st Contact Info) Description 05/05/2025 9:00 AM CDT Appointment [facility] Health Imaging Services - CT Scan [address] [place] [address] [place] [address], [address] [place] [phone] 05/10/2025 9:20 AM CDT Office Visit [facility] Heart & Vascular Care - Cardiothoracic Surgery [address] [place] [phone] [place] [address], [address] [place] [phone] Health Maintenance Due Date Last Done Comments [...] history exists DEPRESSION SCREENING 02/18/2024 INFLUENZA VACCINE (#1) 2024 02/17/2013 HEPATITIS B VACCINE Aged Out [...] on patient's age to complete this topic Insurance HE[employer]LINK HEALTHLINK Advance Directives Documents on File Type Date Recorded Patient Fitter Up Expl anation Adv Directive/Living Will/POA 08/23/2022 4:26 PM * Full Code (Latest Code Status on File) Date Activated Date Inactivated Comments 08/01/2022 10:38 PM 08/22/2022 5:13 PM Care Teams Fly Tier Relationship Specialty Start Date End Date Gary Tom MD [address] [place] [phone] PCP - General Internal Medicine 03/18/19
--- OUTSIDE RECORDS SUMMARY | 2024-10-06 11:12 | XMS_ITS | Clinical Summary ---
Author Organization [facility] Address [address] [place] [address] Care Team Providers Care Medication Manager Name Role Phone Neal Robbins MD Primary Care Provider [phone] Allergies Active Allergy Reactions Criticality Noted Date [...] migh t be different from the original. Python Java Developer - Dr Mati Perez Problem Noted Date [...] St. Ralf ICD - Current DR FITZGERALD [id number] SN: [id number] - Implanted 10/12/[address] 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 Not on file Not on file Not on file Last Filed Vital Signs Vital Sign Reading Time Taken Comments Blood Pressure 166/103 02/24/2014 1:38 PM MANAGER LOCAL Pulse 62 02/24/2014 1:38 PM MANAGER LOCAL Temperature - - Respiratory Rate 10 04/02/2010 1:25 PM MANAGER LOCAL Oxygen Saturation 98% 02/24/2014 1:38 PM MANAGER LOCAL Inhaled Oxygen Concentration - - Weight 64 kg (141 lb) 02/24/2014 1:38 PM MANAGER LOCAL Height 172.1 cm (5' 7.75) 02/24/2014 1:38 PM CS T Body Mass Index 21.6 02/24/2014 1:38 PM MANAGER LOCAL Plan of Treatment Health Maintenance Due Date [...] years 1-dose series) 2021 INFLUENZA VACCINE (#1) 2024 Insurance [employer] [facility] Care Teams Medication Manager Relationship Specialty Start Date End Date Neal Robbins MD [address] [place] [phone] PCP - General Family Practice 03/09/10
[2024-10-06 12:27] LABS: Potassium 4.0 mmol/L (3.4-5.0)
== END 2024-10-06 10:41 | disposition home or self-care (01) ==
LOC: ANHLAB 10:42
PROVIDERS: PCP Nurse Practitioner; Visit Provider Anesthesiology
DX: E87.6 Hypokalemia (principal)
CPT/HCPCS: 36415; 84132

== ENCOUNTER 2024-10-14 02:16 | Day surgery (SDC) | payer OTHER, SELFPAY ==
[2024-10-05 09:09] VITALS: BMI 22.0
--- NOTE | 2024-10-05 09:09 | PC.NURSE ---
Report to the Outpatient Waiting Room, entrance under the green pavilion located off [facility], at time _1000__ on date _10/14/24. Planned Procedure Time: _1200.? Time changes happen often and if your time is changed the preop area will call you the afternoon before. - You and your visitor will be asked to self-screen and do not enter if you have any COVID symptoms. Please call surgeon if you need to reschedule. - A mask is optional within the hospital at this time. Patients may have clear liquids (water, carbonated beverages, clear teas, apple juice) until 3 hours prior to surgery with a maximum of 20 ounces. - No food from midnight until time of surgery and no smoking, or chewing tobacco (or any form of nicotine). No chewing gum, candy or mints. - Infants may have breast milk until 4 hours before surgery, infant formula 6 hours prior to surgery. - Children will be allowed to drink immediately following surgery.? If applicable, please bring a bottle or sippy cup to assist with drinking. Juice, water, soda, and popsicles are readily available.? For infants on formula, please bring formula the day of surgery.? Pacifiers are allowed. Take only the following medications with a SIP of water on the morning of surgery: _METOPROLOL, DULOXITINE, INHALER,MAY TAKE PAIN PILL AND XANAX IF NEEDED DO NOT STOP ANY OF YOUR OTHER PRESCRIPTION MEDICATIONS PRIOR TO SURGERY EXCEPT THE FOLLOWING Hold all vitamins and supplements for 3 days per anesthesiologist. Medications to discontinue per physician Date to take last dose____10/10/24 Please no make-up, nail chilean, hairspray, perfume, deodorant, or body powder the day of surgery.? No jewelry (including any body piercings) or valuables the day of surgery, leave them at home.? Please take a shower or bath the night before, or the morning of, surgery with an antibacterial soap.? Wear comfortable, loose fitting clothing.? Children are encouraged to wear pajamas. - Jewelry must be removed prior to entering the operating room.? Rings and piercings that are not removed may be cut off. - The hospital will not accept responsibility for valuables.? - Please leave all valuables, including medications, at home the day of surgery. If you are going home after surgery, a licensed commercial driver's license driver must drive you home.? - NO public transportation without another adult if you receive anesthesia. - We recommend that an adult stay with you for 24 hours following discharge. - We also recommend that you do not drive, make important decision, drink alcoholic beverages, or take any drugs that were not prescribed by your health care provider for at least 24 hours after your discharge time. For Pediatric surgeries, we recommend two adults accompany the child home. Follow any additional instructions given to you from your surgeon. Telephone instructions given to _PATIENT__and asked if any additional questions and then verbalized understanding. Patient advised to call surgeon office or pre surgery nurse liaison [phone] if any additional questions.
--- NOTE | ~2024-10-14 | XR_ITS ---
EXAMINATION: XR surgery orthopedic DATE: 10/14/2024 11:57 INDICATION: Orthopedic instrumentation removal at the right shoulder TECHNIQUE: 2 fluoroscopic images of the right shoulder were obtained during procedure performed by Dr. Gonzales. Radiologist was not present for the imaging or procedure. The amount of fluoroscopy time used during this procedure was 0.3 minutes. Total DAP was 3.44 cGycm^2. COMPARISON: 06/14/2024 FINDINGS: Initial image demonstrates the antegrade intramedullary tabitha and one of the proximal interlocking screws at a now healed fracture at the surgical neck of the proximal right humerus. IMPRESSION: 1. Fluoroscopy utilized during removal of internal fixation instrumentation at the right humerus. See procedure note for further detail. Reviewed, dictated and finalized at location A.
--- OUTSIDE RECORDS SUMMARY | 2024-10-14 02:20 | XMS_ITS | Clinical Summary ---
Author Organization [facility] Address [address] [place] [address] Care Team Providers Care Huc Name Role Phone Neal Robbins MD Primary Care Provider [phone] Allergies Active Allergy Reactions Criticality Noted Date [...] migh t be different from the original. Donor Services Technician - Dr Mati Perez Problem Noted Date [...] St. Ralf ICD - Current DR FITZGERALD [id number] SN: [id number] - Implanted 10/12/[address] 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 Not on file Not on file Last Filed Vital Signs Vital Sign Reading Time Taken Comments Blood Pressure 166/103 02/24/2014 1:38 PM COMMUNITY EDUCATION COORDINATOR Pulse 62 02/24/2014 1:38 PM COMMUNITY EDUCATION COORDINATOR Temperature - - Respiratory Rate 10 04/02/2010 1:25 PM COMMUNITY EDUCATION COORDINATOR Oxygen Saturation 98% 02/24/2014 1:38 PM COMMUNITY EDUCATION COORDINATOR Inhaled Oxygen Concentration - - Weight 64 kg (141 lb) 02/24/2014 1:38 PM COMMUNITY EDUCATION COORDINATOR Height 172.1 cm (5' 7.75) 02/24/2014 1:38 PM CS T Body Mass Index 21.6 02/24/2014 1:38 PM COMMUNITY EDUCATION COORDINATOR Plan of Treatment Health Maintenance Due Date [...] series) 2021 INFLUENZA VACCINE (#1) 2024 Insurance [employer] [facility] OPEN ACCESS Care Teams Huc Relationship Specialty Start Date End Date Neal Robbins MD [address] [place] [phone] PCP - General Family Practice 03/09/10
--- OUTSIDE RECORDS SUMMARY | 2024-10-14 02:20 | XMS_ITS | Clinical Summary ---
Author Organization [facility] Address [address] [place] [address] Care Team Providers Care Scratch Finisher Name Role Phone Gary Tom MD Primary Care Provider [phone] Source Comments [facility],non-owned Affiliates and Associated Physician Practices is amultiple site organization consisting of ambulatory clinics and hospital sitesin [place], [place], [place] and [place]. This disclosure is being madepursuant to the Care Everywhere program and may not contain all information available regarding this patient. Last updated 17.[facility] Allergies No known active allergies Medications * Be aware that medications may not be up to date on this document. Alwaysverify current medications with the patient. DULoxetine (CYMBALTA) 60 MG capsule Take 1 (one) capsule by mouth once daily Active vitamin D, ergocalciferol, (DRISDOL) 39469 UNITS capsule Take 1 (one) capsule by [...] not taking.Reported on 09/10/2022 saline nasal spray ([place]; Baby [place]) 0.65 % nasal spray [place] 1 (one) spray into each nostril every [...] Patient not taking.Reported on 09/10/2022 HYDROcodone-acetam inophen ([place]) 5-325 MG tabletIndications: Pleural effusion,Chronic systolic heart [...] Patient not taking.Reported on 09/10/2022 HYDROcodone-acetam inophen ([place]) 5-325 MG tabletIndications: Empyema (HCC),Postoperativ e pain Take 1 (one) tablet by mouth every 8 hours as needed for Pain 30 tablet 023 Active traMADol ([place]) 50 MG tablet Take 1 (one) tablet by mouth every 6 hours as needed for Pain 30 tablet 023 Active HYDROcodone-acetam inophen ([place]) 5-325 MG tabletIndications: 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 Ralf ICD - Current DR FITZGERALD [id number] SN: [id number] - Implanted 10/12/[address] Eric Nuno RA: LANCE [id number] SN: [id number] (Implanted 10/12/2008) RV: SANIA [id number] SN: [id number] (Implanted 10/12/2008) Mitral valve disorder 03/01/2015 Overview (03/01/2015): Overview: mild Essential hypertension 03/01/2015 Defibrillator 02/28/2015 Overview (01/22/2017): St. Ralf model [id number] SN: [id number] - Implanted 01/22/[address] Eric Nuno RA: PATRICIAM [id number] SN: [id number] (Implanted 10/12/2008) RV: SANIA 0185 SN: [id number] (Implanted 10/12/2008) Chronic systolic heart failure 01/29/2012 [...] and heating? Not hard at all 08/01/2022 [facility] [place] of Occupat ional Health - Occupational Stress [...] place to sleep or slept in a [place] facility (including now)? 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 Gender Identity Not on file Sexual Orientation [...] Info) Description 05/05/2025 9:00 AM CDT Appointment [facility] Health Imaging Services - CT Scan [address] [facility] [address] [place] [address] [place] [address], [address] [place] [phone] 05/10/2025 9:20 AM CDT Office Visit [facility] Heart & Vascular Care - Cardiothoracic Surgery [address] [place] [phone] [place] [address], [address] [place] [phone] Health Maintenance Due Date Last Done Comments [...] Documents on File Type Date Recorded Patient Loss Prevention Research Engineer Expl anation Adv Directive/Living Will/POA 08/23/2022 4:26 PM * Full Code (Latest Code Status on File) Date Activated Date Inactivated Comments 08/01/2022 10:38 PM 08/22/2022 5:13 PM Care Teams Scratch Finisher Relationship Specialty Start Date End Date Gary Tom MD [address] [place] [phone] PCP - General Internal Medicine 03/18/19
--- NOTE | 2024-10-14 08:31 | WPDANESEPPF ---
Anes - Initial Pre Proc Eval Procedure: Operation Date: 10/14/24 12:00 Proposed Procedures p Removal of Hardware Right Shoulder - Mervin Rhodes MD Date/Time: 10/14/24 08:31 Surgeon: Mervin Rhodes MD Pre Op Diagnosis: right shoulder hardware pain Patient Data Age: 64 Gender: F Height: 1.68 m Weight: 62 kg Allergies Allergy/AdvReac Type Severity Reaction Status Date / Time No Known Allergies Allergy Verified 10/14/24 10:47 Home Medications ?Medication ?Instructions ?Recorded ?Confirmed ?Type ergocalciferol (vitamin D2) 1,250 1,250 mcg PO WEEKLY 06/16/22 10/05/24 History mcg (50,000 unit) capsule rosuvastatin 5 mg tablet 5 mg PO DAILY #90 tabs 06/01/24 10/05/24 Rx budesonide 160 mcg-glycopyr 9 See Rx Instructions .Route 06/02/24 10/05/24 Rx mcg-formot 4.8 mcg/actuation HFA .COMPLEX #10.7 ea inhaler (Breztri Aerosphere) metoprolol succinate 25 mg 25 mg PO QAM #90 tabs 07/22/24 10/05/24 Rx tablet,extended release 24 hr (Toprol XL) losartan 25 mg tablet 25 mg PO DAILY #90 tabs 08/06/24 10/05/24 Rx duloxetine 60 mg capsule,delayed See Rx Instructions .Route 08/16/24 10/05/24 Rx release .COMPLEX #90 caps ezetimibe 10 mg tablet See Rx Instructions .Route 08/30/24 10/05/24 Rx .COMPLEX #90 tabs alprazolam 0.25 mg tablet 0.25 mg PO QHS #30 tabs 09/21/24 10/14/24 Rx oxycodone-acetaminophen 7.5 mg-325 1 tablet PO Q6H PRN pain #30 tabs 09/28/24 10/14/24 Rx mg tablet potassium 99 mg tablet 198 mg PO DAILY 10/05/24 10/05/24 History Patient hx anesthesia problems: none Family hx anesthesia problems: none Results Review: All pre-operative results and documents have been reviewed as part of the pre-operative evaluation. [facility] Past Medical History Medical History (Updated 10/14/24 @ 08:32 by Eric Patino DO) COPD (chronic obstructive pulmonary disease) CHF (congestive heart failure) was EF 30% - now 55-60% Closed fracture of right proximal humerus BMI 23.0-23.9, adult Daily consumption of alcohol Chronic anticoagulation Heart failure of unknown type Chronic obstructive pulmonary disease Paroxysmal atrial fibrillation Hyperlipidemia Depression Tobacco use Essential hypertension Age related osteoporosis Surgical History Surgical History AICD (automatic cardioverter/defibrillator) present History of permanent cardiac pacemaker placement History of implantable cardioverter-defibrillator (ICD) insertion History of cardiac catheterization History of colonoscopy History of tonsillectomy and adenoidectomy History of partial hysterectomy Family History Family History Mother Cerebrovascular accident Father Heart disease Sibling Sepsis Heart disease Social History Social History Social History: Surrogate medical decision maker: Kasey Truong, friend. Code status: Full code. Smoking packs per day: 1 Smoking cigarettes per day: 20.0 Years smoked: 50 Smoking pack-years: 50.00 Smoking status: Current every day smoker Tobacco type: cigarettes Second hand tobacco smoke exposure: No Alcohol intake: current Drinks per week: 5 Alcohol use details: BEERS Substance use: never Substance use type: does not use Do You Feel Safe in your Home?: Yes Lack of Transportation: No Lack of Food: Never True Current Housing: I Have Housing Concerned About Future Housing: No Difficulty Paying Gas/Electric Bills: No Difficulty Paying for Meds: No Currently Unemployed: No Education: High School Diploma/GED Difficulty w/ Childcare or Family Care: No Living arrangements: alone Additional living arrangements comments: Lives in [place]. Occupation/Education: occupation Additional occupation/education comments: Works at the [employer]. Gender identity (if verbalized by the patient): Female Spiritual care concerns: No Anes - Eval Final PreProcedure Day of Procedure 10/14/24 08:31 Patient weight: normal Heart: regular rate and rhythm Lungs: clear to auscultation and normal air movement Airway: Mallampati scale class II Neurological: alert and oriented Last oral intake: >/= 8 hours ASA classification: IV Emergent: no Anesthetic plan: proceed Anesthesia type and monitoring: general GIVS and standard monitoring Results Review: All pre-operative results and documents have been reviewed as part of the pre-operative evaluation. Informed Consent: The patient's anesthetic plan and its attendant risks and benefits were discussed with the patient/family/POA. Questions were solicited and answers provided to the satisfaction of the patient/family/POA.
--- NOTE | 2024-10-14 09:29 | WPDHPUPDATE1 ---
History and Physical Update Update Date/Time: 10/14/24 09:29 History and Physical has been reviewed, including an updated exam of the patient. There are NO changes in the patient's condition. Risks, benefits, and alternatives have been discussed and questions answered. Patient agrees to proceed with procedure.
[2024-10-14 10:30] VITALS: BP 150/90; PULSE 98; RESP 16; TEMP 36.6; O2SAT 96
[2024-10-14] MEDS: ACETAMINOPHEN 500 MG TABLET 1000 MG PO (10:30)
[2024-10-14] MEDS: KETOROLAC 15 MG/ML VIAL (*BKC) IV PUSH (10:30)
[2024-10-14 11:57] VITALS: BP 144/77; PULSE 83; RESP 14; O2SAT 100
[2024-10-14] MEDS: LACTATED RINGERS 1,000 ML 30 ML IV CONT (11:57)
--- NOTE | 2024-10-14 12:08 | W.PM.PROC2 ---
Procedure Note - Detailed Date of Procedure 10/14/24 Pre-op Diagnosis right shoulder hardware pain Post-op Diagnosis Same Procedure Performed Removal of deep hardware right shoulder Surgeon Mervin Rhodes MD Anesthesia MAC Indications 64-year-old woman who underwent intramedullary nail fixation right proximal humerus fracture. Now with painful locking screws under the deltoid muscle. Presents for operative treatment. Description of Procedure Patient identified in the preoperative holding. Informed consent given. Operative extremity marked. Patient received intravenous antibiotics. Patient brought to the operating room where underwent general anesthetic by anesthesia team. Positioned supine on operating room table. Time-out performed confirming the patient, site of the surgery and the plan. Right shoulder prepped and draped usual sterile surgical fashion using ChloraPrep skin solution. Local anesthetic with 0.5% Marcaine applied to the deltoid muscle. Previous incision utilized and made with a 15 blade knife over the anterior shoulder. Dissection carried down through the fascia and the deltoid divided bluntly. The 2 proximal locking screws that had backed out and were causing irritation were identified and removed with a needle yard truck driver. Removal of hardware confirmed with image intensification. Wound irrigated fascia and subcutaneous tissue closed with 3-0 Monocryl interrupted suture. Skin repaired with 3-0 Monocryl running subcuticular stitch and Dermabond. Sterile dressing applied. The patient was then woken from anesthesia, extubated and taken to the recovery room in stable condition. All sponge, needle, instrument counts were correct at the end of the case. Estimated Blood Loss 10 Drains No Packing No Pathology None sent Complications None Condition Stable Disposition PACU [facility] Billing Surgery - Charge Forward: Surgery Billing ([id number])
[2024-10-14 12:25] VITALS: BP 157/88; PULSE 83; RESP 14
[2024-10-14 12:45] VITALS: BP 148/79; PULSE 78; RESP 14
== END 2024-10-14 13:02 | disposition home or self-care (01) ==
PROVIDERS: PCP Nurse Practitioner; Visit Provider Orthopaedic Surgery
PROC: (CPT 20694; principal; 2024-10-14 12:00)
DX: T84.84XA Pain due to internal orthopedic prosthetic devices, implants and grafts, initial encounter (principal); Y83.8 Other surgical procedures as the cause of abnormal reaction of the patient, or of later complication, without mention of misadventure at the time of the procedure; E78.5 Hyperlipidemia, unspecified; J44.9 Chronic obstructive pulmonary disease, unspecified; I11.0 Hypertensive heart disease with heart failure; I50.9 Heart failure, unspecified; I48.0 Paroxysmal atrial fibrillation; F32.A Depression, unspecified; M81.0 Age-related osteoporosis without current pathological fracture; F17.210 Nicotine dependence, cigarettes, uncomplicated; Z79.01 Long term (current) use of anticoagulants; Z79.51 Long term (current) use of inhaled steroids; Z79.891 Long term (current) use of opiate analgesic; Z98.890 Other specified postprocedural states; Z95.810 Presence of automatic (implantable) cardiac defibrillator; Z98.61 Coronary angioplasty status; Z82.49 Family history of ischemic heart disease and other diseases of the circulatory system
CPT/HCPCS: 20680; 99199; A9270; J1100; J1885; J2003; J2250; J2405; J2704; J3010; J7120

== ENCOUNTER 2024-10-26 12:47 | Outpatient (CLI) | payer OTHER, SELFPAY ==
--- NOTE | ~2024-10-26 | MM_ITS ---
EXAMINATION: MM screening heidi BI w edson HISTORY: Screening TECHNIQUE: Craniocaudal and mediolateral oblique 3-D tomosynthesis images were obtained and synthetic 2-D images were generated. CAD analysis was submitted and interpreted. COMPARISON: Comparison to multiple prior studies sequentially, with oldest reviewed study dated , 12/28/2019 BREAST PARENCHYMAL COMPOSITION: The breasts are extremely dense, which lowers the sensitivity of mammography. FINDINGS: There is no evidence of suspicious mass, calcification, or architectural distortion to suggest malignancy in either breast. Pacemaker battery overlying and partially obscuring left axilla. IMPRESSION: 1. No mammographic evidence of malignancy. 2. Recommend routine screening mammography in one year. BI-RADS Category 1: Negative Reviewed, dictated and finalized at location B.
== END 2024-10-26 12:48 | disposition home or self-care (01) ==
LOC: MICIMG 12:48
PROVIDERS: PCP Nurse Practitioner; Visit Provider Obstetrics & Gynecology Gynecology
DX: Z12.31 Encounter for screening mammogram for malignant neoplasm of breast (principal)
CPT/HCPCS: 77063; 77067

== ENCOUNTER 2024-11-11 08:21 | Outpatient (CLI) | payer OTHER, SELFPAY ==
--- NOTE | ~2024-11-11 | DEXA_ITS ---
Bone Density Report Name: MAVIS OCAMPO Age: 64 Sex: Female Ethnicity: White Date of : 1960 Indication: postmenopausal; screening for osteoporosis; height loss; hysterectomy; Referring Provider: CARMEN CUETO Study: Bone densitometry was performed. Exam Date: November 11, 2024 Accession number: [id number] Bone Density: Region BMD T-score Z-score Classification AP Spine(L1-L4) 0.822 -2.0 -0.4 Osteopenia Femoral Neck (Left) 0.655 -1.7 -0.3 Osteopenia Total Hip (Left) 0.706 -1.9 -0.8 Osteopenia Femoral Neck (Right) 0.585 -2.4 -0.9 Osteopenia Total Hip (Right) 0.694 -2.0 -0.9 Osteopenia Total Hip Mean 0.700 -2.0 -0.9 Osteopenia World Health Organization criteria for BMD impression classify patients as: Normal (T-score at or above -1.0), Osteopenia (T-score between -1.0 and -2.5), or Osteoporosis (T-score at or below -2.5). 10-year Fracture Risk(1): Major Osteoporotic Fracture 15% Hip Fracture 5.3% Reported Risk Factors: [place] (), Neck BMD=0.585, BMI=23.1, smoking, alcohol use (1) FRAX(R) Version 3.08. Fracture probability calculated for an untreated patient. Fracture probability may be lower if the patient has received treatment. Clinical Information Provided by Patient: Smokes Has 3 or more alcoholic drinks per day Has used the following medications: Vitamin D Has the following medical conditions: Hysterectomy Patient maximum height was 69 Menopause Age: 38 No regular weight bearing exercise Onset of menses at age 13 Number of children 1 Impression: The patient has low bone mass, based on the Right Femoral Neck T-score. The patient has an estimated ten-year risk of hip fracture of 5.3% and an estimated ten-year risk of major fracture of 15%, based on the WHO FRAX algorithm. The patient has risk factors, including: smoking, excessive alcohol use. Discussion: BONE DENSITY IS LOW AT ONE OR MORE SKELETAL SITES. THE PATIENT'S BMD AND CLINICAL RISK FACTORS CONTRIBUTE TO THIS PATIENT'S INCREASED RISK OF FRACTURE. This patient's lowest T-score is low at one or more skeletal sites. It meets the World Health Organization's (WHO) criteria for ?low bone mass? (T-score between -1.0 and -2.5). The patient's 10-year risk of hip fracture as calculated by FRAX exceeds the threshold where pharmacological therapy is recommended by the National Osteoporosis Foundation (NOF). However, all treatment decisions require clinical judgment and consideration of individual patient factors, including patient preferences, comorbidities, previous drug use, risk factors not captured in the FRAX model (e.g., frailty, falls, vitamin D deficiency, increased bone turnover, interval significant decline in bone density) and possible under or overestimation of fracture risk by FRAX. The patient should follow a healthful lifestyle (good nutrition with adequate calcium and vitamin D, and appropriate weight-bearing exercise). Follow-Up: Consider a repeat BMD and Vertebral Fracture Assessment (VFA) exam in 2 years or sooner if medically necessary, to reassess this patient's status. Reported by: SHANDRA on 11/11/2024 8:59:00 AM. Reviewed, dictated and finalized at location A.
--- OUTSIDE RECORDS SUMMARY | 2024-11-11 08:28 | XMS_ITS | Clinical Summary ---
Author Organization [facility] Address [address] [place] [address] Care Team Providers Care Csw Name Role Phone Neal Robbins MD Primary Care Provider [phone] Allergies Active Allergy Reactions Criticality Noted Date [...] migh t be different from the original. Service Desk Manager - Dr Mati Perez Problem Noted [...] [facility] ICD - Current DR FITZGERALD [id number] SN: [id number] - Implanted 10/12/[address] 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 Not on file Not on file Not on file Last Filed Vital Signs Vital Sign Reading Time Taken Comments Blood Pressure 166/103 02/24/2014 1:38 PM HEAT TREAT OPERATOR Pulse 62 02/24/2014 1:38 PM HEAT TREAT OPERATOR Temperature - - Respiratory Rate 10 04/02/2010 1:25 PM HEAT TREAT OPERATOR Oxygen Saturation 98% 02/24/2014 1:38 PM HEAT TREAT OPERATOR Inhaled Oxygen Concentration - - Weight 64 kg (141 lb) 02/24/2014 1:38 PM HEAT TREAT OPERATOR Height 172.1 cm (5' 7.75) 02/24/2014 1:38 PM CS T Body Mass Index 21.6 02/24/2014 1:38 PM HEAT TREAT OPERATOR Plan of Treatment Health Maintenance Due [...] series) 2021 INFLUENZA VACCINE (#1) 2024 Insurance Debt Resolve [facility] OPEN ACCESS Care Teams Csw Relationship Specialty Start Date End Date Neal Robbins MD [address] [place] [phone] PCP - General Family Practice 03/09/10
--- OUTSIDE RECORDS SUMMARY | 2024-11-11 08:28 | XMS_ITS | Clinical Summary ---
Author Organization [facility] Address [address] [place] [address] Care Team Providers Care Consumer Relations Specialist Name Role Phone Gary Tom MD Primary Care Provider Source Comments [facility],non-owned Affiliates and Associated Physician Practices is amultiple site organization consisting of ambulatory clinics and hospital sitesin [place], [place], [place] and [place]. This disclosure is being madepursuant to the Care Everywhere program and may not contain all information available regarding this patient. Last updated 17.[facility] Allergies No known active allergies Medications * Be aware that medications may not be up to date on this document. Alwaysverify current medications with the patient. DULoxetine (CYMBALTA) 60 MG capsule Take 1 (one) capsule by mouth once daily Active vitamin D, ergocalciferol, (DRISDOL) 27192 UNITS capsule Take 1 (one) capsule by [...] not taking.Reported on 09/10/2022 saline nasal spray ([place]; [place]) 0.65 % nasal spray [place] 1 (one) spray into each nostril every [...] Patient not taking.Reported on 09/10/2022 HYDROcodone-acetam inophen ([place]) 5-325 MG tabletIndications: Pleural effusion,Chronic systolic heart [...] Patient not taking.Reported on 09/10/2022 HYDROcodone-acetam inophen ([place]) 5-325 MG tabletIndications: Empyema (HCC),Postoperativ e pain Take 1 (one) tablet by mouth every 8 hours as needed for Pain 30 tablet 023 Active traMADol (Ultram) 50 MG tablet Take 1 (one) tablet by mouth every 6 hours as needed for Pain 30 tablet 023 Active HYDROcodone-acetam inophen ([place]) 5-325 MG tabletIndications: 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alf ICD - Current DR FITZGERALD [id number] SN: [id number] - Implanted 10/12/[address] 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 [facility] model [id number] SN: [id number] - Implanted 01/22/[address] Eric Nuno RA: PATRICIAM [id number] SN: [id number] (Implanted 10/12/2008) RV: SANIA [id number] SN: [id number] (Implanted 10/12/2008) Chronic systolic heart failure 01/29/2012 [...] and heating? 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 Gender Identity Not on file Sexual Orientation [...] Info) Description 05/05/2025 9:00 AM CDT Appointment [facility] Health Imaging Services - CT Scan [address] [place] [address] [place] [address] [facility] [address] [address], [address] [place] [phone] 05/10/2025 9:20 AM CDT Office Visit [facility] - Cardiothoracic Surgery [address] [place] [phone] [place] [address] [facility] [address], [address] [place] [phone] Health Maintenance Due Date Last Done Comments [...] - Risk 60-74 years 1-dose series) 2021 DEPRESSION SCREENING 02/18/2024 COVID-19 VACCINE (2024- season) 2024 10/03/2021, 03/19/2021, 05/08/2020, Additional history exists INFLUENZA VACCINE (#1) 2024 02/17/2013 HEPATITIS B [...] Documents on File Type Date 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
== END 2024-11-11 08:22 | disposition home or self-care (01) ==
LOC: ANHFOHIMG 08:23
PROVIDERS: PCP Nurse Practitioner; Visit Provider Obstetrics & Gynecology Gynecology
DX: Z78.0 Asymptomatic menopausal state (principal); M85.88 Other specified disorders of bone density and structure, other site; M85.852 Other specified disorders of bone density and structure, left thigh; M85.851 Other specified disorders of bone density and structure, right thigh
CPT/HCPCS: 77080

== ENCOUNTER 2024-12-13 12:22 | Emergency (ER) | payer OTHER, SELFPAY ==
--- NOTE | ~2024-12-13 | US_ITS ---
EXAMINATION:US venous doppler UE LT INDICATION:Swelling TECHNIQUE: Multiple grayscale, color flow and Doppler images of the left upper extremity deep venous systems were obtained and reviewed. COMPARISON: FINDINGS: The left jugular vein, left subclavian vein, left axillary vein, left brachial vein, left basilic vein, left cephalic vein, left brachial vein and left ulnar vein demonstrate normal respiratory variation, augmentation and compressibility. Color flow is also seen within the posterior tibial, peroneal, greater saphenous and profunda veins. IMPRESSION: 1: No left upper extremity deep venous thrombosis. Reviewed, dictated and finalized at location Q.
[2024-12-13 12:25] VITALS: BP 154/99; PULSE 104; RESP 20; O2SAT 95
--- OUTSIDE RECORDS SUMMARY | 2024-12-13 13:46 | XMS_ITS | Clinical Summary ---
Author Organization [facility] [place] [facility] [place] [address] Address [address] [place] [address] Care Team Providers Care Peeler Operator Name Role Phone Max Patel NP Primary Care Provider + [phone] Allergies No known active allergies Medications ALPRAZolam (XANAX) 0.25 mg tablet Take 1 tablet (0.25 mg total) by mouth daily 3 Active Breztri Aerosphere 160-9-4.8 mcg/actuation inhaler INHALE 2 PUFFS INTO THE LUNGS TWICE A DAY Active DULoxetine DR (CYMBALTA) 60 mg capsule Take 1 capsule (60 mg total) by mouth daily 0 Active potassium gluconate 595 mg (99 mg) tablet Take 2 tablets (1,190 mg total) by mouth daily 5 Active metoprolol XL (TOPROL-XL) 25 mg extended release tablet Take 1 tablet (25 mg total) by mouth daily 5 Active rosuvastatin (CRESTOR) 5 mg tablet Take 1 tablet (5 mg total) by mouth daily 5 Active losartan (COZAAR) 25 mg tablet Take 1 tablet (25 mg total) by mouth daily 5 Active ezetimibe (ZETIA) 10 mg tablet Take 1 tablet (10 mg total) by mouth daily 1 Active cholecalciferol (Vitamin D3) 5,000 unit tablet Take 1 tablet (5,000 Units total) by mouth once a week Friday Active cephalexin (KEFLEX) 500 mg capsule Take 1 capsule (500 mg total) by mouth 4 (four) times a day for 5 days 20 capsule 12/14/19 Active oxyCODONE-aceta minophen (PERCOCET) 7.5-325 mg per tablet Take 1 tablet by mouth 12/08/19 Discontinu ed(Therapy completed) Active Problems Problem Noted Date Diagnosed Date Paroxysmal atrial fibrillation 12/02/2024 Assessment & Plan (12/03/2024 3:55 PM CDT): NICM (nonischemic cardiomyopathy) 12/02/2024 Assessment & Plan (12/03/2024 3:55 PM CDT): Malfunction of implantable d efibrillator ventricular (ICD) lead 12/02/2024 Assessment & Plan (12/03/2024 3:55 PM CDT): Orders: DEVICE CHECK - IN OFFICE; Future ECG 12 lead HTN (hypertension) 12/02/2024 Hyperlipidemia 12/02/2024 Tobacco use 12/02/2024 ICD (implantable cardioverter-defibrillator), walt felipe, in situ 12/02/2024 Assessment & Plan (12/03/2024 3:55 PM CDT): History of pleural empyema 12/02/2024 COPD (chronic obstructive pulmonary disease) Paroxysmal VT 12/02/2024 Assessment & Plan (12/03/2024 3:55 PM CDT): Alcohol use 12/02/2024 Encounters Date Type Department Care Team Description 12/08/2024 11:23 AM CDT Anesthesia Event [facility] [address] [address] Ashley Hurst MD Black, Charley Porras CRNA 12/08/2024 11:05 AM CDT - 12/08/2024 12:55 PM CDT Surgery [facility] [address] [address] Juan Ramon Martin MD INSERT/REPLACE IMPLANTABLE CARDIOVERTER-DEFIBRI LLATOR (ICD) DUAL CHAMBER SYSTEM 28220 12/08/2024 9:00 AM CDT - 12/08/2024 4:10 PM CDT Hospital Encounter [facility] [address] [place] [address] Juan Ramon Martin MD Malfunction of implantable defibrillator ventricular (ICD) lead Discharge Disposition: Discharge to home or self care 12/08/2024 Orders Only [facility] [address] [place] [phone] Juan Ramon Martin MD NICM (nonischemic cardiomyopathy) (HCC) (Primary Dx) 12/06/2024 Results [facility] [address] [place] [phone] Marisela Quinn NP CBC with auto differential, Basic metabolic panel 12/03/2024 Orders Only [facility] [address] [place] [phone] Marisela Quinn NP Malfunction of implantable defibrillator ventricular (ICD) lead (Primary Dx) 12/02/2024 1:30 PM CDT Office Visit Arrhythmia [address] [address] Marisela Quinn NP Malfunction of implantable defibrillator ventricular (ICD) lead (Primary Dx); ICD (implantable cardioverter-defibri llator), dual, in situ; NICM (nonischemic cardiomyopathy) (HCC); Paroxysmal atrial fibrillation (HCC); Paroxysmal VT 12/02/2024 1:15 PM CDT Ancillary Procedure [facility] [address] [place] [phone] Automatic implantable cardiac defibrillator in situ (Primary Dx); NICM (nonischemic cardiomyopathy) (HCC) 11/03/2024 Telephone [facility] [address] [place] [phone] Juan Ramon Martin MD 11/02/2024 Orders Only [facility] [address] [facility] [address] [address] Juan Ramon Martin MD NICM (nonischemic cardiomyopathy) (HCC) (Primary Dx) from Last 3 Months Surgical History Surgery Date Site/Laterality Comments HYSTERECTOMY W/ BILATERAL SALPINGOOPHORECTOMY TONSILLECTOMY LUNG DECORTICATION Right CARDIAC ELECTROPHYSIOLOGY PROCEDURE 12/08/2024 N/A Procedure: INSERT/REPLACE IMPLANTABLE CARDIOVERTER-DEFIBRILLATO R (ICD) DUAL CHAMBER SYSTEM 39035; Surgeon: Juan Ramon Martin MD; Location: [facility] CARDIAC IN FLIGHT REFUELING OPERATOR; Service: Cardiovascular; Laterality: N/A; Medical devices from this surgery are in the Medical Devices section. 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 Social History Tobacco Use Types Packs/Day Years Used Date Smoking Tobacco: Never Assessed Personal Safety Answer Date Recorded Have you ever been in or are you currently in a harmful physical or emotional relationship or is someone making you feel afraid or unsafe? 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 Gender Identity Not on file Sexual Orientation Not on file Obstetrics History Last Filed Vital Signs Vital Sign Reading Time Taken Comments Blood Pressure 124/83 12/08/2024 3:10 PM CDT Pulse 84 12/08/2024 3:10 PM CDT Temperature 36.6 C (97.9 F) 12/08/2024 11:16 AM CDT Respiratory Rate 20 12/08/2024 3:10 PM CDT Oxygen Saturation 92% 12/08/2024 3:10 PM CDT Inhaled Oxygen Concentration - - Weight 63.8 kg (140 lb 9.6 oz) 12/08/2024 11:16 AM CDT Height 167.6 cm (5' 6) 12/08/2024 11:16 AM CDT Body Mass Index 22.69 12/08/2024 11:16 AM CDT Plan of Treatment Health Maintenance Due Date Last Done Comments Breast Cancer Screening-Mammogram 1961 Cervical Cancer Screening 1961 Colon Cancer Screening-Colonoscopy 1961 Depression Screening 1961 Hepatitis C Screening 1961 DTaP/Tdap/Td Vaccine (1 - Tdap) 1972 Hepatitis B Screening 07/05/1979 Regular Well Visit/Exam 18-64 07/05/1979 Covid-19 Vaccine (5 - 2024-2 6 season) 2024 10/03/2021, 03/19/2021, 05/08/2020, Additional history exists Influenza Vaccine (#1) 2024 02/17/2013 Pneumococcal vaccine <65 Completed 01/17/2023, 1202/2022 Zoster Vaccine Completed 11/18/2024, 08/18/2024 Medical Devices Implanted Type Area Ross Lift Operator Device Identifier Shelf Expiration Date Model / Serial / Lot [employer] Vascular Defibrillator Dual Chamber Mri Compatible Rate Responsive [place] [id number] - [id number] - [id number] Implanted:Qty: 1 on 12/08/2024 by Juan Ramon Martin MD at [facility] ICD [employer]ascular 09/16/2026 CDDRA 500Q / [id number] / [employer] Durata 6.8fr 65cm True Bipolar Active Fixation Extendable 1 Coil 7122q/65 - [id number] - [id number] Implanted:Qty: 1 on 12/08/2024 by Juan Ramon Martin MD at [facility] Lead [employer] 10/18/2027 7122Q/65 / [id number] / Procedures Procedure Name Priority Date/Time Associated Diagnosis Comments XR CHEST PA LATERAL 2 VIEWS ED Urgent/IP Urgent 12/08/2024 3:27 PM CDT XR CHEST 1 VIEW ED Urgent/IP Urgent 12/08/2024 1:52 PM CDT ECG 12-LEAD Routine 12/08/2024 1:20 PM CDT PACEMAKER BATTERY CHANGE Routine 12/08/2024 12:18 PM CDT Malfunction of implantable defibrillator ventricular (ICD) lead ICD DC NEW Routine 12/08/2024 12:18 PM CDT Malfunction of implantable defibrillator ventricular (ICD) lead ECG 12-LEAD STAT 12/08/2024 11:07 AM CDT BASIC METABOLIC PANEL Routine 12/03/2024 1:33 PM CDT Malfunction of implantable defibrillator ventricular (ICD) lead CBC WITH AUTO DIFFERENTIAL Routine 12/03/2024 1:33 PM CDT Malfunction of implantable defibrillator ventricular (ICD) lead ECG 12-LEAD Routine 12/02/2024 1:52 PM CDT Malfunction of implantable defibrillator ventricular (ICD) lead DEVICE CHECK - IN OFFICE Routine 12/02/2024 1:01 PM CDT NICM (nonischemic cardiomyopathy) (HCC) DEVICE CHECK - REMOTE Routine 11/02/2024 3:49 PM CDT from Last 3 Months Results * XR Chest PA Lateral 2 View (12/08/2024 3:27 PM CDT) Anatomical Region Laterality Modality Body, Chest N/A Computed Radiogr aphy 12/08/2024 3:31 PM CDT Impressions 12/08/2024 3:31 PM CDT 1. Revision of the internal cardiac defibrillator which follows an expected course without evidence of pneumothorax. COMMENT: Please see above for additional findings. Electronically signed by: Musa Osman M.D. Narrative 12/08/2024 3:31 PM CDT XR CHEST PA LATERAL 2 VIEWS HISTORY: Revision of internal cardiac defibrillator COMPARISON: None available A chest radiograph in the PA and lateral projections were presented. FINDINGS: The patient has undergone revision of the internal cardiac defibrillator. A 2nd toe right ventricular lead was placed. It appears to follow an expected course. There is no evidence of pneumothorax. The osseous structures and chest wall are grossly within expected limits. The mediastinum and samantha within expected limits. The cardiac silhouette within normal size limits. The lateral and posterior costophrenic angles are preserved bilaterally. No definite infiltrates, suspicious opacities or abnormal interstitial markings are appreciated. The included portion of the upper abdomen is within expected limits. Procedure Note Musa Osman MD - 12/08/2024 XR CHEST PA LATERAL 2 VIEWS HISTORY: Revision of internal cardiac defibrillator COMPARISON: None available A chest radiograph in the PA and lateral projections were presented. FINDINGS: The patient has undergone revision of the internal cardiac defibrillator. A 2nd toe right ventricular lead was placed. It appears to follow an expected course. There is no evidence of pneumothorax. The osseous structures and chest wall are grossly within expected limits. The mediastinum and samantha within expected limits. The cardiac silhouette within normal size limits. The lateral and posterior costophrenic angles are preserved bilaterally. No definite infiltrates, suspicious opacities or abnormal interstitial markings are appreciated. The included portion of the upper abdomen is within expected limits. IMPRESSION: 1. Revision of the internal cardiac defibrillator which follows an expected course without evidence of pneumothorax. COMMENT: Please see above for additional findings. Electronically signed by: Musa Osman M.D. us Juan Ramon Martin MD IMG XR PROCEDURES Final Result * X-ray chest 1 view (12/08/2024 1:52 PM CDT) Anatomical Region Laterality Modality Body, Chest N/A Computed Radiogr aphy 12/08/2024 1:57 PM CDT Impressions 12/08/2024 1:57 PM CDT 1. Revision of the of internal cardiac defibrillator which follows an expected course without evidence of pneumothorax. COMMENT: Please see above for additional findings. Electronically signed by: Musa Osman M.D. Narrative 12/08/2024 1:57 PM CDT XR CHEST 1 VIEW HISTORY: Status post revision of internal cardiac defibrillator. COMPARISON: None available A chest radiograph in the AP projection was presented. FINDINGS: An internal cardiac defibrillator is present entering from the left subclavian approach and follows an expected course. There is no evidence of pneumothorax. A 2nd toe ventricular lead has been placed and appears to follow an expected course. The osseous structures and chest wall are grossly within expected limits. The mediastinum and samantha within expected limits. The cardiac silhouette within normal size limits. The lateral costophrenic angles are preserved bilaterally. No definite infiltrates, suspicious opacities or abnormal interstitial markings are appreciated. The included portion of the upper abdomen is within expected limits. Procedure Note Musa Osman MD - 12/08/2024 XR CHEST 1 VIEW HISTORY: Status post revision of internal cardiac defibrillator. COMPARISON: None available A chest radiograph in the AP projection was presented. FINDINGS: An internal cardiac defibrillator is present entering from the left subclavian approach and follows an expected course. There is no evidence of pneumothorax. A 2nd toe ventricular lead has been placed and appears to follow an expected course. The osseous structures and chest wall are grossly within expected limits. The mediastinum and samantha within expected limits. The cardiac silhouette within normal size limits. The lateral costophrenic angles are preserved bilaterally. No definite infiltrates, suspicious opacities or abnormal interstitial markings are appreciated. The included portion of the upper abdomen is within expected limits. IMPRESSION: 1. Revision of the of internal cardiac defibrillator which follows an expected course without evidence of pneumothorax. COMMENT: Please see above for additional findings. Electronically signed by: Musa Osman M.D. Juan Ramon Martin MD IMG XR PROCEDURES Final Result * ECG 12 lead (12/08/2024 1:20 PM CDT) 12/08/2024 1:20 PM CDT Narrative [facility] - 12/09/2024 7:45 AM CDT Vent Rate: 82 bpm RR Interval: 728 msec SD Interval: 173 msec QRS Duration: 105 msec QT Interval: 380 msec QTC Interval: 418 msec P-R-T Corn[place]: 63 - 46 - 50 degrees IMPRESSION: SINUS RHYTHM MODERATE T-WAVE ABNORMALITY, CONSIDER ANTERIOR ISCHEMIA [-0.1+ mV T WAVE IN V3/V4] ABNORMAL ECG Electronically Signed By: Oswald Reynoso MD PhD us Juan Ramon Martin MD ECG ORDERABLES Final R esult Performing Organization Address [facility] [[email or web address]] de Phone Number [facility] * ECG 12 lead (12/08/2024 11:07 AM CDT) 12/08/2024 11:0 7 AM CDT Narrative [facility] - 12/09/2024 7:36 AM CDT Vent Rate: 81 bpm RR Interval: 739 msec SD Interval: 164 msec QRS Duration: 116 msec QT Interval: 388 msec QTC Interval: 425 msec P-R-T Corn[place]: 81 - 47 - 70 degrees IMPRESSION: SINUS RHYTHM WITH OCCASIONAL VENTRICULAR PREMATURE COMPLEXES MODERATE INTRAVENTRICULAR CONDUCTION DELAY [110+ ms QRS DURATION] NONSPECIFIC T-WAVE ABNORMALITY BORDERLINE ECG Electronically Signed By: Oswald Reyonso MD PhD us Juan Ramon Martin MD ECG ORDERABLES Final R esult Performing Organization Address [facility] [[email or web address]] de Phone Number [facility] [employer] * (ABNORMAL) CBC with auto differential (12/03/2024 1:33 PM CDT) Pathologist [facility] WBC 5.8 3.8 - 10.8 Thousand/u L [facility] RBC, POC 3.98 3.80 - 5.10 Million/uL [facility] Hgb 13.5 11.7 - 15.5 g/dL [facility] Hct 40.9 35.0 - 45.0 % [facility] MCV 102.8(H) 80.0 - 100.0 fL [facility] MCH 33.9(H) 27.0 - 33.0 pg [facility] MCHC 33.0 32.0 - 36.0 g/dL [facility] Comment: For adults, a slight decrease in the calculated MCHC value (in the range of 30 to 32 g/dL) is most likely not clinically significant; however, it should be interpreted with caution in correlation with other red cell parameters and the patient's clinical condition. Rdw 12.0 11.0 - 15.0 % [facility] Platelets 249 140 - 400 Thousand/u L [facility] MPV 9.7 7.5 - 12.5 fL [facility] Neutrophils, abs 3,735 1,500 - 7,800 cells/uL [facility] Lymphocytes, abs 1,624 850 - 3,900 cells/uL [facility] Monocyte abs 331 200 - 950 cells/uL [facility] Eosinophils, abs 81 15 - 500 cells/uL [facility] Basophils, abs 29 0 - 200 cells/uL [facility] Neutrophils 64.4 % [facility] Lymphocyte pct 28.0 % [facility] Monocytes 5.7 % [facility] Eosinophils 1.4 % [facility] Basophils 0.5 % [facility] Blood 12/03/2024 1:33 PM CDT 12/03/2024 1:33 PM CDT Marisela Quinn PRICING STRATEGIST LAB BLOOD ORDERABLES Final Result [facility] [address] [place] [address] * Basic metabolic panel (12/03/2024 1:33 PM CDT) Pathologist [facility] Glucose 92 65 - 99 mg/dL [facility] Comment: Fasting reference interval BUN 14 7 - 25 mg/dL [facility] Creatinine 0.61 0.50 - 1.05 mg/dL [facility] eGFR 100 > OR = 60 mL/min/1.7 3m2 [facility] BUN/creat ratio SEE NOTE: 6 - 22 (calc) [facility] Comment: Not Reported: BUN and Creatinine are within reference range. Sodium 136 135 - 146 mmol/L [facility] Potassium, pl 4.1 3.5 - 5.3 mmol/L [facility] Chloride 100 98 - 110 mmol/L [facility] CO2 30 20 - 32 mmol/L [facility] Calcium 9.1 8.6 - 10.4 mg/dL [facility] Blood 12/03/2024 1:33 PM CDT 12/03/2024 1:33 PM CDT Marisela Quinn NP LAB BLOOD ORDERABLES Final Result [facility] [address] [id number] * ECG 12 lead (12/02/2024 1:52 PM CDT) Marisela Quinn NP ECG ORDERABLES Beverly l Result * DEVICE CHECK - IN OFFICE (12/02/2024 1:01 PM CDT) Anatomical Region Laterality Modality Other Narrative 12/06/2024 2:40 PM CDT Table formatting from the original result was not included. ICD CHECK (IN OFFICE) Patient ID: Melodie Barrera is a 64 y.o. female. This patient received a [place] ICD. They had a routine in office device interrogation on 12/02/24 Device implant indications: Nonischemic dilated cardiomyopathy Interrogation of the patient's device demonstrates the following: Presenting EGM: A sensed V sensed @ 84 bpm Underlying Rhythm: As above Original Device Settings Right Atrium Right Ventricle Sensitivity (mV) Auto mV Auto mV Pacing Outputs 1.5 V @ 0.5 ms 3.0 V @ 0.5 ms Testing Measurements Right Atrium Right Ventricle Sensitivity (mV) 2.3 mV 11.7 mV Impedence (Ohms) 350 ohms 430 ohms High Voltage Impedence 145 ohms Pace Threshold 0.5 V @ 0.5 ms 1.75 V @ 0.5 ms Pacing % Less than 1 % Less than 1 % Battery Status: 4.2 months years to BALAJI with Charge Time 5.8 seconds Episodes last 90 days/Comments: AF [place] less than 1%, longest duration there were 6 mode switch episodes, only 1 EGM showed AFib ventricular rates ranged from 60 to 150s. There were 2 episodes classified as ventricular fibrillation 1 EGM showed gross noise on the high-voltage RV lead and delivering 1 round of ATP, 1 other EGM did show noise. There were 3 episodes classified as nonsustained VT, 2 available EGMs 1 showed noise the other showed AFib with RVR ventricular rates in the 170s and 180s. There were no true ventricular arrhythmias treated by the device on today's in office device interrogation. NORMAL DEVICE FUNCTION PROGRAMMED MEDICATIONS: Anti-coagulant(s): None Anti-arrhythmic(s): Toprol-XL 25 mg daily PLAN: 1) [place] ICD evaluation. 2) [place] remote transmission scheduled in 3 months. 3) Programming appropriate for device measurements 4) the high-voltage RV lead is 1 of the [place] [employer] 0185 leads which potentially could have the calcified high-voltage coil. Dusty Richardson RN Juan Ramon Martin MD [facility] PRO CEDURES Final Result * DEVICE CHECK - REMOTE (11/02/2024 3:49 PM CDT) Anatomical Region Laterality Modality Other Historical Provider [facility] PROCE DURES Final Result from Last 3 Months Insurance [facility] [id number] Care Teams Peeler Operator Relationship Specialty Start Date End Date Max Patel NP [address] [place] [address] PCP - General Nurse Practitioner 12/02/24
--- OUTSIDE RECORDS SUMMARY | 2024-12-13 13:46 | XMS_ITS | Clinical Summary ---
Author Organization [facility] od Address [address] [place] [address] Care Team Providers Care Director Weights And Measures Name Role Phone Neal Robbins MD Primary Care Provider [phone] Allergies Active Allergy Reactions Criticality Noted Date [...] migh t be different from the original. Mason Foreman/Superintendant - Dr Mati Perez Problem Noted Date [...] [employer] ICD - Current DR FITZGERALD [id number] SN: [id number] - Implanted 10/12/[address] 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 Not on file Not on file Last Filed Vital Signs Vital Sign Reading Time Taken Comments Blood Pressure 166/103 02/24/2014 1:38 PM FEATHER SAWYER Pulse 62 02/24/2014 1:38 PM FEATHER SAWYER Temperature - - Respiratory Rate 10 04/02/2010 1:25 PM FEATHER SAWYER Oxygen Saturation 98% 02/24/2014 1:38 PM FEATHER SAWYER Inhaled Oxygen Concentration - - Weight 64 kg (141 lb) 02/24/2014 1:38 PM FEATHER SAWYER Height 172.1 cm (5' 7.75) 02/24/2014 1:38 PM CS T Body Mass Index 21.6 02/24/2014 1:38 PM FEATHER SAWYER Plan of Treatment Health Maintenance Due Date Last Done Comments DTAP/TDAP/TD VACCINES (1 - Tdap) 1980 BREAST CANCER SCREENING 2001 COLORECTAL SCREENING 2006 Colorectal Cancer Screening 2006 FIT-DNA Q 3 years 2006 FIT/FOBT Q 1 year 2006 Flex Sig/CT Colonography Q 5 years 2006 RSV VACCINE (60+ or ) (1 - Risk 50-74 years 1-dose series) 07/05/2011 ZOSTER VACCINE (1 of 2) 07/05/2011 INFLUENZA VACCINE (#1) 2024 Insurance [facility]ach[facility] OPEN ACCESS Care Teams Director Weights And Measures Relationship Specialty Start Date End Date Neal Robbins MD [address] [place] [phone] PCP - General Family Practice 03/09/10
--- OUTSIDE RECORDS SUMMARY | 2024-12-13 13:46 | XMS_ITS | Encounter Summary ---
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
--- OUTSIDE RECORDS SUMMARY | 2024-12-13 13:46 | XMS_ITS | Clinical Summary ---
Author Organization [facility] [employer] Address [address] [place] [address] Care Team Providers Care Scheduling Coordinator Name Role Phone Gary Tom MD Primary Care Provider [phone] Source Comments [facility] [employer],non-owned Affiliates and Associated Physician Practices is amultiple site organization consisting of ambulatory clinics and hospital sitesin [place], [place], [place] and [place]. This disclosure is being madepursuant to the Care Everywhere program and may not contain all information available regarding this patient. Last updated 17.[facility] [employer] Allergies No known active allergies Medications * Be aware that medications may not be up to date on this document. Alwaysverify current medications with the patient. DULoxetine (CYMBALTA) 60 MG capsule Take 1 (one) capsule by mouth once daily Active vitamin D, ergocalciferol, (DRISDOL) 83971 UNITS capsule Take 1 (one) capsule by [...] not taking.Reported on 09/10/2022 saline nasal spray ([place]; Baby [place]) 0.65 % nasal spray [place] 1 (one) spray into each nostril every [...] Patient not taking.Reported on 09/10/2022 HYDROcodone-acetam inophen ([place]) 5-325 MG tabletIndications: Pleural effusion,Chronic systolic heart [...] Patient not taking.Reported on 09/10/2022 HYDROcodone-acetam inophen ([place]) 5-325 MG tabletIndications: Empyema (HCC),Postoperativ e pain Take 1 (one) tablet by mouth every 8 hours as needed for Pain 30 tablet 023 Active traMADol (Ultram) 50 MG tablet Take 1 (one) tablet by mouth every 6 hours as needed for Pain 30 tablet 023 Active HYDROcodone-acetam inophen ([place]) 5-325 MG tabletIndications: 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 ICD - Current DR FITZGERALD [id number] SN: [id number] - Implanted 10/12/[address] 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 model [id number] SN: [id number] - Implanted 01/22/[address] Eric Nuno RA: PATRICIAM [id number] SN: [id number] (Implanted 10/12/2008) RV: SANIA 0185 SN: [id number] (Implanted 10/12/2008) Chronic systolic heart failure 01/29/2012 [...] and heating? 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 Gender Identity Not on file Sexual Orientation [...] Info) Description 05/05/2025 9:00 AM CDT Appointment [facility] Health Imaging Services - CT Scan [address] [place] [address] [place] [address], [address] [place] [phone] 05/10/2025 9:20 AM CDT Office Visit [facility] - Cardiothoracic Surgery [address] [place] [phone] [place] [address], [address] [place] [phone] Health Maintenance Due Date Last Done Comments [...] Documents on File Type Date Recorded 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
--- NOTE | 2024-12-13 13:51 | ED.ALLEREA ---
HPI - Allergic Reaction General Chief complaint: Allergic Reaction Stated complaint: burning, swelling to left arm for past 3 days. Time Seen by Provider: 12/13/24 12:57 History of Present Illness HPI narrative: Patient is a 64-year-old female who presents ER with a left wrist and forearm skin abnormality. Worsening over last 3 days. Itching/burning and warm to touch. Moderate swelling. Able to perform range of motion at the wrist. She did have an IV proximal to the area during a placement of her pacemaker at [facility]. Related Data Home Medications ?Medication ?Instructions ?Recorded ?Confirmed ?Last Taken ?Type ergocalciferol (vitamin D2) 1,250 1,250 mcg PO WEEKLY 06/16/22 10/26/24 06/17/24 History mcg (50,000 unit) capsule potassium 99 mg tablet 198 mg PO DAILY 10/05/24 10/26/24 Unknown History Allergies Allergy/AdvReac Type Severity Reaction Status Date / Time No Known Allergies Allergy Verified 12/13/24 12:25 Review of Systems Review of Systems: All systems reviewed & are unremarkable except as noted in HPI and below Constitutional: Constitutional: Reports no additional constitutional complaints ENT: Reports system reviewed and no additional complaints, except as documented Cardiovascular: Cardiovascular: Reports no additional cardiovascular complaints Respiratory: Respiratory: Reports no additional respiratory complaints Gastrointestinal: Gastrointestinal: Reports no additional gastrointestinal complaints Genitourinary: Genitourinary: Reports no additional female genitourinary complaints [facility] Past Medical History Medical History COPD (chronic obstructive pulmonary disease) CHF (congestive heart failure) was EF 30% - now 55-60% Closed fracture of right proximal humerus BMI 23.0-23.9, adult Daily consumption of alcohol Chronic anticoagulation Heart failure of unknown type Chronic obstructive pulmonary disease Paroxysmal atrial fibrillation Hyperlipidemia Depression Tobacco use Essential hypertension Age related osteoporosis Surgical History Surgical History AICD (automatic cardioverter/defibrillator) present History of permanent cardiac pacemaker placement History of implantable cardioverter-defibrillator (ICD) insertion History of cardiac catheterization History of colonoscopy History of tonsillectomy and adenoidectomy History of partial hysterectomy Family History Family History Mother Cerebrovascular accident Father Heart disease Sibling Sepsis Heart disease Social History Social History Social History: Surrogate medical decision maker: Kasey Truong, friend. Code status: Full code. Smoking packs per day: 1 Smoking cigarettes per day: 20.0 Years smoked: 50 Smoking pack-years: 50.00 Smoking status: Current every day smoker Tobacco type: cigarettes Second hand tobacco smoke exposure: No Alcohol intake: current Drinks per week: 5 Alcohol use details: BEERS Substance use: never Substance use type: does not use Do You Feel Safe in your Home?: Yes Lack of Transportation: No Lack of Food: Never True Current Housing: I Have Housing Concerned About Future Housing: No Difficulty Paying Gas/Electric Bills: No Difficulty Paying for Meds: No Currently Unemployed: No Education: High School Diploma/GED Difficulty w/ Childcare or Family Care: No Living arrangements: alone Additional living arrangements comments: Lives in [place]. Occupation/Education: occupation Additional occupation/education comments: Works at the [employer]. Gender identity (if verbalized by the patient): Female Spiritual care concerns: No Exam Narrative: GENERAL: Well-appearing, well-nourished, and in no acute distress. HEAD: Normocephalic, atraumatic. ENT: Mucous membranes moist. NECK: Supple. CHEST: Clear to auscultation. No respiratory distress. Well-healing pacemaker insertion site without erythema or wound dehiscence, some bruising noted. HEART: Regular rate and rhythm. Normal peripheral pulses.. EXTREMITIES: Normal range of motion. No edema. SKIN: Warm, dry, cellulitic appearing rash to the ulnar aspect of the distal forearm extending beyond the wrist to the hypothenar eminence. NEURO: Alert and oriented x3. PSYCH: Normal mood and affect. Course Course Emergency Course: Discussed diagnosis well as imaging and lab results. Will start on clindamycin, she may continue cefuroxime. Discharge. Vital Signs Vital signs: Vital Signs Pulse Rate 104 H 12/13/24 12:25 Respiratory Rate 20 12/13/24 12:25 Blood Pressure 154/99 H 12/13/24 12:25 Pulse Oximetry 95 12/13/24 12:25 Oxygen Delivery Room Air 12/13/24 12:25 Pulse Rate 104 H 12/13/24 12:25 Respiratory Rate 20 12/13/24 12:25 Blood Pressure 154/99 H 12/13/24 12:25 Pulse Oximetry 95 12/13/24 12:25 Oxygen Delivery Room Air 12/13/24 12:25 MDM - Allergic Reaction Differential Diagnosis Differential diagnosis: Likely allergic reaction and other (Cellulitis, DVT, superficial thrombophlebitis) Lab Data Attestation: I reviewed the patient's lab results. 12/13/24 13:47 12/13/24 13:47 Labs: Lab Results 12/13/24 Range/Units 13:47 WBC 11.0 H (4.5-10.0) K/mm3 RBC 4.33 (4.2-5.4) M/mm3 Hgb 14.1 (12.0-15.0) g/dL Hct 42.2 (37.0-47.0) % MCV 97.5 (80-100) fl MCH 32.6 (26-34) pg MCHC 33.4 (32-36) g/dl RDW 12.5 (11.5-14.5) % Plt Count 200 D (150-375) k/mm3 MPV 9.0 (7.4-10.4) fl Immature Gran % (Auto) 0.4 (0-0.5) % Neut % (Auto) 76.6 H (45.5-73.1) % Lymph % (Auto) 15.2 L (18.3-44.2) % [place] % (Auto) 7.0 (2.6-8.5) % Eos % (Auto) 0.4 (0-4.4) % Baso % (Auto) 0.4 (0.2-1.2) % Lymph # (Auto) 1.68 (0.9-3.2) K/mm3 [place] # (Auto) 0.8 H (0.1-0.6) K/mm3 Eos # (Auto) 0.0 (0-0.3) K/mm3 Baso # (Auto) 0.0 (0.0-0.1) K/mm3 Abs Immat Gran (auto) 0.04 H (0.00-0.031) K/mm3 Absolute Neuts (auto) 8.5 H (1.3-6.7) K/mm3 Absolute Nucleated RBC 0.000 (0.0-0.012) K/mm3 Nucleated RBC % 0.0 (0.0-0.2) % PT 13.6 (11.1-14.7) Seconds INR 1.0 APTT 27.3 (22.3-36.8) Seconds Sodium 132 L (137-145) mmol/L Potassium 3.6 (3.4-5.0) mmol/L Chloride 98 (98-107) mmol/L Carbon Dioxide 28 (22-30) mmol/L Anion Gap 6 (4-12) mmol/L BUN 17 D (7-17) mg/dL Creatinine 0.57 L (0.7-1.0) mg/dL Estim Creat Clear Calc 80 ml/min Estimated GFR > 60 (59 - ) Glucose 92 (65-110) mg/dL Lactic Acid 0.9 (0.7-2.0) mmol/L Calcium 9.2 (8.4-10.2) mg/dL Total Bilirubin 0.8 (0.2-1.3) mg/dL AST 80 H (14-36) U/L ALT 76 H (6-35) U/L Alkaline Phosphatase 153 H (38-126) U/L Total Protein 7.4 (6.3-8.2) g/dL Albumin 4.2 (3.5-5.1) g/dL Imaging Data Radiologist's impression: ITS Impressions Venous Doppler Study 12/13/24 13:45 IMPRESSION: 1: No left upper extremity deep venous thrombosis. Discharge Plan Discharge Clinical Impression: Cellulitis Patient Disposition: Home Condition: Stable Instructions: Cellulitis (ED) Additional Instructions: Return ER if you have worsening redness and pain, you have fever over 100.4? F, or you have additional concerns. Patient Language: [place] Prescriptions: New clindamycin HCl [Cleocin HCl] 150 mg capsule 450 mg PO TID 7 Days Qty: 63 0RF hydrocodone-acetaminophen 5-325 mg tablet 1 tablet PO Q6H PRN (Reason: pain) Qty: 12 0RF No Action losartan 25 mg tablet 25 mg PO DAILY Qty: 90 2RF ergocalciferol (vitamin D2) 1,250 mcg (50,000 unit) capsule 1,250 mcg PO WEEKLY Rx Instructions: FRIDAY potassium 99 mg tablet 198 mg PO DAILY oxycodone-acetaminophen 7.5-325 mg tablet 1 tablet PO Q6H PRN (Reason: pain) Qty: 30 0RF Breztri Aerosphere 160-9-4.8 mcg/actuation HFA aerosol inhaler See Rx Instructions .ROUTE .COMPLEX Qty: 10.7 5RF Dose Instruction: INHALE 2 PUFFS BY MOUTH TWICE DAILY Rx Instructions: INHALE 2 PUFFS BY MOUTH TWICE DAILY metoprolol succinate [Toprol XL] 25 mg tablet extended release 24 hr 25 mg PO QAM Qty: 90 1RF duloxetine 60 mg capsule,delayed release(DR/EC) See Rx Instructions .ROUTE .COMPLEX Qty: 90 2RF Dose Instruction: TAKE 1 CAPSULE BY MOUTH EVERY DAY Rx Instructions: TAKE 1 CAPSULE BY MOUTH EVERY DAY ezetimibe 10 mg tablet See Rx Instructions .ROUTE .COMPLEX Qty: 90 3RF Dose Instruction: TAKE 1 TABLET BY MOUTH EVERY DAY Rx Instructions: TAKE 1 TABLET BY MOUTH EVERY DAY alprazolam 0.25 mg tablet 0.25 mg PO QHS Qty: 30 0RF Rx Instructions: TAKE 1 TABLET BY MOUTH DAILY NEEDED rosuvastatin 5 mg tablet 5 mg PO DAILY Qty: 90 1RF Rx Instructions: TAKE 1 TABLET BY MOUTH EVERY DAY Follow-up/Referrals: Max Patel APRN [Primary Care Provider, Internal Medicine] - 1 Week
[2024-12-13 13:54] LABS: Hematocrit 42.2 % (37.0-47.0); Hemoglobin 14.1 g/dL (12.0-15.0); Immature Granulocyte Percent A 0.4 % (0-0.5); Lymphocytes Absolute Auto 1.68 K/mm3 (0.9-3.2); Mean Corpuscular HGB Conc 33.4 g/dl (32-36); Mean Corpuscular Hemoglobin 32.6 pg (26-34); Mean Corpuscular Volume 97.5 fl (80-100); Nucleated Red Blood Cells Absolute Auto 0.000 K/mm3 (0.0-0.012); Nucleated Red Blood Cells Perc 0.0 % (0.0-0.2); Platelet Count Result 200 k/mm3 (150-375); Red Blood Count 4.33 M/mm3 (4.2-5.4); White Blood Count 11.0 K/mm3 (4.5-10.0)
[2024-12-13] MEDS: HYDROcodone/acetaminophen (*CRX) 5-325 MG TABLET 1 TAB PO (13:54)
[2024-12-13 14:06] LABS: Alanine Aminotransferase 76 U/L (6-35); Albumin Level 4.2 g/dL (3.5-5.1); Alkaline Phosphatase 153 U/L (38-126); Anion Gap 6 mmol/L (4-12); Aspartate Amino Transferase 80 U/L (14-36); Bilirubin,Total 0.8 mg/dL (0.2-1.3); Blood Urea Nitrogen 17 mg/dL (7-17); Calcium 9.2 mg/dL (8.4-10.2); Carbon Dioxide 28 mmol/L (22-30); Chloride 98 mmol/L (98-107); Estimated CRCL calculation 80 ml/min; Estimated Glomerular Filt Rate > 60; Glucose 92 mg/dL (65-110); Potassium 3.6 mmol/L (3.4-5.0); Sodium 132 mmol/L (137-145); Total Protein 7.4 g/dL (6.3-8.2)
[2024-12-13 14:07] LABS: INR 1.0; Prothrombin Time 13.6 Seconds (11.1-14.7)
[2024-12-13 14:08] LABS: Partial Thromboplastin Time 27.3 Seconds (22.3-36.8)
[2024-12-13 15:30] VITALS: BP 146/96; PULSE 98; RESP 18; O2SAT 96
== END 2024-12-13 15:32 | disposition home or self-care (01) ==
PROVIDERS: Emergency Provider Emergency Medicine; PCP Nurse Practitioner
DX: L03.90 Cellulitis, unspecified (principal); F17.210 Nicotine dependence, cigarettes, uncomplicated; J44.9 Chronic obstructive pulmonary disease, unspecified; I11.0 Hypertensive heart disease with heart failure; I50.9 Heart failure, unspecified; Z79.01 Long term (current) use of anticoagulants; E78.5 Hyperlipidemia, unspecified
CPT/HCPCS: 36415; 80053; 83605; 85025; 85610; 85730; 93971; 99284; A9270